=== PATIENT | female | born 1995 | race Caucasian/White ===

== ENCOUNTER 2016-12-28 16:46 | Observation (INO) | payer MEDICAID, OTHER ==
[2016-12-28] VITALS (9 sets, daily range): BP systolic 94; BP diastolic 55; PULSE 88; RESP 16–18; TEMP 97.9
[~2016-12-28 16:46] MED LIST: BACT800T5 PO; CLIN1CAP5 PO; HYDR-3533 PO; LIDO5GEL EX
[2016-12-28 18:05] LABS: AUTOMATED NEUTROPHIL # 7.6 TH/MM3 (1.8-7.7); BASOPHIL % 0.3 % (0.0-2.0); EOSINOPHIL # 0.1 TH/MM3 (0-0.4); EOSINOPHIL % 1.4 % (0.0-4.0); HEMATOCRIT 32.8 % (35.0-46.0); HEMO FLAGS DIFF FINAL; LYMPH % 16.9 % (9.0-44.0); LYMPHOCYTE # 1.7 TH/MM3 (1.0-4.8); MEAN CELL VOLUME 85.8 FL (80.0-100.0); MEAN CORPUSCULAR HEMOGLOBIN 29.3 PG (27.0-34.0); MEAN CORPUSCULAR HGB CONC 34.1 % (32.0-36.0); MONO % 7.3 % (0.0-8.0); NEUT % 74.1 % (16.0-70.0); PLATELET COUNT 304 TH/MM3 (150-450); RED BLOOD COUNT 3.82 MIL/MM3 (4.00-5.30); RED CELL DISTRIBUTION WIDTH 16.6 % (11.6-17.2); WHITE BLOOD COUNT 10.3 TH/MM3 (4.0-11.0)
[2016-12-28 18:22] LABS: BACTERIA, URINE MOD /hpf; BLOOD, URINE NEG (NEG); COMMENT (UR) CULTURE INDICATED; CULTURE IF INDICATED CULTURE INDICATED; GLUCOSE,URINE NEG (NEG); HYALINE CAST, URINE 1 /lpf (RARE); KETONE, URINE NEG (NEG); MUCUS URINE FEW /lpf (OCC); NITRITE,URINE NEG (NEG); SQUAMOUS EPITHELIAL CELL URINE 3 /hpf (0-5); URINE COLOR YELLOW (YELLW/STRAW)
[2016-12-28 18:24] LABS: AMPHETAMINE, URINE NEG (NEG); BARBITURATES, URINE NEG (NEG); COCAINE, URINE NEG (NEG)
[2016-12-28 18:31] LABS: ALT (GPT) 14 U/L (10-53); ANION GAP 10 MEQ/L (5-15); AST (GOT) 8 U/L (15-37); BICARBONATE 22.2 MEQ/L (21.0-32.0); BLOOD UREA NITROGEN 8 MG/DL (7-18); CHLORIDE 110 MEQ/L (98-107); GLOMERULAR FILTRATION RATE 177 ML/MIN (>89); POTASSIUM 3.6 MEQ/L (3.5-5.1); SODIUM (NA) 142 MEQ/L (136-145)
[2016-12-28 18:33] LABS: ALKALINE PHOSPHATASE 70 U/L (45-117); TOTAL BILIRUBIN ADULT 0.2 MG/DL (0.2-1.0)
[2016-12-28] MEDS: REMOVE OLD PATCH T-DERMAL SCH (18:45)
[2016-12-28] MEDS ORDERED: ONDANSETRON ODT 4 MG TAB PO PRN (18:45)
[2016-12-28] MEDS ORDERED: ONDANSETRON HCL 4 MG/2 ML VIAL IV PUSH PRN (18:45)
[2016-12-28] MEDS ORDERED: BUPRENORPHINE HCL 8 MG SUBLINGUAL TAB SL PRN (18:45)
--- NOTE | 2016-12-28 20:05 | HHI.HP ---
HPI Chief Complaint cramping abdominal pain Date Seen: Dec 28, 2016 Travel History International Travel<30 Days: No Contact w/Intl Traveler<30Days: No Known Affected Area: No History of Present Illness HPI This is a 21y/o at ~20w of gestation, with no care who presented to her first visit with JANE and was told to come to the [facility] for evaluation. Pt reported h/o IV drug abuse with multiple abscesses, no treatment. She used heroin up until May after which she started using subxone which she ran out of on Monday and then began using Xanax about 1.5 bars /day, both of which she obtains "from a friend." H/o suboxone use in her previous pregnancies. After her last she stopped using suboxone but then after hemarrhoid surgery she relapsed and started heroin again. Her partner does no use drugs, smoke or even drink alcohol. Pt really wants help to quit using. complicated by: 1. young multip, no care 2. poor social situation 3. drug abuse since about age 11, was in rehab from age [age]y for about 1 year 4. h/o PP hemorrhage 5. ? heart murmur on exam today 6. h/o MRSA, cultures obtained today Para: 4 : 6 Miscarriage: 1 History Past Medical History Medical History: Denies Significant Hx Obstetric History Obstetric History 07/27/08 38w [id number] Male, "Cedrik" no drug abuse 05/06/13 38w [id number] Female "Taleah" alcohol abuse 1st trimester, "pain pills," suboxone 07/15/14 39w Induction 8lbs Male "TJ" "Kidney problems" shoulder dystocia, "pain pills" heroin, suboxone 11/04/15 39w [id number] Male "Tory" shoulder dystocia "Estephanie" ecstasy, suboxone, stopped suboxone post delivery Past Surgical History Narrative Surgical hemorrhoid surgery 11/2015 Social History Alcohol Use: No Tobacco Use: Yes (2pp/d) Substance Abuse: Yes (multi drug abuse) Allergies-Medications (Allergen,Severity, Reaction): Coded Allergies: Penicillin (Verified Allergy, Unknown, 05/31/16) *MDRO Multi-Drug Resistant Organism (Verified Adverse Reaction, Unknown, 06/06/16) MRSA (abdomen-05/31/16) Home Meds Active Scripts Clindamycin 150 Mg Cap2 Tab PO Q6H 10 Days Ref 0 Prov:Alessandra Marie DO 05/31/16 Sulfamethoxazole-Trimethoprim (Bactrim DS)800-160 Mg Tab1 Tab PO BID #20 TAB Ref 0 Prov:Alessandra Marie DO 05/31/16 Hydrocodone/Acetaminophen 5 mg/325 mg (Lortab 5 mg/325 mg)1 Tab1 Tab PO Q6H PRN (PAIN) #20 TAB Prov:Karmen Wilson MD 12/11/15 Lidocaine (Anorectal) (Topicaine 5)5 % Gel5 % EX BID 5 Days Prov:Karmen Wilson MD 12/11/15 Review of Systems Except as stated in HPI: all other systems reviewed are Neg Physical Exam Vital Signs Date Time Temp Pulse Resp B/P Pulse Ox O2 Delivery O2 Flow Rate FiO2 12/28/16 19:43 97.9 12/28/16 19:42 88 94/55 12/28/16 19:41 18 12/28/16 19:15 17 12/28/16 17:30 16 Narrative GENERAL: Well-nourished, well-developed patient. SKIN: Warm and dry, multiple scabs all over arms/legs, 2 areas of resolved abscesses HEAD: Normocephalic and atraumatic. EYES: No scleral icterus. No injection or drainage. ENT: No nasal drainage noted. Mucous membranes pink. Airway patent. NECK: Supple, trachea midline. No JVD. CARDIOVASCULAR: Regular rate and rhythm without murmurs, gallops, or rubs. RESPIRATORY: Breath sounds equal bilaterally. No accessory muscle use. BREASTS: Bilateral exam showed no masses , no retractions, no nipple discharge. ABDOMEN/GI: Abdomen soft, non-tender, bowel sounds present, no rebound, no guarding Gravid to 20 weeks size GENITOURINARY: External Genitalia: intact and normal in appearance VE: closed/thick/posterior Uterine Contractions: None FHT's: + EXTREMITIES: No cyanosis or edema. BACK: Nontender without obvious deformity. No CVA tenderness. NEUROLOGICAL: Awake and alert. Motor and sensory grossly within normal limits. Five out of 5 muscle strength in all muscle groups. Normal speech. Data Data Vital Signs Reviewed: Yes Orders Vital Signs (Adult) .ON ADMISSION (12/28/16 17:20) ^ Labor Status (12/28/16 17:20) ^ Hydration (12/28/16 17:20) Ob/Psych Drug Screen, Urine (12/28/16 17:20) Rubella Immune Status (12/28/16 17:20) Hepatitis Profile (12/28/16 17:20) Rapid Plasma Regin (Rpr) W Ttr (12/28/16 17:20) Type And Screen (12/28/16 17:20) Complete Blood Count With Diff (12/28/16 17:20) Special Serology (12/28/16 17:20) Comprehensive Metabolic Panel (12/28/16 17:20) Gc And Chlamydia Pcr (12/28/16 17:20) Urinalysis - C+S If Indicated (12/28/16 17:20) Ob (2e) Additional Admit Info (12/28/16 18:13) Urine Culture (12/28/16 17:45) Equip, Isolation Cart (12/28/16 18:28) Ur Bath Salts (12/28/16 17:45) Ur Heroin (12/28/16 17:45) Ur K2 Spice (12/28/16 17:45) Ur Ecstasy (12/28/16 17:45) Phencyclidine Urine (Pcp) (12/28/16 17:45) Buprenorphine (Buprenorphine) (12/28/16 18:45) Blood Culture (12/28/16 18:32) Case Management Consult (12/28/16 ) Ondansetron Odt (Zofran Odt) (12/28/16 18:45) Ondansetron Inj (Zofran Inj) (12/28/16 18:45) Clonidine (Catapres) (12/28/16 18:45) Hydroxyzine Pamoate (Vistaril) (12/28/16 18:45) Lorazepam (Ativan) (12/28/16 18:45) Consult Infectious Disease (12/28/16 ) Consult Obstetrics (12/28/16 ) Nicotine 21 Mg Patch.24 Hr (Habitrol 21 (12/28/16 18:45) Remove Old Patch (12/28/16 18:45) Nasal Mrsa/Sa Pcr (12/28/16 18:32) Us Ob Pelvis >14 Wks Fetus (12/28/16 ) (Hub Use Only)Inp Phy Cons/Ref (12/28/16 ) (Hub Use Only)Inp Phy Cons/Ref (12/28/16 ) Labs Laboratory Tests Test 12/28/16 17:45 White Blood Count 10.3 Red Blood Count 3.82 Hemoglobin 11.2 Hematocrit 32.8 Mean Corpuscular Volume 85.8 Mean Corpuscular Hemoglobin 29.3 Mean Corpuscular Hemoglobin 34.1 Concent Red Cell Distribution Width 16.6 Platelet Count 304 Mean Platelet Volume 8.1 Neutrophils (%) (Auto) 74.1 Lymphocytes (%) (Auto) 16.9 Monocytes (%) (Auto) 7.3 Eosinophils (%) (Auto) 1.4 Basophils (%) (Auto) 0.3 Neutrophils # (Auto) 7.6 Lymphocytes # (Auto) 1.7 Monocytes # (Auto) 0.8 Eosinophils # (Auto) 0.1 Basophils # (Auto) 0.0 CBC Comment DIFF FINAL Differential Comment Urine Color YELLOW Urine Turbidity HAZY Urine pH 6.0 Urine Specific [place] 1.017 Urine Protein TRACE Urine Glucose (UA) NEG Urine Ketones NEG Urine Occult Blood NEG Urine Nitrite NEG Urine Bilirubin NEG Urine Urobilinogen 2.0 Urine Leukocyte Esterase SMALL Urine RBC 1 Urine WBC 4 Urine Squamous Epithelial 3 Cells Urine Bacteria MOD Urine Hyaline Casts 1 Urine Mucus FEW Microscopic Urinalysis Comment CULTURE INDICATED Sodium Level 142 Potassium Level 3.6 Chloride Level 110 Carbon Dioxide Level 22.2 Anion Gap 10 Blood Urea Nitrogen 8 Creatinine 0.44 Estimat Glomerular Filtration 177 Rate Random Glucose 88 Calcium Level 8.2 Total Bilirubin 0.2 Aspartate Amino Transf 8 (AST/SGOT) Alanine Aminotransferase 14 (ALT/SGPT) Alkaline Phosphatase 70 Total Protein 6.7 Albumin 2.7 Urine Opiates Screen NEG Urine Barbiturates Screen NEG Urine Amphetamines Screen NEG Urine Benzodiazepines Screen POS Urine Cocaine Screen NEG Urine Cannabinoids Screen NEG Blood Type A NEGATIVE Antibody Screen NEGATIVE Date/Time Procedure Status Source Growth 12/28/16 19:22 Aerobic Blood Culture Received Blood Peripheral Pending 12/28/16 19:22 Anaerobic Blood Culture Received Blood Peripheral Pending 12/28/16 17:45 Urine Culture Received Urine Clean Catch Pending Assessment/Plan Problem List: (1) Drug abuse during (2) Tobacco abuse (3) H/O methicillin resistant Staphylococcus aureus infection (4) No care in current in second trimester Assessment and Plan 21y/o at ~20w with muti-drug abuse, ?septicemia, ?heart murmur. -+FH -afebrile but cultures pending -tobacco abuse: for 21mg nicotine patch -drug abuse, likely will go into withdrawal while admitted: Subutex, Ativan, Vistaril, Clonidine -no care, for all labs and ultrasound tomorrow -pt considering adopting this child out -d/w Dr. Velazquez who recommended Subutex, will f/u with her outpatient Lala West MD Dec 28, 2016 20:05
[2016-12-28 20:13] LABS: CHLAMYDIA PCR NOT DETECTED (NOT DETECT); NEISSERIA PCR NOT DETECTED (NOT DETECT)
[2016-12-28 21:52] LABS: RUBELLA IGG ANTIBODY 52.7 IU/mL (10.0-500.0); RUBELLA STATUS IMMUNE (IMMUNE)
[2016-12-28] MEDS: NICOTINE 21 MG/24 HR PATCH T-DERMAL SCH (23:00)
[2016-12-29] VITALS (17 sets, daily range): BP systolic 93–117; BP diastolic 51–58; PULSE 74–90; RESP 18; TEMP 97.5–97.8
[2016-12-29] MEDS ORDERED: SODIUM CHLORIDE 0.9% FLUSH 10 ML FLUSH IV FLUSH PRN (08:15)
[2016-12-29] MEDS: SODIUM CHLORIDE 0.9% FLUSH 10 ML FLUSH IV FLUSH SCH ×2 (09:00→20:12)
[2016-12-29] MEDS: NICOTINE 21 MG/24 HR PATCH T-DERMAL SCH (09:00)
[2016-12-29] MEDS: REMOVE OLD PATCH T-DERMAL SCH (09:00)
--- NOTE | 2016-12-29 09:47 | PD.OB.ANTE ---
Subjective Diagnosis: (1) Drug abuse during (2) Tobacco abuse (3) H/O methicillin resistant Staphylococcus aureus infection (4) No care in current in second trimester Interval History No acute issues overnight. Patient took one dose of Vistaril overnight but did not take any Subutex or Ativan. She is feeling more anxious today. She is no longer having pelvic cramping. She notes chest pain that she has had for the past 3 days that she attributes to anxiety. She denies any shortness of breath, pleurodynia, nausea, vomiting, headache, or fever. She does endorse chills. No vaginal bleeding or discharge. Antepartum ROS: Reports: movement normal, Denies: New complaints, Loss of fluid, Vaginal bleeding, Contractions ( Juliane Jones MD R2) Objective Vital Signs Vital Signs Date Time Temp Pulse Resp B/P Pulse Ox O2 Delivery O2 Flow Rate FiO2 12/29/16 07:17 97.7 12/29/16 07:17 75 18 93/55 12/29/16 06:06 18 12/29/16 05:12 18 12/29/16 04:30 18 12/29/16 03:30 18 12/29/16 02:30 18 12/29/16 01:30 18 12/29/16 00:30 18 12/28/16 23:00 18 12/28/16 22:00 18 12/28/16 21:00 18 12/28/16 20:15 18 12/28/16 19:43 97.9 12/28/16 19:42 88 94/55 12/28/16 19:41 18 12/28/16 19:15 17 12/28/16 17:30 16 Lab & Micro Results Test 12/28/16 17:45 White Blood Count 10.3 TH/MM3 Red Blood Count 3.82 MIL/MM3 Hemoglobin 11.2 GM/DL Hematocrit 32.8 % Mean Corpuscular Volume 85.8 FL Mean Corpuscular Hemoglobin 29.3 PG Mean Corpuscular Hemoglobin 34.1 % Concent Red Cell Distribution Width 16.6 % Platelet Count 304 TH/MM3 Mean Platelet Volume 8.1 FL Neutrophils (%) (Auto) 74.1 % Lymphocytes (%) (Auto) 16.9 % Monocytes (%) (Auto) 7.3 % Eosinophils (%) (Auto) 1.4 % Basophils (%) (Auto) 0.3 % Neutrophils # (Auto) 7.6 TH/MM3 Lymphocytes # (Auto) 1.7 TH/MM3 Monocytes # (Auto) 0.8 TH/MM3 Eosinophils # (Auto) 0.1 TH/MM3 Basophils # (Auto) 0.0 TH/MM3 CBC Comment DIFF FINAL Differential Comment Urine Color YELLOW Urine Turbidity HAZY Urine pH 6.0 Urine Specific [place] 1.017 Urine Protein TRACE mg/dL Urine Glucose (UA) NEG mg/dL Urine Ketones NEG mg/dL Urine Occult Blood NEG Urine Nitrite NEG Urine Bilirubin NEG Urine Urobilinogen 2.0 MG/DL Urine Leukocyte Esterase SMALL Urine RBC 1 /hpf Urine WBC 4 /hpf Urine Squamous Epithelial 3 /hpf Cells Urine Bacteria MOD /hpf Urine Hyaline Casts 1 /lpf Urine Mucus FEW /lpf Microscopic Urinalysis Comment CULTURE INDICATED Sodium Level 142 MEQ/L Potassium Level 3.6 MEQ/L Chloride Level 110 MEQ/L Carbon Dioxide Level 22.2 MEQ/L Anion Gap 10 MEQ/L Blood Urea Nitrogen 8 MG/DL Creatinine 0.44 MG/DL Estimat Glomerular Filtration 177 ML/MIN Rate Random Glucose 88 MG/DL Calcium Level 8.2 MG/DL Total Bilirubin 0.2 MG/DL Aspartate Amino Transf 8 U/L (AST/SGOT) Alanine Aminotransferase 14 U/L (ALT/SGPT) Alkaline Phosphatase 70 U/L Total Protein 6.7 GM/DL Albumin 2.7 GM/DL Urine Opiates Screen NEG Urine Barbiturates Screen NEG Urine Amphetamines Screen NEG Urine Benzodiazepines Screen POS Urine Cocaine Screen NEG Urine Cannabinoids Screen NEG Chlamydia trachomatis DNA NOT DETECTED (PCR) Neisseria gonorrhoeae DNA NOT DETECTED (PCR) Rubella Immunity Screen IMMUNE Rubella Antibody, Quantitative 52.7 IU/mL Blood Type A NEGATIVE Antibody Screen NEGATIVE Date/Time Procedure Status Source Growth 12/28/16 19:22 Aerobic Blood Culture Received Blood Peripheral Pending 12/28/16 19:22 Anaerobic Blood Culture Received Blood Peripheral Pending 12/28/16 17:45 Urine Culture Received Urine Clean Catch Pending Physical Exam GENERAL: Well-nourished, well-developed female. Pallor. CARDIOVASCULAR: Regular rate and rhythm with 1/6 KONG, no gallops or rubs. RESPIRATORY: Breath sounds equal bilaterally. No accessory muscle use. ABDOMEN/GI: Abdomen soft, non-tender. Fundus: 20 GENITOURINARY: External Genitalia: intact and normal in appearance Cervix: posterior Dilatation: 0 Effacement: 0 Station: -3 Membranes: intact Uterine Contractions: none FHT's: 140 EXTREMITIES: No cyanosis or edema, non-tender, without signs of DVT. (Juliane Jones MD R2) Assessment and Plan Problem List: (1) Drug abuse during Status: Acute (2) Tobacco abuse Status: Acute (3) H/O methicillin resistant Staphylococcus aureus infection Status: Acute (4) No care in current in second trimester Status: Acute Assessment and Plan 21y/o at 21-3/7 weeks gestation by 2nd trimester US with muti-drug abuse, ?septicemia, ?heart murmur. -+FHT, reassuring. -Tobacco abuse: 21mg nicotine patch -Drug abuse, likely will go into withdrawal while admitted: Subutex, Ativan, Vistaril, Clonidine. -Dr. Velazquez consulted for assistance with Subutex, will f/u with her outpatient -No care- labs drawn and pending, obstetric US performed and pending -Afebrile, possible murmur, BCx x 2 pending. Infectious Disease, Dr. Domínguez, consulted. Recommended Echo and BCx which are pending. -Pt considering adopting this child out- Case management and Dr. Velazquez assisting with social aspects of care. dw Dr. West, Dr. Velazquez, Dr. Domínguez, and Dr. Garima Woodall R1 (Juliane Jones MD R2) Attestation Agree with above. Pending: ID consult, echo, blood/urine cultures (Lala West MD) Juliane Jones MD R2 Dec 29, 2016 09:47 Lala West MD Dec 29, 2016 09:52
--- NOTE | 2016-12-29 09:58 | PD.CONS ---
HPI Chief Complaint cramping and aggitation secondary to withdrawal at 21 weeks no care Date Seen: Dec 28, 2016 Travel History International Travel<30 Days: No Contact w/Intl Traveler<30Days: No Known Affected Area: No History of Present Illness HPI 21 yo wf at 21 weeks by sonogram presented with pain and cramping and no prior care. She has been in the [facility] several years-- originally from [place] She notes some movement. No leaking, bleeding. No fever, chills. Has been on an off opioids and other substances since 12 yoa. Most recently streat suboxone and "bars" 2 mg xanan--typically 1 to 1 and half daily. Unaware if hep c positive, HIV positive or if any bacterial infections. Has had spontaneous boils pop up on skin. She has reasonable dentition. She tallks very quietly and describes living with same boy since 12 yoa, who does not use himself but keeps her pipeline going. He is very dominating and controlling. Her mom in [place] has the oldest child but the mom and grandma are in active addiction. Para: 4 History Past Medical History Narrative Medical diagnosed with MRSA in past is depressed and has PTSD from childhood trauma Medical History: Denies Significant Hx (hasa been ) Past Surgical History Surgical History: No Previous Surgery Family History Family History: generational addiction and little support Social History Alcohol Use: No Tobacco Use: Yes Substance Abuse: Yes (smokes two packs daily) Allergies-Medications (Allergen,Severity, Reaction): Coded Allergies: Penicillin (Verified Allergy, Unknown, 05/31/16) *MDRO Multi-Drug Resistant Organism (Verified Adverse Reaction, Unknown, 06/06/16) MRSA (abdomen-05/31/16) Home Meds Active Scripts Clindamycin 150 Mg Cap2 Tab PO Q6H 10 Days Ref 0 Prov:Alessandra Marie DO 05/31/16 Sulfamethoxazole-Trimethoprim (Bactrim DS)800-160 Mg Tab1 Tab PO BID #20 TAB Ref 0 Prov:Alessandra Marie DO 05/31/16 Hydrocodone/Acetaminophen 5 mg/325 mg (Lortab 5 mg/325 mg)1 Tab1 Tab PO Q6H PRN (PAIN) #20 TAB Prov:Karmen Wilson MD 12/11/15 Lidocaine (Anorectal) (Topicaine 5)5 % Gel5 % EX BID 5 Days Prov:Karmen Wilson MD 12/11/15 Review of Systems HENT: Headaches Cardiovascular: Tachycardia Gastrointestinal: Nausea, Abdominal Pain, Loss of Appetite Skin: Rash, Lesions Neurologic: Weakness Psychiatric: Anxiety, Depression, Mood Disorder, Substance Abuse Physical Exam Vital Signs Date Time Temp Pulse Resp B/P Pulse Ox O2 Delivery O2 Flow Rate FiO2 12/29/16 07:17 97.7 12/29/16 07:17 75 18 93/55 12/29/16 06:06 18 12/29/16 05:12 18 12/29/16 04:30 18 12/29/16 03:30 18 12/29/16 02:30 18 12/29/16 01:30 18 12/29/16 00:30 18 12/28/16 23:00 18 12/28/16 22:00 18 12/28/16 21:00 18 12/28/16 20:15 18 12/28/16 19:43 97.9 12/28/16 19:42 88 94/55 12/28/16 19:41 18 12/28/16 19:15 17 12/28/16 17:30 16 Narrative GENERAL:thin pale and ill appearing SKIN: Warm and dry. Many healing lesions and thrombosed tracks HEAD: Normocephalic and atraumatic. EYES: No scleral icterus. No injection or drainage. ENT: No nasal drainage noted. Mucous membranes pink. Airway patent. NECK: Supple, trachea midline. No JVD. CARDIOVASCULAR: Regular rate and rhythm without murmurs, gallops, or rubs. RESPIRATORY: Breath sounds equal bilaterally. No accessory muscle use. BREASTS: Bilateral exam showed no masses , no retractions, no nipple discharge. ABDOMEN/GI: Abdomen soft, non-tender, bowel sounds present, no rebound, no guarding fundus at umbilicus FHTs present cervix closed EXTREMITIES: No cyanosis or edema. BACK: Nontender without obvious deformity. No CVA tenderness. NEUROLOGICAL: Awake and alert. Motor and sensory grossly within normal limits. Five out of 5 muscle strength in all muscle groups. Normal speech. Data Data Orders Vital Signs (Adult) .ON ADMISSION (12/28/16 17:20) ^ Labor Status (12/28/16 17:20) ^ Hydration (12/28/16 17:20) Ob/Psych Drug Screen, Urine (12/28/16 17:20) Rubella Immune Status (12/28/16 17:20) Hepatitis Profile (12/28/16 17:20) Rapid Plasma Regin (Rpr) W Ttr (12/28/16 17:20) Type And Screen (12/28/16 17:20) Complete Blood Count With Diff (12/28/16 17:20) Special Serology (12/28/16 17:20) Comprehensive Metabolic Panel (12/28/16 17:20) Gc And Chlamydia Pcr (12/28/16 17:20) Urinalysis - C+S If Indicated (12/28/16 17:20) Ob (2e) Additional Admit Info (12/28/16 18:13) Urine Culture (12/28/16 17:45) Equip, Isolation Cart (12/28/16 18:28) Ur Bath Salts (12/28/16 17:45) Ur Heroin (12/28/16 17:45) Ur K2 Spice (12/28/16 17:45) Ur Ecstasy (12/28/16 17:45) Phencyclidine Urine (Pcp) (12/28/16 17:45) Buprenorphine (Buprenorphine) (12/28/16 18:45) Blood Culture (12/28/16 18:32) Case Management Consult (12/28/16 ) Ondansetron Odt (Zofran Odt) (12/28/16 18:45) Ondansetron Inj (Zofran Inj) (12/28/16 18:45) Clonidine (Catapres) (12/28/16 18:45) Hydroxyzine Pamoate (Vistaril) (12/28/16 18:45) Lorazepam (Ativan) (12/28/16 18:45) Consult Infectious Disease (12/28/16 ) Consult Obstetrics (12/28/16 ) Nicotine 21 Mg Patch.24 Hr (Habitrol 21 (12/28/16 18:45) Remove Old Patch (12/28/16 18:45) Nasal Mrsa/Sa Pcr (12/28/16 18:32) (Hub Use Only)Inp Phy Cons/Ref (12/28/16 ) (Hub Use Only)Inp Phy Cons/Ref (12/28/16 ) Echo 2d Comp With Doppler (12/29/16 ) Place In Observation (12/29/16 ) Code Status (12/29/16 08:14) Vital Signs (Adult) ALEXX.Q4H (12/29/16 08:14) Diet Regular Basic (12/29/16 Breakfast) Sodium Chloride 0.9% Flush (Ns Flush) (12/29/16 08:15) Sodium Chloride 0.9% Flush (Ns Flush) (12/29/16 09:00) Activity Oob Ad Archana (12/29/16 08:14) Us Ob Complete/Level Ii (12/28/16 ) Labs Laboratory Tests Test 12/28/16 17:45 White Blood Count 10.3 Red Blood Count 3.82 Hemoglobin 11.2 Hematocrit 32.8 Mean Corpuscular Volume 85.8 Mean Corpuscular Hemoglobin 29.3 Mean Corpuscular Hemoglobin 34.1 Concent Red Cell Distribution Width 16.6 Platelet Count 304 Mean Platelet Volume 8.1 Neutrophils (%) (Auto) 74.1 Lymphocytes (%) (Auto) 16.9 Monocytes (%) (Auto) 7.3 Eosinophils (%) (Auto) 1.4 Basophils (%) (Auto) 0.3 Neutrophils # (Auto) 7.6 Lymphocytes # (Auto) 1.7 Monocytes # (Auto) 0.8 Eosinophils # (Auto) 0.1 Basophils # (Auto) 0.0 CBC Comment DIFF FINAL Differential Comment Urine Color YELLOW Urine Turbidity HAZY Urine pH 6.0 Urine Specific [place] 1.017 Urine Protein TRACE Urine Glucose (UA) NEG Urine Ketones NEG Urine Occult Blood NEG Urine Nitrite NEG Urine Bilirubin NEG Urine Urobilinogen 2.0 Urine Leukocyte Esterase SMALL Urine RBC 1 Urine WBC 4 Urine Squamous Epithelial 3 Cells Urine Bacteria MOD Urine Hyaline Casts 1 Urine Mucus FEW Microscopic Urinalysis Comment CULTURE INDICATED Sodium Level 142 Potassium Level 3.6 Chloride Level 110 Carbon Dioxide Level 22.2 Anion Gap 10 Blood Urea Nitrogen 8 Creatinine 0.44 Estimat Glomerular Filtration 177 Rate Random Glucose 88 Calcium Level 8.2 Total Bilirubin 0.2 Aspartate Amino Transf 8 (AST/SGOT) Alanine Aminotransferase 14 (ALT/SGPT) Alkaline Phosphatase 70 Total Protein 6.7 Albumin 2.7 Urine Opiates Screen NEG Urine Barbiturates Screen NEG Urine Amphetamines Screen NEG Urine Benzodiazepines Screen POS Urine Cocaine Screen NEG Urine Cannabinoids Screen NEG Chlamydia trachomatis DNA NOT DETECTED (PCR) Neisseria gonorrhoeae DNA NOT DETECTED (PCR) Rubella Immunity Screen IMMUNE Rubella Antibody, Quantitative 52.7 Blood Type A NEGATIVE Antibody Screen NEGATIVE Date/Time Procedure Status Source Growth 12/28/16 19:22 Aerobic Blood Culture Received Blood Peripheral Pending 12/28/16 19:22 Anaerobic Blood Culture Received Blood Peripheral Pending 12/28/16 17:45 Urine Culture Received Urine Clean Catch Pending MDM Medical Record Reviewed: Yes Interpretation(s) 21 week IUP rule out infection--including bacterial endocarditis substance use disorder--place on legal subutex and short term ativan consider mood stabilizer depression [facility] Margarita Velazquez MD Dec 29, 2016 09:58
[2016-12-29 10:22] LABS: RAPID PLASMA REAGIN SCREEN NON-REACTIVE (NON-REACTVE)
[2016-12-29] MEDS: LORazepam 1 MG TAB PO PRN ×3 (10:55→23:16)
[2016-12-29] MEDS ORDERED: HYDROCORTISONE SOD SUCCINATE 100 MG VIAL IM ONE (11:30)
--- NOTE | 2016-12-29 12:40 | ECHRPT ---
Indication: Acute and subacute infective endocarditis CONCLUSIONS Normal left ventricular size and wall thickness. The left ventricular systolic function is normal wi th an estimated ejection fraction in the range of 50-55%. Left ventricular diastolic function parameters a re normal. No definite regional wall motion abnormalities are present. Structurally normal tricuspid valve. There is trace tricuspid valve regurgitation. BP: 93 / 55 HR: 75 Rhythm: Sinus MEASUREMENTS (Male / Female) Normal Values Technical Quality:Fair 2D ECHO LV Diastolic Diameter PLAX 4.0 cm 4.2 - 5.9 / 3.9 - 5.3 cm LV Systolic Diameter PLAX 3.0 cm IVS Diastolic Thickness 0.8 cm 0.6 - 1.0 / 0.6 - 0.9 cm LVPW Diastolic Thickness 0.8 cm 0.6 - 1.0 / 0.6 - 0.9 cm LV Relative Wall Thickness 0.4 RV Internal Dim ED PLAX 2.5 cm LVOT Diameter 1.8 cm M-MODE Aortic Root Diameter MM 2.9 cm LA Systolic Diameter MM 2.6 cm LA Ao Ratio MM 0.9 AV Cusp Separation MM 2.2 cm DOPPLER AV Peak Velocity 103.0 cm/s AV Peak Gradient 4.2 mmHg LVOT Peak Velocity 95.3 cm/s LVOT Peak Gradient 3.6 mmHg AV Area Cont Eq pk 2.4 cm Mitral E Point Velocity 102.0 cm/s Mitral A Point Velocity 29.6 cm/s Mitral E to A Ratio 3.4 LV E' Lateral Velocity 10.8 cm/s Mitral E to LV E' Lateral Ratio 9.4 LV E' Septal Velocity 11.1 cm/s Mitral E to LV E' Septal Ratio 9.2 TR Peak Velocity 214.0 cm/s TR Peak Gradient 18.3 mmHg PV Peak Velocity 96.4 cm/s PV Peak Gradient 3.7 mmHg FINDINGS LEFT VENTRICLE Normal left ventricular size and wall thickness. The left ventricular systolic function is normal wi th an estimated ejection fraction in the range of 50-55%. Left ventricular diastolic function parameters a re normal. No definite regional wall motion abnormalities are present. TRICUSPID VALVE Structurally normal tricuspid valve. There is trace tricuspid valve regurgitation. The estimated pulmonary arterial pressure is 28 mmHg. Tray Fermin MD (Electronically Signed) Final Date:29 December 2016 12:39
--- NOTE | 2016-12-29 13:36 | MB ---
cc: DELMY CORBIN MD DATE OF CONSULTATION 12/29/[address] Jones REASON FOR CONSULTATION This is a 21-year-old female at 20 weeks gestation with a 10 year history IVDU. Multiple abscesses. Possible heart murmur. Consult for IV antibiotics. HISTORY OF PRESENT ILLNESS This is a 21-year-old white female who presented to the hospital with abdominal pain of a cramping nature. The patient is approximately 20 weeks gestation. She has a history of IV drug use in the past. She tells me that she has not used any IV drugs since May of last year. She has been using prescription medications, but not in IV form. The patient has multiple skin lesions on the legs and also on her hands. She was felt to have a heart murmur as well. She has no fever and white blood cell count is normal. The patient had a history of MRSA infection of the lower abdomen skin lesion in May of 2016. This was cultured and it came back with MRSA. She was given a prescription for medications, but did not take the medication. This lesion resolve spontaneously. She also at the time had a lesion on the left lateral knee which became more enlarged and formed what sounds like an abscess and then it drained and she states that she was having bleeding coming from that lesion and she was seen at an outlying hospital for it. She cannot give me to much details on the treatment given, but it spontaneously closed up and she has a scar in that location. She states that the area over the scar is sometimes tender. The patient has multiple petechial lesions on the anterior legs mostly and also at the feet on the dorsum. There are a few on the thighs. She has multiple on her hands and she has some located at the neck particularly at the posterior aspect and also along the chin. The patient states that she gets anxious and scratches. She states that when she gets high sometimes she can control scratching the areas. She states that they started as a tiny pin-sized raising area on the skin and then she would take her fingernails and try to pop them and they would become somewhat enlarged and then form the excoriation and becomes dry. She states that these do not itch. She states that the only time she gets itching is when the skin of her legs or her arms gets very dry. She tells me that she has a history of psoriasis and was diagnosed with that in childhood. She reports that she had some pain in he right knee and on her hands which comes and goes and was told it was related to psoriasis. She has used topical psoriasis treatments in the past but none lately. The patient states that she has not been taking care of herself lately. She states that sometimes she feels feverish, but when she takes her temperature it is normal. The last time she felt that way was two days ago. She denies night sweats and she has no nausea, vomiting, headache or pain in the joints. PAST MEDICAL HISTORY 1. MRSA skin infection at the abdomen. 2. PTSD from childhood trauma. 3. Substance abuse 4. History of IV drug use. Denies IV drug use after May 2016. 5. Psoriasis ALLERGIES PENICILLIN CAUSES A RASH AND CLOSING UP OF HER THROAT. MEDICATIONS 1. Nicotine patch 2. Ativan p.r.n. 3. Vistaril p.r.n. 4. Catapres p.r.n. 5. Zofran p.r.n. 6. Buprenorphine as needed SOCIAL HISTORY The patient has three chills, ages 1, 1 and 1. No alcohol use. She smokes two pack of cigarettes a day. She is positive for substance abuse. FAMILY HISTORY Noncontributory REVIEW OF SYSTEMS The review of systems is significant for abdomen pain and skin rash and also depressed mood. PHYSICAL EXAMINATION This is a frail petite female who is awake and alert. She is in no acute distress. VITAL SIGNS: Include temperature of 97.8, BP 105/58, respirations 18, heart rate 90. HEENT: Head is atraumatic. Extraocular grossly intact, pupils reactive to light. No icterus. Oropharynx no visible lesions. NECK: Supple without adenopathy. LUNGS: Clear breath sounds. HEART: Regular rate and rhythm. No audible murmurs or rubs or gallops. ABDOMEN: obese, soft, no tenderness appreciated. Positive bowel sounds. RECTAL: Not performed. EXTREMITIES: Multiple varying sized lesions of the skin of a petechial nature which is scattered mostly at the anterior tibia, but also involves the calves and also involving the feet. These are approximately 1 mm to 3 mm in size. The larger lesions have some erythema, but there is no pustule visible. The patient also has multiple similar lesions at the hands and also at the chin and a few on the posterior neck. No visible ones at the back and a few located at the abdomen. No drainage or ulceration visible. The left lateral knee has a dry excoriated scarred lesion. No diffuse rash. NEUROLOGIC: Nonfocal. PSYCH: The patient has a depressed mood, but is calm. LABORATORY DATA WBC 10.3, platelets 304, 74% neutrophils, 16% lymphocytes, 7% monocytes, creatinine 0.44, BUN 8. Sodium 142, AST 8, ALT 14. IMPRESSION The patient with multiple skin lesions which appears to be secondary to trauma from self-induced scratching of the skin by the patient. None of these have the appearance of abscess. The patient is without fever or white blood cell count elevation and she denies IV drug use recently with the last reported use in May of 2016. She has no visible stigmata of embolic lesions suggestive of endocarditis. On exam, I am unable to detect a murmur. . RECOMMENDATIONS 1. Monitor blood cultures until final 2. Follow the 2-D echocardiogram 3. Serial exams to follow for development of a murmur which also likely could be related to state. 4. No antibiotic treatment at this time. The patient developed dry skin and may benefit from emollient or some sort of cream to keep the skin moist. Thank you for this consultation. The patient's progress will be followed if necessary. Please call me if the blood cultures come back positive. Delmy Corbin MD FD/SYDNEY /12:45 PM /1:20 PM MELA
[2016-12-29] MEDS: BUPRENORPHINE HCL 8 MG SUBLINGUAL TAB SL SCH ×2 (15:01→20:46)
[2016-12-29] MEDS: fluvoxaMINE MALEATE 50 MG TAB PO SCH (15:01)
[2016-12-29] MEDS: cloNIDine HCL 0.1 MG TAB PO PRN ×2 (17:33→23:16)
[2016-12-29] MEDS ORDERED: ZOLPIDEM TARTRATE 10 MG TAB PO PRN (21:00)
[2016-12-30] VITALS (9 sets, daily range): BP systolic 91–119; BP diastolic 49–64; PULSE 60–90; RESP 18–20; TEMP 97.5–97.8; O2SAT 92–100
[2016-12-30 05:30] LABS: BACTERIA, URINE MANY /hpf; BLOOD, URINE NEG (NEG); COMMENT (UR) CULTURE INDICATED; CULTURE IF INDICATED CULTURE INDICATED; GLUCOSE,URINE NEG (NEG); HYALINE CAST, URINE 2 /lpf (RARE); KETONE, URINE NEG (NEG); MUCUS URINE MANY /lpf (OCC); NITRITE,URINE NEG (NEG); SQUAMOUS EPITHELIAL CELL URINE 8 /hpf (0-5); URINE COLOR YELLOW (YELLW/STRAW)
[2016-12-30 05:33] LABS: AMPHETAMINE, URINE NEG (NEG); BARBITURATES, URINE NEG (NEG); COCAINE, URINE NEG (NEG)
[2016-12-30] MEDS: fluvoxaMINE MALEATE 50 MG TAB PO SCH (08:37)
[2016-12-30] MEDS: BUPRENORPHINE HCL 8 MG SUBLINGUAL TAB SL SCH (08:38)
[2016-12-30] MEDS: NICOTINE 21 MG/24 HR PATCH T-DERMAL SCH (08:41)
--- NOTE | 2016-12-30 08:46 | PD.PN.STU ---
Subjective Remarks Heaevn was extremely tearful and frustrated after an interaction with the nurse last night in which she noticed that she was excessively tired and unable to hold her head up after her boyfriend came to visit at 3am. She is adamant that she did not take anything other than what has been prescribed and that she still wishes to continue the care plan that has been shared with her. Otherwise she has felt not cravings and has felt like her anxiety has become more manageable with the medications yesterday. Objective Vitals Vital Signs Date Time Temp Pulse Resp B/P Pulse Ox O2 Delivery O2 Flow Rate FiO2 12/30/16 07:45 97.8 20 12/30/16 07:40 90 92 12/30/16 07:30 67 100 12/30/16 05:45 71 100 12/30/16 05:38 81 98 12/30/16 05:04 97.5 12/30/16 05:04 60 18 91/51 12/29/16 22:22 97.8 12/29/16 22:21 76 18 93/57 12/29/16 19:54 78 101/58 12/29/16 19:54 97.5 18 12/29/16 17:37 18 12/29/16 17:32 74 117/57 12/29/16 14:31 80 12/29/16 14:30 97.8 80 18 12/29/16 14:30 95/51 12/29/16 14:28 97.8 12/29/16 10:39 90 18 105/58 12/29/16 10:39 97.8 Result Diagram: 12/28/16 [id number] Objective Remarks psych: mood is blunted, tearful. ABD: FHT 150s A/P Assessment and Plan 1. opioid use disorder: restart dosing regiment that began yesterday; get in touch with [facility] to get pier support representatives to visit room 2. anxiety: she is extremely uneasy about returning home and "finding her new norm;"counselled patient extensively on being introspective of her experience and giving time for medications to be figured out and we will reasses on appointment monday. IUP 28/10 EGA: [facility]. discharge planning - reassess at noon and prepare discharge orders at that time Juany Johnston M3 Dec 30, 2016 08:46
[2016-12-30] MEDS: SODIUM CHLORIDE 0.9% FLUSH 10 ML FLUSH IV FLUSH SCH (09:00)
[2016-12-30] MEDS: LORazepam 1 MG TAB PO PRN (12:06)
[2016-12-30] MEDS: cloNIDine HCL 0.1 MG TAB PO PRN ×2 (12:06→16:46)
--- NOTE | 2016-12-30 13:51 | PD.CONS ---
HPI Travel History International Travel<30 Days: No Contact w/Intl Traveler<30Days: No Known Affected Area: No History of Present Illness HPI 21 yo P4 at 21 weeks here to rule out infection. No evidence of sepsis or ENRICO. Has severe OCD and depression and being addressed. Will begin low dose subutex and follow up with me in office. Will need 12 step, peer support and counseling and will obtain through [employer] [facility]. She can be discharged today and see me on Monday. Allergies-Medications (Allergen,Severity, Reaction): Coded Allergies: Penicillin (Verified Allergy, Unknown, 05/31/16) *MDRO Multi-Drug Resistant Organism (Verified Adverse Reaction, Unknown, 06/06/16) MRSA (abdomen-05/31/16) Home Meds Active Scripts Clindamycin 150 Mg Cap2 Tab PO Q6H 10 Days Ref 0 Prov:Alessandra Marie DO 05/31/16 Sulfamethoxazole-Trimethoprim (Bactrim DS)800-160 Mg Tab1 Tab PO BID #20 TAB Ref 0 Prov:Alessandra Marie DO 05/31/16 Hydrocodone/Acetaminophen 5 mg/325 mg (Lortab 5 mg/325 mg)1 Tab1 Tab PO Q6H PRN (PAIN) #20 TAB Prov:Karmen Wilson MD 12/11/15 Lidocaine (Anorectal) (Topicaine 5)5 % Gel5 % EX BID 5 Days Prov:Karmen Wilson MD 12/11/15 Physical Exam Vital Signs Date Time Temp Pulse Resp B/P Pulse Ox O2 Delivery O2 Flow Rate FiO2 12/30/16 12:00 20 12/30/16 12:00 85 111/64 12/30/16 08:46 76 119/49 12/30/16 07:45 97.8 20 12/30/16 07:40 90 92 12/30/16 07:30 67 100 12/30/16 05:45 71 100 12/30/16 05:38 81 98 12/30/16 05:04 97.5 12/30/16 05:04 60 18 91/51 12/29/16 22:22 97.8 12/29/16 22:21 76 18 93/57 12/29/16 19:54 78 101/58 12/29/16 19:54 97.5 18 12/29/16 17:37 18 12/29/16 17:32 74 117/57 12/29/16 14:31 80 12/29/16 14:30 97.8 80 18 12/29/16 14:30 95/51 12/29/16 14:28 97.8 Narrative GENERAL: Well-nourished, well-developed patient. SKIN: Warm and dry. HEAD: Normocephalic and atraumatic. EYES: No scleral icterus. No injection or drainage. ENT: No nasal drainage noted. Mucous membranes pink. Airway patent. NECK: Supple, trachea midline. No JVD. CARDIOVASCULAR: Regular rate and rhythm without murmurs, gallops, or rubs. RESPIRATORY: Breath sounds equal bilaterally. No accessory muscle use. BREASTS: Bilateral exam showed no masses , no retractions, no nipple discharge. ABDOMEN/GI: Abdomen soft, non-tender, bowel sounds present, no rebound, no guarding Gravid to [-] weeks size Fundal Height: [-] GENITOURINARY: External Genitalia: intact and normal in appearance BUS glands: [-] Cervix: [-] Dilatation: [-] Effacement: [-] Station: [-] Presentation: [-] Membranes: [intact or ruptured] Uterine Contractions: [-] FHT's: Category: [-] Baseline: [-] Reactive: [-] Variability: [-] Decels: [-] EXTREMITIES: No cyanosis or edema. BACK: Nontender without obvious deformity. No CVA tenderness. NEUROLOGICAL: Awake and alert. Motor and sensory grossly within normal limits. Five out of 5 muscle strength in all muscle groups. Normal speech. Data Data Orders Zolpidem (Ambien) (12/29/16 21:00) Equip, K-Thermia Use Of (12/29/16 21:20) Pad, K-Thermia, Large 15x22 Ea (12/29/16 21:20) ^ Other Nursing Orders (12/29/16 21:21) Ob/Psych Drug Screen, Urine (12/30/16 05:12) Urinalysis - C+S If Indicated (12/30/16 05:17) Physician Name Changes (12/30/16 ) Urine Culture (12/30/16 05:13) Ur Bath Salts (12/30/16 05:13) Ur Heroin (12/30/16 05:13) Ur K2 Spice (12/30/16 05:13) Ur Ecstasy (12/30/16 05:13) Phencyclidine Urine (Pcp) (12/30/16 05:13) Labs Laboratory Tests Test 12/30/16 05:13 Urine Color YELLOW Urine Turbidity HAZY Urine pH 6.0 Urine Specific Darby 1.031 Urine Protein 30 Urine Glucose (UA) NEG Urine Ketones NEG Urine Occult Blood NEG Urine Nitrite NEG Urine Bilirubin NEG Urine Urobilinogen 2.0 Urine Leukocyte Esterase TRACE Urine RBC 4 Urine WBC 6 Urine Squamous Epithelial 8 Cells Urine Bacteria MANY Urine Hyaline Casts 2 Urine Mucus MANY Microscopic Urinalysis Comment CULTURE INDICATED Urine Opiates Screen NEG Urine Barbiturates Screen NEG Urine Amphetamines Screen NEG Urine Benzodiazepines Screen POS Urine Cocaine Screen NEG Urine Cannabinoids Screen NEG Date/Time Procedure Status Source Growth 12/30/16 05:13 Urine Culture Received Urine Clean Catch Pending 12/28/16 19:22 Aerobic Blood Culture - Preliminary Resulted Blood Peripheral NO GROWTH IN 2 DAYS 12/28/16 19:22 Anaerobic Blood Culture - Preliminary Resulted Blood Peripheral NO GROWTH IN 2 DAYS 12/28/16 17:45 Urine Culture - Preliminary Resulted Urine Clean Catch Gram Positive Cocci Margarita Velazquez MD Dec 30, 2016 13:51
[2016-12-30] MEDS ORDERED: FLUV50TA PO (13:54)
[2016-12-30] MEDS ORDERED: BUPR8SUB SL (13:54)
[2016-12-30] MEDS ORDERED: VENL1CAP38 PO (13:55)
[2016-12-30] MEDS ORDERED: QUET1TAB7 PO (13:56)
--- NOTE | 2016-12-30 13:56 | HHI.DCPOC ---
Discharge Care Plan Report Symptoms to Your Doctor -Temperature above 100.5 degrees -Redness, of incision or excessive or foul smelling drainage -Unusual pain or calf pain -Increased vaginal bleeding -Painful or difficulty urinating -Feelings of extreme sadness or anxiety after 2 weeks Goals to Promote Your Health * To prevent worsening of your condition and complications * To maintain your health at the optimal level Directions to Meet Your Goals Take your medications as prescribed Follow your dietary instruction Follow activity as directed Ensure plenty of rest for recovery Drink fluids for hydration Keep your appointments as scheduled Take your immunizations and boosters as scheduled If your symptoms worsen call your PCP, if no PCP go to Urgent Care Center or Emergency Room Smoking is Dangerous to Your Health. Avoid second hand smoke Call the 24-hour crisis hotline for domestic abuse at Margarita Velazquez MD Dec 30, 2016 13:56
[2016-12-30] MEDS ORDERED: PILL SPLITTER OTHER PRN (14:45)
[2016-12-30] MEDS ORDERED: BUPRENORPHINE HCL 8 MG SUBLINGUAL TAB SL ONE (14:45)
[2016-12-30] MEDS ORDERED: VENLAFAXINE HCL XR 37.5 MG CAP PO SCH (15:00)
[2016-12-30] MEDS ORDERED: QUEtiapine FUMARATE 25 MG TAB PO SCH (21:00)
[2017-01-02 08:53] LABS: BATH SALTS (MDPV) UR NEG (NEG); ECSTASY (MDMA) UR NEG (NEG); GABAPENTIN UR NEG (NEG); HEROIN (6-ACETYLMORPHINE) UR NEG (NEG); HYDROMORPHONE U NEG (NEG); K2 SPICE UR NEG (NEG); OBMETHADONE UR NEG (NEG); OXYCODONE (PERCODAN) NEG (NEG); PHENCYCLIDINE URINE NEG (NEG)
[2017-01-04 08:57] LABS: PHENCYCLIDINE URINE NEG (NEG)
[2017-01-04 08:58] LABS: HEROIN (6-ACETYLMORPHINE) UR NEG (NEG); OBMETHADONE UR NEG (NEG)
[2017-01-04 08:59] LABS: BATH SALTS (MDPV) UR NEG (NEG); ECSTASY (MDMA) UR NEG (NEG); GABAPENTIN UR NEG (NEG); HYDROMORPHONE U NEG (NEG); K2 SPICE UR NEG (NEG); OXYCODONE (PERCODAN) NEG (NEG)
== END 2016-12-30 18:30 | disposition home or self-care (01) ==
LOC: HOBED 16:46 → H2EA 18:14 → INTOOBSV 18:14
PROVIDERS: ADMIT Obstetrics & Gynecology; ATTEND Obstetrics & Gynecology
DX: O09.32 Supervision of pregnancy with insufficient antenatal care, second trimester (principal); O99.322 Drug use complicating pregnancy, second trimester; Z3A.21 21 weeks gestation of pregnancy; F17.210 Nicotine dependence, cigarettes, uncomplicated; Z86.14 Personal history of Methicillin resistant Staphylococcus aureus infection; F42.9 Obsessive-compulsive disorder, unspecified; O99.342 Other mental disorders complicating pregnancy, second trimester; R82.99 Other abnormal findings in urine; F11.20 Opioid dependence, uncomplicated; R01.1 Cardiac murmur, unspecified
CPT/HCPCS: 76811; 80053; 80074; 80307; 81001; 85025; 86403; 86592; 86703; 86762; 86850; 86900; 86901; 87040; 87077; 87086; 87186; 87491; 87591; 87641; 93306; 99285; G0378; G0481; J1720

== ENCOUNTER 2017-01-01 18:13 | Emergency (ER) | payer OTHER ==
[~2017-01-01 18:13] MED LIST changes: +BUPR8SUB SL; +FLUV50TA PO; +QUET1TAB7 PO; +VENL1CAP38 PO
[2017-01-01 18:40] VITALS: BP 105/59; PULSE 104; RESP 16; TEMP 98.4; O2SAT 96
[2017-01-01] MEDS ORDERED: LORazepam 1 MG TAB PO ONE (19:15)
--- NOTE | 2017-01-01 19:36 | PD ---
HPI Chief Complaint: Medical Clearance Time Seen by Provider: 18:44 Travel History International Travel<30 days: No Contact w/Intl Traveler<30days: No Traveled to known affect area: No History of Present Illness HPI Said 21-year-old woman who presents to the emergency department complaining of leg pain and feeling anxious. She is a history of IV drug use. She was just admitted to L&D for concern for infection and withdrawal symptoms. She was given prescriptions for Subutex and was supposed to follow-up with Dr. Velazquez tomorrow. States she was also given prescription for Ativan. She states she has not gotten the prescriptions filled and doesn't feel well. She also swelling in her legs. She felt like her left leg was more swollen today. She is tearful and anxious. She is 6 para 4, 0, 1, 4. She denies any change in vaginal discharge. No vaginal bleeding. No other complaints. History Past Medical History Narrative Medical IV drug use Multiparous : 6 Para: 4 Past Surgical History Surgical History: No Previous Surgery Social History Alcohol Use: No Tobacco Use: Yes Allergies-Medications (Allergen,Severity, Reaction): Coded Allergies: Penicillin (Verified Allergy, Unknown, 05/31/16) *MDRO Multi-Drug Resistant Organism (Verified Adverse Reaction, Unknown, 06/06/16) MRSA (abdomen-05/31/16) Reported Meds & Prescriptions Reported Meds & Active Scripts Active Quetiapine (Quetiapine Fumarate) 25 Mg Tab 25 Mg PO HS Effexor XR 24 HR (Venlafaxine HCl) 37.5 Mg Cap 37.5 Mg PO DAILY Fluvoxamine (Fluvoxamine Maleate) 50 Mg Tab 50 Mg PO DAILY Buprenorphine (Buprenorphine HCl) 8 Mg Subl 8 Mg SL BID Review of Systems Except as stated in HPI: all other systems reviewed are Neg Physical Exam Narrative GENERAL: 20 year-old woman, tearful and anxious. SKIN: Focused skin assessment warm/dry. Multiple areas of track lucero and areas of skin picking. HEAD: Atraumatic. Normocephalic. CARDIOVASCULAR: Regular rate and rhythm. No murmur appreciated. RESPIRATORY: No accessory muscle use. Clear to auscultation. Breath sounds equal bilaterally. GASTROINTESTINAL: Abdomen soft and gravid. No tenderness. MUSCULOSKELETAL: No obvious deformities. Some trace swelling in the left ankle. No calf swelling or edema. She has one small spot on the left foot laterally that she says is more tender. No evidence of infection. No ecchymosis or bruising. NEUROLOGICAL: Awake and alert. No obvious cranial nerve deficits. Motor grossly within normal limits. Normal speech. PSYCHIATRIC: Tearful and anxious. Data Data Last Documented VS Vital Signs Date Time Temp Pulse Resp B/P Pulse Ox O2 Delivery O2 Flow Rate FiO2 01/01/17 18:40 98.4 104 16 105/59 96 Orders Ed Poc Ultrasound (01/01/17 ) Lorazepam (Ativan) (01/01/17 19:15) Us Leg Venous Doppler (01/01/17 ) [facility] Medical Decision Making Medical Screen Exam Complete: Yes Emergency Medical Condition: Yes Interpretation(s) Left lower Elsa ultrasound: Negative for DVT. Some inguinal adenopathy. Differential Diagnosis DVT, swelling, skin picking, withdrawal symptoms, anxiety, other Narrative Course Medical decision-making 20 year-old woman, multiple medical problems most related to anxiety and IVDU. She is here complaining of leg swelling left leg pain. She also has not filled her medications are being discharged couple days ago. She has appointment with her LAUNCHMAN tomorrow. We'll check an ultrasound the left leg. We'll give her a dose of Ativan here. Recommend outpatient follow-up. Diagnosis Primary Impression: Leg swelling in Additional Instructions: Follow-up with Dr. Velazquez tomorrow as planned. Return to the emergency department for any new or worsening symptoms. Disposition: 01 DISCHARGE HOME Condition: Stable Enoc Dorsey MD Jan 01, 2017 19:36
--- NOTE | 2017-01-01 20:29 | RADRPT ---
EXAM DATE/TIME: 01/01/2017 19:49 [facility] COMPARISON: No previous studies available for comparison. INDICATIONS : Left leg pain. MEDICAL HISTORY : Methicillin-resistant staph aureus. Left leg pain and swelling. SURGICAL HISTORY : ENCOUNTER: Initial ACUITY: 1 day PAIN SCORE: 8/10 LOCATION: Left leg. TECHNIQUE: Venous ultrasound of the leg was performed from the inguinal ligament to the proximal calf. Real-rafi e, color Doppler and spectral tracing, compression and augmentation techniques were used. FINDINGS: There is normal compressibility of the deep venous system from the inguinal region to the proximal ca lf. No echogenic clot is seen in the lumen of the common femoral, femoral, popliteal, and posterior tibial veins. There is a normal response of the venous system to proximal and distal augmentation an d respiration. Mildly enlarged left groin lymph nodes with the largest measuring 2.3 x 1.5 x 0.6 cm. CONCLUSION: No evidence of deep venous thrombosis within the left lower extremity. Mildly enlarge d left inguinal lymph nodes which are nonspecific. Tin Kimball MD on January 01, 2017 at 20:26 Board Certified Radiologist. This report was verified electronically.
== END 2017-01-01 22:32 | disposition home or self-care (01) ==
LOC: NEPD 18:13
DX: O12.00 Gestational edema, unspecified trimester (principal); M79.605 Pain in left leg; Z3A.00 Weeks of gestation of pregnancy not specified
CPT/HCPCS: 93971; 99284

== ENCOUNTER 2017-01-03 00:27 | Emergency (ER) | payer OTHER ==
[~2017-01-03 00:27] MED LIST changes: -BACT800T5 PO; -CLIN1CAP5 PO; -HYDR-3533 PO; -LIDO5GEL EX
[2017-01-03 00:28] VITALS: BP 109/60; PULSE 108; RESP 16; TEMP 98.6; O2SAT 96
== END 2017-01-03 02:54 | disposition left against medical advice (07) ==
LOC: NEPC 00:27
DX: M79.605 Pain in left leg (principal)
CPT/HCPCS: 99281

== ENCOUNTER 2017-01-03 16:24 | Inpatient (IN) | payer OTHER ==
[~2017-01-03] VITALS: Ht 154.9 cm; Wt 61.0 kg
[2017-01-03] MEDS ORDERED: ALUMINUM/MAGNESIUM/SIMETH 30 ML CUP PO PRN (18:00)
[2017-01-03] MEDS ORDERED: SODIUM CHLORIDE 0.9% FLUSH 10 ML FLUSH IV FLUSH PRN (18:00)
[2017-01-03] MEDS ORDERED: cefTRIAXone INJ 1,000 MG in SODIUM CHLORIDE 0.9% INJ 100 ML IV SCH (18:00)
--- NOTE | 2017-01-03 18:16 | HHI.HP ---
HPI Chief Complaint 22 week IUP with increasingly severe edema, fatigue and NV opioid use disorder no care Date Seen: Jan 03, 2017 Time Seen: 18:01 Travel History International Travel<30 Days: No Contact w/Intl Traveler<30Days: No Known Affected Area: No History of Present Illness HPI 21 yo wf at 22 weeks first seen last week at request of laborists. Had presented with no care, malaise, fatigue (profound) flat affect and depression. Has been using opioids off street including heroin IV and smoking 2 PPD. Lives with boyfriend's family and sleeps on the floor. Profoundly depressed and apathetic almost catatonic. Since that initial evaluation she has developed marked edema, impetigo both extremeties from obsessive picking and can not walk even short distances. She is vomiting. She cannot eat. She denies leaking, bleeding,. Has FM. Para: 4 : 6 Allergies-Medications (Allergen,Severity, Reaction): Coded Allergies: Penicillin (Verified Allergy, Unknown, 01/03/17) *MDRO Multi-Drug Resistant Organism (Verified Adverse Reaction, Unknown, ) MRSA (abdomen-05/31/16) Home Meds Active Scripts Quetiapine 25 Mg Tab25 Mg PO HS #6 TAB Prov:Margarita Velazquez MD 12/30/16 Venlafaxine ER 24 HR (Effexor XR 24 HR)37.5 Mg Cap37.5 Mg PO DAILY #7 CAP Prov:Margarita Velazquez MD 12/30/16 Fluvoxamine 50 Mg Tab50 Mg PO DAILY #7 TAB Prov:Margarita Velazquez MD 12/30/16 Buprenorphine 8 Mg Subl8 Mg SL BID #6 TAB Prov:Margarita Velazquez MD 12/30/16 Discontinued Scripts Clindamycin 150 Mg Cap2 Tab PO Q6H 10 Days Ref 0 Prov:Alessandra Marie DO 05/31/16 Sulfamethoxazole-Trimethoprim (Bactrim DS)800-160 Mg Tab1 Tab PO BID #20 TAB Ref 0 Prov:Alessandra Marie DO 05/31/16 Hydrocodone/Acetaminophen 5 mg/325 mg (Lortab 5 mg/325 mg)1 Tab1 Tab PO Q6H PRN (PAIN) #20 TAB Prov:Karmen Wilson MD 12/11/15 Lidocaine (Anorectal) (Topicaine 5)5 % Gel5 % EX BID 5 Days Prov:Karmen Wilson MD 12/11/15 Review of Systems General / Constitutional: Weight Loss HENT: Headaches, Lightheadedness Cardiovascular: Palpitations, Edema Gastrointestinal: Nausea, Vomiting, Abdominal Pain, Loss of Appetite Musculoskeletal: Weakness, Edema Skin: Rash Neurologic: Weakness Psychiatric: Anxiety, Depression, Substance Abuse Physical Exam Narrative GENERAL: Extremely pale, frail appearing girl with flat affect and slow response to questions. Having nausea and vomiting. SKIN: Warm and dry. HEAD: Normocephalic and atraumatic. EYES: No scleral icterus. No injection or drainage. ENT: No nasal drainage noted. Mucous membranes pink. Airway patent. NECK: Supple, trachea midline. No JVD. CARDIOVASCULAR: Regular rate and rhythm without murmurs, gallops, or rubs. RESPIRATORY: Breath sounds equal bilaterally. No accessory muscle use.significant rales and wheezes BREASTS: Bilateral exam showed no masses , no retractions, no nipple discharge. ABDOMEN/GI: Abdomen soft, non-tender, bowel sounds present, no rebound, no guarding fundus at U] cervix closed in office EXTREMITIES: many small infected ulcers and increasing edema with hard area left foot outside. The edema has increased since yesterday (27 cm yesterday on left and now 33 cm) BACK: Nontender without obvious deformity. No CVA tenderness. NEUROLOGICAL: Awake and alert. Motor and sensory grossly within normal limits. Five out of 5 muscle strength in all muscle groups. Normal speech. Data Data Orders Diet Regular Basic (01/03/17 Dinner) Admit To Inpatient (01/03/17 ) Vital Signs (Adult) [id number] AWAKE (01/03/17 17:53) Heart ALEXX.QSHIFT (01/03/17 17:53) Activity Oob Ad Archana (01/03/17 17:53) Complete Blood Count With Diff (01/03/17 17:53) Total Protein 24hr Urine (01/03/17 17:53) Uric Acid (01/03/17 17:53) Urinalysis - C+S If Indicated (01/03/17 17:53) Lactated Ringer's 1000 Ml Inj (Lr 1000 M (01/03/17 17:53) Wylyxaut-Lzz-Kyvds-Iron Prenat (Stuartna (01/04/17 09:00) Al-Mag Hy-Si 40-40-4 Mg/Ml Liq (Mag-Al P (01/03/17 18:00) Sodium Chloride 0.9% Flush (Ns Flush) (01/03/17 21:00) Sodium Chloride 0.9% Flush (Ns Flush) (01/03/17 18:00) Ob/Psych Drug Screen, Urine (01/03/17 17:53) Ferrous Sulfate (Ferrous Sulfate) (01/03/17 21:00) Ceftriaxone Inj (Rocephin Inj) (01/03/17 18:00) Inpatient Certification (01/03/17 ) Specimen To Be Collected PRN (01/03/17 17:53) Comprehensive Metabolic Panel (01/03/17 17:53) Thyroid Stimulating Hormone (01/03/17 17:53) Hemoglobin (Hgb) A1c (01/03/17 17:53) Westergren Sedimentation Rate (01/03/17 17:53) Us Leg Venous Doppler Bilat (01/03/17 ) Buprenorphine (Buprenorphine) (01/03/17 21:00) Assessment/Plan Problem List: (1) Tobacco abuse (2) No care in current in second trimester (3) Drug abuse during (4) Leg swelling in Assessment and Plan appears anemic and very weak was unable to greens picker medications yesterday needs work up for metabolic, endocrine and or infectious disorder buprenorphine for opioid maintenance psych eval--extreme anxiety depending on labs and response to hydration and antibiotics will consult cardiology, nephrology and infectious disease. hold seroquel HS and luvox and effexor. case management Margarita Velazquez MD Jan 03, 2017 18:16
[2017-01-03] MEDS: LACTATED RINGER'S 1000 ML INJ 1,000 ML IV SCH (18:27)
[2017-01-03 18:46] LABS: AUTOMATED NEUTROPHIL # 8.2 TH/MM3 (1.8-7.7); BASOPHIL % 0.4 % (0.0-2.0); EOSINOPHIL # 0.3 TH/MM3 (0-0.4); EOSINOPHIL % 2.5 % (0.0-4.0); HEMATOCRIT 28.9 % (35.0-46.0); HEMO FLAGS DIFF FINAL; LYMPH % 18.1 % (9.0-44.0); LYMPHOCYTE # 2.1 TH/MM3 (1.0-4.8); MEAN CORPUSCULAR HEMOGLOBIN 29.7 PG (27.0-34.0); MEAN CORPUSCULAR HGB CONC 34.1 % (32.0-36.0); MONO % 8.9 % (0.0-8.0); NEUT % 70.1 % (16.0-70.0); PLATELET COUNT 293 TH/MM3 (150-450); RED BLOOD COUNT 3.32 MIL/MM3 (4.00-5.30); RED CELL DISTRIBUTION WIDTH 16.1 % (11.6-17.2); WHITE BLOOD COUNT 11.7 TH/MM3 (4.0-11.0)
[2017-01-03 19:19] LABS: ANION GAP 7 MEQ/L (5-15); AST (GOT) 18 U/L (15-37); BICARBONATE 24.6 MEQ/L (21.0-32.0); BLOOD UREA NITROGEN 11 MG/DL (7-18); CHLORIDE 109 MEQ/L (98-107); GLOMERULAR FILTRATION RATE 157 ML/MIN (>89); POTASSIUM 3.6 MEQ/L (3.5-5.1); SODIUM (NA) 141 MEQ/L (136-145); URIC ACID 4.3 MG/DL (2.6-6.0)
[2017-01-03 19:20] LABS: ALT (GPT) 23 U/L (10-53)
[2017-01-03 19:23] LABS: WESTERGREN SEDIMENTATION RATE 36 mm/hr (0-20)
[2017-01-03 19:29] LABS: ALKALINE PHOSPHATASE 117 U/L (45-117); TOTAL BILIRUBIN ADULT 0.3 MG/DL (0.2-1.0)
[2017-01-03 19:41] VITALS: BP 87/42; PULSE 86; TEMP 98.3
--- NOTE | 2017-01-03 19:47 | RADRPT ---
EXAM DATE/TIME: 01/03/2017 18:54 [facility] COMPARISON: No previous studies available for comparison. INDICATIONS : Cough. MEDICAL HISTORY : None. SURGICAL HISTORY : None. ENCOUNTER: Initial ACUITY: 1 day PAIN SCORE: 0/10 LOCATION: Bilateral chest FINDINGS: There do appear to be nodular densities seen at the lower chest bilaterally consistent with nipple shadows. In addition there appears to be some increased density seen medial to the left nipple shadow. The right lung appears clear. The costophrenic angles appear clear. No effusion is seen. The heart and mediastinal structures are normal in size. CONCLUSION: 1. Increased density at the left base. Some mild atelectasis or consolidation needs to be considered. 2. Densities projecting over the chest bilaterally consistent with nipple shadows. Sherwin Schmidt MD on January 03, 2017 at 19:26 Board Certified Radiologist. This report was verified electronically.
[2017-01-03 20:52] LABS: BACTERIA, URINE MANY /hpf; BLOOD, URINE NEG (NEG); COMMENT (UR) CULTURE INDICATED; CULTURE IF INDICATED CULTURE INDICATED; GLUCOSE,URINE NEG (NEG); KETONE, URINE 10 mg/dL (NEG); MUCUS URINE MOD /lpf (OCC); NITRITE,URINE NEG (NEG); PH, URINE 5.5 (5.0-8.5); SQUAMOUS EPITHELIAL CELL URINE 4 /hpf (0-5)
[2017-01-03 20:54] LABS: AMPHETAMINE, URINE NEG (NEG); BARBITURATES, URINE NEG (NEG); COCAINE, URINE NEG (NEG); URINE COLOR ORANGE (YELLW/STRAW)
[2017-01-03] MEDS: SODIUM CHLORIDE 0.9% FLUSH 10 ML FLUSH IV FLUSH SCH (21:00)
[2017-01-03 21:10] VITALS: O2SAT 100
--- NOTE | 2017-01-03 21:21 | RADRPT ---
EXAM DATE/TIME: 01/03/2017 20:09 [facility] COMPARISON: No previous studies available for comparison. INDICATIONS : Bilateral leg swelling. MEDICAL HISTORY : Methicillin-resistant Staphylococcus aureus. Currently 22 weeks . . Depression. Substance u se. SURGICAL HISTORY : None. ENCOUNTER: Subsequent ACUITY: 3 days PAIN SCORE: 2/10 LOCATION: Bilateral legs. TECHNIQUE: Venous ultrasound of the left and right leg was performed from the inguinal ligament to the proximal calf. Real-time, color Doppler and spectral tracing, compression and augmentation techniques were us ed. FINDINGS: RIGHT LEG: There is normal compressibility of the deep venous system from the inguinal region to the proximal ca lf. No echogenic clot is seen in the lumen of the common femoral, femoral, popliteal, and posterior tibial veins. There is a normal response of the venous system to proximal and distal augmentation an d respiration. LEFT LEG: There is normal compressibility of the deep venous system from the inguinal region to the proximal ca lf. No echogenic clot is seen in the lumen of the common femoral, femoral, popliteal, and posterior tibial veins. There is a normal response of the venous system to proximal and distal augmentation an d respiration. There is a 2.8 x 1.1 x 0.6 cm superficial lymph node seen in the left inguinal region. CONCLUSION: No DVT. Sherwin Schmidt MD on January 03, 2017 at 21:04 Board Certified Radiologist. This report was verified electronically.
[2017-01-03] MEDS: BUPRENORPHINE HCL 8 MG SUBLINGUAL TAB SL SCH (21:22)
[2017-01-03] MEDS: FERROUS SULFATE 325 MG (65 MG ELEMENTAL IRON) TAB PO SCH (21:22)
[2017-01-03 23:10] LABS: MRSA PCR POSITIVE (NEGATIVE); STAPH AUREUS PCR POSITIVE (NEGATIVE)
[2017-01-03 23:43] VITALS: BP 72/54; PULSE 73
[2017-01-03 23:44] VITALS: BP 87/48; PULSE 62; TEMP 97.8; O2SAT 100
[2017-01-04] VITALS (15 sets, daily range): BP systolic 87–108; BP diastolic 44–62; PULSE 46–133; RESP 16–20; TEMP 97.8–98.3; O2SAT 97–98
[2017-01-04] MEDS: LACTATED RINGER'S 1000 ML INJ 1,000 ML IV SCH ×3 (00:25→21:46)
--- NOTE | 2017-01-04 08:42 | PD.CONS ---
HPI Service [facility] Hospitalists Consult Requested By Dr. Velazquez Reason for Consult "Need advice on metabolic, endocrine, or infectious process complicating " Primary Care Physician Lolis Lovell MD Diagnoses: (1) Drug abuse during (2) No care in current in second trimester (3) Leg swelling in (4) Tobacco abuse (5) Anemia (6) Leukocytosis (7) UTI (urinary tract infection) (8) Anxiety and depression (9) Skin lesions History of Present Illness The patient is a 21-year-old at 22 weeks and 2 days gestation seen in labor and delivery. The patient was examined in the presence of the nurse. Hospitalist consultation was requested for evaluation of possible metabolic, endocrine, or infectious disorder, getting . The patient initially was sent to the hospital for worsening lower extremity edema. She states that her swelling has improved over the last 24 hours. She is still having pain in her feet, worse with ambulation. Denies dyspnea. Does have nonproductive cough. She reports chronic intermittent chest pain, which she attributes to "pleurisy" diagnosed at age 14. She states that the pain has never resolved. She states that the pain is worse if she does not smoke her cigarettes. She denies nausea or vomiting. Review of Systems Constitutional: DENIES: Fever, Chills, Night Sweats Eyes: DENIES: Blurred vision, Vision loss Ears, nose, mouth, throat: DENIES: Hearing loss Respiratory: DENIES: Cough, Wheezing, Sputum production, Shortness of breath Cardiovascular: COMPLAINS OF: Chest pain (*in history of present illness), DENIES: Palpitations, Dyspnea on Exertion, Lower Extremity Edema Gastrointestinal: DENIES: Abdominal pain, Constipation, Diarrhea, Nausea, Vomiting Genitourinary: DENIES: Urinary frequency, Urinary incontinence, Urgency, Hematuria, Dysuria, Nocturia Musculoskeletal: DENIES: Joint pain, Muscle aches Integumentary: COMPLAINS OF: Rash, DENIES: Pruritus Hematologic/lymphatic: DENIES: Bruising Neurologic: DENIES: Headache Past Family Social History Allergies: Coded Allergies: Penicillin (Verified Allergy, Unknown, 01/03/17) *MDRO Multi-Drug Resistant Organism (Verified Adverse Reaction, Unknown, MRSA, 01/04/17) MRSA (abdomen-05/31/16) MRSA PCR (nares) positive - 01/03/17 Past Medical History "Pleurisy" Polysubstance abuse Past Surgical History Thrombosed hemorrhoid Reported Medications The patient has recently been prescribed medications for anxiety/depression, but has not filled the prescriptions. She takes Suboxone when she can get it, although it appears that this is not prescribed either. Family History Stroke Lung cancer COPD Uncle had pancreatic cancer Social History Smokes 2 packs of cigarettes per day. Reports history of IV drug abuse, but states that she last used in May of last year. She does continue to use oral Xanax and Suboxone. Denies alcohol use. Physical Exam Vital Signs Vital Signs Date Time Temp Pulse Resp B/P Pulse Ox O2 Delivery O2 Flow Rate FiO2 01/04/17 08:25 98.2 50 01/04/17 08:25 46 92/44 01/04/17 08:24 16 01/04/17 08:24 52 92/49 01/04/17 00:27 62 87/45 01/03/17 23:44 97.8 100 01/03/17 23:44 62 87/48 01/03/17 23:43 73 72/54 01/03/17 21:10 100 01/03/17 19:41 98.3 01/03/17 19:41 86 87/42 Physical Exam The patient was seen and examined in the presence of the nurse. GENERAL: Thin, pale female in no acute distress. HEENT: Normocephalic, atraumatic. Pupils equal, round and reactive. Extraocular movements intact. No scleral icterus. No injection or drainage. Oropharynx is clear. Mucous membranes are moist. CARDIOVASCULAR: Regular rate and rhythm without murmurs, gallops, or rubs. RESPIRATORY: Clear to auscultation. No wheezes, rales, or rhonchi. Breathing is non-labored. GASTROINTESTINAL: Abdomen gravid. EXTREMITIES: 1+ bilateral lower extremity edema. No calf tenderness. PSYCH: Alert and oriented x 3. SKIN: Multiple skin lesions on her extremities with mild surrounding erythema. No apparent fluctuance or active drainage of any of these lesions. Laboratory Laboratory Tests Test 01/03/17 01/03/17 01/03/17 18:05 18:30 19:50 White Blood Count 11.7 Red Blood Count 3.32 Hemoglobin 9.9 Hematocrit 28.9 Mean Corpuscular Volume 87.0 Mean Corpuscular Hemoglobin 29.7 Mean Corpuscular Hemoglobin 34.1 Concent Red Cell Distribution Width 16.1 Platelet Count 293 Mean Platelet Volume 8.1 Neutrophils (%) (Auto) 70.1 Lymphocytes (%) (Auto) 18.1 Monocytes (%) (Auto) 8.9 Eosinophils (%) (Auto) 2.5 Basophils (%) (Auto) 0.4 Neutrophils # (Auto) 8.2 Lymphocytes # (Auto) 2.1 Monocytes # (Auto) 1.0 Eosinophils # (Auto) 0.3 Basophils # (Auto) 0.0 CBC Comment DIFF FINAL Differential Comment Erythrocyte Sedimentation Rate 36 Sodium Level 141 Potassium Level 3.6 Chloride Level 109 Carbon Dioxide Level 24.6 Anion Gap 7 Blood Urea Nitrogen 11 Creatinine 0.49 Estimat Glomerular Filtration 157 Rate Random Glucose 69 Uric Acid 4.3 Calcium Level 8.1 Total Bilirubin 0.3 Aspartate Amino Transf 18 (AST/SGOT) Alanine Aminotransferase 23 (ALT/SGPT) Alkaline Phosphatase 117 Total Protein 6.5 Albumin 2.6 Thyroid Stimulating Hormone 0.956 3rd Gen Urine Color ORANGE Urine Turbidity HAZY Urine pH 5.5 Urine Specific [place] 1.039 Urine Protein 30 Urine Glucose (UA) NEG Urine Ketones 10 Urine Occult Blood NEG Urine Nitrite NEG Urine Bilirubin NEG Urine Urobilinogen 4.0 Urine Leukocyte Esterase SMALL Urine RBC 2 Urine WBC 3 Urine Squamous Epithelial 4 Cells Urine Bacteria MANY Urine Mucus MOD Microscopic Urinalysis Comment CULTURE INDICATED Urine Opiates Screen NEG Urine Barbiturates Screen NEG Urine Amphetamines Screen NEG Urine Benzodiazepines Screen NEG Urine Cocaine Screen NEG Urine Cannabinoids Screen NEG Nasal Screen MRSA (PCR) POSITIVE Staphylococcus aureus POSITIVE (PCR)(LAB) Date/Time Procedure Status Source Growth 01/03/17 18:30 Urine Culture Received Urine Clean Catch Pending Result Diagram: 01/03/17 1805 01/03/17 1805 Imaging Last Impressions Lower Extremity Ultrasound 01/03/17 0000 Signed Impressions: Service Date/Time: Tuesday, January 03, 2017 20:09 - CONCLUSION: No DVT. Sherwin Schmidt MD Chest X-Ray 01/03/17 0000 Signed Impressions: Service Date/Time: Tuesday, January 03, 2017 18:54 - CONCLUSION: 1. Increased density at the left base. Some mild atelectasis or consolidation needs to be considered. 2. Densities projecting over the chest bilaterally consistent with nipple shadows. Sherwin Schmidt MD Assessment and Plan Assessment and Plan 1. at 22 weeks, 2 days gestation: Management per obstetrics. 2. UTI: Continue Rocephin. Urine culture is pending. 3. Multiple skin lesions: Likely MRSA. Her MRSA screen is positive. Consult infectious disease for antibiotic recommendations. 4. Anxiety/depression: Patient is not currently on any prescribed medications, although she takes Xanax occasionally. Consult psychiatry. 5. Polysubstance abuse: Patient has been taking Suboxone when she can get it. This has been continued by the primary service. She apparently does not see a physician regularly and does not have this prescribed for her. She states that she has taken it during past pregnancies as well, and takes opiate pain medications when she is not able to get the Suboxone. She states that her last IV drug abuse was in May 2016. She has been counseled. 6. Tobacco abuse: The patient was counseled to quit smoking. Nicotine patch. 7. Hypotension: Patient's blood pressures are slightly lower than her baseline. Continue IV fluids, antibiotics. Omkar Isaac MD Jan 04, 2017 08:42
--- NOTE | 2017-01-04 08:58 | PD.OB.ANTE ---
Subjective Diagnosis: (1) Tobacco abuse (2) No care in current in second trimester (3) Drug abuse during (4) Leg swelling in Interval History This heather Collado is very SOB, bradycardic in the 40's-50's and hypotensive. She is also still oliguric although has been voiding better since her IV hydration. Her edema in her legs is diminished somewhat The lesions are unchanged. She is lethargic and obtunded. Her pulse ox is good. Her lungs have rales left > right I have placed a call to Dr. Courtney and asked that she be transferred to MICU for closer observation and investigation to determine if infectious, metabolic or endocrinopathy causing this change. Her only medication that may be sedating has been her subutex. All others that we were considering on outpatient have been held. To MICU now, Objective Vital Signs Vital Signs Date Time Temp Pulse Resp B/P Pulse Ox O2 Delivery O2 Flow Rate FiO2 01/04/17 08:41 57 87/44 01/04/17 08:40 133 01/04/17 08:25 98.2 50 01/04/17 08:25 46 92/44 01/04/17 08:24 16 01/04/17 08:24 52 92/49 01/04/17 00:27 62 87/45 01/03/17 23:44 97.8 100 01/03/17 23:44 62 87/48 01/03/17 23:43 73 72/54 01/03/17 21:10 100 01/03/17 19:41 98.3 01/03/17 19:41 86 87/42 Lab & Micro Results Test 01/03/17 01/03/17 01/03/17 18:05 18:30 19:50 White Blood Count 11.7 TH/MM3 Red Blood Count 3.32 MIL/MM3 Hemoglobin 9.9 GM/DL Hematocrit 28.9 % Mean Corpuscular Volume 87.0 FL Mean Corpuscular Hemoglobin 29.7 PG Mean Corpuscular Hemoglobin 34.1 % Concent Red Cell Distribution Width 16.1 % Platelet Count 293 TH/MM3 Mean Platelet Volume 8.1 FL Neutrophils (%) (Auto) 70.1 % Lymphocytes (%) (Auto) 18.1 % Monocytes (%) (Auto) 8.9 % Eosinophils (%) (Auto) 2.5 % Basophils (%) (Auto) 0.4 % Neutrophils # (Auto) 8.2 TH/MM3 Lymphocytes # (Auto) 2.1 TH/MM3 Monocytes # (Auto) 1.0 TH/MM3 Eosinophils # (Auto) 0.3 TH/MM3 Basophils # (Auto) 0.0 TH/MM3 CBC Comment DIFF FINAL Differential Comment Erythrocyte Sedimentation Rate 36 mm/hr Sodium Level 141 MEQ/L Potassium Level 3.6 MEQ/L Chloride Level 109 MEQ/L Carbon Dioxide Level 24.6 MEQ/L Anion Gap 7 MEQ/L Blood Urea Nitrogen 11 MG/DL Creatinine 0.49 MG/DL Estimat Glomerular Filtration 157 ML/MIN Rate Random Glucose 69 MG/DL Uric Acid 4.3 MG/DL Calcium Level 8.1 MG/DL Total Bilirubin 0.3 MG/DL Aspartate Amino Transf 18 U/L (AST/SGOT) Alanine Aminotransferase 23 U/L (ALT/SGPT) Alkaline Phosphatase 117 U/L Total Protein 6.5 GM/DL Albumin 2.6 GM/DL Thyroid Stimulating Hormone 0.956 uIU/ML 3rd Gen Urine Color ORANGE Urine Turbidity HAZY Urine pH 5.5 Urine Specific [place] 1.039 Urine Protein 30 mg/dL Urine Glucose (UA) NEG mg/dL Urine Ketones 10 mg/dL Urine Occult Blood NEG Urine Nitrite NEG Urine Bilirubin NEG Urine Urobilinogen 4.0 MG/DL Urine Leukocyte Esterase SMALL Urine RBC 2 /hpf Urine WBC 3 /hpf Urine Squamous Epithelial 4 /hpf Cells Urine Bacteria MANY /hpf Urine Mucus MOD /lpf Microscopic Urinalysis Comment CULTURE INDICATED Urine Opiates Screen NEG Urine Barbiturates Screen NEG Urine Amphetamines Screen NEG Urine Benzodiazepines Screen NEG Urine Cocaine Screen NEG Urine Cannabinoids Screen NEG Nasal Screen MRSA (PCR) POSITIVE Staphylococcus aureus POSITIVE (PCR)(LAB) Date/Time Procedure Status Source Growth 01/03/17 18:30 Urine Culture Received Urine Clean Catch Pending Physical Exam GENERAL: Well-nourished, well-developed patient. CARDIOVASCULAR: Regular rate and rhythm without murmurs, gallops, or rubs. RESPIRATORY: Breath sounds equal bilaterally. No accessory muscle use. ABDOMEN/GI: Abdomen soft, non-tender. Fundus: [-] GENITOURINARY: External Genitalia: intact and normal in appearance Cervix: [-] Dilatation: [-] Effacement: [-] Station: [-] Presentation: [-] Membranes: [-] Uterine Contractions: [-] FHT's: Category: [-] Baseline: [-] Reactive: [-] Variability: [-] Decels: [-] EXTREMITIES: No cyanosis or edema, non-tender, without signs of DVT. 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 hold seroquel HS and luvox and effexor. case management Margarita Velazquez MD Jan 04, 2017 08:57
[2017-01-04] MEDS: SODIUM CHLORIDE 0.9% FLUSH 10 ML FLUSH IV FLUSH SCH ×2 (09:00→20:04)
[2017-01-04] MEDS: BUPRENORPHINE HCL 8 MG SUBLINGUAL TAB SL SCH ×2 (09:00→20:04)
[2017-01-04] MEDS: NICOTINE 21 MG/24 HR PATCH T-DERMAL SCH (09:09)
[2017-01-04 09:31] LABS: BLOOD GAS BASE EXCESS -3.2 mmol/L (-2-2); BLOOD GAS CARBOXYHEMOGLOBIN 2.9 % (0-4); BLOOD GAS HCO3 21 mmol/L (22-26); BLOOD GAS METHEMOGLOBIN 1.2 % (0-2); BLOOD GAS O2 HGB SATURATION 92 % (90-100); BLOOD GAS OXYGEN CONTENT 12.5 Vol % (12.0-20.0); BLOOD GAS PCO2 34 mmHg (38-42); BLOOD GAS PO2 79 mmHg (61-120); BLOOD GAS TOTAL HGB 9.6 G/DL (12.0-16.0); CRITICAL VALUE NO; FIO2 21 %; OXYGEN DEVICE ROOM AIR; TEMP CORR TO 98.6
[2017-01-04 09:32] LABS: DRAW SITE RT RADIAL; NUMBER OF ARTERIAL PUNCTURES 1; STAT YES; ULNAR PULSE PRESENT
--- NOTE | 2017-01-04 10:16 | PD.CONS ---
[facility] Service Critical Care Medicine Consult Requested By Dr. Vallejo Reason for Consult Hypotension Probable sepsis Primary Care Physician Lolis Lovell MD History of Present Illness The patient is a 21-year-old who is 22 weeks , history of IVDU, last IV use in May 2016, who was admitted to the hospital for worsening lower extremity edema, probable cellulitis. Today patient was found to be less responsive than usual, hypotensive and systolic blood pressure in 80s, and pale- appearing. Patient was moved to the ICU and critical care medicine was consulted for evaluation of probable sepsis and hypotension. She complaints of nonproductive cough, also intermittent pleuritic chest pain. Patient stated that she has history of pleurisy. I evaluated the patient in the ICU. She remains hypotensive and I have ordered 2 L crystalloid boluses. Chest x-ray showed possible nodular density bilateral bases. I did a bedside ultrasound with was limited, but I did not see any vegetation on mitral or aortic valves. I will get a formal echo for full evaluation. A CT chest have been ordered to evaluate for the chest infiltrates. Currently receiving Rocephin, I will foreign exchange services manager to cefepime 2 g IV every 8 hours Review of Systems ROS Limitations: Other (as per HPI) Past Family Social History Allergies: Coded Allergies: Penicillin (Verified Allergy, Unknown, 01/03/17) *MDRO Multi-Drug Resistant Organism (Verified Adverse Reaction, Unknown, MRSA, 01/04/17) MRSA (abdomen-05/31/16) MRSA PCR (nares) positive - 01/03/17 Past Medical History Pleurisy Polysubstance abuse Past Surgical History History of surgery for thrombosed hemorrhoid Reported Medications Patient takes Suboxone and Xanax when she can get it, it is unclear to me whether it is prescribed Scripts not filled: Quetiapine 25 Mg Tab25 Mg PO HS Venlafaxine ER 24 HR 37.5 Mg PO DAILY Fluvoxamine 50 Mg Tab50 Mg PO DAILY7 Buprenorphine 8 Mg Subl8 Mg SL BID Active Ordered Medications Reviewed Family History Stroke Lung cancer COPD Pancreatic cancer in uncle Social History Smokes 2 packs of cigarettes per day. Reports history of IV drug abuse, last use May of last year. Uses Xanax and Suboxone when she can get hold of it, unclear whether prescribed on not Physical Exam Vital Signs Vital Signs Date Time Temp Pulse Resp B/P Pulse Ox O2 Delivery O2 Flow Rate FiO2 6/28/17 08:55 64 01/04/17 08:50 58 01/04/17 08:45 53 01/04/17 08:41 57 87/44 01/04/17 08:40 133 01/04/17 08:25 98.2 50 01/04/17 08:25 46 92/44 01/04/17 08:24 16 01/04/17 08:24 52 92/49 01/04/17 00:27 62 87/45 01/03/17 23:44 97.8 100 01/03/17 23:44 62 87/48 01/03/17 23:43 73 72/54 01/03/17 21:10 100 01/03/17 19:41 98.3 01/03/17 19:41 86 87/42 Physical Exam GENERAL: Patient appears pale ill somnolent but wakes up easily SKIN: Warm and dry. HEAD: Normocephalic and atraumatic. EYES: No scleral icterus. No injection or drainage. ENT: No nasal drainage noted. Airway patent. NECK: Supple, trachea midline. No JVD. CARDIOVASCULAR: Regular rate and rhythm without murmurs, gallops, or rubs. tenderness to palpation R lower sternal border. RESPIRATORY: Breath sounds equal bilaterally. Bilateral bases have crackles and mild expiratory wheezing ABDOMEN/GI: Abdomen soft, non-tender, bowel sounds present, 22 weeks . Mild RUQ tenderness EXTREMITIES: Multiple skin lesions on bilateral lower extremities from skin picking outpatient BACK: Nontender without obvious deformity. No CVA tenderness. NEUROLOGICAL: Awake and alert. Motor and sensory grossly within normal limits. Five out of 5 muscle strength in all muscle groups. Normal speech. Laboratory Laboratory Tests Test 01/03/17 01/03/17 01/03/17 01/04/17 18:05 18:30 19:50 09:13 White Blood Count 11.7 Red Blood Count 3.32 Hemoglobin 9.9 Hematocrit 28.9 Mean Corpuscular Volume 87.0 Mean Corpuscular Hemoglobin 29.7 Mean Corpuscular Hemoglobin 34.1 Concent Red Cell Distribution Width 16.1 Platelet Count 293 Mean Platelet Volume 8.1 Neutrophils (%) (Auto) 70.1 Lymphocytes (%) (Auto) 18.1 Monocytes (%) (Auto) 8.9 Eosinophils (%) (Auto) 2.5 Basophils (%) (Auto) 0.4 Neutrophils # (Auto) 8.2 Lymphocytes # (Auto) 2.1 Monocytes # (Auto) 1.0 Eosinophils # (Auto) 0.3 Basophils # (Auto) 0.0 CBC Comment DIFF FINAL Differential Comment Erythrocyte Sedimentation Rate 36 Sodium Level 141 Potassium Level 3.6 Chloride Level 109 Carbon Dioxide Level 24.6 Anion Gap 7 Blood Urea Nitrogen 11 Creatinine 0.49 Estimat Glomerular Filtration 157 Rate Random Glucose 69 Uric Acid 4.3 Calcium Level 8.1 Total Bilirubin 0.3 Aspartate Amino Transf 18 (AST/SGOT) Alanine Aminotransferase 23 (ALT/SGPT) Alkaline Phosphatase 117 Total Protein 6.5 Albumin 2.6 Thyroid Stimulating Hormone 0.956 3rd Gen Urine Color ORANGE Urine Turbidity HAZY Urine pH 5.5 Urine Specific [place] 1.039 Urine Protein 30 Urine Glucose (UA) NEG Urine Ketones 10 Urine Occult Blood NEG Urine Nitrite NEG Urine Bilirubin NEG Urine Urobilinogen 4.0 Urine Leukocyte Esterase SMALL Urine RBC 2 Urine WBC 3 Urine Squamous Epithelial 4 Cells Urine Bacteria MANY Urine Mucus MOD Microscopic Urinalysis Comment CULTURE INDICATED Urine Opiates Screen NEG Urine Barbiturates Screen NEG Urine Amphetamines Screen NEG Urine Benzodiazepines Screen NEG Urine Cocaine Screen NEG Urine Cannabinoids Screen NEG Nasal Screen MRSA (PCR) POSITIVE Staphylococcus aureus POSITIVE (PCR)(LAB) Blood Gas Puncture Site RT RADIAL Blood Gas Patient Temperature 98.6 Blood Gas HCO3 21 Blood Gas Base Excess -3.2 Blood Gas Oxygen Saturation 92 Arterial Blood pH 7.40 Arterial Blood Partial 34 Pressure CO2 Arterial Blood Partial 79 Pressure O2 Arterial Blood Oxygen Content 12.5 Arterial Blood 2.9 Carboxyhemoglobin Arterial Blood Methemoglobin 1.2 Blood Gas Hemoglobin 9.6 Oxygen Delivery Device ROOM AIR Blood Gas Inspired Oxygen 21 Date/Time Procedure Status Source Growth 01/03/17 18:30 Urine Culture Received Urine Clean Catch Pending Result Diagram: 01/03/17 1805 01/03/17 180 Imaging CXR- Bibasilar infiltrates Septic Shock Reassessment Heart: Regular rate and rhythm Lungs: Course, Crackles ( ) Peripheral Pulses: Weak Right Radial Weak Left Radial Assessment and Plan Assessment and Plan ASSESSMENT Hypotension Probable sepsis Possible bilateral chest infiltrates 22 weeks History of IVDU PLAN: NEURO: History of IVDU - Minimize sedation. Continue bupropion per Dr. Velazquez, has history of opiate addiction RESP: Bilateral atelectasis Rule out septic emboli - Nasal cannula oxygen - DuoNeb breathing treatments if needed - IS while awake - CT chest to evaluate for septic emboli CV: Hypotension - Received 1 L Ringer lactate bolus, given additional 1 L normal saline bolus - LR maintenance fluid at 100 ML per hour - Check lactic acid, 2-D echo to evaluate valves GI: - Heart healthy diet, Zantac if needed for GI prophylaxis : - Monitor renal function closely. Monitor strict intake output ID: Probable sepsis Rule out infective endocarditis - Send blood urine and sputum culture, check 2-D echo - DC Rocephin start cefepime 2 g IV every 8 hours - ID consulted by Primary HEME: - Monitor CBC, CMP, coags ENDO: - Replace electrolytes per protocol PROPH: - Bilateral lower extremity SCDs. Lovenox for DVT Prohylaxis if patient cannot be mobilized adequately LINES: - Utilize peripheral IVs, central line if needed CC time 35 min Code Status Full Discussed Condition With Dr. Velazquez and Karon Dong MD Jan 04, 2017 10:16
--- NOTE | 2017-01-04 12:15 | RADRPT ---
EXAM DATE/TIME: 01/04/2017 11:07 [facility] COMPARISON: No previous studies available for comparison. INDICATIONS : Evaluate for septic emboli. Infiltrate. Chest pain. RADIATION DOSE: 3.31 CTDIvol (mGy) MEDICAL HISTORY : 22 weeks , consents signed SURGICAL HISTORY : None. ENCOUNTER: Initial ACUITY: 1 day PAIN SCALE: 4/10 LOCATION: Bilateral chest TECHNIQUE: Volumetric scanning of the chest was performed. Using automated exposure control and adjustment of t he mA and/or kV according to patient size, radiation dose was kept as low as reasonably achievable to obtain optimal diagnostic quality images. DICOM format image data is available electronically for r eview and comparison. Caution: Report not yet finalized and possibly incomplete! [facility] COMPARISON: CHEST PA & LAT, January 03, 2017, 18:54. INDICATIONS : Evaluate for septic emboli. Infiltrate. Chest pain. RADIATION DOSE: 3.31 CTDIvol (mGy) MEDICAL HISTORY : 22 weeks , consents signed SURGICAL HISTORY : None. ENCOUNTER: Initial ACUITY: 1 day PAIN SCALE: 4/10 LOCATION: Bilateral chest TECHNIQUE: Volumetric scanning of the chest was performed. Using automated exposure control and adjustment of the mA and/or kV according to patient size, radiation dose was kept as low as reasonab ly achievable to obtain optimal diagnostic quality images. DICOM format image data is available elec tronically for review and comparison. FINDINGS: LUNGS: Patchy groundglass opacities predominantly in the left posterior lower lobe with slightly more nodular focal consolidation at the extreme left lung base measuring approximately 1.4 x 0.9 x 1. 3 cm. There are additional subtle peripheral subpleural groundglass opacities primarily in the upper lobes anteriorly Linear parenchymal opacities at the right lung base likely reflect atelectasis. PLEURAE: There is no pleural thickening or pleural effusion. MEDIASTINUM: The heart and great vessels demonstrate no acute abnormality. There is no gross med iastinal adenopathy. AXILLAE: Scar multiple bilateral axillae nodes which are subcentimeter in short axis diameter and therefore do not meet size criteria. MUSCULOSKELETAL: Within normal limits for patient age. MISCELLANEOUS: The visualized upper abdominal organs demonstrate no acute abnormality. CONCLUSION: 1. Patchy ground glass opacities predominantly in the left lower lobe with a single focal region of c onsolidation at the extreme left lung base consistent with developing pneumonia in the appropriate cl inical setting. 2. More subtle peripheral subpleural groundglass opacities primarily in the anterior upper lobes yumi aterally. This is very nonspecific and likely reflect regions of volume loss or subtle alveolar edema . Developing sites of infection cannot be excluded although felt to be unlikely. 3. Probable mild right lung base atelectasis. 4. Otherwise, no definitive findings for septic emboli. Troy Lance MD on January 04, 2017 at 12:09 Board Certified Radiologist. This report was verified electronically.
[2017-01-04 12:25] LABS: AUTOMATED NEUTROPHIL # 5.4 TH/MM3 (1.8-7.7); BASOPHIL % 0.2 % (0.0-2.0); EOSINOPHIL # 0.2 TH/MM3 (0-0.4); EOSINOPHIL % 2.2 % (0.0-4.0); HEMATOCRIT 25.4 % (35.0-46.0); HEMO FLAGS DIFF FINAL; LYMPH % 23.6 % (9.0-44.0); LYMPHOCYTE # 1.9 TH/MM3 (1.0-4.8); MEAN CELL VOLUME 86.2 FL (80.0-100.0); MEAN CORPUSCULAR HEMOGLOBIN 30.1 PG (27.0-34.0); MEAN CORPUSCULAR HGB CONC 34.9 % (32.0-36.0); MONO % 7.6 % (0.0-8.0); NEUT % 66.4 % (16.0-70.0); PLATELET COUNT 252 TH/MM3 (150-450); RED BLOOD COUNT 2.95 MIL/MM3 (4.00-5.30); RED CELL DISTRIBUTION WIDTH 16.2 % (11.6-17.2); WHITE BLOOD COUNT 8.1 TH/MM3 (4.0-11.0)
[2017-01-04 12:53] LABS: BICARBONATE 23.1 MEQ/L (21.0-32.0); POTASSIUM 3.6 MEQ/L (3.5-5.1)
--- NOTE | 2017-01-04 13:00 | PD.CONS ---
Provisional Diagnosis Admission Date Jan 03, 2017 at 16:28 [place] I. Adjustment disorder with anxiety, history of GLEN and depression, heroine use disorder, early full remission, on Suboxone [place] II. Deferred History of Present Illness Service Psychiatry Consult Requested By Primary Care Physician Lolis Lovell MD HPI The patient is a 21-year-old woman, domiciled with her cope, he has 4 kids, she is unemployed, she has psychiatric history of anxiety and depression, no psychiatric admissions, no previous suicidal attempts, she has been and Xanax in the past, street and prescribed, she has history IV heroine use, she is now in full remission, on Suboxone, she is 22 weeks and 2 days gestation who was admitted to the hospital for worsening lower extremity edema, probable cellulitis. Today patient was found to be less responsive than usual, intermittently hypotensive and systolic blood pressure in 80s, and pale- appearing. Patient was moved to the ICU and critical care medicine was consulted for evaluation of probable sepsis and hypotension. She complaints of nonproductive cough, also intermittent pleuritic chest pain. Patient stated that she has history of pleurisy. Patient was consulted to psychiatry for management of anxiety. Patient was seen for psychiatric evaluation in the ICU, patient was calm, cooperative, she says that she has been anxious on and off. Her anxiety mostly related with her current medical situation. She says that as long that she is taking her Suboxone she can manage her anxiety. Patient feels that she is upset of losing the control of herself. "Too many things going on at the same time". But she denies depressive symptoms, she denies anhedonia, she denies hopelessness, she denies suicidal and homicidal ideation, patient is oriented 3, no attention deficit, no fluctuation of consciousness. Review of Systems Constitutional: DENIES: Diaphoretic episodes, Fatigue, Fever, Weight gain, Weight loss, Chills, Dizziness, Change in appetite, Night Sweats Endocrine: DENIES: Abnorml menstrual pattern, Heat/cold intolerance, Polydipsia , Polyuria, Polyphagia Eyes: DENIES: Blurred vision, Diplopia, Eye inflammation, Eye pain, Vision loss , Photosensitivity, Double Vision Ears, nose, mouth, throat: DENIES: Tinnitus, Hearing loss, Vertigo, Nasal discharge, Oral lesions, Throat pain, Hoarseness, Ear Pain, Running Nose, Epistaxis, Sinus Pain, Toothache, Odynophagia Respiratory: DENIES: Apneas, Cough, Snoring, Wheezing, Hemoptysis, Sputum production, Shortness of breath Cardiovascular: DENIES: Chest pain, Palpitations, Syncope, Dyspnea on Exertion , PND, Lower Extremity Edema, Orthopnea, Claudication Gastrointestinal: DENIES: Abdominal pain, Black stools, Bloody stools, Constipation, Diarrhea, Nausea, Vomiting, Difficulty Swallowing, Anorexia Genitourinary: DENIES: Abnormal vaginal bleeding, Dysmenorrhea, Dyspareunia, Sexual dysfunction, Urinary frequency, Urinary incontinence, Urgency, Hematuria , Dysuria, Nocturia, Vaginal discharge Musculoskeletal: DENIES: Joint pain, Muscle aches, Stiffness, Joint Swelling, Back pain, Neck pain Integumentary: DENIES: Abnormal pigmentation, Pruritus, Rash, Nail changes, Breast masses, Breast skin changes, Nipple discharge Hematologic/lymphatic: DENIES: Bruising, Lymphadenopathy Immunologic/allergic: DENIES: Eczema, Urticaria Neurologic: DENIES: Abnormal gait, Headache, Localized weakness, Paresthesias, Seizures, Speech Problems, Tremor, Poor Balance Psychiatric: DENIES: Anxiety, Confusion, Mood changes, Depression, Hallucinations, Agitation, Suicidal Ideation, Homicidal Ideation, Delusions Past Family Social History Coded Allergies: Penicillin (Verified Allergy, Unknown, 01/03/17) *MDRO Multi-Drug Resistant Organism (Verified Adverse Reaction, Unknown, MRSA, 01/04/17) MRSA (abdomen-05/31/16) MRSA PCR (nares) positive - 01/03/17 Active Scripts Quetiapine 25 Mg Tab25 Mg PO HS #6 TAB Prov:Margarita Velazquez MD 12/30/16 Venlafaxine ER 24 HR (Effexor XR 24 HR)37.5 Mg Cap37.5 Mg PO DAILY #7 CAP Prov:Margarita Velazquez MD 12/30/16 Fluvoxamine 50 Mg Tab50 Mg PO DAILY #7 TAB Prov:Margarita Velazquez MD 12/30/16 Buprenorphine 8 Mg Subl8 Mg SL BID #6 TAB Prov:Margarita Velazquez MD 12/30/16 Discontinued Scripts Clindamycin 150 Mg Cap2 Tab PO Q6H 10 Days Ref 0 Prov:Alessandra Marie DO 11/22/16 Sulfamethoxazole-Trimethoprim (Bactrim DS)800-160 Mg Tab1 Tab PO BID #20 TAB Ref 0 Prov:Alessandra Marie DO 05/31/16 Hydrocodone/Acetaminophen 5 mg/325 mg (Lortab 5 mg/325 mg)1 Tab1 Tab PO Q6H PRN (PAIN) #20 TAB Prov:Karmen Wilson MD 12/11/15 Lidocaine (Anorectal) (Topicaine 5)5 % Gel5 % EX BID 5 Days Prov:Karmen Wilson MD 12/11/15 Current Medications Medications (Trade) Dose Ordered Sig/Joaquina Route Start Time Stop Time Status Last Admin (Lr 1000 ml Inj) 1,000 ml @ 100 mls/hr Q10H IV 01/03/17 17:53 01/04/17 00:25 (Stuartnatal Plus 3 ) 1 tab DAILY PO 01/04/17 09:00 (Mag-Al Plus Susp Liq) 30 ml QID PRN PO 01/03/17 18:00 (NS Flush) 2 ml BID IV FLUSH 01/03/17 21:00 (NS Flush) 2 ml UNSCH PRN IV FLUSH 01/03/17 18:00 (Ferrous Sulfate) 325 mg BID PO 01/03/17 21:00 01/03/17 21:22 (Buprenorphine) 4 mg BID SL 01/03/17 21:00 01/03/17 21:22 (Habitrol 21 Mg Patch.24 Hr) 1 patch DAILY T-DERMAL 01/04/17 09:00 01/04/17 09:09 Miscellaneous Information 1 1 DAILY T-DERMAL 01/04/17 09:00 (Maxipime Inj/NS Inj) 100 ml @ 200 mls/hr Q8H IV 01/04/17 11:00 (Atarax) 25 mg Q8H PRN PO 01/04/17 13:00 UNV Family History Patient was raised in the foster care Social History Patient was born and raised in [place], in the foster care system, she lives with her couple in [place], she has 4 kids, she is unemployed, supported by couple, her highest level of education is 11th Patient's Strengths (min. 2) Verbal communication, insight of her drug problem Physical Exam Vital Signs Vital Signs Date Time Temp Pulse Resp B/P Pulse Ox O2 Delivery O2 Flow Rate FiO2 01/04/17 08:55 64 01/04/17 08:41 87/44 01/04/17 08:25 98.2 01/04/17 08:24 16 01/03/17 23:44 100 Lab Results Laboratory Tests Test 01/03/17 01/03/17 01/03/17 01/04/17 18:05 18:30 19:50 09:13 White Blood Count 11.7 Red Blood Count 3.32 Hemoglobin 9.9 Hematocrit 28.9 Mean Corpuscular Volume 87.0 Mean Corpuscular Hemoglobin 29.7 Mean Corpuscular Hemoglobin 34.1 Concent Red Cell Distribution Width 16.1 Platelet Count 293 Mean Platelet Volume 8.1 Neutrophils (%) (Auto) 70.1 Lymphocytes (%) (Auto) 18.1 Monocytes (%) (Auto) 8.9 Eosinophils (%) (Auto) 2.5 Basophils (%) (Auto) 0.4 Neutrophils # (Auto) 8.2 Lymphocytes # (Auto) 2.1 Monocytes # (Auto) 1.0 Eosinophils # (Auto) 0.3 Basophils # (Auto) 0.0 CBC Comment DIFF FINAL Differential Comment Erythrocyte Sedimentation Rate 36 Sodium Level 141 Potassium Level 3.6 Chloride Level 109 Carbon Dioxide Level 24.6 Anion Gap 7 Blood Urea Nitrogen 11 Creatinine 0.49 Estimat Glomerular Filtration 157 Rate Random Glucose 69 Uric Acid 4.3 Calcium Level 8.1 Total Bilirubin 0.3 Aspartate Amino Transf 18 (AST/SGOT) Alanine Aminotransferase 23 (ALT/SGPT) Alkaline Phosphatase 117 Total Protein 6.5 Albumin 2.6 Thyroid Stimulating Hormone 0.956 3rd Gen Urine Color ORANGE Urine Turbidity HAZY Urine pH 5.5 Urine Specific [place] 1.039 Urine Protein 30 Urine Glucose (UA) NEG Urine Ketones 10 Urine Occult Blood NEG Urine Nitrite NEG Urine Bilirubin NEG Urine Urobilinogen 4.0 Urine Leukocyte Esterase SMALL Urine RBC 2 Urine WBC 3 Urine Squamous Epithelial 4 Cells Urine Bacteria MANY Urine Mucus MOD Microscopic Urinalysis Comment CULTURE INDICATED Urine Opiates Screen NEG Urine Barbiturates Screen NEG Urine Amphetamines Screen NEG Urine Benzodiazepines Screen NEG Urine Cocaine Screen NEG Urine Cannabinoids Screen NEG Nasal Screen MRSA (PCR) POSITIVE Staphylococcus aureus POSITIVE (PCR)(LAB) Blood Gas Puncture Site RT RADIAL Blood Gas Patient Temperature 98.6 Blood Gas HCO3 21 Blood Gas Base Excess -3.2 Blood Gas Oxygen Saturation 92 Arterial Blood pH 7.40 Arterial Blood Partial 34 Pressure CO2 Arterial Blood Partial 79 Pressure O2 Arterial Blood Oxygen Content 12.5 Arterial Blood 2.9 Carboxyhemoglobin Arterial Blood Methemoglobin 1.2 Blood Gas Hemoglobin 9.6 Oxygen Delivery Device ROOM AIR Blood Gas Inspired Oxygen 21 Date/Time Procedure Status Source Growth 01/03/17 18:30 Urine Culture Received Urine Clean Catch Pending Result Diagram: 01/03/17 1805 01/03/17 1805 Mental Status Examination Appearance woman, visible , [facility], calm and cooperative Speech: Unremarkable Orientation: x3 Memory: Unremarkable Thought Process: Logical Thought Content: Unremarkable Hallucination Type: None Suicidal Ideation: No Previous Suicide Attempts: No Homicidal Ideation: No Affect: Good Mood: Appropriate Motor Activity: Normal gait Assessment & Plan Problem List: (1) Adjustment disorder with anxiety Assessment & Plan: She reports anxiety mostly related with acute medical condition and the stress of ICU placement. Denies depressive symptoms, denies suicidal and homicidal ideation, denies visual and auditory hallucinations. Agree with continue buprenorphine 4 mg twice a day. Will add hydroxyzine 25 mg every 8 hours when necessary anxiety. Patient might benefit of an SSRI for anxiety. Supportive motivation provided. We'll follow-up ICD Code: F43.22 Assessment & Plan Estimated LOS: Albert Farmer MD Jan 04, 2017 13:00
--- NOTE | 2017-01-04 13:25 | PD.PN.STU ---
Subjective Remarks 21 yo elly at 22 weeks gestation on hospital day 2 after being admitted for bilateral leg non-pitting edema, abdominal pain. Feeling better than yesterday. Slept well last night. Eating, ambulating, voiding. Anxious mood. Swelling has decreased from yesterday. States she has always had low blood pressure. Objective Vitals Vital Signs Date Time Temp Pulse Resp B/P Pulse Ox O2 Delivery O2 Flow Rate FiO2 01/04/17 08:55 64 01/04/17 08:50 58 01/04/17 08:45 53 01/04/17 08:41 57 87/44 01/04/17 08:40 133 01/04/17 08:25 98.2 50 01/04/17 08:25 46 92/44 01/04/17 08:24 16 01/04/17 08:24 52 92/49 01/04/17 00:27 62 87/45 01/03/17 23:44 97.8 100 01/03/17 23:44 62 87/48 01/03/17 23:43 73 72/54 01/03/17 21:10 100 01/03/17 19:41 98.3 01/03/17 19:41 86 87/42 Result Diagram: 01/04/17 1139 01/04/[address] chest 01/04: Developing PNA in left lower lung base. No definitive finding of septic emboli but cannot currently rule out. EKG 01/04: Sinus bradycardia. Extremity US 01/03: Compressibility noted. Essentially low likelihood for DVT in left inguinal vein/proximal calf. Objective Remarks Mood: Calm Affect: Congruent. Cardiovascular: Bradycardia, regular rhythm. No murmurs, rubs, gallops. Skin pale. Pulmonary: Rales present in right middle/lower lobe area and on left lung base. Wheeze appreciated on right anterior auscultation. Extremities: 1+ edema, non-pitting. No cyanosis but appears pale. A/P Assessment and Plan Impression: 21 yo elly at 22 weeks gestation with hx opioid use, HD2 due to bilateral leg swelling and abdominal pain - evaluation for possible septic emboli. Problems: 1. Possible sepsis 2. Possible septic emboli 3. Anemia 4. MRSA (+) 4. Lower extremity edema (nonpitting) 5. Hypotension 6. Hx opioid use (in ) 7. UTI 8. Anxiety 9. Bradycardia Plan: Maintain current regimen. Constant monitoring. Maintain monitoring. Patient would likely decompensate if placed in lower level of care. Medication review. Discharge Planning To be determined by Dr. Velazquez. Tracy Woodall Jan 04, 2017 13:24
[2017-01-04] MEDS: MULTIVIT/MIN/PREN/FOL AC/IRON PRENATAL TAB PO SCH (13:29)
[2017-01-04] MEDS: hydrOXYzine HCL 25 MG TAB PO PRN (13:29)
[2017-01-04] MEDS: CEFEPIME INJ 2,000 MG in SODIUM CHLORIDE 0.9% INJ 100 ML IV SCH ×2 (13:29→19:39)
[2017-01-04] MEDS: FERROUS SULFATE 325 MG (65 MG ELEMENTAL IRON) TAB PO SCH ×2 (13:29→20:04)
[2017-01-04] MEDS ORDERED: BUPRENORPHINE HCL 8 MG SUBLINGUAL TAB SL ONE (16:00)
[2017-01-04] MEDS ORDERED: PILL SPLITTER OTHER PRN (16:15)
[2017-01-04] MEDS ORDERED: SODIUM CHLOR 0.9% 1000 ML INJ 1,000 ML IV ONE (16:15)
[2017-01-04 19:14] LABS: URINE TOTAL PROTEIN TIMED 14.9 MG/DL
[2017-01-04] MEDS: HEPARIN SODIUM - SQ 10,000 UNITS/ML VIAL SQ SCH (20:04)
[2017-01-04] MEDS: DOCUSATE SODIUM 100 MG CAP PO SCH (20:04)
--- NOTE | 2017-01-04 21:01 | ECHRPT ---
Indication: POSS SEPSIS, R/O ENDOCARDITIS CONCLUSIONS Normal left ventricular size. Wall thickness is normal. The left ventricular systolic function is normal with an estimated ejection fraction in the range of 60-65%. Left ventricular diastolic function parameters are normal. No regional wall motion abnormalities are present. No significant valvulopathies No evidence for vegetations. Normal estimated pulmonary pressures. No evidence endocarditis The inferior vena cava is dilated. BP: 87 / 44 HR: 64 Rhythm: Sinus MEASUREMENTS (Male / Female) Normal Values Technical Quality:Fair 2D ECHO LV Diastolic Diameter PLAX 5.1 cm 4.2 - 5.9 / 3.9 - 5.3 cm LV Systolic Diameter PLAX 3.7 cm IVS Diastolic Thickness 0.7 cm 0.6 - 1.0 / 0.6 - 0.9 cm LVPW Diastolic Thickness 0.7 cm 0.6 - 1.0 / 0.6 - 0.9 cm LV Relative Wall Thickness 0.3 LVOT Diameter 2.2 cm Aortic Root Diameter 2.8 cm LA Systolic Diameter LX 2.9 cm 3.0 - 4.0 / 2.7 - 3.8 cm M-MODE AV Cusp Separation MM 1.9 cm DOPPLER AV Peak Velocity 123.0 cm/s AV Peak Gradient 6.1 mmHg AV Mean Gradient 3.0 mmHg AV Velocity Time Integral 25.3 cm LVOT Peak Velocity 93.2 cm/s LVOT Peak Gradient 3.5 mmHg LVOT Velocity Time Integral 17.1 cm LVOT Cardiac Index 2756.4 cm/minm AV Area Cont Eq vti 2.6 cm AV Area Cont Eq pk 2.9 cm Mitral E Point Velocity 85.9 cm/s Mitral A Point Velocity 46.4 cm/s Mitral E to A Ratio 1.9 LV E' Lateral Velocity 15.8 cm/s Mitral E to LV E' Lateral Ratio 5.4 LV E' Septal Velocity 12.4 cm/s Mitral E to LV E' Septal Ratio 6.9 TR Peak Velocity 258.0 cm/s TR Peak Gradient 26.6 mmHg PV Peak Velocity 45.9 cm/s PV Peak Gradient 0.8 mmHg FINDINGS LEFT VENTRICLE Normal left ventricular size. Wall thickness is normal. The left ventricular systolic function is normal with an estimated ejection fraction in the range of 60-65%. Left ventricular diastolic function parameters are normal. No regional wall motion abnormalities are present. RIGHT VENTRICLE Normal right ventricular size and systolic function. LEFT ATRIUM The left atrial size is normal. RIGHT ATRIUM The right atrial size is normal. ATRIAL SEPTUM The interatrial septum not well visualized. AORTA The aortic root and proximal ascending aorta are normal in size on limited imaging. MITRAL VALVE Structurally normal mitral valve. Trace mitral valve regurgitation. No evidence visible for endocarditis. AORTIC VALVE Trileaflet aortic valve. No aortic valve regurgitation. No aortic valve stenosis. No evidence for vegetations. TRICUSPID VALVE Structurally normal tricuspid valve. There is trace tricuspid valve regurgitation. Normal estimated pulmonary pressures. No significant evidence for endocarditis PULMONARY VALVE Mild pulmonary valve regurgitation. No pulmonary valve stenosis. No visible pulmonary vegetations, VESSELS The inferior vena cava is dilated. It measures 28 mms at the widest in the subcostal. It does not co llapse with inhillation. There is a concern of some clotting along the lining of the wall. PERICARDIUM No pericardial effusion. Gaurang Marquez MD (Electronically Signed) Final Date:04 January 2017 21:00
[2017-01-04 21:24] LABS: HEMOGLOBIN A1a 1.2 %; HEMOGLOBIN A1b 0.7 %; HEMOGLOBIN Ao 87.4 %; HEMOGLOBIN F 0.9 %; HEMOGLOBIN LA1C 1.3 %; HEMOGLOBIN P3 3.1 %
--- NOTE | 2017-01-04 22:52 | EKG ---
Date Performed: 01/04/2017 Time Performed: 09:25:38 PTAGE: 21 years EKG: SINUS BRADYCARDIA WITH MARKED SINUS ARRHYTHMIA BORDERLINE ECG NO PREVIOUS TRACING DOCTOR: Britt Alvarez Interpretating Date/Time 01/04/2017 22:51:45
[2017-01-05] VITALS (13 sets, daily range): BP systolic 76–102; BP diastolic 52–61; PULSE 52–77; RESP 16–22; TEMP 97.2–98.8; O2SAT 93–97
[2017-01-05] MEDS: HEPARIN SODIUM - SQ 10,000 UNITS/ML VIAL SQ SCH ×3 (04:50→20:22)
[2017-01-05] MEDS: CEFEPIME INJ 2,000 MG in SODIUM CHLORIDE 0.9% INJ 100 ML IV SCH ×3 (04:51→18:20)
[2017-01-05 05:15] LABS: AUTOMATED NEUTROPHIL # 4.9 TH/MM3 (1.8-7.7); BASOPHIL % 0.3 % (0.0-2.0); EOSINOPHIL # 0.2 TH/MM3 (0-0.4); EOSINOPHIL % 1.9 % (0.0-4.0); HEMATOCRIT 24.2 % (35.0-46.0); HEMO FLAGS DIFF FINAL; LYMPH % 30.4 % (9.0-44.0); LYMPHOCYTE # 2.5 TH/MM3 (1.0-4.8); MEAN CELL VOLUME 87.1 FL (80.0-100.0); MEAN CORPUSCULAR HEMOGLOBIN 29.5 PG (27.0-34.0); MEAN CORPUSCULAR HGB CONC 33.9 % (32.0-36.0); NEUT % 58.4 % (16.0-70.0); PLATELET COUNT 223 TH/MM3 (150-450); RED BLOOD COUNT 2.78 MIL/MM3 (4.00-5.30); RED CELL DISTRIBUTION WIDTH 16.1 % (11.6-17.2); WHITE BLOOD COUNT 8.3 TH/MM3 (4.0-11.0)
[2017-01-05 05:41] LABS: BICARBONATE 23.7 MEQ/L (21.0-32.0); POTASSIUM 3.5 MEQ/L (3.5-5.1)
--- NOTE | 2017-01-05 07:59 | EKG ---
Date Performed: 01/04/2017 Time Performed: 16:51:44 PTAGE: 21 years EKG: Atrial fibrillation with slow ventricular response Inferior T wave changes may be normal fo r age Low QRS voltages in precordial leads Abnormal ECG PREVIOUS TRACING : 01/04/2017 09.25 DOCTOR: Gaurang Marquez Interpretating Date/Time 01/05/2017 07:54:53
--- NOTE | 2017-01-05 08:51 | PD.PN.STU ---
Subjective Remarks Heaven is very somnolent but able to communicate and answer questions quickly. Her swelling appears to be decreased in her left leg, but remains larger than right leg. She states she did sleep through the night but is very tired still. Reports lower abdomen cramping and lower back cramping but does not compare to previous labor pains or contractions she has experienced in her previous pregnancies. She reports movement and denies bleeding, discharge or leakage of any fluids. Objective Vitals Vital Signs Date Time Temp Pulse Resp B/P Pulse Ox O2 Delivery O2 Flow Rate FiO2 01/05/17 06:00 68 01/05/17 04:00 71 01/05/17 04:00 97.6 74 22 96/54 96 01/05/17 02:00 66 01/05/17 00:00 97.2 72 21 100/56 96 01/05/17 00:00 72 01/04/17 22:00 71 01/04/17 20:00 97.8 71 16 100/62 97 01/04/17 20:00 71 01/04/17 18:00 70 01/04/17 16:00 69 01/04/17 16:00 98.3 69 20 98/53 97 01/04/17 14:00 80 01/04/17 12:00 73 01/04/17 12:00 98.3 73 16 108/56 98 01/04/17 10:00 63 01/04/17 08:55 64 01/04/17 08:50 58 01/04/17 08:45 53 01/04/17 08:41 57 87/44 01/04/17 08:40 133 I/O 01/04/17 01/04/17 01/04/17 01/05/17 01/05/17 01/05/17 07:00 15:00 23:00 07:00 15:00 23:00 Intake Total 2535 ml 1080 ml 600 ml Balance 2535 ml 1080 ml 600 ml Intake Oral 122 ml 360 ml 0 ml IV Total 2413 ml 720 ml 600 ml # Voids 4 4 3 # Bowel Movements 0 0 Result Diagram: 01/05/1744601/05/17446 Objective Remarks general: AOx3 very somnolent Cardio: EKG shows sinus rhythm sinus arrhythmia extremities: lower leg edema still prominent, left leg has improved but still extremely tender to palpation and more edematous than right leg A/P Assessment and Plan Impression: 21 yo swf at 22 weeks gestation with hx opioid use, HD3 due to bilateral leg swelling and abdominal pain - evaluation for possible septic emboli. Problems: 1. Possible sepsis 2. Possible septic emboli - u/s of IVC pending 3. Anemia 4. MRSA (+) 4. Lower extremity edema (nonpitting) 5. Hypotension 6. Hx opioid use (in ) 7. UTI 8. Anxiety 9. Bradycardia Plan: ICU would like to release her from 24 hr monitoring to L&D; Juany Johnston M3 Jan 05, 2017 08:51
[2017-01-05] MEDS: REMOVE OLD PATCH T-DERMAL SCH (09:00)
[2017-01-05] MEDS: MULTIVIT/MIN/PREN/FOL AC/IRON PRENATAL TAB PO SCH (09:30)
[2017-01-05] MEDS: DOCUSATE SODIUM 100 MG CAP PO SCH ×2 (09:30→20:21)
[2017-01-05] MEDS: FERROUS SULFATE 325 MG (65 MG ELEMENTAL IRON) TAB PO SCH ×2 (09:30→20:21)
[2017-01-05] MEDS: SODIUM CHLORIDE 0.9% FLUSH 10 ML FLUSH IV FLUSH SCH ×2 (09:30→20:21)
[2017-01-05] MEDS: BUPRENORPHINE HCL 8 MG SUBLINGUAL TAB SL SCH ×2 (09:30→20:22)
[2017-01-05] MEDS: NICOTINE 21 MG/24 HR PATCH T-DERMAL SCH (09:31)
[2017-01-05] MEDS ORDERED: IRON SUCROSE 100 MG/5 ML VIAL IV PUSH ONE (09:45)
--- NOTE | 2017-01-05 10:08 | HHI.CCPN ---
Subjective Remarks/Hospital Course The patient is a 21-year-old who is 22 weeks , history of IVDU, last IV use in May 2016, who was admitted to the hospital for worsening lower extremity edema, probable cellulitis. Today patient was found to be less responsive than usual, hypotensive and systolic blood pressure in 80s, and pale- appearing. Patient was moved to the ICU and critical care medicine was consulted for evaluation of probable sepsis and hypotension. She complaints of nonproductive cough, also intermittent pleuritic chest pain. Patient stated that she has history of pleurisy. I evaluated the patient in the ICU. She remains hypotensive and I have ordered 2 L crystalloid boluses. Chest x-ray showed possible nodular density bilateral bases. I did a bedside ultrasound with was limited, but I did not see any vegetation on mitral or aortic valves. I will get a formal echo for full evaluation. A CT chest have been ordered to evaluate for the chest infiltrates. Currently receiving Rocephin, I will change manager to cefepime 2 g IV every 8 hours SUBJ 01/05: Patient remains asymptomatic except for pleuritic chest pain but HR varies from 48-55 with marked sinus arrhythmia. Her HR expected would be 90-100 at least at this stage of . TSH normal, Echo normal, except dilated IVC Objective Vital Signs Date Time Temp Pulse Resp B/P Pulse Ox O2 Delivery O2 Flow Rate FiO2 01/05/17 06:00 68 01/05/17 04:00 97.6 22 96/54 96 Intake and Output 01/04/17 01/04/17 01/05/17 08:00 16:00 00:00 Intake Total 2535 ml 1080 ml Balance 2535 ml 1080 ml Result Diagram: 01/05/17 0447 01/05/17 0447 Imaging CXR- Bibasilar infiltrates Objective Remarks GENERAL: Patient appears pale ill somnolent, bradycardic, marked sinus arrhythmia SKIN: Warm and dry. HEAD: Normocephalic and atraumatic. EYES: No scleral icterus. No injection or drainage. ENT: No nasal drainage noted. Airway patent. NECK: Supple, trachea midline. No JVD. CARDIOVASCULAR: Marked sinus arrhythmia and related to bradycardia without murmurs, gallops, or rubs. tenderness to palpation R lower sternal border. RESPIRATORY: Breath sounds equal bilaterally. Bilateral bases mild expiratory wheezing ABDOMEN/GI: Abdomen soft, non-tender, bowel sounds present, 22 weeks . Mild RUQ tenderness EXTREMITIES: Multiple skin lesions on bilateral lower extremities from skin picking outpatient BACK: Nontender without obvious deformity. No CVA tenderness. NEUROLOGICAL: Awake and alert. Motor and sensory grossly within normal limits. Five out of 5 muscle strength in all muscle groups. Normal speech. A/P Assessment and Plan ASSESSMENT Hypotension Relative bradycardia with marked sinus arrhythmia R/o sepsis 22 weeks History of IVDU PLAN: NEURO: History of IVDU - Minimize sedation. Bupropion per Dr. Velazquez, has history of opiate addiction RESP: Bilateral atelectasis - Nasal cannula oxygen - DuoNeb breathing treatments if needed - IS while awake - CT chest negative for septic emboli CV: Hypotension-resolved Relative bradycardia with marked sinus arrhythmia - At this stage of patient's average be 90-100, she remains at 48-55 - TSH Normal - Discussed with Dr. Spivey cardiology. Await consult and recommendation - Received 1 L Ringer lactate bolus, given additional 1 L normal saline bolus - LR maintenance fluid at 100 ML per hour - 2-D echo to evaluate valves, except dilated IVC - Liver US to evaluate IVC pending GI: - Heart healthy diet, Zantac if needed for GI prophylaxis - Liver US to evaluate IVC pending : - Monitor renal function closely. Monitor strict intake output ID: Rule out sepsis - F/u blood urine culture - Continue cefepime 2 g IV every 8 hours HEME: - Monitor CBC, CMP, coags - Anemia secondary to ENDO: - Replace electrolytes per protocol PROPH: - Bilateral lower extremity SCDs. Heparin s/q for DVT Prophylaxis LINES: - Utilize peripheral IVs, central line if needed Level 3 D/W Jeannie Spivey and Marcus. Continue ICU care due to significant bradycardia, in this 22 weeks lady Karon Courtney MD Jan 05, 2017 10:08
--- NOTE | 2017-01-05 10:12 | RADRPT ---
EXAM DATE/TIME: 01/05/2017 08:17 [facility] COMPARISON: No previous studies available for comparison. INDICATIONS : Portal vein thrombosis. MEDICAL HISTORY : . UTI. PTSD. Substance use. Psoriasis. MRSA. SURGICAL HISTORY : None. ENCOUNTER: Initial ACUITY: 1 day PAIN SCORE: 7/10 LOCATION: Bilateral upper quadrant MEASUREMENTS: LIVER: 17.2 cm length COMMON DUCT: 5 mm RIGHT KIDNEY: 13.0 x 6.8 x 5.3 cm SPLEEN: 9.7 cm length FINDINGS: LIVER: Normal echotexture without focal lesion or ductal dilatation. Portal vein: The main portal vein is patent with hepatopedal flow. The left and right portal vein and branche s are also patent. There is apparent hepatofugal flow in the right portal vein. There is hepatop edal flow in the left portal vein. Hepatic veins: Main hepatic vein is patent. The right, middle, and left hepatic veins are patent with appropria te hepatofugal flow. Hepatic artery: Main hepatic artery is patent with appropriate waveform. COMMON DUCT: No intraluminal mass or stone visualized. GALLBLADDER: Two large gallstones are noted in the gallbladder which otherwise appears unremarkable by ultras ound. No significant gallbladder wall thickening or pericholecystic fluid or sonographic Doss sign. PANCREAS: The visualized portions are within normal limits. RIGHT KIDNEY: Mild hydronephrosis without evidence for stones or mass. LEFT KIDNEY: Mild hydronephrosis without evidence for stones or mass. SPLEEN: No focal lesion. AORTA: Non aneurysmal. IVC: Within normal limits. CONCLUSION: 1. Patent main portal vein and portal vein branches with appropriate hepatopedal flow in the main and left portal veins. Hepatofugal flow in the right portal vein may be related to abdomen. 2. Patent hepatic artery and hepatic veins with appropriate flow. 3. Cholelithiasis without sonographic evidence for acute cholecystitis. 4. Mild bilateral maternal hydronephrosis. Troy Lance MD on January 05, 2017 at 9:47 Board Certified Radiologist. This report was verified electronically.
[2017-01-05] MEDS: LACTATED RINGER'S 1000 ML INJ 1,000 ML IV SCH (10:50)
--- NOTE | 2017-01-05 11:06 | PD.OB.ANTE ---
Subjective Diagnosis: (1) Tobacco abuse (2) No care in current in second trimester (3) Drug abuse during (4) Leg swelling in Interval History Heaven discussed with Dr. Cervantes and persistent marked bradycardia with occasional arrthymia concerning enough to warrant cardiac consult with Tez Spivey. Will hold in MICU until further evaluation Objective Vital Signs Vital Signs Date Time Temp Pulse Resp B/P Pulse Ox O2 Delivery O2 Flow Rate FiO2 01/05/17 06:00 68 01/05/17 04:00 71 01/05/17 04:00 97.6 74 22 96/54 96 01/05/17 02:00 66 01/05/17 00:00 97.2 72 21 100/56 96 01/05/17 00:00 72 01/04/17 22:00 71 01/04/17 20:00 97.8 71 16 100/62 97 01/04/17 20:00 71 01/04/17 18:00 70 01/04/17 16:00 69 01/04/17 16:00 98.3 69 20 98/53 97 01/04/17 14:00 80 01/04/17 12:00 73 01/04/17 12:00 98.3 73 16 108/56 98 Lab & Micro Results Test 01/04/17 01/04/17 01/04/17 01/05/17 11:39 17:24 18:30 04:47 White Blood Count 8.1 TH/MM3 8.3 TH/MM3 Red Blood Count 2.95 MIL/MM3 2.78 MIL/MM3 Hemoglobin 8.9 GM/DL 8.2 GM/DL Hematocrit 25.4 % 24.2 % Mean Corpuscular Volume 86.2 FL 87.1 FL Mean Corpuscular Hemoglobin 30.1 PG 29.5 PG Mean Corpuscular Hemoglobin 34.9 % 33.9 % Concent Red Cell Distribution Width 16.2 % 16.1 % Platelet Count 252 TH/MM3 223 TH/MM3 Mean Platelet Volume 8.2 FL 8.2 FL Neutrophils (%) (Auto) 66.4 % 58.4 % Lymphocytes (%) (Auto) 23.6 % 30.4 % Monocytes (%) (Auto) 7.6 % 9.0 % Eosinophils (%) (Auto) 2.2 % 1.9 % Basophils (%) (Auto) 0.2 % 0.3 % Neutrophils # (Auto) 5.4 TH/MM3 4.9 TH/MM3 Lymphocytes # (Auto) 1.9 TH/MM3 2.5 TH/MM3 Monocytes # (Auto) 0.6 TH/MM3 0.7 TH/MM3 Eosinophils # (Auto) 0.2 TH/MM3 0.2 TH/MM3 Basophils # (Auto) 0.0 TH/MM3 0.0 TH/MM3 CBC Comment DIFF FINAL DIFF FINAL Differential Comment Sodium Level 143 MEQ/L 144 MEQ/L Potassium Level 3.6 MEQ/L 3.5 MEQ/L Chloride Level 113 MEQ/L 113 MEQ/L Carbon Dioxide Level 23.1 MEQ/L 23.7 MEQ/L Anion Gap 7 MEQ/L 7 MEQ/L Blood Urea Nitrogen 5 MG/DL 5 MG/DL Creatinine 0.32 MG/DL 0.31 MG/DL Estimat Glomerular Filtration 256 ML/MIN 265 ML/MIN Rate Random Glucose 65 MG/DL 78 MG/DL Lactic Acid Level 0.7 mmol/L Calcium Level 7.6 MG/DL 7.5 MG/DL Troponin I LESS THAN 0.02 NG/ML Urine Total Volume 24 Hours 1100 ML Urine Total Protein 24 Hour 164 MG/24HR Date/Time Procedure Status Source Growth 01/04/17 11:47 Aerobic Blood Culture Received Blood Peripheral Pending 01/04/17 11:47 Anaerobic Blood Culture Received Blood Peripheral Pending 01/03/17 18:30 Urine Culture - Preliminary Resulted Urine Clean Catch Group D Enterococcus Physical Exam GENERAL: Well-nourished, well-developed patient. CARDIOVASCULAR: Regular rate and rhythm without murmurs, gallops, or rubs. RESPIRATORY: Breath sounds equal bilaterally. No accessory muscle use. ABDOMEN/GI: Abdomen soft, non-tender. Fundus: [-] GENITOURINARY: External Genitalia: intact and normal in appearance Cervix: [-] Dilatation: [-] Effacement: [-] Station: [-] Presentation: [-] Membranes: [-] Uterine Contractions: [-] FHT's: Category: [-] Baseline: [-] Reactive: [-] Variability: [-] Decels: [-] EXTREMITIES: No cyanosis or edema, non-tender, without signs of DVT. 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 hold seroquel HS and luvox and effexor. case management Margarita Velazquez MD Jan 05, 2017 11:06
[2017-01-05] MEDS: fluvoxaMINE MALEATE 50 MG TAB PO SCH (14:50)
[2017-01-05] MEDS: busPIRone HCL 5 MG TAB PO SCH ×2 (14:50→18:19)
[2017-01-05] MEDS ORDERED: Vancomycin Consult Pharmacy 1 EA OTHER SCH (18:00)
[2017-01-05] MEDS ORDERED: VANCOMYCIN INJ 1,000 MG in SODIUM CHLOR 0.9% 250 ML INJ 250 ML IV ONE (19:00)
--- NOTE | 2017-01-05 23:02 | MB ---
cc: ERIC COTA DO DATE OF CONSULTATION 01/05/17 REASON FOR CONSULTATION Bradycardia and sinus arrhythmia. HISTORY OF PRESENT ILLNESS Heaven Alvarez is a 21-year-old female who is currently 22 weeks , originally admitted to labor and delivery to further be evaluated for lower extremity edema and concern for cellulitis. While there she was noted to have heart rates that seemed to drop into the 50s and 60s with some mild hypotension. She was transferred to the ICU and I was asked to see her for consideration of this bradycardia. Looking back at her time in the ICU heart rates got as low as 48. During these times it appears that she is in sinus bradycardia with sinus arrhythmia. These seem to happen more and the patient was sleeping in general. Most of the time her heart rates have been in the 70s to 80s. She was also noticed the other morning to be a little less responsive than usual and mildly hypotensive with a blood pressure systolically in the 80s and somewhat more pale appearing. Because of this she was moved to the ICU for evaluation for possible sepsis. Since then she has been bolused with IV fluid. In seeing her she currently denies symptoms. PAST MEDICAL HISTORY 1. Pleurisy. 2. Polysubstance abuse. 3. Currently 22 weeks , G6, P4. PAST SURGICAL HISTORY Surgery for thrombosed hemorrhoid. ALLERGIES PENICILLIN. MEDICATIONS 1. Fluvoxamine 50 milligrams daily. 2. Effexor 37.5 milligrams daily. 3. Quetiapine 25 milligrams every night. 4. Buprenorphine 8 milligrams b.i.d. FAMILY HISTORY Denies premature coronary artery disease or sudden cardiac within the family. SOCIAL HISTORY The patient smokes two packs of cigarettes per day. Has history of IV drug abuse with last use being May 2016. Uses Xanax and Suboxone when she can get a hold of it. REVIEW OF SYSTEMS 14-systems were reviewed including osteopathic. Pertinent positives and negatives above otherwise negative. PHYSICAL EXAMINATION VITAL SIGNS: Temperature 98.5, heart rate 62, blood pressure 102/61, respirations 16, pulse ox 97% on room air. GENERAL: In general, the patient appears well, mildly pale, no acute distress, alert, awake and oriented x3. HEENT: Extraocular muscles intact. Mucous membranes moist. NECK: Neck is supple. No JVD at 45 degrees. No carotid bruits heard bilaterally. Carotid upstroke is brisk in nature. HEART: Heart is regular rate and rhythm. Positive first and second heart sounds with no noted murmurs, gallops or rubs. LUNGS: Clear to auscultation bilaterally. No wheezes, rales or rhonchi. ABDOMEN: The abdomen is soft and distended appropriately for 22 weeks , nontender. EXTREMITIES: Show multiple skin lesions from the patient picking at her skin. NEUROLOGICALLY: No focal deficits. SKIN: Warm, dry and intact other than lower extremity lesions. OSTEOPATHIC: Mild lordosis. No kyphoscoliosis or paraspinal tender points. LABORATORY FINDINGS Hemoglobin 8.2, hematocrit 24.2, platelets 223. Potassium 3.5, BUN 5, creatinine 0.31, TSH 0.956. CARDIOLOGY STUDIES Electrocardiogram (January 04, 2017 at 16:51) sinus rhythm with sinus arrhythmia. No acute ST-T wave changes. IMPRESSION 1. 22 weeks . 2. Sinus bradycardia with sinus arrhythmia. 3. Mild hypotension. 4. Tobacco abuse. 5. History of IV drug abuse. Last using May 2016. RECOMMENDATIONS 1. Heaven Alvarez appears to have sinus bradycardia with sinus arrhythmia. I do not see any AV blocks on telemetry. 2. Although physiologically her heart rate should be in the upper areas of normal sinus and then to even sinus tachycardia at this time in her , she may have a naturally low heart rate at baseline when not . When she is up and talking her heart rate does increase into the 70s and 80s. 3. She is on Quetiapine which can cause hypotension specifically orthostatic hypotension. 4. She is also on Buprenorphine which may cause hypotension, orthostatic hypotension and bradycardia. 5. 2D echo has been done showing a normal ejection fraction of 60-65% with no valvulopathies or evidence of vegetations. 6. We will plan on watching her overnight in the ICU and possibly transferring back to labor and delivery tomorrow if stable overnight. 7. Further recommendations will be made based on the hospital course. Thank you for allowing me to see Heaven Alvarez. If there are any questions please do not hesitate to call. Eric Cota DO VGP/EO /10:05 PM /10:36 PM
[2017-01-06] VITALS (16 sets, daily range): BP systolic 90–104; BP diastolic 45–57; PULSE 53–76; RESP 16–27; TEMP 98–98.7; O2SAT 94–97
[2017-01-06] MEDS: LACTATED RINGER'S 1000 ML INJ 1,000 ML IV SCH ×3 (00:03→12:38)
[2017-01-06] MEDS: busPIRone HCL 5 MG TAB PO SCH ×3 (02:22→18:47)
[2017-01-06] MEDS: valACYclovir HCL 500 MG TAB PO SCH ×2 (02:22→12:36)
[2017-01-06] MEDS: CEFEPIME INJ 2,000 MG in SODIUM CHLORIDE 0.9% INJ 100 ML IV SCH ×3 (03:26→19:56)
[2017-01-06] MEDS: VANCOMYCIN INJ 900 MG in SODIUM CHLOR 0.9% 250 ML INJ 250 ML IV SCH ×2 (04:52→12:37)
[2017-01-06] MEDS: HEPARIN SODIUM - SQ 10,000 UNITS/ML VIAL SQ SCH ×3 (07:19→22:38)
[2017-01-06] MEDS: REMOVE OLD PATCH T-DERMAL SCH (09:00)
[2017-01-06] MEDS: NICOTINE 21 MG/24 HR PATCH T-DERMAL SCH (09:50)
[2017-01-06] MEDS: SODIUM CHLORIDE 0.9% FLUSH 10 ML FLUSH IV FLUSH SCH ×2 (09:50→22:19)
[2017-01-06] MEDS: DOCUSATE SODIUM 100 MG CAP PO SCH ×2 (09:51→22:19)
[2017-01-06] MEDS: fluvoxaMINE MALEATE 50 MG TAB PO SCH (09:51)
[2017-01-06] MEDS: MULTIVIT/MIN/PREN/FOL AC/IRON PRENATAL TAB PO SCH (09:51)
[2017-01-06] MEDS: BUPRENORPHINE HCL 8 MG SUBLINGUAL TAB SL SCH ×2 (09:51→22:19)
[2017-01-06] MEDS: FERROUS SULFATE 325 MG (65 MG ELEMENTAL IRON) TAB PO SCH ×2 (09:52→22:19)
--- NOTE | 2017-01-06 12:21 | PD.CARD.PN ---
Subjective Subjective Remarks Mildly lethargic No other complaints Objective Medications Current Medications Medications (Trade) Dose Ordered Sig/Joaquina Route Start Time Stop Time Status Last Admin (Lr 1000 ml Inj) 1,000 ml @ 100 mls/hr Q10H IV 01/03/17 17:53 01/06/17 05:53 (Stuartnatal Plus 3 ) 1 tab DAILY PO 01/04/17 09:00 01/06/17 09:51 (Mag-Al Plus Susp Liq) 30 ml QID PRN PO 01/03/17 18:00 (NS Flush) 2 ml BID IV FLUSH 01/03/17 21:00 01/06/17 09:50 (NS Flush) 2 ml UNSCH PRN IV FLUSH 01/03/17 18:00 (Ferrous Sulfate) 325 mg BID PO 01/03/17 21:00 01/06/17 09:52 (Buprenorphine) 4 mg BID SL 01/03/17 21:00 01/06/17 09:51 (Habitrol 21 Mg Patch.24 Hr) 1 patch DAILY T-DERMAL 01/04/17 09:00 01/06/17 09:50 Miscellaneous Information 1 1 DAILY T-DERMAL 01/04/17 09:00 01/06/17 09:00 (Maxipime Inj/NS Inj) 100 ml @ 200 mls/hr Q8H IV 01/04/17 11:00 01/06/17 09:52 (Atarax) 25 mg Q8H PRN PO 01/04/17 13:00 01/04/17 13:29 (Pill Splitter) 1 ea UNSCH PRN OTHER 01/04/17 16:15 01/06/17 09:50 (Heparin Inj) 5,000 units Q8HR SQ 01/04/17 22:00 01/06/17 07:19 (Colace) 100 mg BID PO 01/04/17 21:00 01/06/17 09:51 (Luvox) 50 mg DAILY PO 01/05/17 09:45 01/06/17 09:51 Buspirone HCl 5 mg 5 mg Q8H PO 01/05/17 10:00 01/06/17 09:51 Pharmacy Profile Note 0 ml @ 0 mls/hr UNSCH OTHER 01/05/17 18:00 (Vancomycin Inj/ NS 250 ml Inj) 259 ml @ 250 mls/hr Q8H IV 01/06/17 04:00 01/06/17 04:52 Miscellaneous Information SPECIFIC LAB TO BE DRAWN:VANCO TROUGH DATE TO BE DRJoseline.. ONCE ONCE .XX 01/06/17 19:45 01/06/17 19:46 (Valtrex) 500 mg Q12H PO 01/06/17 01:00 01/08/17 13:01 01/06/17 02:22 Vital Signs / I&O Vital Signs Date Time Temp Pulse Resp B/P Pulse Ox O2 Delivery O2 Flow Rate FiO2 01/06/17 12:00 56 01/06/17 10:00 53 01/06/17 09:02 96 01/06/17 08:00 60 01/06/17 08:00 98.4 60 16 93/50 94 01/06/17 06:00 65 01/06/17 04:00 63 01/06/17 04:00 98.0 63 18 95/45 94 01/06/17 02:00 72 01/06/17 00:00 73 01/06/17 00:00 98.5 73 27 90/54 97 01/05/17 22:55 93 21 01/05/17 22:00 63 01/05/17 20:00 74 01/05/17 20:00 98.8 74 21 76/56 96 01/05/17 18:00 67 01/05/17 16:00 77 01/05/17 16:00 98.3 77 16 97/55 96 01/05/17 14:00 73 I/O 01/05/17 01/05/17 01/05/17 01/06/17 01/06/17 01/06/17 07:00 15:00 23:00 07:00 15:00 23:00 Intake Total 600 ml 3321 ml 1401 ml 2129 ml Output Total 1650 ml 240 ml 550 ml Balance 600 ml 1671 ml 1161 ml 1579 ml Intake Oral 0 ml 240 ml 700 ml 700 ml IV Total 600 ml 3081 ml 701 ml 1429 ml Output Urine Total 1650 ml 240 ml 550 ml # Voids 3 1 # Bowel Movements 0 1 0 Physical Exam GENERAL: NAD SKIN: Warm and dry. HEAD: Atraumatic. Normocephalic. EYES: Pupils equal and round. No scleral icterus. No injection or drainage. ENT: No nasal bleeding or discharge. Mucous membranes pink and moist. NECK: Trachea midline. No JVD. CARDIOVASCULAR: Regular rate and rhythm. RESPIRATORY: No accessory muscle use. Clear to auscultation. Breath sounds equal bilaterally. GASTROINTESTINAL: Abdomen soft, non-tender, 22 weeks . Hepatic and splenic margins not palpable. MUSCULOSKELETAL: Extremities without clubbing, cyanosis, or edema. No obvious deformities. NEUROLOGICAL: Awake and alert. No obvious cranial nerve deficits. Motor grossly within normal limits. Five out of 5 muscle strength in the arms and legs. Normal speech. PSYCHIATRIC: Appropriate mood and affect; insight and judgment normal. Laboratory Laboratory Tests Test 01/06/17 06:17 Vitamin B12 Level 194 PG/ML Assessment and Plan Problem List: (1) Bradycardia (2) Sinus arrhythmia (3) Adjustment disorder with anxiety (4) Skin lesions (5) Anxiety and depression (6) UTI (urinary tract infection) (7) Tobacco abuse (8) History of drug abuse in remission Assessment and Plan 1) Sinus/Sinus bradycardia/Sinus arrhythmia over night, asymptomatic Possibly secondary to medications, also pt is lethargic which may be a sign of the medications as when she wakes up and talks heart rate increases to 75-80 2) Echo showing no structural disease, no evidence of vegetations 3) No further cardiovascular work up, will see PRN, call with questions Eric Spivey DO Jan 06, 2017 12:21
--- NOTE | 2017-01-06 13:43 | PD.ID.CON ---
History of Present Illness Service ID Consult Requested By Dr Courtney Reason for Consult UTI Primary Care Physician Lolis Lovell MD Diagnoses: History of Present Illness 21 yo 22 weeks presents with bilateral lower extremeties swelling for severql days No care H/o IV drug uise, but claims she quit in May. She admits to take illicit pill. She developed bradycardia yday and now followed by appellate court clerk Normal EF She reports high grade PCN allergy (throat swelling), but was started on cefepime and apparently tolerates it OK She has proteinuria and bacteriuria SHe has no fever and no leukocytosis She is also co swelling of her labia Her HIV , GC, RPR and hepatitis profile were all negative She repeatedly grew enterococcus in urine clx from 12/30 and 12/28. 2 days ago clx was cw contaminants She is started on fcefepime, vancomycin Review of Systems Cardiovascular: COMPLAINS OF: Lower Extremity Edema Except as stated in HPI: all other systems reviewed are Neg Past Family Social History Allergies: Coded Allergies: Penicillin (Verified Allergy, Unknown, 01/03/17) *MDRO Multi-Drug Resistant Organism (Verified Adverse Reaction, Unknown, MRSA, 01/04/17) MRSA (abdomen-05/31/16) MRSA PCR (nares) positive - 01/03/17 Past Medical History "Pleurisy" Polysubstance abuse Past Surgical History Thrombosed hemorrhoid Active Ordered Medications Medications where reviewed in EMR Antibiotics Include: vancomycin cefepime Family History Stroke Lung cancer COPD Uncle had pancreatic cancer Social History Smokes 2 packs of cigarettes per day. Reports history of IV drug abuse, but states that she last used in May of last year. She does continue to use oral Xanax and Suboxone. Denies alcohol use. Physical Exam Vital Signs Vital Signs Date Time Temp Pulse Resp B/P Pulse Ox O2 Delivery O2 Flow Rate FiO2 01/06/17 12:00 56 01/06/17 12:00 98.7 56 17 97/56 95 01/06/17 10:00 53 01/06/17 09:02 96 01/06/17 08:00 60 01/06/17 08:00 98.4 60 16 93/50 94 01/06/17 06:00 65 01/06/17 04:00 63 01/06/17 04:00 98.0 63 18 95/45 94 01/06/17 02:00 72 01/06/17 00:00 73 01/06/17 00:00 98.5 73 27 90/54 97 01/05/17 22:55 93 21 01/05/17 22:00 63 01/05/17 20:00 74 01/05/17 20:00 98.8 74 21 76/56 96 01/05/17 18:00 67 01/05/17 16:00 77 01/05/17 16:00 98.3 77 16 97/55 96 01/05/17 14:00 73 Physical Exam CONSTITUTIONAL/GENERAL: This is a thin and pale patient, in no apparent distress. TUBES/LINES/DRAINS: SKIN: No jaundice, rashes,Multiple scabbed lesions on BLE. No needle lucero Skin temperature appropriate. Not diaphoretic. HEAD: Atraumatic. Normocephalic. EYES: Pupils equal and round and reactive. Extraocular motions intact. No scleral icterus. No injection or drainage. Fundi not examined. ENT: Hearing grossly normal. Nose without bleeding or purulent drainage. Orl mucosae moist without visible erythema, exudates, masses, or lesions. NECK: Trachea midline. Supple, nontender. CARDIOVASCULAR: Regular rate and rhythm without murmurs, gallops, or rubs. No JVD. Peripheral pulses symmetric. RESPIRATORY/CHEST: Symmetric, unlabored respirations. Clear to auscultation. Breath sounds equal bilaterally. No wheezes, rales, or rhonchi. GASTROINTESTINAL: Abdomen gravid benign, non-tender, nondistended. No hepato- splenomegaly, or palpable masses. No guarding. Bowel sounds present. GENITOURINARY: Without palpable bladder distension. Labia major edematous no leiosns no erythema MUSCULOSKELETAL: Extremities without clubbing, cyanosis, 2+ sofft pitting edema. No joint tenderness or effusion noted. No calf tenderness. No mottling or clubbing. LYMPHATICS: No palpable cervical or supraclavicular adenopathy. NEUROLOGICAL: Awake and alert. Motor and sensory grossly within normal limits. Follows commands. Clear speech. Moves all extremities. PSYCHIATRIC: No obvious anxiety/depression. no apparent hallucinations or other psychotic thought process. Flat affect Laboratory Laboratory Tests Test 01/06/17 06:17 Vitamin B12 Level 194 Date/Time Procedure Status Source Growth 01/04/17 11:47 Aerobic Blood Culture - Preliminary Resulted Blood Peripheral NO GROWTH IN 2 DAYS 01/04/17 11:47 Anaerobic Blood Culture - Preliminary Resulted Blood Peripheral NO GROWTH IN 2 DAYS 01/03/17 18:30 Urine Culture - Final Complete Urine Clean Catch Result Diagram: 01/05/17 0447 01/05/17 0447 Imaging Last Impressions Liver Ultrasound 01/05/17 0000 Signed Impressions: Service Date/Time: December 08:17 - CONCLUSION: 1. Patent main portal vein and portal vein branches with appropriate hepatopedal flow in the main and left portal veins. Hepatofugal flow in the right portal vein may be related to abdomen. 2. Patent hepatic artery and hepatic veins with appropriate flow. 3. Cholelithiasis without sonographic evidence for acute cholecystitis. 4. Mild bilateral maternal hydronephrosis. Troy Lance MD Chest CT 01/04/17 0000 Signed Impressions: Service Date/Time: Wednesday, January 04, 2017 11:07 - CONCLUSION: 1. Patchy ground glass opacities predominantly in the left lower lobe with a single focal region of consolidation at the extreme left lung base consistent with developing pneumonia in the appropriate clinical setting. 2. More subtle peripheral subpleural groundglass opacities primarily in the anterior upper lobes bilaterally. This is very nonspecific and likely reflect regions of volume loss or subtle alveolar edema. Developing sites of infection cannot be excluded although felt to be unlikely. 3. Probable mild right lung base atelectasis. 4. Otherwise, no definitive findings for septic emboli. Troy Lance MD Lower Extremity Ultrasound 01/03/17 0000 Signed Impressions: Service Date/Time: Tuesday, January 03, 2017 20:09 - CONCLUSION: No DVT. Sherwin Schmidt MD Chest X-Ray 01/03/17 0000 Signed Impressions: Service Date/Time: Tuesday, January 03, 2017 18:54 - CONCLUSION: 1. Increased density at the left base. Some mild atelectasis or consolidation needs to be considered. 2. Densities projecting over the chest bilaterally consistent with nipple shadows. Sherwin Schmidt MD Assessment and Plan Assessment and Plan , 2 nd trimester Bacteriria, asyptomatic in pt LLL infiltrate ? early PNA Sinus bradycardia Edema of b/l LE with proteinuria HIgh grade PCN allergy - cont curretn abx for now - repeat urine and urine clx Discussed Condition With Ana Harvey MD Jan 06, 2017 13:43
--- NOTE | 2017-01-06 14:43 | HHI.CCPN ---
Subjective Remarks/Hospital Course The patient is a 21-year-old who is 22 weeks , history of IVDU, last IV use in May 2016, who was admitted to the hospital for worsening lower extremity edema, probable cellulitis. Today patient was found to be less responsive than usual, hypotensive and systolic blood pressure in 80s, and pale- appearing. Patient was moved to the ICU and critical care medicine was consulted for evaluation of probable sepsis and hypotension. She complaints of nonproductive cough, also intermittent pleuritic chest pain. Patient stated that she has history of pleurisy. I evaluated the patient in the ICU. She remains hypotensive and I have ordered 2 L crystalloid boluses. Chest x-ray showed possible nodular density bilateral bases. I did a bedside ultrasound with was limited, but I did not see any vegetation on mitral or aortic valves. I will get a formal echo for full evaluation. A CT chest have been ordered to evaluate for the chest infiltrates. Currently receiving Rocephin, I will regional climate change analyst to cefepime 2 g IV every 8 hours 01/05: Patient remains asymptomatic except for pleuritic chest pain but HR varies from 48-55 with marked sinus arrhythmia. Her HR expected would be 90-100 at least at this stage of . TSH normal, Echo normal, except dilated IVC Subjective 01/06: Resting in bed. Episodes of bradycardia while asleep however heart rate 75-81 awake. Asymptomatic. Hemoglobin remained stable around 8. Hemodynamically stable. Objective Vital Signs Date Time Temp Pulse Resp B/P Pulse Ox O2 Delivery O2 Flow Rate FiO2 01/06/17 12:00 56 01/06/17 12:00 98.7 17 97/56 95 01/05/17 22:55 21 Intake and Output 01/05/17 01/05/17 01/06/17 08:00 16:00 00:00 Intake Total 600 ml 3321 ml 1401 ml Output Total 1650 ml 240 ml Balance 600 ml 1671 ml 1161 ml Result Diagram: 01/05/17 0447 01/05/17 0447 Other Results Microbiology Date/Time Procedure Status Source Growth 01/04/17 11:47 Aerobic Blood Culture - Preliminary Resulted Blood Peripheral NO GROWTH IN 2 DAYS 01/04/17 11:47 Anaerobic Blood Culture - Preliminary Resulted Blood Peripheral NO GROWTH IN 2 DAYS 01/03/17 18:30 Urine Culture - Final Complete Urine Clean Catch Imaging Last Impressions Liver Ultrasound 01/05/17 0000 Signed Impressions: Service Date/Time: December 08:17 - CONCLUSION: 1. Patent main portal vein and portal vein branches with appropriate hepatopedal flow in the main and left portal veins. Hepatofugal flow in the right portal vein may be related to abdomen. 2. Patent hepatic artery and hepatic veins with appropriate flow. 3. Cholelithiasis without sonographic evidence for acute cholecystitis. 4. Mild bilateral maternal hydronephrosis. Troy Lance MD Chest CT 01/04/17 0000 Signed Impressions: Service Date/Time: Wednesday, January 04, 2017 11:07 - CONCLUSION: 1. Patchy ground glass opacities predominantly in the left lower lobe with a single focal region of consolidation at the extreme left lung base consistent with developing pneumonia in the appropriate clinical setting. 2. More subtle peripheral subpleural groundglass opacities primarily in the anterior upper lobes bilaterally. This is very nonspecific and likely reflect regions of volume loss or subtle alveolar edema. Developing sites of infection cannot be excluded although felt to be unlikely. 3. Probable mild right lung base atelectasis. 4. Otherwise, no definitive findings for septic emboli. Troy Lance MD Lower Extremity Ultrasound 01/03/17 0000 Signed Impressions: Service Date/Time: Tuesday, January 03, 2017 20:09 - CONCLUSION: No DVT. Sherwin Schmidt MD Chest X-Ray 01/03/17 0000 Signed Impressions: Service Date/Time: Tuesday, January 03, 2017 18:54 - CONCLUSION: 1. Increased density at the left base. Some mild atelectasis or consolidation needs to be considered. 2. Densities projecting over the chest bilaterally consistent with nipple shadows. Sherwin Schmidt MD Objective Remarks GENERAL: 21-year-old female, resting in bed in no acute distress SKIN: Warm and dry. No rash HEAD: Normocephalic and atraumatic. EYES: No scleral icterus. No injection or drainage. ENT: No nasal drainage noted. Airway patent. NECK: Supple, trachea midline. No JVD. CARDIOVASCULAR: Currently with sinus bradycardia. S1, S2. No S4. Noted tenderness to palpation R lower sternal border. RESPIRATORY: Breath sounds equal bilaterally. Few crackles appreciated in the bases bilaterally right greater than left. ABDOMEN/GI: Abdomen soft, non-tender, bowel sounds present, 22 weeks . Mild RUQ tenderness EXTREMITIES: Multiple skin lesions on bilateral lower extremities from skin picking outpatient BACK: Nontender without obvious deformity. No CVA tenderness. NEUROLOGICAL: Awake and alert. Motor and sensory grossly within normal limits. Five out of 5 muscle strength in all muscle groups. Normal speech. A/P Assessment and Plan NEURO/Psych: History of IVDU Anxiety disorder Currently on Buprenorphine 4 mg twice a day for opiate withdrawal. Possibly the source of bradycardia. On Luvox 50 mg by mouth daily for depression On BuSpar 5 mg by mouth every 8 hours for anxiety on Atarax 25 mg every 8 hours when necessary. Evaluated by psychiatry Dr. [employer] Effexor XR 37.5 mg by mouth daily and see Seroquel 25 mg at night. RESP: Bilateral atelectasis - Nasal cannula oxygen to maintain saturations greater than equal to 90% - DuoNeb breathing treatments if needed - IS while awake - CT chest negative for septic emboli. Did reveal atelectasis/groundglass lower lobe/upper lobes bilaterally. CV: Hypotension-resolved Relative bradycardia with marked sinus arrhythmia - At this stage of patient's average be 90-100, she remains at 48-55 - TSH Normal - Dr. Spivey cardiology.. He has signed off and terazosin medication related - Received 1 L Ringer lactate bolus, given additional 1 L normal saline bolus - LR maintenance fluid at 100 ML per hour - 2-D echo revealed EF 60-65%. No regional wall motion abnormality. - Liver US to evaluate IVC pending GI: Cholelithiasis - Heart healthy diet, Zantac if needed for GI prophylaxis - Liver US to evaluate IVC revealed patent portal vein, hepatic artery and hepatic vein. Normal hepatopedal flow. Cholelithiasis. Renal/: - Monitor renal function closely. Monitor strict intake output Noted proteinuria. Nephrology consulted by primary team. ID: Asymptomatic bacteriuria - F/u blood urine culture no growth to date - Continue cefepime 2 g IV every 8 hours and vancomycin - Infectious disease consulted/Dr. Retana following. HEME: Anemia secondary to - Monitor CBC, CMP, coags -Iron sulfate 325 mg by mouth twice a day ENDO: TSH within normal limits - Replace electrolytes per protocol RESIDENTIAL NURSE: 22 weeks Care per AGRICULTURAL ECONOMIST PROPH: - Bilateral lower extremity SCDs. Heparin s/q for DVT Prophylaxis LINES: - Utilize peripheral IVs, central line if needed Level 2 Geo Evans MD Jan 06, 2017 14:43
--- NOTE | 2017-01-06 18:51 | PD.CONS ---
HPI Service Nephrology Consult Requested By Dr. Velazquez Reason for Consult Edema Primary Care Physician Lolis Lovell MD History of Present Illness Patient is a 21-year-old white female with history of 22 weeks, previous history of IVDA stopped using him again in May, she is now coming in with swelling of her legs that she said the left side is more affected than the right but she is having pain in the right ankle and is difficult for her bear weight 24-hour urine test showed 164 milligrams of protein Her cardiac workup has been negative and echocardiogram showed no evidence of vegetation Review of Systems Constitutional: COMPLAINS OF: Fatigue Past Family Social History Allergies: Coded Allergies: Penicillin (Verified Allergy, Unknown, 01/03/17) *MDRO Multi-Drug Resistant Organism (Verified Adverse Reaction, Unknown, MRSA, 01/04/17) MRSA (abdomen-05/31/16) MRSA PCR (nares) positive - 01/03/17 Past Medical History IVDA 1, 1 , four previous children Smokes up to 2 packs per day Depression Anxiety Gallstones Reported Medications Reported Meds & Active Scripts Active Quetiapine (Quetiapine Fumarate) 25 Mg Tab 25 Mg PO HS Effexor XR 24 HR (Venlafaxine HCl) 37.5 Mg Cap 37.5 Mg PO DAILY Fluvoxamine (Fluvoxamine Maleate) 50 Mg Tab 50 Mg PO DAILY Buprenorphine (Buprenorphine HCl) 8 Mg Subl 8 Mg SL BID Active Ordered Medications Current Medications Medications (Trade) Dose Ordered Sig/Joaquina Route Start Time Stop Time Status Last Admin (Lr 1000 ml Inj) 1,000 ml @ 100 mls/hr Q10H IV 01/03/17 17:53 01/06/17 12:38 (Stuartnatal Plus 3 ) 1 tab DAILY PO 01/04/17 09:00 01/06/17 09:51 (Mag-Al Plus Susp Liq) 30 ml QID PRN PO 01/03/17 18:00 (NS Flush) 2 ml BID IV FLUSH 01/03/17 21:00 01/06/17 09:50 (NS Flush) 2 ml UNSCH PRN IV FLUSH 01/03/17 18:00 (Ferrous Sulfate) 325 mg BID PO 01/03/17 21:00 01/06/17 09:52 (Buprenorphine) 4 mg BID SL 01/03/17 21:00 01/06/17 09:51 (Habitrol 21 Mg Patch.24 Hr) 1 patch DAILY T-DERMAL 01/04/17 09:00 01/06/17 09:50 Miscellaneous Information 1 1 DAILY T-DERMAL 01/04/17 09:00 01/06/17 09:00 (Maxipime Inj/NS Inj) 100 ml @ 200 mls/hr Q8H IV 01/04/17 11:00 01/06/17 09:52 (Atarax) 25 mg Q8H PRN PO 01/04/17 13:00 01/04/17 13:29 (Pill Splitter) 1 ea UNSCH PRN OTHER 01/04/17 16:15 01/06/17 09:50 (Heparin Inj) 5,000 units Q8HR SQ 01/04/17 22:00 01/06/17 14:49 (Colace) 100 mg BID PO 01/04/17 21:00 01/06/17 09:51 (Luvox) 50 mg DAILY PO 01/05/17 09:45 01/06/17 09:51 Buspirone HCl 5 mg 5 mg Q8H PO 01/05/17 10:00 01/06/17 09:51 Pharmacy Profile Note 0 ml @ 0 mls/hr UNSCH OTHER 01/05/17 18:00 (Vancomycin Inj/ NS 250 ml Inj) 259 ml @ 250 mls/hr Q8H IV 01/06/17 04:00 01/06/17 12:37 Miscellaneous Information SPECIFIC LAB TO BE DRAWN:VANCO TROUGH DATE TO BE DRJoseline.. ONCE ONCE .XX 01/06/17 19:45 01/06/17 19:46 (Valtrex) 500 mg Q12H PO 01/06/17 01:00 01/08/17 13:01 01/06/17 12:36 Family History Noncontributory Social History Smoke up to 2 pack per day, alcohol use heavily but stopped drinking 3 years ago Use heroine IVDA stop in May of last year Physical Exam Vital Signs Vital Signs Date Time Temp Pulse Resp B/P Pulse Ox O2 Delivery O2 Flow Rate FiO2 01/06/17 18:07 54 01/06/17 18:06 104/54 01/06/17 18:05 98.2 17 01/06/17 16:00 76 01/06/17 16:00 98.5 76 18 100/57 95 01/06/17 14:00 55 01/06/17 12:00 56 01/06/17 12:00 98.7 56 17 97/56 95 01/06/17 10:00 53 01/06/17 09:02 96 01/06/17 08:00 60 01/06/17 08:00 98.4 60 16 93/50 94 01/06/17 06:00 65 01/06/17 04:00 63 01/06/17 04:00 98.0 63 18 95/45 94 01/06/17 02:00 72 01/06/17 00:00 73 01/06/17 00:00 98.5 73 27 90/54 97 01/05/17 22:55 93 21 01/05/17 22:00 63 01/05/17 20:00 74 01/05/17 20:00 98.8 74 21 76/56 96 Physical Exam GENERAL: Well-nourished, well-developed patient. SKIN: Warm and dry. HEAD: Normocephalic. EYES: No scleral icterus. No injection or drainage. NECK: Supple, trachea midline. No JVD or lymphadenopathy. CARDIOVASCULAR: Regular rate and rhythm without murmurs, gallops, or rubs. RESPIRATORY: Breath sounds equal bilaterally. No accessory muscle use. GASTROINTESTINAL: Abdomen soft, non-tender, distended. 22 weeks EXTREMITIES: No cyanosis, 1-2+ edema left greater than right. NEUROLOGICAL: Awake, alert, and oriented x 3. Non-focal. Laboratory Laboratory Tests Test 01/06/17 06:17 Vitamin B12 Level 194 Date/Time Procedure Status Source Growth 01/04/17 11:47 Aerobic Blood Culture - Preliminary Resulted Blood Peripheral NO GROWTH IN 2 DAYS 01/04/17 11:47 Anaerobic Blood Culture - Preliminary Resulted Blood Peripheral NO GROWTH IN 2 DAYS 01/03/17 18:30 Urine Culture - Final Complete Urine Clean Catch Result Diagram: 01/05/17 0447 01/05/17 0447 Imaging Last Impressions Liver Ultrasound 01/05/17 0000 Signed Impressions: Service Date/Time: December 08:17 - CONCLUSION: 1. Patent main portal vein and portal vein branches with appropriate hepatopedal flow in the main and left portal veins. Hepatofugal flow in the right portal vein may be related to abdomen. 2. Patent hepatic artery and hepatic veins with appropriate flow. 3. Cholelithiasis without sonographic evidence for acute cholecystitis. 4. Mild bilateral maternal hydronephrosis. Troy Lance MD Chest CT 01/04/17 0000 Signed Impressions: Service Date/Time: Wednesday, January 04, 2017 11:07 - CONCLUSION: 1. Patchy ground glass opacities predominantly in the left lower lobe with a single focal region of consolidation at the extreme left lung base consistent with developing pneumonia in the appropriate clinical setting. 2. More subtle peripheral subpleural groundglass opacities primarily in the anterior upper lobes bilaterally. This is very nonspecific and likely reflect regions of volume loss or subtle alveolar edema. Developing sites of infection cannot be excluded although felt to be unlikely. 3. Probable mild right lung base atelectasis. 4. Otherwise, no definitive findings for septic emboli. Tory Lance MD Lower Extremity Ultrasound 01/03/17 0000 Signed Impressions: Service Date/Time: Tuesday, January 03, 2017 20:09 - CONCLUSION: No DVT. Sherwin Schmidt MD Chest X-Ray 01/03/17 0000 Signed Impressions: Service Date/Time: Tuesday, January 03, 2017 18:54 - CONCLUSION: 1. Increased density at the left base. Some mild atelectasis or consolidation needs to be considered. 2. Densities projecting over the chest bilaterally consistent with nipple shadows. Sherwin Schmidt MD Assessment and Plan Problem List: (1) Edema Plan: This is more generalized edema likely due to use of drugs in the past possibly sclerose some of the veins, exhibiting now as she is and has extracellular fluid accumulation due to physiological state I do not find any kidney problems Certainly proteinuria up to this extent Within normal finding in the 22 weeks At this point continue to observe her if she needs nephrology help again she can be referred back to us in future. (2) Tobacco abuse Plan: On nicotine patch (3) History of drug abuse in remission Plan: Previous history of Jen Reyes MD Jan 06, 2017 18:51
[2017-01-06] MEDS ORDERED: PHARMACY ORDERED LAB ONE (19:45)
[2017-01-06 20:53] LABS: BACTERIA, URINE RARE /hpf; BLOOD, URINE NEG (NEG); COMMENT (UR) CULT NOT INDICATED; CULTURE IF INDICATED CULT NOT INDICATED; GLUCOSE,URINE NEG (NEG); HYALINE CAST, URINE 1 /lpf (RARE); KETONE, URINE NEG (NEG); MUCUS URINE MOD /lpf (OCC); NITRITE,URINE NEG (NEG); SQUAMOUS EPITHELIAL CELL URINE 8 /hpf (0-5); URINE COLOR YELLOW (YELLW/STRAW)
[2017-01-06] MEDS: VANCOMYCIN 1,000 MG/NS 250 ML IV SCH ×2 (22:19)
[2017-01-06 22:20] LABS: RHEUMATOID FACTOR TRIGGER LESS THAN 10.0 IU/ML (0.0-14.9)
[2017-01-06 22:25] LABS: ALKALINE PHOSPHATASE 104 U/L (45-117); ALT (GPT) 25 U/L (10-53); ANION GAP 8 MEQ/L (5-15); AST (GOT) 16 U/L (15-37); BLOOD UREA NITROGEN 8 MG/DL (7-18); CHLORIDE 110 MEQ/L (98-107); GLOMERULAR FILTRATION RATE 239 ML/MIN (>89); POTASSIUM 3.4 MEQ/L (3.5-5.1); SODIUM (NA) 142 MEQ/L (136-145); TOTAL BILIRUBIN ADULT 0.3 MG/DL (0.2-1.0)
[2017-01-07] VITALS (15 sets, daily range): BP systolic 90–109; BP diastolic 43–53; PULSE 47–66; RESP 16–18; TEMP 96.7–98.3
[2017-01-07] MEDS: valACYclovir HCL 500 MG TAB PO SCH ×2 (00:40→12:11)
[2017-01-07] MEDS: hydrOXYzine HCL 25 MG TAB PO PRN ×3 (00:42→22:05)
[2017-01-07] MEDS: LACTATED RINGER'S 1000 ML INJ 1,000 ML IV SCH ×2 (02:01→11:53)
[2017-01-07] MEDS: busPIRone HCL 5 MG TAB PO SCH ×3 (02:01→18:18)
[2017-01-07] MEDS: CEFEPIME INJ 2,000 MG in SODIUM CHLORIDE 0.9% INJ 100 ML IV SCH (03:11)
[2017-01-07 05:34] LABS: AUTOMATED NEUTROPHIL # 3.7 TH/MM3 (1.8-7.7); BASOPHIL % 0.4 % (0.0-2.0); EOSINOPHIL # 0.2 TH/MM3 (0-0.4); EOSINOPHIL % 2.9 % (0.0-4.0); HEMATOCRIT 22.9 % (35.0-46.0); HEMO FLAGS DIFF FINAL; LYMPH % 34.6 % (9.0-44.0); LYMPHOCYTE # 2.4 TH/MM3 (1.0-4.8); MEAN CELL VOLUME 87.8 FL (80.0-100.0); MEAN CORPUSCULAR HEMOGLOBIN 30.7 PG (27.0-34.0); MEAN CORPUSCULAR HGB CONC 34.9 % (32.0-36.0); MONO % 9.1 % (0.0-8.0); PLATELET COUNT 202 TH/MM3 (150-450); RED BLOOD COUNT 2.61 MIL/MM3 (4.00-5.30); RED CELL DISTRIBUTION WIDTH 15.9 % (11.6-17.2); WHITE BLOOD COUNT 7.1 TH/MM3 (4.0-11.0)
[2017-01-07] MEDS: VANCOMYCIN 1,000 MG/NS 250 ML IV SCH ×2 (05:48)
[2017-01-07] MEDS: HEPARIN SODIUM - SQ 10,000 UNITS/ML VIAL SQ SCH ×3 (05:48→21:54)
[2017-01-07 06:02] LABS: BICARBONATE 22.6 MEQ/L (21.0-32.0); POTASSIUM 3.3 MEQ/L (3.5-5.1)
[2017-01-07 06:19] LABS: CALCIUM-PROTEIN CORRECTED 8.8 MG/DL (8.5-10.1)
[2017-01-07] MEDS ORDERED: POTASSIUM CHLORIDE 25 MEQ EFFERVESCENT TAB PO ONE (08:15)
[2017-01-07] MEDS: SODIUM CHLORIDE 0.9% FLUSH 10 ML FLUSH IV FLUSH SCH ×2 (09:00→21:00)
[2017-01-07] MEDS: REMOVE OLD PATCH T-DERMAL SCH (09:00)
--- NOTE | 2017-01-07 09:11 | PD.OB.ANTE ---
Subjective Diagnosis: (1) Tobacco abuse (2) No care in current in second trimester (3) Drug abuse during (4) Leg swelling in Interval History This is a delayed progress note from January 06. extensive discussion with [facility]. Describes intermittent SOB and above all profound fatigue. She fell asleep during her sonogram. She fell asleep leaning over to oyster picker her phone off the floor. She does not have anymore chest pain. Her anxiety is average. she has no symptoms of withdrawal. She reiterated that her last IV use was prior to but that she had been using lots of pills by mouth and smoking 2 PPD. She acknowledges profound depression with her social situation. AVSS and has never been febrile Her left leg and arm were extremely swollen and painful. Her lesions on her legs were healing as she was not picking. Her weight has increased 10 kg in 24 hours--all on the left side ??? her uterine fundus was small. movement felt. Objective Vital Signs Vital Signs Date Time Temp Pulse Resp B/P Pulse Ox O2 Delivery O2 Flow Rate FiO2 01/07/17 04:59 53 90/46 01/07/17 04:57 96.7 16 01/07/17 00:38 109/50 01/07/17 00:38 97.9 66 16 01/06/17 22:40 16 01/06/17 19:40 61 98/48 01/06/17 19:38 98.5 16 01/06/17 18:07 54 01/06/17 18:06 104/54 01/06/17 18:05 98.2 17 01/06/17 16:00 76 01/06/17 16:00 98.5 76 18 100/57 95 01/06/17 14:00 55 01/06/17 12:00 56 01/06/17 12:00 98.7 56 17 97/56 95 01/06/17 10:00 53 Lab & Micro Results Test 01/06/17 01/06/17 01/06/17 01/07/17 17:00 20:00 21:38 05:18 Urine Color YELLOW Urine Turbidity HAZY Urine pH 6.0 Urine Specific [place] 1.024 Urine Protein TRACE mg/dL Urine Glucose (UA) NEG mg/dL Urine Ketones NEG mg/dL Urine Occult Blood NEG Urine Nitrite NEG Urine Bilirubin NEG Urine Urobilinogen 2.0 MG/DL Urine Leukocyte Esterase NEG Urine WBC 1 /hpf Urine Squamous Epithelial 8 /hpf Cells Urine Bacteria RARE /hpf Urine Hyaline Casts 1 /lpf Urine Mucus MOD /lpf Microscopic Urinalysis Comment CULT NOT INDICATED Vancomycin Level Trough 9.8 MCG/ML Erythrocyte Sedimentation Rate 35 mm/hr Sodium Level 142 MEQ/L 142 MEQ/L Potassium Level 3.4 MEQ/L 3.3 MEQ/L Chloride Level 110 MEQ/L 112 MEQ/L Carbon Dioxide Level 24.0 MEQ/L 22.6 MEQ/L Anion Gap 8 MEQ/L 7 MEQ/L Blood Urea Nitrogen 8 MG/DL 6 MG/DL Creatinine 0.34 MG/DL 0.34 MG/DL Estimat Glomerular Filtration 239 ML/MIN 239 ML/MIN Rate Random Glucose 97 MG/DL 87 MG/DL Calcium Level 7.6 MG/DL 7.4 MG/DL Total Bilirubin 0.3 MG/DL Aspartate Amino Transf 16 U/L (AST/SGOT) Alanine Aminotransferase 25 U/L (ALT/SGPT) Alkaline Phosphatase 104 U/L B-Type Natriuretic Peptide 157 PG/ML Total Protein 5.0 GM/DL 4.7 GM/DL Albumin 1.8 GM/DL Rheumatoid Factor Screen NEGATIVE Rheumatoid Factor Titer IU/ML White Blood Count 7.1 TH/MM3 Red Blood Count 2.61 MIL/MM3 Hemoglobin 8.0 GM/DL Hematocrit 22.9 % Mean Corpuscular Volume 87.8 FL Mean Corpuscular Hemoglobin 30.7 PG Mean Corpuscular Hemoglobin 34.9 % Concent Red Cell Distribution Width 15.9 % Platelet Count 202 TH/MM3 Mean Platelet Volume 8.7 FL Neutrophils (%) (Auto) 53.0 % Lymphocytes (%) (Auto) 34.6 % Monocytes (%) (Auto) 9.1 % Eosinophils (%) (Auto) 2.9 % Basophils (%) (Auto) 0.4 % Neutrophils # (Auto) 3.7 TH/MM3 Lymphocytes # (Auto) 2.4 TH/MM3 Monocytes # (Auto) 0.6 TH/MM3 Eosinophils # (Auto) 0.2 TH/MM3 Basophils # (Auto) 0.0 TH/MM3 CBC Comment DIFF FINAL Differential Comment Protein Corrected Calcium 8.8 MG/DL Random Cortisol 3.9 MCG/DL Date/Time Procedure Status Source Growth 01/04/17 11:47 Aerobic Blood Culture - Preliminary Resulted Blood Peripheral NO GROWTH IN 2 DAYS 01/04/17 11:47 Anaerobic Blood Culture - Preliminary Resulted Blood Peripheral NO GROWTH IN 2 DAYS 01/03/17 18:30 Urine Culture - Final Complete Urine Clean Catch Physical Exam GENERAL: Well-nourished, well-developed patient. CARDIOVASCULAR: Regular rate and rhythm without murmurs, gallops, or rubs. RESPIRATORY: Breath sounds equal bilaterally. No accessory muscle use. ABDOMEN/GI: Abdomen soft, non-tender. Fundus: [-] GENITOURINARY: External Genitalia: intact and normal in appearance Cervix: [-] Dilatation: [-] Effacement: [-] Station: [-] Presentation: [-] Membranes: [-] Uterine Contractions: [-] FHT's: Category: [-] Baseline: [-] Reactive: [-] Variability: [-] Decels: [-] EXTREMITIES: No cyanosis or edema, non-tender, without signs of DVT. Assessment and Plan Problem List: (1) Tobacco abuse Status: Acute (2) No care in current in second trimester Status: Acute (3) Drug abuse during Status: Acute (4) Leg swelling in Status: Acute Assessment and Plan on Monday her status was discussed with providers. It was felt she no longer needed an ICU bed and could return to antepartum. Cardiology, infectious disease had not identified any etiologies for her symptoms. I ordered auto immune labs and a nephrology consult. I discussed her case with the hospitalist Omkar Isaac and with my obstetrical coverage Dr. Monge. As of Monday all remain intrigued and frustrated by her symptoms and lack of unifying diagnosis. (Her serologies were all normal at last hospitalization Margarita Velazquez MD Jan 07, 2017 09:11
[2017-01-07] MEDS: BUPRENORPHINE HCL 8 MG SUBLINGUAL TAB SL SCH ×2 (09:33→20:57)
[2017-01-07] MEDS: DOCUSATE SODIUM 100 MG CAP PO SCH ×2 (09:33→20:57)
[2017-01-07] MEDS: FERROUS SULFATE 325 MG (65 MG ELEMENTAL IRON) TAB PO SCH (09:33)
[2017-01-07] MEDS: MULTIVIT/MIN/PREN/FOL AC/IRON PRENATAL TAB PO SCH (09:33)
[2017-01-07] MEDS: fluvoxaMINE MALEATE 50 MG TAB PO SCH (09:34)
[2017-01-07] MEDS: NICOTINE 21 MG/24 HR PATCH T-DERMAL SCH (09:36)
--- NOTE | 2017-01-07 09:39 | HHI.PR ---
Subjective Remarks f/u for bradycardia seems to be more awake, HR still bordeline bradycardic but denies dizziness or lightheadedness, no chest pain. Objective Vitals Vital Signs Date Time Temp Pulse Resp B/P Pulse Ox O2 Delivery O2 Flow Rate FiO2 01/07/17 09:27 97.7 18 01/07/17 09:25 47 95/49 01/07/17 04:59 53 90/46 01/07/17 04:57 96.7 16 01/07/17 00:38 109/50 01/07/17 00:38 97.9 66 16 01/06/17 22:40 16 01/06/17 19:40 61 98/48 01/06/17 19:38 98.5 16 01/06/17 18:07 54 01/06/17 18:06 104/54 01/06/17 18:05 98.2 17 01/06/17 16:00 76 01/06/17 16:00 98.5 76 18 100/57 95 01/06/17 14:00 55 01/06/17 12:00 56 01/06/17 12:00 98.7 56 17 97/56 95 01/06/17 10:00 53 I/O 01/06/17 01/06/17 01/06/17 01/07/17 01/07/17 01/07/17 07:00 15:00 23:00 07:00 15:00 23:00 Intake Total 2129 ml 1432 ml Output Total 550 ml Balance 1579 ml 1432 ml Intake Oral 700 ml 240 ml IV Total 1429 ml 1192 ml Output Urine Total 550 ml # Voids 2 # Bowel Movements 0 Result Diagram: 01/07/1718 01/07/1718 Objective Remarks GENERAL: 21-year-old female, resting in bed in no acute distress NECK: Supple, trachea midline. No JVD. CARDIOVASCULAR: Currently with borderline. sinus bradycardia. S1, S2. No S4. RESPIRATORY: Breath sounds equal bilaterally. Few crackles appreciated in the bases bilaterally right greater than left. ABDOMEN/GI: Abdomen soft, non-tender, bowel sounds present, 22 weeks . EXTREMITIES: Multiple skin lesions on bilateral lower extremities from skin picking outpatient BACK: Nontender without obvious deformity. No CVA tenderness. NEUROLOGICAL: Awake and alert. Motor and sensory grossly within normal limits. Five out of 5 muscle strength in all muscle groups. Normal speech. A/P Problem List: (1) Drug abuse during ICD Code: O99.320 Status: Acute (2) No care in current in second trimester ICD Code: O09.32 Status: Acute (3) Leg swelling in ICD Code: O12.00 Status: Acute (4) Tobacco abuse ICD Code: Z72.0 Status: Acute (5) Anemia ICD Code: D64.9 Status: Acute (6) Leukocytosis ICD Code: D72.829 Status: Acute (7) UTI (urinary tract infection) ICD Code: N39.0 Status: Acute (8) Anxiety and depression ICD Code: F41.9 Status: Acute (9) Skin lesions ICD Code: L98.9 Status: Acute Assessment and Plan History of IVDU Anxiety disorder -Currently on Buprenorphine On Luvox 50 mg by mouth daily for depression On BuSpar 5 mg by mouth every 8 hours for anxiety on Atarax 25 mg every 8 hours when necessary. Psychiatry following. Seroquel and Effexor on hold. Bilateral atelectasis - Nasal cannula oxygen to maintain saturations greater than equal to 90% - DuoNeb breathing treatments if needed - IS while awake, CT chest negative for septic emboli. Did reveal atelectasis/ groundglass lower lobe/upper lobes bilaterally. Hypotension-resolved Relative bradycardia with marked sinus arrhythmia - At this stage of patient's average be 90-100, she remains at 48-55 - TSH Normal, cardiology following, thought to be secondary to medications. No further workup per cardiology for now. Replace potassium. - 2-D echo revealed EF 60-65%. No regional wall motion abnormality. Cholelithiasis - Heart healthy diet, Zantac if needed for GI prophylaxis - Liver US revealed normal portal vein, hepatic artery and hepatic vein. Normal hepatopedal flow. Cholelithiasis. Lower extremity edema likely secondary to Our extremity edema - Monitor renal function closely. Monitor strict intake output, proteinuria normal limits per nephrology for Asymptomatic bacteriuria - F/u blood urine culture no growth to date, urine culture 100,000 of gram- positive tahira, 25-50,000 enterococcus. - Continue cefepime 2 g IV every 8 hours and vancomycin - Infectious disease consulted/Dr. Retana following. Anemia secondary to - Monitor CBC, CMP, coags -Iron sulfate 325 mg by mouth twice a day 22 weeks -per primary. Hypokalemia-replaced orally PROPH: Bilateral lower extremity SCDs. Heparin s/q for DVT Prophylaxis d/c per primary Roxi Lewis MD Jan 07, 2017 09:39 ENDO: TSH within normal limits - Replace electrolytes per protocol [employer] SALES [employer]ENT: 22 weeks Care per FIN[employer] PROPH: - Bilateral lower extremity SCDs. Heparin s/q for DVT Prophylaxis LINES: - Utilize peripheral IVs, central line if needed Roxi Lewis MD Jan 07, 2017 09:39
[2017-01-07] MEDS ORDERED: ONDANSETRON HCL 4 MG/2 ML VIAL IV PUSH PRN (10:45)
--- NOTE | 2017-01-07 10:53 | PD.OB.ANTE ---
Subjective Diagnosis: (1) Leg swelling in Diagnosis: Principal (2) Drug abuse during Diagnosis: Principal (3) No care in current in second trimester Diagnosis: Principal (4) Tobacco abuse Diagnosis: Secondary Antepartum ROS: Reports: New complaints (c/o nausea/vomiting; still feeling fatigued; states swelling is less; denies chest pain, states she feels some reflux discomfort), movement normal, Denies: Loss of fluid, Vaginal bleeding, Contractions, Other Objective Vital Signs Vital Signs Date Time Temp Pulse Resp B/P Pulse Ox O2 Delivery O2 Flow Rate FiO2 01/07/17 09:27 97.7 18 01/07/17 09:25 47 95/49 01/07/17 04:59 53 90/46 01/07/17 04:57 96.7 16 01/07/17 00:38 109/50 01/07/17 00:38 97.9 66 16 01/06/17 22:40 16 01/06/17 19:40 61 98/48 01/06/17 19:38 98.5 16 01/06/17 18:07 54 01/06/17 18:06 104/54 01/06/17 18:05 98.2 17 01/06/17 16:00 76 01/06/17 16:00 98.5 76 18 100/57 95 01/06/17 14:00 55 01/06/17 12:00 56 01/06/17 12:00 98.7 56 17 97/56 95 Lab & Micro Results Test 01/06/17 01/06/17 01/06/17 01/07/17 17:00 20:00 21:38 05:18 Urine Color YELLOW Urine Turbidity HAZY Urine pH 6.0 Urine Specific [place] 1.024 Urine Protein TRACE mg/dL Urine Glucose (UA) NEG mg/dL Urine Ketones NEG mg/dL Urine Occult Blood NEG Urine Nitrite NEG Urine Bilirubin NEG Urine Urobilinogen 2.0 MG/DL Urine Leukocyte Esterase NEG Urine WBC 1 /hpf Urine Squamous Epithelial 8 /hpf Cells Urine Bacteria RARE /hpf Urine Hyaline Casts 1 /lpf Urine Mucus MOD /lpf Microscopic Urinalysis Comment CULT NOT INDICATED Vancomycin Level Trough 9.8 MCG/ML Erythrocyte Sedimentation Rate 35 mm/hr Sodium Level 142 MEQ/L 142 MEQ/L Potassium Level 3.4 MEQ/L 3.3 MEQ/L Chloride Level 110 MEQ/L 112 MEQ/L Carbon Dioxide Level 24.0 MEQ/L 22.6 MEQ/L Anion Gap 8 MEQ/L 7 MEQ/L Blood Urea Nitrogen 8 MG/DL 6 MG/DL Creatinine 0.34 MG/DL 0.34 MG/DL Estimat Glomerular Filtration 239 ML/MIN 239 ML/MIN Rate Random Glucose 97 MG/DL 87 MG/DL Calcium Level 7.6 MG/DL 7.4 MG/DL Total Bilirubin 0.3 MG/DL Aspartate Amino Transf 16 U/L (AST/SGOT) Alanine Aminotransferase 25 U/L (ALT/SGPT) Alkaline Phosphatase 104 U/L B-Type Natriuretic Peptide 157 PG/ML Total Protein 5.0 GM/DL 4.7 GM/DL Albumin 1.8 GM/DL Rheumatoid Factor Screen NEGATIVE Rheumatoid Factor Titer IU/ML White Blood Count 7.1 TH/MM3 Red Blood Count 2.61 MIL/MM3 Hemoglobin 8.0 GM/DL Hematocrit 22.9 % Mean Corpuscular Volume 87.8 FL Mean Corpuscular Hemoglobin 30.7 PG Mean Corpuscular Hemoglobin 34.9 % Concent Red Cell Distribution Width 15.9 % Platelet Count 202 TH/MM3 Mean Platelet Volume 8.7 FL Neutrophils (%) (Auto) 53.0 % Lymphocytes (%) (Auto) 34.6 % Monocytes (%) (Auto) 9.1 % Eosinophils (%) (Auto) 2.9 % Basophils (%) (Auto) 0.4 % Neutrophils # (Auto) 3.7 TH/MM3 Lymphocytes # (Auto) 2.4 TH/MM3 Monocytes # (Auto) 0.6 TH/MM3 Eosinophils # (Auto) 0.2 TH/MM3 Basophils # (Auto) 0.0 TH/MM3 CBC Comment DIFF FINAL Differential Comment Protein Corrected Calcium 8.8 MG/DL Random Cortisol 3.9 MCG/DL Date/Time Procedure Status Source Growth 01/04/17 11:47 Aerobic Blood Culture - Preliminary Resulted Blood Peripheral NO GROWTH IN 2 DAYS 01/04/17 11:47 Anaerobic Blood Culture - Preliminary Resulted Blood Peripheral NO GROWTH IN 2 DAYS 01/03/17 18:30 Urine Culture - Final Complete Urine Clean Catch Physical Exam GENERAL: Ill appearing pt laying in bed, pale. CARDIOVASCULAR: Mildly bradycardic rate and rhythm without murmurs, gallops, or rubs. RESPIRATORY: Breath sounds equal bilaterally. No accessory muscle use. ABDOMEN/GI: Abdomen soft, non-tender. Fundus: [c/w dates] GENITOURINARY: External Genitalia: FHT's: R NST today EXTREMITIES: No sign of DVT. BL LE +2 edema to ankles b/l and soft along anterior lower leg, improved per Dr. Velazquez compared to yesterday; L hand also decreased swelling; scabs along all extremities c/w pt's history of "picking" Assessment and Plan Problem List: (1) Tobacco abuse Status: Acute (2) No care in current in second trimester Status: Acute (3) Drug abuse during Status: Acute (4) Leg swelling in Status: Acute Assessment and Plan Pt without care, due to history of drug abuse Dr. Velazquez was consulted on admit; pt was in ICU last week due to bradycardia & severe LE edema ; is s/p cardiology, nephrology, [facility] care/consults and other specialties have signed off. Auto-immune labs were ordered, pending; antibiotics Vancomycin & Cefepime were given in ICU, at this time will discontinue as no clear infectious etiology; will see how pt does off abx; difficult case with some improvement today compared to yesterday, will continue to monitor closely not meeting d/c criteria Pau Monge MD Jan 07, 2017 10:53
[2017-01-07] MEDS ORDERED: MAGNESIUM HYDROXIDE SUSP 30 ML CUP PO PRN (11:00)
[2017-01-07] MEDS ORDERED: FAMOTIDINE 20 MG TAB PO ONE (11:30)
[2017-01-07] MEDS: POTASSIUM CHLOR 20 MEQ PREMIX 100 ML IV SCH ×2 (12:11→14:18)
--- NOTE | 2017-01-07 19:29 | HHI.PR ---
Addendum to Inpatient Note Additional Information blood clx remain negative afebrile Pt is with asymptomatic bacteriuria, will giveher Macrobid 100 mg po BID x 7 days Ana Retana MD Jan 07, 2017 19:29
[2017-01-08] VITALS (9 sets, daily range): BP systolic 85–100; BP diastolic 35–46; PULSE 41–56; RESP 16–18; TEMP 97.6–98.2
[2017-01-08] MEDS: busPIRone HCL 5 MG TAB PO SCH ×3 (01:27→17:54)
[2017-01-08] MEDS: valACYclovir HCL 500 MG TAB PO SCH ×2 (01:27→12:26)
[2017-01-08] MEDS ORDERED: PHARMACY ORDERED LAB-VANCO TROUGH ONE (05:45)
[2017-01-08] MEDS: HEPARIN SODIUM - SQ 10,000 UNITS/ML VIAL SQ SCH ×3 (06:00→21:39)
[2017-01-08 07:00] LABS: ANION GAP 4 MEQ/L (5-15); AST (GOT) 23 U/L (15-37); BICARBONATE 27.2 MEQ/L (21.0-32.0); BLOOD UREA NITROGEN 6 MG/DL (7-18); CHLORIDE 110 MEQ/L (98-107); GLOMERULAR FILTRATION RATE 153 ML/MIN (>89); SODIUM (NA) 141 MEQ/L (136-145)
[2017-01-08 07:01] LABS: ALT (GPT) 32 U/L (10-53)
[2017-01-08 07:03] LABS: ALKALINE PHOSPHATASE 105 U/L (45-117); TOTAL BILIRUBIN ADULT 0.2 MG/DL (0.2-1.0)
[2017-01-08] MEDS: REMOVE OLD PATCH T-DERMAL SCH (09:00)
[2017-01-08] MEDS: SODIUM CHLORIDE 0.9% FLUSH 10 ML FLUSH IV FLUSH SCH ×2 (09:00→20:32)
--- NOTE | 2017-01-08 09:12 | HHI.PR ---
Subjective Remarks Follow-up for bradycardia and hypotension Still borderline bradycardic, down hypotensive but no dizziness or lightheadedness, sleepy. No overnight events, denies any chest pain or shortness of breath Objective Vitals Vital Signs Date Time Temp Pulse Resp B/P Pulse Ox O2 Delivery O2 Flow Rate FiO2 01/07/17 22:06 98.3 01/07/17 22:05 57 01/07/17 22:05 98/45 01/07/17 22:05 53 01/07/17 22:00 57 01/07/17 21:55 60 01/07/17 21:05 58 01/07/17 21:00 60 01/07/17 20:55 53 01/07/17 20:55 51 103/53 01/07/17 19:35 98.1 16 01/07/17 19:34 54 95/43 01/07/17 12:46 59 18 95/52 01/07/17 09:27 97.7 18 01/07/17 09:25 47 95/49 Result Diagram: 01/07/17 0518 01/08/17 0600 Objective Remarks GENERAL: 21-year-old female, resting in bed in no acute distress CARDIOVASCULAR: Currently with borderline. sinus bradycardia. S1, S2. No S4. RESPIRATORY: Breath sounds equal bilaterally. Few crackles appreciated in the bases bilaterally right greater than left. ABDOMEN/GI: Abdomen soft, non-tender, bowel sounds present, 22 weeks . EXTREMITIES: Multiple skin lesions on bilateral lower extremities from skin picking outpatient BACK: Nontender without obvious deformity. No CVA tenderness. NEUROLOGICAL: Awake and alert. Motor and sensory grossly within normal limits. Five out of 5 muscle strength in all muscle groups. Normal speech. A/P Problem List: (1) Drug abuse during ICD Code: O99.320 Status: Acute (2) No care in current in second trimester ICD Code: O09.32 Status: Acute (3) Leg swelling in ICD Code: O12.00 Status: Acute (4) Tobacco abuse ICD Code: Z72.0 Status: Acute (5) Anemia ICD Code: D64.9 Status: Acute (6) Leukocytosis ICD Code: D72.829 Status: Acute (7) UTI (urinary tract infection) ICD Code: N39.0 Status: Acute (8) Anxiety and depression ICD Code: F41.9 Status: Acute (9) Skin lesions ICD Code: L98.9 Status: Acute Assessment and Plan History of IVDU Anxiety disorder -Currently on Buprenorphine On Luvox 50 mg by mouth daily for depression On BuSpar 5 mg by mouth every 8 hours for anxiety on Atarax 25 mg every 8 hours when necessary. Psychiatry following. Seroquel and Effexor on hold. Bilateral atelectasis - Nasal cannula oxygen to maintain saturations greater than equal to 90% - DuoNeb breathing treatments if needed - IS while awake, CT chest negative for septic emboli. Did reveal atelectasis/ groundglass lower lobe/upper lobes bilaterally. Hypotension-resolved Relative bradycardia with marked sinus arrhythmia - At this stage of patient's average be 90-100, she remains borderline bradycardic. Likely secondary to be buprenorphine which could cause severe bradycardia and hypotension. Decrease as needed and as tolerated. Cardiology was on board, no further workup per cardiology, replace electrolytes. 2-D echo revealed EF 60-65%. No regional wall motion abnormality. Cholelithiasis - Heart healthy diet, Zantac if needed for GI prophylaxis - Liver US revealed normal portal vein, hepatic artery and hepatic vein. Normal hepatopedal flow. Cholelithiasis. Lower extremity edema likely secondary to Our extremity edema - Monitor renal function closely. Monitor strict intake output, proteinuria normal limits per nephrology for Asymptomatic bacteriuria - F/u blood urine culture no growth to date, urine culture 100,000 of gram- positive tahira, 25-50,000 enterococcus. -Was on cefepime and vancomycin, switched to Macrobid per infectious disease. No urinary symptoms. Finish course. Anemia secondary to - Monitor CBC, CMP, coags -Iron sulfate 325 mg by mouth twice a day 22 weeks -per primary. Hypokalemia-replaced orally PROPH: Bilateral lower extremity SCDs. Heparin s/q for DVT Prophylaxis d/c per primary Discharge Planning Thank you very much for this consult, we will sign off, please call with questions. Roxi Lewis MD Jan 08, 2017 09:12
--- NOTE | 2017-01-08 09:15 | PD.OB.ANTE ---
Subjective Diagnosis: (1) Leg swelling in Diagnosis: Principal (2) Drug abuse during Diagnosis: Principal (3) No care in current in second trimester Diagnosis: Principal (4) Tobacco abuse Diagnosis: Secondary Antepartum ROS: Reports: New complaints (c/o swelling in hips & labia worsening overnight, feeling very weak, fatigued but nausea has resolved), movement normal, Denies: Loss of fluid, Vaginal bleeding, Contractions, Other Objective Vital Signs Vital Signs Date Time Temp Pulse Resp B/P Pulse Ox O2 Delivery O2 Flow Rate FiO2 01/07/17 22:06 98.3 01/07/17 22:05 57 01/07/17 22:05 98/45 01/07/17 22:05 53 01/07/17 22:00 57 01/07/17 21:55 60 01/07/17 21:05 58 01/07/17 21:00 60 01/07/17 20:55 53 01/07/17 20:55 51 103/53 01/07/17 19:35 98.1 16 01/07/17 19:34 54 95/43 01/07/17 12:46 59 18 95/52 01/07/17 09:27 97.7 18 01/07/17 09:25 47 95/49 Lab & Micro Results Test 01/08/17 06:00 Sodium Level 141 MEQ/L Potassium Level 4.0 MEQ/L Chloride Level 110 MEQ/L Carbon Dioxide Level 27.2 MEQ/L Anion Gap 4 MEQ/L Blood Urea Nitrogen 6 MG/DL Creatinine 0.50 MG/DL Estimat Glomerular Filtration 153 ML/MIN Rate Random Glucose 74 MG/DL Calcium Level 7.9 MG/DL Total Bilirubin 0.2 MG/DL Aspartate Amino Transf 23 U/L (AST/SGOT) Alanine Aminotransferase 32 U/L (ALT/SGPT) Alkaline Phosphatase 105 U/L Total Protein 5.1 GM/DL Albumin 1.9 GM/DL Date/Time Procedure Status Source Growth 01/04/17 11:47 Aerobic Blood Culture - Preliminary Resulted Blood Peripheral NO GROWTH IN 3 DAYS 01/04/17 11:47 Anaerobic Blood Culture - Preliminary Resulted Blood Peripheral NO GROWTH IN 3 DAYS 01/03/17 18:30 Urine Culture - Final Complete Urine Clean Catch Physical Exam GENERAL: Weak & tired appearance. Sitting in bed. CARDIOVASCULAR: Mildly bradycardic rate and normal rhythm without murmurs, gallops, or rubs. RESPIRATORY: Breath sounds equal bilaterally. No accessory muscle use. ABDOMEN/GI: Abdomen soft, non-tender. Fundus: [c/w dates] GENITOURINARY: External Genitalia: FHT's: + with vitals EXTREMITIES: same as yesterday, although today mild labial swelling, symmetric, no firm areas Assessment and Plan Problem List: (1) Leg swelling in Status: Acute (2) Drug abuse during Status: Acute (3) No care in current in second trimester Status: Acute (4) Tobacco abuse Status: Acute Assessment and Plan Pt without care, due to history of drug abuse Dr. Velazquez was consulted on admit; pt was in ICU last week due to bradycardia & severe LE edema ; is s/p cardiology, nephrology, [employer] Director care/consults and other specialties have signed off. Auto-immune labs were ordered, pending; antibiotics Vancomycin & Cefepime were given in ICU, discontinued 01/07/17 as no clear infectious etiology; will see how pt does off abx; difficult case with slight improvement yesterday but today new labial swelling; continue to monitor closely order PT consult due to current status for eval & treat & plan for once discharged not meeting d/c criteria Pau Monge MD Jan 08, 2017 09:15
[2017-01-08] MEDS: DOCUSATE SODIUM 100 MG CAP PO SCH ×2 (09:26→20:30)
[2017-01-08] MEDS: BUPRENORPHINE HCL 8 MG SUBLINGUAL TAB SL SCH ×2 (09:26→20:30)
[2017-01-08] MEDS: NICOTINE 21 MG/24 HR PATCH T-DERMAL SCH (09:26)
[2017-01-08] MEDS: fluvoxaMINE MALEATE 50 MG TAB PO SCH (09:26)
[2017-01-08] MEDS: MULTIVIT/MIN/PREN/FOL AC/IRON PRENATAL TAB PO SCH (09:26)
[2017-01-08] MEDS: NITROFURANTOIN MONOHYD MACROCR 100 MG CAP PO SCH ×2 (09:27→17:54)
[2017-01-08] MEDS: FAMOTIDINE 40 MG/5 ML LIQ 50 ML BTL PO SCH ×2 (10:00→20:29)
[2017-01-08] MEDS: hydrOXYzine HCL 25 MG TAB PO PRN ×2 (12:26→20:30)
[2017-01-09] VITALS (79 sets, daily range): BP systolic 87–104; BP diastolic 36–61; PULSE 42–81; RESP 16–18; TEMP 98–98.5
[2017-01-09] MEDS: busPIRone HCL 5 MG TAB PO SCH ×3 (01:54→17:39)
[2017-01-09] MEDS: HEPARIN SODIUM - SQ 10,000 UNITS/ML VIAL SQ SCH ×3 (06:09→21:19)
[2017-01-09] MEDS: DOCUSATE SODIUM 100 MG CAP PO SCH ×2 (08:45→21:18)
[2017-01-09] MEDS: SODIUM CHLORIDE 0.9% FLUSH 10 ML FLUSH IV FLUSH SCH ×2 (08:45→21:18)
[2017-01-09] MEDS: NITROFURANTOIN MONOHYD MACROCR 100 MG CAP PO SCH ×2 (08:45→17:39)
[2017-01-09] MEDS: MULTIVIT/MIN/PREN/FOL AC/IRON PRENATAL TAB PO SCH (08:46)
[2017-01-09] MEDS: BUPRENORPHINE HCL 8 MG SUBLINGUAL TAB SL SCH ×2 (08:46→21:18)
[2017-01-09] MEDS: fluvoxaMINE MALEATE 50 MG TAB PO SCH (08:46)
[2017-01-09] MEDS: REMOVE OLD PATCH T-DERMAL SCH (08:46)
[2017-01-09] MEDS: NICOTINE 21 MG/24 HR PATCH T-DERMAL SCH (08:46)
[2017-01-09] MEDS: FAMOTIDINE 40 MG/5 ML LIQ 50 ML BTL PO SCH ×2 (08:47→21:18)
[2017-01-09 09:06] LABS: BATH SALTS (MDPV) UR NEG (NEG); ECSTASY (MDMA) UR NEG (NEG); GABAPENTIN UR NEG (NEG); HEROIN (6-ACETYLMORPHINE) UR NEG (NEG); HYDROMORPHONE U NEG (NEG); K2 SPICE UR NEG (NEG); OBMETHADONE UR NEG (NEG); OXYCODONE (PERCODAN) NEG (NEG); PHENCYCLIDINE URINE NEG (NEG)
[2017-01-09] MEDS ORDERED: ACETAMINOPHEN 325 MG TAB PO PRN (10:00)
[2017-01-09] MEDS: hydrOXYzine HCL 25 MG TAB PO PRN ×2 (11:19→21:45)
[2017-01-09 11:26] LABS: AUTOMATED NEUTROPHIL # 4.4 TH/MM3 (1.8-7.7); BASOPHIL % 0.4 % (0.0-2.0); EOSINOPHIL # 0.2 TH/MM3 (0-0.4); HEMATOCRIT 25.4 % (35.0-46.0); HEMO FLAGS DIFF FINAL; LYMPH % 28.7 % (9.0-44.0); LYMPHOCYTE # 2.2 TH/MM3 (1.0-4.8); MEAN CELL VOLUME 89.3 FL (80.0-100.0); MEAN CORPUSCULAR HEMOGLOBIN 30.3 PG (27.0-34.0); MEAN CORPUSCULAR HGB CONC 33.9 % (32.0-36.0); MONO % 9.4 % (0.0-8.0); NEUT % 58.5 % (16.0-70.0); PLATELET COUNT 197 TH/MM3 (150-450); RED BLOOD COUNT 2.84 MIL/MM3 (4.00-5.30); RED CELL DISTRIBUTION WIDTH 15.7 % (11.6-17.2); WHITE BLOOD COUNT 7.6 TH/MM3 (4.0-11.0)
--- NOTE | 2017-01-09 12:04 | PD.OB.ANTE ---
Subjective Diagnosis: (1) Leg swelling in Diagnosis: Principal (2) Drug abuse during Diagnosis: Principal (3) No care in current in second trimester Diagnosis: Principal (4) Tobacco abuse Diagnosis: Secondary Interval History Professes extreme anxiety and states she knew when buprenorphine was decrease from 16 to 8. Would like to increase to 16. swelling in calves and feet better significant dependent edema in hips that is uncomfortable pain down right leg cannot move bowels despite stool softeners Hgb was 8 on the first 8.6 today. Objective Vital Signs Vital Signs Date Time Temp Pulse Resp B/P Pulse Ox O2 Delivery O2 Flow Rate FiO2 01/09/17 11:09 98.4 01/09/17 08:44 42 92/47 01/09/17 08:43 98.0 01/09/17 06:12 98.4 44 16 88/43 01/08/17 23:40 18 01/08/17 23:39 98.2 01/08/17 23:39 49 90/46 01/08/17 20:00 97.6 01/08/17 19:49 16 01/08/17 19:48 56 100/46 01/08/17 16:16 45 85/35 01/08/17 12:20 16 01/08/17 12:19 47 90/46 Lab & Micro Results Test 01/09/17 10:59 White Blood Count 7.6 TH/MM3 Red Blood Count 2.84 MIL/MM3 Hemoglobin 8.6 GM/DL Hematocrit 25.4 % Mean Corpuscular Volume 89.3 FL Mean Corpuscular Hemoglobin 30.3 PG Mean Corpuscular Hemoglobin 33.9 % Concent Red Cell Distribution Width 15.7 % Platelet Count 197 TH/MM3 Mean Platelet Volume 9.1 FL Neutrophils (%) (Auto) 58.5 % Lymphocytes (%) (Auto) 28.7 % Monocytes (%) (Auto) 9.4 % Eosinophils (%) (Auto) 3.0 % Basophils (%) (Auto) 0.4 % Neutrophils # (Auto) 4.4 TH/MM3 Lymphocytes # (Auto) 2.2 TH/MM3 Monocytes # (Auto) 0.7 TH/MM3 Eosinophils # (Auto) 0.2 TH/MM3 Basophils # (Auto) 0.0 TH/MM3 CBC Comment DIFF FINAL Differential Comment Physical Exam GENERAL: Well-nourished, well-developed patient. CARDIOVASCULAR: Regular rate and rhythm without murmurs, gallops, or rubs. RESPIRATORY: Breath sounds equal bilaterally. No accessory muscle use. ABDOMEN/GI: Abdomen soft, non-tender. fundus u +3 FHTs normal EXTREMITIES: less swelling in lower extremities edema in hips and buttocks lesions healing Hgb up 0.6 Assessment and Plan Problem List: (1) Leg swelling in Status: Acute (2) Drug abuse during Status: Acute (3) No care in current in second trimester Status: Acute (4) Tobacco abuse Status: Acute Assessment and Plan Pt without care, due to history of drug abuse Dr. Velazquez was consulted on admit; pt was in ICU last week due to bradycardia & severe LE edema ; is s/p cardiology, nephrology, [facility] care/consults and other specialties have signed off. Auto-immune labs were ordered, pending; antibiotics Vancomycin & Cefepime were given in ICU, discontinued 01/07/17 as no clear infectious etiology; will see how pt does off abx; difficult case with slight improvement yesterday but today new labial swelling; continue to monitor closely order PT consult due to current status for eval & treat & plan for once discharged not meeting d/c criteria discussions with patient and peers -- will transfuse 2 units despite increase in hgb--she seems to have remarkable changes in weight/intravascular volume and clinically she is orthostatic and week. needs medication for constipation needs ongoing therapy, 12 step and to know that [facility] medicaid in place so we can get a pre authroization that will cover subutex. Margarita Velazquez MD Jan 09, 2017 12:04
[2017-01-09 12:11] LABS: BICARBONATE 27.2 MEQ/L (21.0-32.0)
[2017-01-09] MEDS ORDERED: diphenhydrAMINE HCL 50 MG CAP PO PRN (12:15)
[2017-01-09] MEDS: FUROSEMIDE 20 MG/2 ML VIAL IV PUSH ONE ×2 (12:15→15:18)
[2017-01-09] MEDS: LACTATED RINGER'S 1000 ML INJ 1,000 ML IV SCH (12:15)
[2017-01-09] MEDS ORDERED: SODIUM CHLOR 0.9% 250 ML INJ 250 ML IV ONE (13:00)
[2017-01-09] MEDS: POLYETHYLENE GLYCOL 17 GM PKG PO SCH (21:41)
[2017-01-10] VITALS (9 sets, daily range): BP systolic 93–105; BP diastolic 44–64; PULSE 42–55; RESP 16–18; TEMP 97.8–98.2
[2017-01-10] MEDS: LACTATED RINGER'S 1000 ML INJ 1,000 ML IV SCH ×2 (00:10→12:05)
[2017-01-10] MEDS: busPIRone HCL 5 MG TAB PO SCH ×3 (02:48→17:37)
[2017-01-10 05:52] LABS: AUTOMATED NEUTROPHIL # 5.8 TH/MM3 (1.8-7.7); BASOPHIL % 0.3 % (0.0-2.0); EOSINOPHIL # 0.3 TH/MM3 (0-0.4); EOSINOPHIL % 2.8 % (0.0-4.0); HEMATOCRIT 31.3 % (35.0-46.0); HEMO FLAGS DIFF FINAL; LYMPH % 30.6 % (9.0-44.0); LYMPHOCYTE # 3.1 TH/MM3 (1.0-4.8); MEAN CELL VOLUME 87.5 FL (80.0-100.0); MEAN CORPUSCULAR HEMOGLOBIN 29.6 PG (27.0-34.0); MEAN CORPUSCULAR HGB CONC 33.9 % (32.0-36.0); MONO % 7.8 % (0.0-8.0); NEUT % 58.5 % (16.0-70.0); PLATELET COUNT 195 TH/MM3 (150-450); RED BLOOD COUNT 3.58 MIL/MM3 (4.00-5.30); RED CELL DISTRIBUTION WIDTH 18.4 % (11.6-17.2)
[2017-01-10] MEDS: HEPARIN SODIUM - SQ 10,000 UNITS/ML VIAL SQ SCH ×3 (06:07→21:32)
[2017-01-10] MEDS: SODIUM CHLORIDE 0.9% FLUSH 10 ML FLUSH IV FLUSH SCH ×2 (09:00→21:30)
[2017-01-10] MEDS: REMOVE OLD PATCH T-DERMAL SCH (09:00)
[2017-01-10] MEDS: NITROFURANTOIN MONOHYD MACROCR 100 MG CAP PO SCH ×2 (09:51→17:37)
[2017-01-10] MEDS: NICOTINE 21 MG/24 HR PATCH T-DERMAL SCH (09:51)
[2017-01-10] MEDS: DOCUSATE SODIUM 100 MG CAP PO SCH ×2 (09:51→21:30)
[2017-01-10] MEDS: MULTIVIT/MIN/PREN/FOL AC/IRON PRENATAL TAB PO SCH (09:51)
[2017-01-10] MEDS: FAMOTIDINE 40 MG/5 ML LIQ 50 ML BTL PO SCH ×2 (09:51→21:31)
[2017-01-10] MEDS: fluvoxaMINE MALEATE 50 MG TAB PO SCH (09:51)
[2017-01-10] MEDS: POLYETHYLENE GLYCOL 17 GM PKG PO SCH ×2 (09:52→21:30)
[2017-01-10] MEDS: BUPRENORPHINE HCL 8 MG SUBLINGUAL TAB SL SCH ×2 (11:06→21:31)
--- NOTE | 2017-01-10 13:22 | PD.OB.ANTE ---
Subjective Diagnosis: (1) Leg swelling in Diagnosis: Principal (2) Drug abuse during Diagnosis: Principal (3) No care in current in second trimester Diagnosis: Principal (4) Tobacco abuse Diagnosis: Secondary Interval History Doing better this am. The vulvar swelling is better and the leg swelling is also better. No BM in many days and is now on miralax. No significant pain but some pelvic pressure. Tolerating diet well. Objective Vital Signs Vital Signs Date Time Temp Pulse Resp B/P Pulse Ox O2 Delivery O2 Flow Rate FiO2 01/10/17 08:24 42 98/49 01/10/17 08:22 97.8 18 01/10/17 02:51 44 93/44 01/09/17 23:04 49 104/56 01/09/17 23:04 98.2 18 01/09/17 20:20 51 01/09/17 20:15 54 01/09/17 20:10 63 01/09/17 20:05 52 01/09/17 20:00 51 100/49 01/09/17 20:00 53 01/09/17 19:55 53 01/09/17 19:50 59 01/09/17 19:45 60 01/09/17 19:40 81 01/09/17 19:35 51 01/09/17 19:30 50 01/09/17 19:25 49 01/09/17 19:20 49 01/09/17 19:15 48 01/09/17 19:10 48 01/09/17 19:05 47 01/09/17 19:00 48 93/61 01/09/17 19:00 51 01/09/17 18:00 48 97/55 01/09/17 18:00 48 01/09/17 17:37 18 01/09/17 17:37 98.4 01/09/17 17:35 48 01/09/17 17:30 48 01/09/17 17:25 51 01/09/17 17:20 47 01/09/17 17:15 48 01/09/17 17:10 48 01/09/17 17:05 47 01/09/17 17:00 47 01/09/17 17:00 48 97/54 01/09/17 16:10 50 01/09/17 16:05 49 01/09/17 16:00 48 01/09/17 16:00 49 94/54 01/09/17 15:55 50 01/09/17 15:50 50 01/09/17 15:45 49 01/09/17 15:40 52 01/09/17 15:35 51 01/09/17 15:33 51 92/39 01/09/17 15:30 50 01/09/17 15:28 98.5 18 01/09/17 15:25 53 01/09/17 15:21 49 89/39 01/09/17 15:20 51 01/09/17 15:18 51 87/43 01/09/17 15:16 50 90/38 01/09/17 15:15 54 01/09/17 15:10 51 01/09/17 15:05 52 01/09/17 15:00 53 01/09/17 15:00 51 94/36 01/09/17 14:55 53 01/09/17 14:50 53 01/09/17 14:45 52 01/09/17 14:40 52 01/09/17 14:35 52 01/09/17 14:30 51 01/09/17 14:25 52 01/09/17 14:20 53 01/09/17 14:15 52 01/09/17 14:15 51 91/46 01/09/17 14:10 51 01/09/17 14:05 52 01/09/17 14:00 50 93/43 01/09/17 14:00 52 01/09/17 13:55 62 01/09/17 13:50 60 01/09/17 13:45 51 01/09/17 13:45 53 92/44 01/09/17 13:40 58 01/09/17 13:35 54 01/09/17 13:30 54 89/49 01/09/17 13:30 52 01/09/17 13:25 51 01/09/17 13:15 50 93/46 Lab & Micro Results Test 01/10/17 05:09 White Blood Count 10.0 TH/MM3 Red Blood Count 3.58 MIL/MM3 Hemoglobin 10.6 GM/DL Hematocrit 31.3 % Mean Corpuscular Volume 87.5 FL Mean Corpuscular Hemoglobin 29.6 PG Mean Corpuscular Hemoglobin 33.9 % Concent Red Cell Distribution Width 18.4 % Platelet Count 195 TH/MM3 Mean Platelet Volume 9.3 FL Neutrophils (%) (Auto) 58.5 % Lymphocytes (%) (Auto) 30.6 % Monocytes (%) (Auto) 7.8 % Eosinophils (%) (Auto) 2.8 % Basophils (%) (Auto) 0.3 % Neutrophils # (Auto) 5.8 TH/MM3 Lymphocytes # (Auto) 3.1 TH/MM3 Monocytes # (Auto) 0.8 TH/MM3 Eosinophils # (Auto) 0.3 TH/MM3 Basophils # (Auto) 0.0 TH/MM3 CBC Comment DIFF FINAL Differential Comment Physical Exam GENERAL: Well-nourished, well-developed patient. CARDIOVASCULAR: Regular rate and rhythm without murmurs, gallops, or rubs. RESPIRATORY: Breath sounds equal bilaterally. No accessory muscle use. ABDOMEN/GI: Abdomen soft, non-tender. Fundus: non tender and soft Vulva is +1 swollen and looks better today EXTREMITIES: No cyanosis non-tender, without signs of DVT. +2 LE swelling with pitting edema...much improved Assessment and Plan Problem List: (1) Leg swelling in Status: Acute (2) Drug abuse during Status: Acute (3) No care in current in second trimester Status: Acute (4) Tobacco abuse Status: Acute Assessment and Plan IUP at 22 weeks Lower extremity swelling and vulvar swelling.. This is improving since the blood yesterday. I reviewed the imaging studies with radiologist yesterday and there is no problem with return blood flow. Her oncotic pressure was improved with the blood and I was thinking about giving her some albumin to increase the oncotic pressure but she is improving nicely now. Bradycardia and low blood pressure.. This is stable not meeting d/c criteria needs ongoing therapy, 12 step and to know that [facility] medicaid in place so we can get a pre authroization that will cover subutex. Robbie Zuniga MD Jan 10, 2017 13:22
[2017-01-10] MEDS: hydrOXYzine HCL 25 MG TAB PO PRN ×2 (14:50→21:48)
[2017-01-11] VITALS (9 sets, daily range): BP systolic 90–102; BP diastolic 49–54; PULSE 47–54; RESP 18; TEMP 97.9–98.7
[2017-01-11] MEDS: LACTATED RINGER'S 1000 ML INJ 1,000 ML IV SCH
[2017-01-11] MEDS: busPIRone HCL 5 MG TAB PO SCH ×3 (02:10→17:42)
[2017-01-11] MEDS: HEPARIN SODIUM - SQ 10,000 UNITS/ML VIAL SQ SCH ×3 (06:35→22:40)
--- NOTE | 2017-01-11 08:34 | PD.OB.ANTE ---
Subjective Diagnosis: (1) Leg swelling in Diagnosis: Principal (2) Drug abuse during Diagnosis: Principal (3) No care in current in second trimester Diagnosis: Principal (4) Tobacco abuse Diagnosis: Secondary Interval History Hospital day 9 more energy post transfusion x 2 still pale still anxious despite increase in subutex has been on effexor in past good movement. No leaking, bleeding still having problems with constripation Objective Vital Signs Vital Signs Date Time Temp Pulse Resp B/P Pulse Ox O2 Delivery O2 Flow Rate FiO2 01/11/17 07:33 47 96/50 01/11/17 02:13 47 01/11/17 02:13 95/54 01/11/17 02:12 18 01/11/17 02:12 98.7 01/10/17 19:47 98.2 01/10/17 19:46 55 105/53 01/10/17 19:45 18 01/10/17 16:26 53 16 105/49 01/10/17 13:15 16 01/10/17 13:14 52 104/64 Physical Exam GENERAL: Well-nourished, well-developed patient. CARDIOVASCULAR: Regular rate and rhythm without murmurs, gallops, or rubs. RESPIRATORY: Breath sounds equal bilaterally. No accessory muscle use. ABDOMEN/GI: Abdomen soft, non-tender. Fundus: 23 GENITOURINARY: External Genitalia: intact and normal in appearance intermittent monitoring reassuring EXTREMITIES: No cyanosis , non-tender, without signs of DVT. variable and profound edema Assessment and Plan Problem List: (1) Leg swelling in Status: Acute (2) Drug abuse during Status: Acute (3) No care in current in second trimester Status: Acute (4) Tobacco abuse Status: Acute Assessment and Plan IUP at 22 weeks Lower extremity swelling and vulvar swelling.. This is improving since the blood yesterday. I reviewed the imaging studies with radiologist yesterday and there is no problem with return blood flow. Her oncotic pressure was improved with the blood and I was thinking about giving her some albumin to increase the oncotic pressure but she is improving nicely now. Bradycardia and low blood pressure.. This is stable not meeting d/c criteria needs ongoing therapy, 12 step and to know that [facility] medicaid in place so we can get a pre authroization that will cover subutex. As above per Dr. Zuniga need case managment to confirm [facility] medicaid and that prior authorization for subutex being addressed goal is to discharge to her grandma later this week when she gets here from [place] and gets an efficiancy appartment trial of zoloft increase ambulation. Margarita Velazquez MD Jan 11, 2017 08:34
[2017-01-11] MEDS: FAMOTIDINE 40 MG/5 ML LIQ 50 ML BTL PO SCH ×2 (09:00→21:05)
[2017-01-11] MEDS: POLYETHYLENE GLYCOL 17 GM PKG PO SCH ×2 (09:00→21:04)
[2017-01-11] MEDS: REMOVE OLD PATCH T-DERMAL SCH (09:00)
[2017-01-11] MEDS: BUPRENORPHINE HCL 8 MG SUBLINGUAL TAB SL SCH ×2 (09:05→21:05)
[2017-01-11] MEDS: NITROFURANTOIN MONOHYD MACROCR 100 MG CAP PO SCH ×2 (09:05→17:42)
[2017-01-11] MEDS: NICOTINE 21 MG/24 HR PATCH T-DERMAL SCH (09:05)
[2017-01-11] MEDS: MULTIVIT/MIN/PREN/FOL AC/IRON PRENATAL TAB PO SCH (09:05)
[2017-01-11] MEDS: DOCUSATE SODIUM 100 MG CAP PO SCH ×2 (09:05→21:04)
[2017-01-11] MEDS: fluvoxaMINE MALEATE 50 MG TAB PO SCH (09:05)
[2017-01-11] MEDS: SERTRALINE HCL 50 MG TAB PO SCH (11:09)
[2017-01-11] MEDS: SODIUM CHLORIDE 0.9% FLUSH 10 ML FLUSH IV FLUSH SCH ×2 (13:50→21:00)
[2017-01-11 13:52] LABS: BETA2 GLYCOPROTEIN I AB IGA LESS THAN 9.0 SAU (< OR = 20)
[2017-01-11] MEDS: hydrOXYzine HCL 25 MG TAB PO PRN ×2 (13:59→21:05)
[2017-01-12] MEDS: busPIRone HCL 5 MG TAB PO SCH ×2 (02:14→09:23)
[2017-01-12 02:17] VITALS: BP 101/58; PULSE 47; RESP 18; TEMP 97.2
[2017-01-12] MEDS: HEPARIN SODIUM - SQ 10,000 UNITS/ML VIAL SQ SCH (07:15)
[2017-01-12 07:56] VITALS: BP 88/44; PULSE 51; RESP 20
[2017-01-12] MEDS: LACTATED RINGER'S 1000 ML INJ 1,000 ML IV SCH (09:00)
[2017-01-12] MEDS: SODIUM CHLORIDE 0.9% FLUSH 10 ML FLUSH IV FLUSH SCH (09:00)
[2017-01-12] MEDS: POLYETHYLENE GLYCOL 17 GM PKG PO SCH (09:00)
[2017-01-12] MEDS: REMOVE OLD PATCH T-DERMAL SCH (09:00)
[2017-01-12] MEDS: NICOTINE 21 MG/24 HR PATCH T-DERMAL SCH (09:22)
[2017-01-12] MEDS: DOCUSATE SODIUM 100 MG CAP PO SCH (09:23)
[2017-01-12] MEDS: BUPRENORPHINE HCL 8 MG SUBLINGUAL TAB SL SCH (09:23)
[2017-01-12] MEDS: fluvoxaMINE MALEATE 50 MG TAB PO SCH (09:23)
[2017-01-12] MEDS: NITROFURANTOIN MONOHYD MACROCR 100 MG CAP PO SCH (09:23)
[2017-01-12] MEDS: MULTIVIT/MIN/PREN/FOL AC/IRON PRENATAL TAB PO SCH (09:23)
[2017-01-12] MEDS: FAMOTIDINE 40 MG/5 ML LIQ 50 ML BTL PO SCH (09:23)
[2017-01-12] MEDS: SERTRALINE HCL 50 MG TAB PO SCH (09:31)
--- NOTE | 2017-01-12 09:41 | PD.OB.ANTE ---
Subjective Diagnosis: (1) Leg swelling in Diagnosis: Principal (2) Drug abuse during Diagnosis: Principal (3) No care in current in second trimester Diagnosis: Principal (4) Tobacco abuse Diagnosis: Secondary Interval History 21 yo swf at 23 3/7 weeks with multiple medical and social concerns: 1) history of opioid addiction with last IVDA reported as May but was using pills (oxy, D's) ongoing until transitioned to subutex by me 2 weeks ago. Doing well on subutex 16 mg daily but needs funding source to pay. 2) episodes of ongoing profound bradycardia and hypotension that still occur-- completely worked up by cardiology with no etiology identified and they have signed off. Bacterial endocarditis also ruled out. Clinically she feels these symptoms have improved. 3) severe anemia addressed with venifer and 2 units prbcs 4) severe anxiety disorder and depression with episodes of picking at skin and creating ulcers Hx MRSA now on zoloft and luvox Seen by psychiatry also Currently skin healing and improved for most part--except for episode yesterday 5) profound episodic swelling and changes in intravascular volume--nephrology work up negative. 6) unplanned --desires to place for adoption. LISETH agrees but his family fighting this 7) unacceptable living conditions--one bedroom house with LISETH, four kids and her boyfriend's toxic parents--she sleeps on the floor. 8) changing from medicaid [facility] to [facility] but will not occur until February. Prior authorization for her subutex being put through [facility] for now--Has neg UDS here and is seen regularly case workers from [facility] for counseling and 12 step. 9) hopes for an efficiency apartment to be paid for by her family in [place] and ability to leave the other environment--desires discharge now. Objective Vital Signs Vital Signs Date Time Temp Pulse Resp B/P Pulse Ox O2 Delivery O2 Flow Rate FiO2 01/12/17 07:56 51 20 88/44 01/12/17 02:17 97.2 47 18 101/58 01/11/17 21:00 18 01/11/17 20:09 53 98/54 01/11/17 17:45 53 102/49 01/11/17 17:44 97.9 18 01/11/17 13:54 54 90/50 01/11/17 13:53 18 Physical Exam GENERAL: Well-nourished, well-developed patient. Less pale Some facial scabs from picking CARDIOVASCULAR: Regular rate and rhythm with 2/6 KONG gallops, or rubs. RESPIRATORY: Breath sounds equal bilaterally. No accessory muscle use. ABDOMEN/GI: Abdomen soft, non-tender. Fundus: 23 GENITOURINARY: External Genitalia: intact and normal in appearance labial swelling less prominent No Uterine Contractions movement FHT's: per shift reassuring EXTREMITIES: No cyanosis non-tender, without signs of DVT.left leg has edema worse than right but overall improved and non pitting. Excoriations healing Assessment and Plan Problem List: (1) Leg swelling in Status: Acute (2) Drug abuse during Status: Acute (3) No care in current in second trimester Status: Acute (4) Tobacco abuse Status: Acute Assessment and Plan IUP at 23 weeks Addressing anxiety and OCD and depression with luvox and zoloft low dose stable on subutex with no cravings. Need funding source cardiac symptomology clinically improved--etiology unclear swelling clinically improved receive 2 units and venifer--less anemic RH- will need [facility] family working on better living conditions. Can discharge today with scripts but unclear if will be covered by medicaid or if will need LSF/Healthy start to cover through january. RTO with me in one week or Margarita Cochran MD Jan 12, 2017 09:41
[2017-01-12] MEDS ORDERED: HYDR-3133 PO (09:48)
[2017-01-12] MEDS ORDERED: BUPR8SUB SL (09:48)
[2017-01-12] MEDS ORDERED: ZOLO50TA PO (09:48)
[2017-01-12] MEDS ORDERED: FLUV50TA PO (09:48)
[2017-01-12] MEDS ORDERED: NICO21DI25 T-DERMAL (09:48)
--- NOTE | 2017-01-12 09:48 | HHI.DCPOC ---
Discharge Care Plan Report Symptoms to Your Doctor -Temperature above 100.5 degrees -Redness, of incision or excessive or foul smelling drainage -Unusual pain or calf pain -Increased vaginal bleeding -Painful or difficulty urinating -Feelings of extreme sadness or anxiety after 2 weeks Goals to Promote Your Health * To prevent worsening of your condition and complications * To maintain your health at the optimal level Directions to Meet Your Goals Take your medications as prescribed Follow your dietary instruction Follow activity as directed Ensure plenty of rest for recovery Drink fluids for hydration Keep your appointments as scheduled Take your immunizations and boosters as scheduled If your symptoms worsen call your PCP, if no PCP go to Urgent Care Center or Emergency Room Smoking is Dangerous to Your Health. Avoid second hand smoke Call the 24-hour crisis hotline for domestic abuse at Margarita Velazquez MD Jan 12, 2017 09:48
[2017-01-12 12:16] LABS: AUTOMATED NEUTROPHIL # 5.6 TH/MM3 (1.8-7.7); BASOPHIL % 0.4 % (0.0-2.0); EOSINOPHIL # 0.3 TH/MM3 (0-0.4); EOSINOPHIL % 3.2 % (0.0-4.0); HEMATOCRIT 33.9 % (35.0-46.0); HEMO FLAGS DIFF FINAL; LYMPH % 26.7 % (9.0-44.0); LYMPHOCYTE # 2.4 TH/MM3 (1.0-4.8); MEAN CELL VOLUME 87.9 FL (80.0-100.0); MEAN CORPUSCULAR HEMOGLOBIN 29.4 PG (27.0-34.0); MEAN CORPUSCULAR HGB CONC 33.5 % (32.0-36.0); MONO % 8.3 % (0.0-8.0); NEUT % 61.4 % (16.0-70.0); PLATELET COUNT 250 TH/MM3 (150-450); RED BLOOD COUNT 3.86 MIL/MM3 (4.00-5.30); RED CELL DISTRIBUTION WIDTH 18.6 % (11.6-17.2)
[2017-01-12 12:27] LABS: INDIRECT BILIRUBIN 0.2 MG/DL (0.0-0.8); TOTAL BILIRUBIN ADULT 0.3 MG/DL (0.2-1.0)
[2017-01-12 13:05] LABS: WESTERGREN SEDIMENTATION RATE 17 mm/hr (0-20)
[2017-01-13 03:52] LABS: PHOS SERINE AB IGA LESS THAN 20 U/mL (()); PHOS SERINE AB IGG LESS THAN 10 U/mL (()); PHOS SERINE AB IGM LESS THAN 25 U/mL (())
== END 2017-01-12 12:43 | disposition home or self-care (01) | DRG 781 ==
LOC: HOBED 16:24 → H2EB 16:28 → H2EA 16:34 → HIMN 01-04 09:17 → H2EA 01-06 17:44
PROVIDERS: ADMIT Obstetrics & Gynecology; ATTEND Obstetrics & Gynecology
PROC: 30233N1 Transfusion of Nonautologous Red Blood Cells into Peripheral Vein, Percutaneous Approach (ICD-10-PCS; principal; 2017-01-09)
DX: O99.332 Smoking (tobacco) complicating pregnancy, second trimester (principal); O99.322 Drug use complicating pregnancy, second trimester; I95.9 Hypotension, unspecified; R00.1 Bradycardia, unspecified; J98.11 Atelectasis; F17.210 Nicotine dependence, cigarettes, uncomplicated; Z3A.22 22 weeks gestation of pregnancy; O09.32 Supervision of pregnancy with insufficient antenatal care, second trimester; L01.00 Impetigo, unspecified; F42.4 Excoriation (skin-picking) disorder; O99.012 Anemia complicating pregnancy, second trimester; M79.89 Other specified soft tissue disorders; O99.342 Other mental disorders complicating pregnancy, second trimester; F32.9 Major depressive disorder, single episode, unspecified; F43.22 Adjustment disorder with anxiety; O23.42 Unspecified infection of urinary tract in pregnancy, second trimester; Z88.0 Allergy status to penicillin; F42.9 Obsessive-compulsive disorder, unspecified; F19.10 Other psychoactive substance abuse, uncomplicated; O26.612 Liver and biliary tract disorders in pregnancy, second trimester; K80.20 Calculus of gallbladder without cholecystitis without obstruction; O99.282 Endocrine, nutritional and metabolic diseases complicating pregnancy, second trimester; E87.6 Hypokalemia; O99.712 Diseases of the skin and subcutaneous tissue complicating pregnancy, second trimester; K59.00 Constipation, unspecified; R82.71 Bacteriuria
CPT/HCPCS: 36430; 36600; 71020; 71250; 80048; 80053; 80076; 80202; 80307; 81001; 82533; 82607; 82805; 83010; 83036; 83605; 83880; 84155; 84157; 84443; 84484; 84550; 85025; 85652; 86038; 86146; 86147; 86148; 86430; 86850; 86900; 86901; 86920; 87040; 87077; 87086; 87186; 87640; 87641; 93005; 93306; 93970; 93971; 93975; 94150; 99284; G0481; J0692; J0696; J1644; J1756; J1940; J2405; J3370; J3480; J7030; J7050; J7120; P9016

== ENCOUNTER 2017-03-13 18:46 | Emergency (ER) | payer MEDICAID, OTHER ==
[~2017-03-13 18:46] MED LIST changes: +HYDR-3133 PO; +NICO21DI25 T-DERMAL; -VENL1CAP38 PO; +ZOLO50TA PO
--- NOTE | 2017-03-13 20:06 | PD ---
HPI Chief Complaint Not feeling well, cramps, overall discomfort possible drug withdrawal Date Seen: Mar 13, 2017 Time Seen: 19:45 Travel History International Travel<30 Days: No Contact w/Intl Traveler<30Days: No Known Affected Area: No History of Present Illness HPI Patient is 21-year-old white female A1 32 weeks to use seen Dr. Velazquez of with her drug withdrawal program, she's been seen here on OB ED multiple times for leg abscesses of the skin of possible septicemia /cellulitis. Patient presents complaining today just complaining of mild abdominal cramps of overall not feeling well and discomfort. She feels she may be withdrawing from drugs. heart rate tracing is reactive and no contractions Weeks Gestation: 32 Para: 4 : 6 History Past Medical History Narrative Medical Positive history of MRSA skin lesions with multiple areas of cellulitis at times on her legs and arms Depression / anxiety Obstetric History Obstetric History 4 vaginal deliveries 1 AB Social History Alcohol Use: Yes Tobacco Use: Yes Substance Abuse: Yes Allergies-Medications (Allergen,Severity, Reaction): Coded Allergies: penicillin G (Unverified Allergy, Unknown, 02/21/17) *MDRO Multi-Drug Resistant Organism (Verified Adverse Reaction, Unknown, MRSA, 01/04/17) MRSA (abdomen-05/31/16) MRSA PCR (nares) positive - 01/03/17 Home Meds Active Scripts Sertraline (Zoloft) 50 Mg Tab, 50 MG PO DAILY for anxiety and depression, #31 TAB Prov:Margarita Velazquez MD 01/12/17 Nicotine (Eq Nicotine) 21 Mg/24 Hr Dis, 1 PATCH T-DERMAL DAILY for nicotine disorder, #14 PATCH Prov:Margarita Velazquez MD 01/12/17 Hydroxyzine HCl (Hydroxyzine HCl) 25 Mg Tab, 25 MG PO Q8H Y for anxiety, #120 TAB Prov:Margarita Velazquez MD 01/12/17 Fluvoxamine (Fluvoxamine) 50 Mg Tab, 50 MG PO DAILY for obsessive picking, #30 TAB Prov:Margarita Velazquez MD 01/12/17 Buprenorphine (Buprenorphine) 8 Mg Subl, 8 MG SL BID for opioid use disorder, # 28 TAB Prov:Margarita Velazquez MD 01/12/17 Quetiapine (Quetiapine) 25 Mg Tab, 25 MG PO HS for insomnia, #6 TAB Prov:Margarita Velazquez MD 12/30/16 Fluvoxamine (Fluvoxamine) 50 Mg Tab, 50 MG PO DAILY for Anxiety, #7 TAB Prov:Margarita Velazquez MD 12/30/16 Buprenorphine (Buprenorphine) 8 Mg Subl, 8 MG SL BID for opioid use disorder, # 6 TAB Prov:Margarita Velazquez MD 12/30/16 Review of Systems General / Constitutional: No: Fever, Weight Gain, Chills, Other Eyes: No: Diploplia, Blurred Vision, Visual changes, Pain, Photophobia HENT: No: Headaches, Vertigo, Lightheadedness Cardiovascular: No: Irregular Rhythm, Chest Pain or Discomfort, Palpitations, Tachycardia, Syncope, Varicosities, Edema, Cyanosis Respiratory: No: Cough, Short of Breath, Other Gastrointestinal: No: Nausea, Vomiting, Diarrhea Genitourinary: No: Decreased Urinary Output, Oliguria Musculoskeletal: Weakness, Cramping, No: Limited ROM, Edema, Pain Skin: Rash, No Itching, No Dryness, No Lumps, No Change in Pigmentation, No Change in Nails, No Alopecia, Lesions Neurologic: Weakness, No: Dizziness, Syncope, Focal Abnormalities, Coordination Problem, Headache, Slurred Speech, Seizures Psychiatric: Anxiety, Depression, No: Suicidal Ideations, Homicidal Ideation Endocrine: No: Heat Intolerance, Cold Intolerance, Polydipsia, Polyuria, Other Physical Exam Narrative GENERAL: Well-nourished, thin, pale patient. SKIN: Warm and dry. Patient skin was covered in small lesions that are basically unchanged to the last 2-3 much she's been up here over and over with this HEAD: Normocephalic and atraumatic. EYES: No scleral icterus. No injection or drainage. ENT: No nasal drainage noted. Mucous membranes pink. Airway patent. NECK: Supple, trachea midline. No JVD. CARDIOVASCULAR: Regular rate and rhythm without murmurs, gallops, or rubs. RESPIRATORY: Breath sounds equal bilaterally. No accessory muscle use. BREASTS: Bilateral exam showed no masses , no retractions, no nipple discharge. ABDOMEN/GI: Abdomen soft, non-tender, bowel sounds present, no rebound, no guarding Gravid to [-32] weeks size Fundal Height: [32-] GENITOURINARY: External Genitalia: intact and normal in appearance BUS glands: [-] Cervix: [-Posterior] Dilatation: [-Closed] Effacement: [-] Thick Station: [-3] Membranes: [intact Uterine Contractions: [none-] FHT's: Category: [-1] Baseline: [-133] Reactive: [yes-] Variability: [mod-] Decels: [-none] EXTREMITIES: No cyanosis or edema. Once again multiple small lesions on the extremities BACK: Nontender without obvious deformity. No CVA tenderness. NEUROLOGICAL: Awake and alert. Motor and sensory grossly within normal limits. Five out of 5 muscle strength in all muscle groups. Normal speech. MDM Interpretation(s) Patient is 21-year-old white female 32 weeks who presents with mild abdominal cramps history of drug use and feels she may be tried withdrawal. I Dr. Velazquez's seen the patient multiple times that she's been in the hospital multiple times and is treating her with a Subutex. Dr. Velazquez was consult [facility] and the patient does not really want to be admitted and so she is going to be discharged harshad Velazquez first thing in the morning Plan Plan to discharge home [facility] bedrest. Tylenol as needed increase her fluid intake heating pad or hot bath for symptoms and see Dr. Velazquez the morning Diagnosis Diagnosis: Primary Impression: Drug abuse during Additional Impression: Cramping complicating , antepartum Disposition: 01 DISCHARGE HOME Condition: Stable Patient Instructions: General Instructions, Diet (GEN), Movement (ED), Abdominal Pain in (ED) Departure Forms: Tests/Procedures Jose Ovalles II, MD Mar 13, 2017 20:06
== END 2017-03-13 20:11 | disposition home or self-care (01) ==
LOC: HOBED 18:46
DX: O99.323 Drug use complicating pregnancy, third trimester (principal); F19.10 Other psychoactive substance abuse, uncomplicated; Z3A.32 32 weeks gestation of pregnancy
CPT/HCPCS: 59025

== ENCOUNTER 2017-04-11 22:58 | Emergency (ER) | payer MEDICAID ==
--- NOTE | 2017-04-11 23:33 | PD ---
HPI Chief Complaint Patient came in just to get checked out to make sure things okay, [place] because of the [place] and just returned Date Seen: Apr 11, 2017 Time Seen: 23:30 Travel History International Travel<30 Days: No Contact w/Intl Traveler<30Days: No Known Affected Area: No History of Present Illness HPI Patient is 21-year-old white female [address] Velazquez because she is well known to have a poly-drug abuse history. She is on Subutex now. She denies any pain leakage or bleeding at this time heart rate tracing is reactive and she is not yomi. She denies being in pain of any kind now Weeks Gestation: 36 Para: 4 : 6 Last Menstrual Period: Apr 11, 2017 History Social History Narrative Social History Patient has IV drug abuser and is on Subutex now she's been followed by Dr. Velazquez Alcohol Use: Yes Tobacco Use: Yes Substance Abuse: Yes Allergies-Medications (Allergen,Severity, Reaction): Coded Allergies: penicillin G (Unverified Allergy, Unknown, 02/21/17) *MDRO Multi-Drug Resistant Organism (Verified Adverse Reaction, Unknown, MRSA, 01/04/17) MRSA (abdomen-05/31/16) MRSA PCR (nares) positive - 01/03/17 Home Meds Active Scripts Sertraline (Zoloft) 50 Mg Tab, 50 MG PO DAILY for anxiety and depression, #31 TAB Prov:Margarita Velazquez MD 01/12/17 Nicotine (Eq Nicotine) 21 Mg/24 Hr Dis, 1 PATCH T-DERMAL DAILY for nicotine disorder, #14 PATCH Prov:Margarita Velazquez MD 01/12/17 Hydroxyzine HCl (Hydroxyzine HCl) 25 Mg Tab, 25 MG PO Q8H Y for anxiety, #120 TAB Prov:Margarita Velazquez MD 01/12/17 Fluvoxamine (Fluvoxamine) 50 Mg Tab, 50 MG PO DAILY for obsessive picking, #30 TAB Prov:Margarita Velazquez MD 01/12/17 Buprenorphine (Buprenorphine) 8 Mg Subl, 8 MG SL BID for opioid use disorder, # 28 TAB Prov:Margarita Velazquez MD 01/12/17 Quetiapine (Quetiapine) 25 Mg Tab, 25 MG PO HS for insomnia, #6 TAB Prov:Margarita Velazquez MD 12/30/16 Fluvoxamine (Fluvoxamine) 50 Mg Tab, 50 MG PO DAILY for Anxiety, #7 TAB Prov:Margarita Velazquez MD 12/30/16 Buprenorphine (Buprenorphine) 8 Mg Subl, 8 MG SL BID for opioid use disorder, # 6 TAB Prov:Margarita Velazquez MD 12/30/16 Review of Systems General / Constitutional: No: Fever, Weight Gain, Chills, Other Eyes: No: Diploplia, Blurred Vision, Visual changes, Pain, Photophobia HENT: No: Headaches, Vertigo, Lightheadedness Cardiovascular: No: Irregular Rhythm, Chest Pain or Discomfort, Palpitations, Tachycardia, Syncope, Varicosities, Edema, Cyanosis Respiratory: No: Cough, Short of Breath, Other Gastrointestinal: Nausea, Vomiting, No: Diarrhea Genitourinary: No: Decreased Urinary Output, Oliguria Musculoskeletal: No: Limited ROM, Weakness, Cramping, Edema, Pain Skin: No Rash, No Itching, No Dryness, No Lumps, No Change in Pigmentation, No Change in Nails, No Alopecia, No Lesions Neurologic: No: Weakness, Dizziness, Syncope, Focal Abnormalities, Coordination Problem, Headache, Slurred Speech, Seizures Psychiatric: No: Depression, Suicidal Ideations, Homicidal Ideation Endocrine: No: Heat Intolerance, Cold Intolerance, Polydipsia, Polyuria, Other Physical Exam Narrative GENERAL: Well-nourished, well-developed patient. SKIN: Warm and dry. Extremities covered in small lesions and has been her whole HEAD: Normocephalic and atraumatic. EYES: No scleral icterus. No injection or drainage. ENT: No nasal drainage noted. Mucous membranes pink. Airway patent. NECK: Supple, trachea midline. No JVD. CARDIOVASCULAR: Regular rate and rhythm without murmurs, gallops, or rubs. RESPIRATORY: Breath sounds equal bilaterally. No accessory muscle use. BREASTS: Bilateral exam showed no masses , no retractions, no nipple discharge. ABDOMEN/GI: Abdomen soft, non-tender, bowel sounds present, no rebound, no guarding Gravid to [36-] weeks size Fundal Height: [-36] GENITOURINARY: Membranes: [intact ] Uterine Contractions: [0-] FHT's: Category: [1-] Baseline: [133-] Reactive: [yes-] Variability: [-mod] Decels: [0-] EXTREMITIES: No cyanosis or edema. BACK: Nontender without obvious deformity. No CVA tenderness. NEUROLOGICAL: Awake and alert. Motor and sensory grossly within normal limits. Five out of 5 muscle strength in all muscle groups. Normal speech. Data Data Orders Orders Vital Signs (Adult) .ON ADMISSION (04/11/17:) ^ Labor Status (04/11/17) Urinalysis - C+S If Indicated (04/11/17) Ob/Psych Drug Screen, Urine (04/11/17) Complete Blood Count With Diff (04/11/17:) Comprehensive Metabolic Panel (04/11/17) MDM Interpretation(s) 21-year-old white female G6 before 36 weeks who presents to just see how things are going basically, heart tones are reactive she is yomi every now and then ,cervix is 1 cm 50%, her laboratory is normal except for large amount of urobilinogen in the urine out of her liver functions are within normal limits CBC is normal with no sign of infection electrolytes normal blood sugar 87 ,urine drug screen negative Plan Plan is to discharge the patient to be followed up with Dr. Perez her next scheduled visit to return for any pain bleeding or leakage of fluid. Diagnosis Diagnosis: Primary Impression: Drug abuse during Disposition: DISCHARGE HOME Condition: Stable Jose Ovalles II, MD Apr 11, 2017 23:33
[2017-04-11 23:50] LABS: AUTOMATED NEUTROPHIL # 8.1 TH/MM3 (1.8-7.7); BASOPHIL % 0.3 % (0.0-2.0); EOSINOPHIL # 0.2 TH/MM3 (0-0.4); EOSINOPHIL % 1.4 % (0.0-4.0); HEMATOCRIT 33.2 % (35.0-46.0); LYMPHOCYTE # 3.7 TH/MM3 (1.0-4.8); MEAN CELL VOLUME 87.8 FL (80.0-100.0); MEAN CORPUSCULAR HEMOGLOBIN 31.6 PG (27.0-34.0); MONO % 8.6 % (0.0-8.0); NEUT % 61.7 % (16.0-70.0); PLATELET COUNT 305 TH/MM3 (150-450); RED BLOOD COUNT 3.78 MIL/MM3 (4.00-5.30); RED CELL DISTRIBUTION WIDTH 16.2 % (11.6-17.2); WHITE BLOOD COUNT 13.1 TH/MM3 (4.0-11.0)
[2017-04-11 23:51] LABS: BACTERIA, URINE FEW /hpf; BLOOD, URINE NEG (NEG); COMMENT (UR) CULT NOT INDICATED; CULTURE IF INDICATED CULT NOT INDICATED; GLUCOSE,URINE NEG (NEG); KETONE, URINE NEG (NEG); MUCUS URINE MANY /lpf (OCC); NITRITE,URINE NEG (NEG); PH, URINE 6.5 (5.0-8.5); SQUAMOUS EPITHELIAL CELL URINE 5 /hpf (0-5)
[2017-04-11 23:54] LABS: URINE COLOR ORANGE (YELLW/STRAW)
[2017-04-11 23:59] LABS: ALT (GPT) 12 U/L (10-53); ANION GAP 9 MEQ/L (5-15); AST (GOT) 13 U/L (15-37); BICARBONATE 23.8 MEQ/L (21.0-32.0); BLOOD UREA NITROGEN 5 MG/DL (7-18); CHLORIDE 106 MEQ/L (98-107); GLOMERULAR FILTRATION RATE 131 ML/MIN (>89); POTASSIUM 3.8 MEQ/L (3.5-5.1); SODIUM (NA) 139 MEQ/L (136-145)
[2017-04-12 00:02] LABS: ALKALINE PHOSPHATASE 217 U/L (45-117); TOTAL BILIRUBIN ADULT 0.5 MG/DL (0.2-1.0)
[2017-04-12 00:04] LABS: HEMO FLAGS AUTO DIFF
[2017-04-12 02:35] LABS: PLATELET ESTIMATE SMEAR NORMAL (NORMAL); PLATELET MORPHOLOGY NORMAL (NORMAL); SCAN/DIFF AUTO DIFF CONFIRMED
[2017-04-15 07:30] LABS: PHENCYCLIDINE URINE NEG (NEG)
[2017-04-15 07:33] LABS: ECSTASY (MDMA) UR NEG (NEG); HEROIN (6-ACETYLMORPHINE) UR NEG (NEG); K2 SPICE UR NEG (NEG); OBMETHADONE UR NEG (NEG)
[2017-04-15 07:34] LABS: BATH SALTS (MDPV) UR NEG (NEG); GABAPENTIN UR NEG (NEG); HYDROMORPHONE U NEG (NEG)
== END 2017-04-12 00:24 | disposition home or self-care (01) ==
LOC: HOBED 22:58
DX: O99.323 Drug use complicating pregnancy, third trimester (principal); F19.10 Other psychoactive substance abuse, uncomplicated; Z3A.36 36 weeks gestation of pregnancy; Z79.899 Other long term (current) drug therapy
CPT/HCPCS: 36415; 59025; 80053; 80307; 81001; 85025; 99283; G0481

== ENCOUNTER 2017-04-16 11:09 | Emergency (ER) | payer MEDICAID ==
--- NOTE | 2017-04-16 12:04 | PD ---
HPI Chief Complaint Lower extremity swelling and weeping 39 week Travel History International Travel<30 Days: No Contact w/Intl Traveler<30Days: No Known Affected Area: No History of Present Illness HPI Pt is a 21 yo at 39 weeks . Pt reports lower extremity bilateral swelling of several weeks. She also reports some exudate from small erosions . Pt states she has 'liver and renal issues' resulting from past heroin IV abuse. She denies calf pain. Her EDC is 04-23-2017.She receives care with Dr Velazquez. Per patient, she is planning primary c section this time, o/a previous shoulder dystocia x 2. Weeks Gestation: 39 Para: 4 : 6 Miscarriage: 1 History Past Medical History Narrative Medical Psoriasis, PTSD, h/o Substance Abuse, h/o MRSA, h/o Cholelithiasis Obstetric History Obstetric History 4 prior term vaginal deliveries. patient reports shoulder dystocia with last 2 deliveries. Past Surgical History Surgical History: No Previous Surgery Social History Alcohol Use: No Tobacco Use: Yes (2-3 cigarettes/ day also uses Nicotine transdermal patch.) Substance Abuse: Yes (admits to IV heroin use, but denies use during . ) Allergies-Medications (Allergen,Severity, Reaction): Coded Allergies: penicillin G (Unverified Allergy, Unknown, 02/21/17) *MDRO Multi-Drug Resistant Organism (Verified Adverse Reaction, Unknown, MRSA, 01/04/17) MRSA (abdomen-05/31/16) MRSA PCR (nares) positive - 01/03/17 Home Meds Active Scripts Sertraline (Zoloft) 50 Mg Tab, 50 MG PO DAILY for anxiety and depression, #31 TAB Prov:Margarita Velazquez MD 01/12/17 Nicotine (Eq Nicotine) 21 Mg/24 Hr Dis, 1 PATCH T-DERMAL DAILY for nicotine disorder, #14 PATCH Prov:Margarita Velazquez MD 01/12/17 Hydroxyzine HCl (Hydroxyzine HCl) 25 Mg Tab, 25 MG PO Q8H Y for anxiety, #120 TAB Prov:Margarita Velazquez MD 01/12/17 Fluvoxamine (Fluvoxamine) 50 Mg Tab, 50 MG PO DAILY for obsessive picking, #30 TAB Prov:Margarita Velazquez MD 01/12/17 Buprenorphine (Buprenorphine) 8 Mg Subl, 8 MG SL BID for opioid use disorder, # 28 TAB Prov:Margarita Velazquez MD 01/12/17 Quetiapine (Quetiapine) 25 Mg Tab, 25 MG PO HS for insomnia, #6 TAB Prov:Margarita Velazquez MD 12/30/16 Fluvoxamine (Fluvoxamine) 50 Mg Tab, 50 MG PO DAILY for Anxiety, #7 TAB Prov:Margarita Velazquez MD 12/30/16 Buprenorphine (Buprenorphine) 8 Mg Subl, 8 MG SL BID for opioid use disorder, # 6 TAB Prov:Margarita Velazquez MD 12/30/16 Review of Systems Except as stated in HPI: all other systems reviewed are Neg Physical Exam Narrative GENERAL: Well-nourished, well-developed patient. SKIN: Warm and dry. HEAD: Normocephalic and atraumatic. EYES: No scleral icterus. No injection or drainage. ENT: No nasal drainage noted. Mucous membranes pink. Airway patent. NECK: Supple, trachea midline. No JVD. CARDIOVASCULAR: Regular rate and rhythm without murmurs, gallops, or rubs. RESPIRATORY: Breath sounds equal bilaterally. No accessory muscle use. BREASTS: Bilateral exam showed no masses , no retractions, no nipple discharge. ABDOMEN/GI: Abdomen soft, non-tender, bowel sounds present, no rebound, no guarding Gravid to [39] weeks size Fundal Height: [38] GENITOURINARY: External Genitalia: intact and normal in appearance Cervix: [-] Dilatation: [-] Effacement: [-] Station: [-] Presentation: [-] Membranes: [intact or ruptured] Uterine Contractions: [-] FHT's: Category: [-] Baseline: [-] Reactive: [-] Variability: [-] Decels: [-] EXTREMITIES: No cyanosis or edema. Bilateral lower extremity nonpitting edema up to mid-calves. superficial weeping erosions. Dustin's negative. BACK: Nontender without obvious deformity. No CVA tenderness. NEUROLOGICAL: Awake and alert. Motor and sensory grossly within normal limits. Five out of 5 muscle strength in all muscle groups. Normal speech. Data Data Orders Orders Vital Signs (Adult) .ON ADMISSION (04/16/17 11:47) ^ Labor Status (04/16/17 11:47) Urinalysis - C+S If Indicated (04/16/17 11:47) Diet Liquid (04/16/17 Lunch) MDM Medical Record Reviewed: Yes Plan 28 yo at 39 weeks with increased lower extremity edema. H/o past IV Heroin use UA wnl, trace protein We plan discharge. Pt has appointment 04-18-[address] Robbins. plans to schedule primary c Section o/a history of previous shoulder dystocia. Nasal swab sent for MRSA. Diagnosis Diagnosis: Primary Impression: 39 weeks gestation of Additional Impressions: Drug abuse during Edema Skin lesions Disposition: 01 DISCHARGE HOME Franicsco Antoine MD Apr 16, 2017 12:04
[2017-04-16 12:31] LABS: BACTERIA, URINE FEW /hpf; BLOOD, URINE NEG (NEG); COMMENT (UR) CULT NOT INDICATED; CULTURE IF INDICATED CULT NOT INDICATED; GLUCOSE,URINE NEG (NEG); KETONE, URINE NEG (NEG); MUCUS URINE FEW /lpf (OCC); NITRITE,URINE NEG (NEG); PH, URINE 6.5 (5.0-8.5); SQUAMOUS EPITHELIAL CELL URINE 11 /hpf (0-5); URINE COLOR YELLOW (YELLW/STRAW)
== END 2017-04-16 17:19 | disposition home or self-care (01) ==
LOC: HOBED 11:09
DX: O26.893 Other specified pregnancy related conditions, third trimester (principal); F19.10 Other psychoactive substance abuse, uncomplicated; R60.9 Edema, unspecified; L98.8 Other specified disorders of the skin and subcutaneous tissue; Z3A.39 39 weeks gestation of pregnancy; Z72.0 Tobacco use
CPT/HCPCS: 59025; 81001; 87641

== ENCOUNTER 2017-04-20 07:23 | Inpatient (IN) | payer MEDICAID ==
[~2017-04-20] VITALS: Ht 154.9 cm; Wt 57.0 kg
[2017-04-20] VITALS (80 sets, daily range): BP systolic 84–107; BP diastolic 44–80; PULSE 51–113; RESP 18; TEMP 97.7–98.1
[~2017-04-20 07:23] MED LIST changes: +ePHEDrine/NS 25 MG/5 ML SYR IV PUSH PRN
[2017-04-20 09:05] LABS: AUTOMATED NEUTROPHIL # 8.5 TH/MM3 (1.8-7.7); BASOPHIL # 0.1 TH/MM3 (0-0.2); BASOPHIL % 0.5 % (0.0-2.0); EOSINOPHIL # 0.3 TH/MM3 (0-0.4); HEMATOCRIT 33.2 % (35.0-46.0); HEMO FLAGS DIFF FINAL; LYMPH % 23.6 % (9.0-44.0); LYMPHOCYTE # 3.1 TH/MM3 (1.0-4.8); MEAN CELL VOLUME 88.6 FL (80.0-100.0); MEAN CORPUSCULAR HEMOGLOBIN 31.1 PG (27.0-34.0); MEAN CORPUSCULAR HGB CONC 35.1 % (32.0-36.0); MONO % 8.2 % (0.0-8.0); NEUT % 65.7 % (16.0-70.0); PLATELET COUNT 298 TH/MM3 (150-450); RED BLOOD COUNT 3.75 MIL/MM3 (4.00-5.30); RED CELL DISTRIBUTION WIDTH 16.2 % (11.6-17.2)
[2017-04-20 09:19] LABS: BACTERIA, URINE RARE /hpf; BLOOD, URINE NEG (NEG); COMMENT (UR) CULT NOT INDICATED; CULTURE IF INDICATED CULT NOT INDICATED; GLUCOSE,URINE NEG (NEG); KETONE, URINE NEG (NEG); MUCUS URINE FEW /lpf (OCC); NITRITE,URINE NEG (NEG); SQUAMOUS EPITHELIAL CELL URINE 8 /hpf (0-5); TRANSITIONAL EPI CELLS, URINE 1 /hpf; URINE COLOR DARK-YELLOW (YELLW/STRAW)
--- NOTE | 2017-04-20 09:29 | MH ---
cc: RAND LARSEN DATE OF ADMISSION 04/20/2017 Date of procedure will be April 19. SCHEDULED PROCEDURE Primary low transverse segment section and tubal ligation. INDICATION History of prior shoulder dystocia times two. HISTORY OF THE PRESENT ILLNESS The patient is a very complicated 21-year-old white female 6, para 4-0-1-4 with unclear LMP, she thinks August 01, 2016 and EDC May 08, 2017, currently at 37-2/7 weeks estimated gestational age. She has had a very complicated spending much time in the medical ICU at our hospital for cardiovascular instability and ruling out of bacterial endocarditis and sepsis. She has a substance use disorder and is on buprenorphine 8 mg t.i.d., Zoloft 100 mg q.a.m. BuSpar 10 mg t.i.d. for her anxiety disorder. She also smokes cigarettes. She has had severe lower extremity lymphedema throughout the that gets better and worse depending on hydration I think and level of picking. She has a very severe picking disorder and scratches lesions on her lower extremities. In addition to the conditions described in the first attempt at dictation she also has a history of HSV and did not obtain Valtrex during this time frame. She is severely anemic with a hemoglobin of 7. She has spent much of the last month and a half in [place] but returned to this area telling me that she was using street Subutex during that time period and was getting variable amounts. She is lethargic, depressed and I do not know exactly what her plans are for this child. She has considered adoption but has not discussed this recently. She understands that we want her to have this baby sooner than later because of all of the above issues and the fact that on biophysical profile the placenta is grade 3, the fluid level is less than 5 and her substance use disorder is not under good control. Like I said her care started at about 22 weeks and she tried her best to be compliant multiple biophysical profiles recently. She has signed consents for her tubal ligation. PHYSICAL EXAMINATION GENERAL: On physical exam she is an ill-appearing, pale, white female who does not make good eye contact, has almost a slowing of motor function when she walks and she shuffles. LUNGS: Her lungs are currently clear to auscultation. CARDIOVASCULAR: Heart rate at this time is not tachycardiac, has been extremely tachycardiac in the past. She has no murmur, heave or thrills. BREASTS: The breasts are without dominant mass. ABDOMEN: Fundus is about 37 weeks consistent with dates. PELVIC: Cervix is 2 cm, 80% and posterior. Estimated weight of this baby is about 7 pounds. She has had two babies over 8 pounds and both had very severe shoulder dystocia which is why she brought up when she conceived again that she wanted to have this baby by section. IMPRESSION Early term intrauterine with substance use disorder, history of shoulder dystocia x2, severe lower extremity lymphedema and edema, tobacco use disorder, anxiety and depression, late care, HSV 2, and a history that Suggests possible DVT but she has never really been on anticoagulation so I do not think that is really true. PLAN The plan is to proceed with a primary low transverse segment section and tubal ligation and then continue her on her Subutex afterwards. The risks, benefits, expectations including early than 39 week delivery have been discussed in detail. She has signed consents and has agreed to proceed. MD TAMMY Wiley/KK /4:41 PM /9:26 AM
--- NOTE | 2017-04-20 13:07 | PD.LABORPN ---
Subjective Subjective Heaven drank kiran ganesh and was postponed several hours she re considered her decision and requested induction over primary section for hx of shoulder dystocia x 2 reviewed in great detail together Objective Vital Signs Vital Signs Date Time Temp Pulse Resp B/P (MAP) Pulse Ox O2 Delivery O2 Flow Rate FiO2 04/20/17 11:37 71 98/54 (69) 04/20/17 11:36 18 Objective arom celar 3/80/soft/posterior and deviated to left strip reactive did have one decel earlier multiple lesions on arms and legs moderate edema Weeks Gestation: 37 Gest Age Assessed Date: Apr 20, 2017 Gest Age Assessed Time: 13:05 Pt started active labor?: Yes Active labor start date: Apr 20, 2017 Active labor start time: 09:00 Medical induction of labor?: No Artificial rupture of membrane: Yes Artificial ROM date: Apr 20, 2017 Artifical ROM time: 13:00 Margarita Velazquez MD Apr 20, 2017 13:06
[2017-04-20] MEDS ORDERED: OXYTOCIN 30 UNITS 500ML PREMIX IV ONE (16:00)
[2017-04-20] MEDS ORDERED: LACTATED RINGER'S 1000 ML BOLUS IV PRN (16:00)
[2017-04-20] MEDS ORDERED: LIDOCAINE HCL 1% 50 ML VIAL INFIL PRN (16:00)
[2017-04-20] MEDS ORDERED: NS 1000 ML IV PRN (16:00)
[2017-04-20] MEDS ORDERED: NS 500 ML BOLUS IV PRN (16:00)
[2017-04-20] MEDS ORDERED: LIDOCAINE HCL 1% 50 ML VIAL I-DERMAL PRN (16:00)
[2017-04-20] MEDS ORDERED: CITRIC ACID-SODIUM CITRATE LIQ 30 ML UDC PO SCH (16:00)
[2017-04-20] MEDS ORDERED: MINERAL OIL 10 ML VIAL TOPICAL PRN (16:00)
[2017-04-20] MEDS: LACTATED RINGER'S 1000 ML IV SCH ×3 (16:19→19:46)
[2017-04-20] MEDS ORDERED: OXYTOCIN 30 UNITS-500ML PREMIX 500 ML IV SCH (17:15)
[2017-04-20] MEDS ORDERED: OXYTOCIN 30 UNITS/NS 500ML PREMIX IV SCH (17:30)
[2017-04-20] MEDS ORDERED: fentaNYL 2MCG-BUPIV 0.125% INJ 100 ML ONE ×2 (17:37→23:56)
[2017-04-20] MEDS ORDERED: ePHEDrine/NS 25 MG/5 ML SYR ONE (17:46)
--- NOTE | 2017-04-20 17:57 | PD.LABORPN ---
Subjective Subjective appears painful and in stress Objective Vital Signs Vital Signs Date Time Temp Pulse Resp B/P (MAP) Pulse Ox O2 Delivery O2 Flow Rate FiO2 04/20/17 16:18 58 88/52 (64) 04/20/17 16:17 97.7 18 04/20/17 16:15 57 04/20/17 16:10 74 04/20/17 16:05 61 04/20/17 16:00 67 04/20/17 15:55 74 04/20/17 15:50 54 04/20/17 15:45 60 04/20/17 15:40 58 04/20/17 15:35 57 04/20/17 15:30 75 04/20/17 15:25 66 04/20/17 15:20 78 04/20/17 15:15 59 04/20/17 15:10 70 04/20/17 15:05 68 04/20/17 14:52 18 04/20/17 14:52 61 98/61 (73) 04/20/17 13:45 97.8 04/20/17 13:42 63 92/63 (73) 04/20/17 13:41 18 04/20/17 11:37 71 98/54 (69) 04/20/17 11:36 18 Objective 3-4/80/-1 deviated to left well applied EFW 7 pounds pelvis is proven but has had two dystocia episodes - will watch carefully. Weeks Gestation: 37 Gest Age Assessed Date: Apr 20, 2017 Gest Age Assessed Time: 13:05 Pt started active labor?: Yes Active labor start date: Apr 20, 2017 Active labor start time: 0900 Medical induction of labor?: No Artificial rupture of membrane: Yes Artificial ROM date: Apr 20, 2017 Artifical ROM time: 1300 Assessment/Plan Assessment and Plan begin on pitocin get epidural anticipate Margarita Levy MD Apr 20, 2017 17:57
[2017-04-20] MEDS ORDERED: NO SYSTEM NARCOTICS PRN (18:00)
[2017-04-20] MEDS ORDERED: DO NOT ADMINISTER ANTICOAGULANTS PRN (18:00)
[2017-04-20] MEDS ORDERED: fentaNYL 2MCG-BUPIV 0.125% 100 ML EPIDURAL SCH (18:00)
[2017-04-21] VITALS (24 sets, daily range): BP systolic 89–128; BP diastolic 53–98; PULSE 42–80; RESP 15–18; TEMP 97.6–98.5
--- NOTE | 2017-04-21 01:02 | PD.OB.DELI ---
Weeks gestation: 37 Gest age assessed date: Apr 20, 2017 Gest age assessed time: 13:05 Pt started active labor?: Yes Active labor start date: Apr 20, 2017 Active labor start time: 0900 Medical induction of labor?: No Artificial rupture of membrane: Yes Artificial ROM date: Apr 20, 2017 Artifical ROM time: 1300 Anesthesia: Epidural Episiotomy: None Vaginal Delivery: Normal Presentation: Occiput anterior Nuchal Cord: None Delayed cord clamping (45 sec): Yes : Male Delivery date: Apr 21, 2017 Delivery time: 01:01 One Minute : 8 Five Minute : 9 Weight: 8 Placenta: Spontaneous delivery Laceration: No lacerations Margarita Velazquez MD Apr 21, 2017 01:02
[2017-04-21] MEDS ORDERED: WITCH HAZEL 50%/GLYCERIN 12.5% 40 PAD JAR TOPICAL PRN (01:15)
[2017-04-21] MEDS ORDERED: SODIUM CHLORIDE 0.9% FLUSH 10 ML FLUSH IV FLUSH PRN (01:15)
[2017-04-21] MEDS ORDERED: BENZOCAINE 20% TOPICAL SPRAY 60 ML CAN TOPICAL PRN (01:15)
[2017-04-21] MEDS ORDERED: ZOLPIDEM TARTRATE 5 MG TAB PO PRN (01:15)
[2017-04-21] MEDS ORDERED: ONDANSETRON ODT 4 MG TAB PO PRN (01:15)
[2017-04-21] MEDS ORDERED: OXYTOCIN 30 UNITS-500ML PREMIX 500 ML IV SCH (01:15)
[2017-04-21] MEDS ORDERED: ALUMINUM/MAGNESIUM/SIMETH 30 ML CUP PO PRN (01:15)
[2017-04-21] MEDS ORDERED: DOCUSATE SODIUM 50 MG/SENNA 8.6 MG TAB PO PRN (01:15)
[2017-04-21] MEDS: IBUPROFEN 600 MG TAB PO PRN ×3 (01:30→16:04)
[2017-04-21] MEDS ORDERED: MISOPROSTOL 200 MCG TAB RECTAL PRN (04:45)
[2017-04-21] MEDS: busPIRone HCL 10 MG TAB PO SCH ×3 (06:37→22:38)
--- NOTE | 2017-04-21 08:47 | HHI.OB ---
Subjective Post Day: 0 Remarks Shaking uncontrollably not making good eye contact denies additional drug use in house has decided to keep child states subutex adequate for prevention of withdrawal Objective Vitals/I&O Vital Signs Date Time Temp Pulse Resp B/P (MAP) Pulse Ox O2 Delivery O2 Flow Rate FiO2 04/21/17 05:30 42 16 115/68 (84) 04/21/17 04:15 98.1 50 90/56 (67) 04/21/17 04:15 16 04/21/17 03:30 102/53 (69) 04/21/17 03:30 98.2 71 15 04/21/17 02:45 62 109/67 (81) 04/21/17 02:30 67 106/66 (79) 04/21/17 02:15 68 109/64 (79) 04/21/17 02:01 74 116/89 (98) 04/21/17 01:45 69 128/98 (108) 04/21/17 01:30 98.0 04/21/17 01:30 68 124/83 (97) 04/21/17 01:16 15 04/21/17 01:15 77 113/69 (84) 04/21/17 01:05 16 04/21/17 01:00 80 18 116/74 (88) 04/21/17 00:51 97.9 04/21/17 00:45 74 109/76 (87) 04/21/17 00:30 61 107/55 (72) 04/21/17 00:15 73 04/21/17 00:01 70 04/20/17 23:45 65 100/63 (75) 04/20/17 23:30 51 106/62 (77) 04/20/17 23:15 72 107/68 (81) 04/20/17 23:15 98.1 04/20/17 23:00 61 91/51 (64) 04/20/17 22:30 65 103/58 (73) 04/20/17 22:15 113 93/61 (72) 04/20/17 22:01 64 98/55 (69) 04/20/17 21:45 80 103/80 (88) 04/20/17 21:35 56 04/20/17 21:30 66 96/55 (69) 04/20/17 21:30 66 04/20/17 21:18 18 04/20/17 21:15 56 89/55 (66) 04/20/17 21:15 62 04/20/17 21:10 59 04/20/17 21:05 18 04/20/17 21:05 63 04/20/17 21:00 67 04/20/17 21:00 58 90/44 (59) 04/20/17 20:55 62 04/20/17 20:50 67 04/20/17 20:45 71 98/52 (67) 04/20/17 20:45 79 04/20/17 20:45 18 04/20/17 20:40 69 04/20/17 20:35 52 04/20/17 20:30 60 04/20/17 20:30 61 95/51 (66) 04/20/17 20:20 18 04/20/17 20:15 70 04/20/17 20:15 62 96/50 (65) 04/20/17 20:10 63 04/20/17 20:05 61 04/20/17 20:00 69 04/20/17 20:00 62 97/53 (68) 04/20/17 19:46 68 18 100/53 (69) 04/20/17 19:45 63 04/20/17 19:44 67 96/56 (69) 04/20/17 19:40 59 04/20/17 19:39 62 103/58 (73) 04/20/17 19:38 18 04/20/17 19:35 65 04/20/17 19:30 72 92/51 (65) 04/20/17 19:30 97.9 04/20/17 19:30 18 04/20/17 19:30 68 04/20/17 19:25 76 04/20/17 19:20 58 04/20/17 19:15 66 97/61 (73) 04/20/17 19:15 75 04/20/17 19:00 66 04/20/17 19:00 93/52 (66) 04/20/17 18:55 60 04/20/17 18:53 68 94/53 (67) 04/20/17 18:50 66 04/20/17 18:45 18 10/12/17 18:45 79 91/59 (70) 04/20/17 18:45 73 04/20/17 18:40 74 04/20/17 18:35 55 102/55 (71) 04/20/17 18:30 84/49 (61) 04/20/17 18:30 68 04/20/17 18:25 67 04/20/17 18:25 66 93/57 (69) 04/20/17 18:20 69 100/57 (71) 04/20/17 18:15 71 105/57 (73) 04/20/17 18:10 79 92/74 (80) 04/20/17 18:05 63 98/60 (73) 04/20/17 18:04 61 96/52 (67) 04/20/17 18:00 64 105/62 (76) 04/20/17 17:55 74 102/62 (75) 04/20/17 17:50 63 04/20/17 17:45 57 04/20/17 17:41 64 88/44 (59) 04/20/17 17:40 18 04/20/17 17:40 69 04/20/17 16:18 58 88/52 (64) 04/20/17 16:17 97.7 18 04/20/17 16:15 57 04/20/17 16:10 74 04/20/17 16:05 61 04/20/17 16:00 67 04/20/17 15:55 74 04/20/17 15:50 54 04/20/17 15:45 60 04/20/17 15:40 58 04/20/17 15:35 57 04/20/17 15:30 75 04/20/17 15:25 66 04/20/17 15:20 78 04/20/17 15:15 59 04/20/17 15:10 70 04/20/17 15:05 68 04/20/17 14:52 18 04/20/17 14:52 61 98/61 (73) 04/20/17 13:45 97.8 04/20/17 13:42 63 92/63 (73) 04/20/17 13:41 18 04/20/17 11:37 71 98/54 (69) 04/20/17 11:36 18 Objective Remarks GENERAL: Well-nourished, well-developed patient. CARDIOVASCULAR: Regular rate and rhythm without murmurs, gallops, or rubs. RESPIRATORY: Breath sounds equal bilaterally. No accessory muscle use. ABDOMEN/GI: Abdomen soft, non-tender. Fundus: Firm, non-tender at umbilicus. GENITOURINARY: Light to moderate bleeding. EXTREMITIES: No cyanosis or edema, non-tender, without signs of DVT. lesions healing and none weeping Edema minimal Medications and IVs Current Medications Medications (Trade) Dose Ordered Sig/Joaquina Route Start Time Stop Time Status Last Admin (Flu (Quadrivalent) Vaccine Inj) 0.5 ml ONCE ONCE IM 04/21/17 10:00 04/21/17 10:01 Lactated Ringer's 1,000 ml @ 125 mls/hr Q8H IV 04/20/17 16:00 04/20/17 19:46 Lactated Ringer's 1,000 ml @ 3,000 mls/hr BOLUS PRN IV 04/20/17 16:00 Sodium Chloride 500 ml @ 1,000 mls/hr BOLUS PRN IV 04/20/17 16:00 Sodium Chloride 1,000 ml @ 100 mls/hr Q10H PRN IV 04/20/17 16:00 (Bicitra Liq) 30 ml PRODUCTION ANALYST PO 04/20/17 16:00 04/23/17 15:59 (fentaNYL INJ) 50 mcg Q1H PRN IV PUSH 04/20/17 16:00 (fentaNYL INJ) 100 mcg Q1H PRN IV PUSH 04/20/17 16:00 (Muri-Lube Oil) 10 ml UNSCH PRN TOPICAL 04/20/17 16:00 Oxytocin 500 ml @ 0 mls/hr TITRATE IV 04/20/17 17:15 04/20/17 18:23 Oxytocin 500 ml @ 0 mls/hr TITRATE IV 04/20/17 17:30 Miscellaneous Information No systemic narcotics to be given except... UNSCH PRN .XX 04/20/17 18:00 04/21/17 17:59 Miscellaneous Information DO NOT ADMINISTER ANY ANTICOAGUL... UNSCH PRN .XX 04/20/17 18:00 04/21/17 17:59 Fentanyl/ Bupivacaine HCl 100 ml @ 0 mls/hr TITRATE EPIDURAL 04/20/17 18:00 04/21/17 00:14 (NS Flush) 2 ml BID IV FLUSH 04/21/17 09:00 (NS Flush) 2 ml UNSCH PRN IV FLUSH 04/21/17 01:15 (Tylenol) 650 mg Q4H PRN PO 04/21/17 01:15 (Motrin) 600 mg Q6H PRN PO 04/21/17 01:15 04/21/17 01:30 (Americaine 20% Top Spr) 1 spray Q4H PRN TOPICAL 04/21/17 01:15 (Tucks Pads) 1 applic QID PRN TOPICAL 04/21/17 01:15 (Nicolasa-Colace) 2 tab Q12H PRN PO 04/21/17 01:15 (Ambien) 5 mg HS PRN PO 04/21/17 01:15 (M-M-R Ii Inj) 0.5 ml ONCE ONCE SQ 04/21/17 16:00 04/21/17 16:01 (Boostrix Inj) 0.5 ml ONCE ONCE IM 04/21/17 16:00 04/21/17 16:01 (Mag-Al Plus Susp Liq) 15 ml Q8H PRN PO 04/21/17 01:15 (Zofran Odt) 4 mg Q6H PRN PO 04/21/17 01:15 (Buprenorphine) 8 mg BID SL 04/21/17 09:00 (Buspar) 10 mg Q8HR PO 04/21/17 06:00 04/21/17 06:37 (Cytotec) 600 mcg UNSCH X1 PRN RECTAL 04/21/17 04:45 04/21/17 22:00 Assessment/Plan Assessment and Plan maintain meds needs healthy start and DCF to evaluate home tomorrow Margarita Velazquez MD Apr 21, 2017 08:47
[2017-04-21] MEDS ORDERED: SERT-129 PO (08:51)
[2017-04-21] MEDS ORDERED: BUPR8SUB SL (08:51)
--- NOTE | 2017-04-21 08:51 | HHI.DCPOC ---
Discharge Care Plan Report Symptoms to Your Doctor -Temperature above 100.5 degrees -Redness, of incision or excessive or foul smelling drainage -Unusual pain or calf pain -Increased vaginal bleeding -Painful or difficulty urinating -Feelings of extreme sadness or anxiety after 2 weeks Goals to Promote Your Health * To prevent worsening of your condition and complications * To maintain your health at the optimal level Directions to Meet Your Goals Take your medications as prescribed Follow your dietary instruction Follow activity as directed Ensure plenty of rest for recovery Drink fluids for hydration Keep your appointments as scheduled Take your immunizations and boosters as scheduled If your symptoms worsen call your PCP, if no PCP go to Urgent Care Center or Emergency Room Smoking is Dangerous to Your Health. Avoid second hand smoke Call the 24-hour crisis hotline for domestic abuse at Margarita Velazquez MD Apr 21, 2017 08:51
[2017-04-21] MEDS ORDERED: SODIUM CHLORIDE 0.9% FLUSH 10 ML FLUSH IV FLUSH SCH (09:00)
[2017-04-21] MEDS: BUPRENORPHINE HCL 8 MG SUBLINGUAL TAB SL SCH ×2 (09:32→21:00)
[2017-04-21] MEDS ORDERED: INFLUENZA VIRUS VACCINE (QUADRIVALENT) 0.5 ML SYR IM ONE (10:00)
[2017-04-21] MEDS: METHYLERGONOVINE MALEATE 0.2 MG TAB PO SCH ×3 (10:40→22:38)
[2017-04-21 12:47] LABS: AUTOMATED NEUTROPHIL # 13.1 TH/MM3 (1.8-7.7); BASOPHIL # 0.1 TH/MM3 (0-0.2); BASOPHIL % 0.4 % (0.0-2.0); EOSINOPHIL # 0.2 TH/MM3 (0-0.4); EOSINOPHIL % 0.9 % (0.0-4.0); HEMO FLAGS DIFF FINAL; LYMPH % 13.2 % (9.0-44.0); LYMPHOCYTE # 2.2 TH/MM3 (1.0-4.8); MEAN CORPUSCULAR HEMOGLOBIN 31.1 PG (27.0-34.0); MEAN CORPUSCULAR HGB CONC 34.9 % (32.0-36.0); MONO % 7.4 % (0.0-8.0); NEUT % 78.1 % (16.0-70.0); PLATELET COUNT 233 TH/MM3 (150-450); RED BLOOD COUNT 2.92 MIL/MM3 (4.00-5.30); RED CELL DISTRIBUTION WIDTH 15.7 % (11.6-17.2); WHITE BLOOD COUNT 16.8 TH/MM3 (4.0-11.0)
[2017-04-21] MEDS ORDERED: MEASLES, MUMPS, RUBELLA VACCINE 0.5 ML VIAL SQ ONE (16:00)
[2017-04-21] MEDS ORDERED: DIPHTH/TETANUS/ACEL PERTUSSIS (BOOSTER) 0.5 ML VIAL/PFS IM ONE (16:00)
[2017-04-22 01:00] VITALS: BP 102/64; PULSE 74; RESP 18; TEMP 98.2
[2017-04-22] MEDS: METHYLERGONOVINE MALEATE 0.2 MG TAB PO SCH (06:27)
[2017-04-22] MEDS: busPIRone HCL 10 MG TAB PO SCH ×2 (06:27→14:30)
[2017-04-22] MEDS: IBUPROFEN 600 MG TAB PO PRN ×2 (08:16→14:30)
[2017-04-22] MEDS: ACETAMINOPHEN 325 MG TAB PO PRN ×2 (08:17→14:31)
[2017-04-22] MEDS: BUPRENORPHINE HCL 8 MG SUBLINGUAL TAB SL SCH (09:16)
--- NOTE | 2017-04-22 14:28 | HHI.OB ---
Subjective Post Day: 2 Remarks Doing well Pain is well controlled Bleeding is normal Baby is doing well needs to stay for a couple of days Objective Vitals/I&O Vital Signs Date Time Temp Pulse Resp B/P (MAP) Pulse Ox O2 Delivery O2 Flow Rate FiO2 04/22/17 01:00 98.2 74 18 102/64 (77) 04/21/17 19:50 97.6 65 18 89/59 (69) 04/21/17 16:10 67 16 91/58 (69) 04/21/17 16:10 98.5 Intake & Output 04/22/17 04/22/17 07:00 19:00 Intake Total 0 ml Balance 0 ml Intake Blood Product IV Normal Saline Flush 0 ml Objective Remarks GENERAL: Well-nourished, well-developed patient. CARDIOVASCULAR: Regular rate and rhythm without murmurs, gallops, or rubs. RESPIRATORY: Breath sounds equal bilaterally. No accessory muscle use. ABDOMEN/GI: Abdomen soft, non-tender. Fundus: Firm, non-tender at umbilicus. GENITOURINARY: Light to moderate bleeding. EXTREMITIES: No cyanosis or edema, non-tender, without signs of DVT. lesions healing and none weeping Edema minimal Medications and IVs Current Medications Medications (Trade) Dose Ordered Sig/Joaquina Route Start Time Stop Time Status Last Admin Lactated Ringer's 1,000 ml @ 125 mls/hr Q8H IV 04/20/17 16:00 04/20/17 19:46 Lactated Ringer's 1,000 ml @ 3,000 mls/hr BOLUS PRN IV 04/20/17 16:00 Sodium Chloride 500 ml @ 1,000 mls/hr BOLUS PRN IV 04/20/17 16:00 Sodium Chloride 1,000 ml @ 100 mls/hr Q10H PRN IV 04/20/17 16:00 (Bicitra Liq) 30 ml TESTING AND REGULATING TECHNICIAN PO 04/20/17 16:00 04/23/17 15:59 (fentaNYL INJ) 50 mcg Q1H PRN IV PUSH 04/20/17 16:00 (fentaNYL INJ) 100 mcg Q1H PRN IV PUSH 04/20/17 16:00 (Muri-Lube Oil) 10 ml UNSCH PRN TOPICAL 04/20/17 16:00 Oxytocin 500 ml @ 0 mls/hr TITRATE IV 04/20/17 17:15 04/20/17 18:23 Oxytocin 500 ml @ 0 mls/hr TITRATE IV 04/20/17 17:30 Fentanyl/ Bupivacaine HCl 100 ml @ 0 mls/hr TITRATE EPIDURAL 04/20/17 18:00 04/21/17 00:14 (NS Flush) 2 ml BID IV FLUSH 04/21/17 09:00 (NS Flush) 2 ml UNSCH PRN IV FLUSH 04/21/17 01:15 (Tylenol) 650 mg Q4H PRN PO 04/21/17 01:15 04/22/17 08:17 (Motrin) 600 mg Q6H PRN PO 04/21/17 01:15 04/22/17 08:16 (Americaine 20% Top Spr) 1 spray Q4H PRN TOPICAL 04/21/17 01:15 04/21/17 17:00 (Tucks Pads) 1 applic QID PRN TOPICAL 04/21/17 01:15 04/21/17 17:00 (Nicolasa-Colace) 2 tab Q12H PRN PO 04/21/17 01:15 04/21/17 21:00 (Ambien) 5 mg HS PRN PO 04/21/17 01:15 (Mag-Al Plus Susp Liq) 15 ml Q8H PRN PO 04/21/17 01:15 (Zofran Odt) 4 mg Q6H PRN PO 04/21/17 01:15 (Buprenorphine) 8 mg BID SL 04/21/17 09:00 04/22/17 09:16 (Buspar) 10 mg Q8HR PO 04/21/17 06:00 04/22/17 06:27 Assessment/Plan Assessment and Plan PPD #2 Doing well, Ready to go home Has subutex to go home with. Long discussion regarding smoking and discussed Robbie Nevarez MD Apr 22, 2017 14:28
[2017-04-24 09:14] LABS: BATH SALTS (MDPV) UR NEG (NEG); ECSTASY (MDMA) UR NEG (NEG); GABAPENTIN UR NEG (NEG); HEROIN (6-ACETYLMORPHINE) UR NEG (NEG); HYDROMORPHONE U NEG (NEG); K2 SPICE UR NEG (NEG); OBMETHADONE UR NEG (NEG); PHENCYCLIDINE URINE NEG (NEG)
== END 2017-04-22 15:30 | disposition home or self-care (01) | DRG 774 ==
LOC: H2EB 07:23 → EDSTATUS 09:30 → H2EB 13:51 → H1EA 04-21 03:02
PROVIDERS: ADMIT Obstetrics & Gynecology; ATTEND Obstetrics & Gynecology
PROC: 10907ZC Drainage of Amniotic Fluid, Therapeutic from Products of Conception, Via Natural or Artificial Opening (ICD-10-PCS; 2017-04-20)
PROC: 00HU33Z Insertion of Infusion Device into Spinal Canal, Percutaneous Approach (ICD-10-PCS; 2017-04-20)
PROC: 3E0R3BZ Introduction of Anesthetic Agent into Spinal Canal, Percutaneous Approach (ICD-10-PCS; 2017-04-20)
PROC: 10E0XZZ Delivery of Products of Conception, External Approach (ICD-10-PCS; principal; 2017-04-21)
DX: O99.02 Anemia complicating childbirth (principal); O98.32 Other infections with a predominantly sexual mode of transmission complicating childbirth; O99.344 Other mental disorders complicating childbirth; A60.00 Herpesviral infection of urogenital system, unspecified; D64.9 Anemia, unspecified; F41.9 Anxiety disorder, unspecified; F17.210 Nicotine dependence, cigarettes, uncomplicated; O99.334 Smoking (tobacco) complicating childbirth; Z79.899 Other long term (current) drug therapy; F19.980 Other psychoactive substance use, unspecified with psychoactive substance-induced anxiety disorder; Z3A.37 37 weeks gestation of pregnancy; Z37.0 Single live birth
CPT/HCPCS: 59025; 80307; 81001; 82728; 85025; 85461; 86850; 86900; 86901; 87081; 87150; 87641; 90384; 90715; G0481; J2590; J2790; J7120

== ENCOUNTER 2018-04-02 14:33 | Observation (INO) ==
[2018-04-02] MEDS ORDERED: Sodium Chlor 0.9% Inj 250 ML IV.SIG SCH (15:00)
[2018-04-02 15:08] LABS: Baso % (Auto) 0.3 % (0.0-2.0); Eos # (Auto) 0.1 th/mm3 (0.0-0.4); Eos % (Auto) 0.9 % (0.0-4.0); Hemoglobin 9.3 gm/dL (11.6-15.3); Lymph # (Auto) 2.2 th/mm3 (1.0-4.8); Lymph % (Auto) 14.4 % (9.0-44.0); Mean Corpuscular HGB Conc 34.6 % (32.0-36.0); Mean Corpuscular Hemoglobin 30.6 pg (27.0-34.0); Mean Corpuscular Volume 88.6 fL (80.0-100.0); Mean Platelet Volume 8.1 fL (7.0-11.0); Mono % (Auto) 6.5 % (0.0-8.0); Neut # (Auto) 11.7 th/mm3 (1.8-7.7); Neut % (Auto) 77.9 % (16.0-70.0); Platelet Count 305 th/mm3 (150-450); Red Blood Count 3.05 mil/mm3 (4.00-5.30); Red Cell Distribution Width 15.2 % (11.6-17.2)
[2018-04-02 15:24] LABS: Activated Partial Thrombo Time 22.3 sec (24.3-30.1); INR 1.3 Ratio; Prothrombin Time 12.8 sec (9.8-11.6)
--- NOTE | 2018-04-02 15:33 | XR ---
EXAM DATE: 04/02/2018 3:30 PM EDT AGE/SEX: 89 years / Female INDICATIONS: Foreign body. Evaluate for IUD placement. CLINICAL DATA: This is the patient's initial encounter. Patient reports that signs and symptoms have been present for 1 day and indicates a pain score of Nonresponsive. MEDICAL/SURGICAL HISTORY: Non-responsive. Non-responsive. COMPARISON: No prior exams available for comparison. FINDINGS: There is an IUD which projects over the right sacrum. There is air and stool seen throughout the col on with multiple loops of marginally distended air-filled small bowel in the midabdomen. No gross estella e air or pneumatosis. No abnormal calcifications. Osseous structures are intact. CONCLUSION: 1. IUD projects over the right sacrum region. 2. Partially distended air-filled loops of small bowel in the midabdomen which may reflect mild adyn amic ileus. Electronically signed by: Troy Lance MD 04/02/2018 3:32 PM EDT
--- NOTE | 2018-04-02 15:35 | ED ---
HPI General Chief complaint: Vaginal Bleeding Stated complaint: Medical Time Seen by Provider: 04/02/18 14:39 Source: patient, EMS and RN notes reviewed Mode of arrival: EMS Limitations: other (hypotension) History of Present Illness HPI Narrative: 24 y/o female presents with with hypotension and vaginal bleeding after having a D&C in the office for heavy bleeding over the past 2 weeks. She was sent here emergently for further care. Patient is very difficult to get history from initially likely from a combination of factors but does note having 5 children at home and being about 3 or [address] Alcala's office today. The ambulance team states she had about a liter of blood loss on scene. Related Data Home Medications Medication Instructions Recorded Confirmed clonazepam [Klonopin] 1 mg PO BID 04/02/18 04/02/18 sertraline [Zoloft] 50 mg PO DAILY 04/02/18 04/02/18 sertraline [Zoloft] 100 mg PO DAILY 04/02/18 04/02/18 Allergies Allergy/AdvReac Type Severity Reaction Status Date / Time No Allergy Information Allergy Verified 04/02/18 15:59 Available Review of Systems ROS: all other systems reviewed are negative [facility] Medical History Medical History Depression (Acute) Surgical History Surgical History Status post dilation and curettage (Acute) Social History Social History Substance History: No History of Abuse Smoking Status: Light tobacco smoker Tobacco Type: Cigarettes How Often Do You Have a Drink Containing Alcohol: Never Recent Out of Country Travel within the Last 8 Weeks: No Immunization History Tetanus Immunization: Unsure Hx Influenza Vaccine This Season: Yes Exam Narrative Exam Narrative: GENERAL: 24 y/o female who appears pale SKIN: Focused skin assessment warm/dry. HEAD: Atraumatic. Normocephalic. EYES: Pupils equal and round. No scleral icterus. No injection or drainage. ENT: No nasal bleeding or discharge. Mucous membranes pink and moist. NECK: Trachea midline. CARDIOVASCULAR: Regular rate and rhythm. RESPIRATORY: No accessory muscle use. Clear to auscultation. Breath sounds equal bilaterally. GASTROINTESTINAL: Abdomen soft, non-tender, nondistended. MUSCULOSKELETAL: No obvious deformities. No clubbing. No cyanosis. No edema. Course Reevaluation(s) Reevaluation #1: Patient's blood pressure has improved. Hemoglobin is stable. Will observe overnight Consultations Consultation #1: dr dawson agrees to admit Initial Documented Vital Signs Temperature 91.8 F L 04/02/18 14:51 Pulse Rate 53 L 04/02/18 14:51 Respiratory Rate 15 04/02/18 14:51 Blood Pressure 105/61 04/02/18 14:51 Last Documented Vital Signs Temperature 98.7 F 04/02/18 15:52 Pulse Rate 52 L 04/02/18 15:52 Respiratory Rate 12 04/02/18 15:52 Blood Pressure 96/53 L 04/02/18 15:52 Pulse Oximetry 100 04/02/18 15:52 Medical Decision Making MDM Narrative Medical decision making narrative: Patient arrives status post report of heavy blood loss with hypotension. Will give 1 unit of the emergency release blood and discuss with her surgeon and closely monitor Medical Screen Exam Complete: Yes Emergency Medical Condition: Yes Differential Diagnosis Differential Diagnosis: aneima, shock, renal failure Lab Data Lab results reviewed: Yes I reviewed the patient's lab results. Result diagrams: 04/02/18 14:35 04/02/18 14:35 Lab Results 04/02/18 04/02/18 04/02/18 Range/Units 14:35 14:35 14:35 WBC 15.0 H (4.0-11.0) th/mm3 RBC 3.05 L (4.00-5.30) mil/mm3 Hgb 9.3 L (11.6-15.3) gm/dL Hct 27.0 L (35.0-46.0) % MCV 88.6 (80.0-100.0) fL MCH 30.6 (27.0-34.0) pg MCHC 34.6 (32.0-36.0) % RDW 15.2 (11.6-17.2) % Plt Count 305 (150-450) th/mm3 MPV 8.1 (7.0-11.0) fL Neut % (Auto) 77.9 H (16.0-70.0) % Lymph % (Auto) 14.4 (9.0-44.0) % [place] % (Auto) 6.5 (0.0-8.0) % Eos % (Auto) 0.9 (0.0-4.0) % Baso % (Auto) 0.3 (0.0-2.0) % Neut # (Auto) 11.7 H (1.8-7.7) th/mm3 Lymph # (Auto) 2.2 (1.0-4.8) th/mm3 [place] # (Auto) 1.0 H (0.0-0.9) th/mm3 Eos # (Auto) 0.1 (0.0-0.4) th/mm3 Baso # (Auto) 0.0 (0.0-0.2) th/mm3 WBC Differential . Differential Comment Auto diff final PT 12.8 H (9.8-11.6) sec INR 1.3 Ratio APTT 22.3 L (24.3-30.1) sec Sodium (136-145) meq/L Potassium (3.5-5.1) meq/L Chloride (98-107) meq/L Carbon Dioxide (21.0-32.0) meq/L Anion Gap (5-15) meq/L BUN (7-18) mg/dL Creatinine (0.50-1.00) mg/dL Estimated GFR (>89) mL/min Random Glucose (74-106) mg/dL Calcium (8.5-10.1) mg/dL Prot Corrected Calcium (8.5-10.1) mg/dL Magnesium (1.5-2.5) mg/dL Total Protein (6.4-8.2) g/dL MTS Gel Crossmatch See Detail 04/02/18 Range/Units 14:35 WBC (4.0-11.0) th/mm3 RBC (4.00-5.30) mil/mm3 Hgb (11.6-15.3) gm/dL Hct (35.0-46.0) % MCV (80.0-100.0) fL MCH (27.0-34.0) pg MCHC (32.0-36.0) % RDW (11.6-17.2) % Plt Count (150-450) th/mm3 MPV (7.0-11.0) fL Neut % (Auto) (16.0-70.0) % Lymph % (Auto) (9.0-44.0) % [place] % (Auto) (0.0-8.0) % Eos % (Auto) (0.0-4.0) % Baso % (Auto) (0.0-2.0) % Neut # (Auto) (1.8-7.7) th/mm3 Lymph # (Auto) (1.0-4.8) th/mm3 [place] # (Auto) (0.0-0.9) th/mm3 Eos # (Auto) (0.0-0.4) th/mm3 Baso # (Auto) (0.0-0.2) th/mm3 WBC Differential Differential Comment PT (9.8-11.6) sec INR Ratio APTT (24.3-30.1) sec Sodium 146 H (136-145) meq/L Potassium 3.5 (3.5-5.1) meq/L Chloride 112 H (98-107) meq/L Carbon Dioxide 25.7 (21.0-32.0) meq/L Anion Gap 8 (5-15) meq/L BUN 7 (7-18) mg/dL Creatinine 0.53 (0.50-1.00) mg/dL Estimated GFR Greater than 89 (>89) mL/min Random Glucose 87 (74-106) mg/dL Calcium 6.9 L* (8.5-10.1) mg/dL Prot Corrected Calcium 8.0 L (8.5-10.1) mg/dL Magnesium 1.9 (1.5-2.5) mg/dL Total Protein 5.0 L (6.4-8.2) g/dL MTS Gel Crossmatch Imaging Data Radiologist's impression: Abdomen X-Ray 04/02/18 15:05 CONCLUSION: 1. IUD projects over the right sacrum region. 2. Partially distended air-filled loops of small bowel in the midabdomen which may reflect mild adynamic ileus. Discharge Plan Discharge Disposition Patient Disposition: 30 Still Patient Discharge Details Diagnosis: Vaginal bleeding, Anemia Physicians Team ED Provider: Edna Gonzalez Rxs /Orders / Referrals /Forms Prescriptions: No Action sertraline [Zoloft] 100 mg Tablet 100 mg PO DAILY RF: 0 clonazepam [Klonopin] 1 mg Tablet 1 mg PO BID RF: 0 sertraline [Zoloft] 50 mg Tablet 50 mg PO DAILY RF: 0 Discharge Interventions Interventions: Vital Signs Last Done: 04/02/18 15:52 Status ED Status: Admitted Observation Patient
[2018-04-02 15:41] LABS: Anion Gap 8 meq/L (5-15); Blood Urea Nitrogen 7 mg/dL (7-18); Calcium 6.9 mg/dL (8.5-10.1); Carbon Dioxide 25.7 meq/L (21.0-32.0); Chloride 112 meq/L (98-107); Glomerular Filtration Rate Greater Than 89 mL/min (>89); Glucose,Random 87 mg/dL (74-106); Magnesium 1.9 mg/dL (1.5-2.5); Potassium 3.5 meq/L (3.5-5.1); Sodium 146 meq/L (136-145)
[2018-04-02] MEDS ORDERED: clonazePAM 1 MG Tablet PO ONE (19:15)
[2018-04-02] MEDS: Dextrose 5%/Lactated Ringer's 1,000 ML IV.SIG SCH (20:09)
[2018-04-02] MEDS ORDERED: clonazePAM 0.5 MG Tablet PO PRN (20:13)
--- NOTE | 2018-04-02 21:33 | P.HPOB ---
History of Present Illness Narrative: DEON is a 22 yo swf well known to me for issues of polysubstance use during and severe depression with anxiety component approaching agoraphobia. She became my patient midway through her last which was complicated by her depression, substance use disorder, profound lower extremity edema, instability of her circulation with hypotension of unclear etiology. She was on subutex, clonazepam, zoloft and remains so at this time. She had an IUD placed in the spring and the string was visible when last checked in the office. However, she recently presented to the [place] ED with bleeding and had a positive test with a missed . She missed her next appointment with me and then came in today bleeding profusely. She was hypotensive, tachycardic, pale and diaphorectic. She stated she had been bleeding almost two weeks. She was taken quickly to the procedure room and 911 was called. Her BP was initially 150/80 due to pain. She was bleeding profusely and a speculum was placed and the os open with significant POCs seen. A ring forceps and a large currette were quickly used to remove the POCs and the bleeding ceased. She remained diaphoretic and faint. [facility] arrived and she was taken to the ED for stabilization and possible transfusion. The IUD was not identified at the time of the evaluation. Once in the ED she was given 2 units based on clinical presentation. Initialy Hgb was 9 but anticipated to be much lower. The bleeding did not resume. Abdominal film showed a malpositioned IUD that may or may not be in the uterine cavity. She is currently resting quietly in H pod A repeat H & H is ordered. Ancef given and her suboxone ordered. She is A & O x3 Her color is better. BP 70s/40s (her usual baseline) and pulse in 60s. Perineum shows minimal bleeding. Imp: Spontaneous completed with currettage in the office. Malpositioned IUD. Substance use disorder. Depression with anxiety Plan: Antibiotics Sonogram monday to confirm complete evacuation of POCs and location of IUD Continue subuxone, zoloft and klonopin as needed. If IUD is in the abdomen she agrees to Lscope and concurrent BTL. PMFSH - History History Provided By: Patient - Medical History Medical History: Medical History (Last Updated 04/02/18 @ 21:19 by Margarita Velazquez MD) Mood disorder (Acute) History of recent stressful life event (Acute) Anxiety (Acute) Anxiety Depression Mood disorder - Surgical History Surgical History: Surgical History (Last Updated 04/02/18 @ 15:33 by Hannah Nguyen RN) Status post dilation and curettage - Tobacco History Second Hand Smoke Exposure: Yes Smoking Status: Current every day smoker Tobacco Type: Cigarettes - Alcohol History How Often Do You Have a Drink Containing Alcohol: Never - Substance Use History Substance History: Unable to Obtain - Travel History Recent Travel in the [facility] Within the Last 8 Weeks: No Recent Travel Out of the Country Within the Last 8 Weeks: No - Immunization History Tetanus Immunization: Unsure Hx Influenza Vaccine This Season: Yes Medications and Allergies Active Medications: Active Medications Clonazepam (Klonopin) 0.5 mg PO Q12H PRN PRN Reason: ANXIETY Sodium Chloride (Ns Inj) 250 mls @ 15 mls/hr IV.SIG ONCE JACQUELINE Stop: 04/03/18 07:39 Last Admin: 04/02/18 15:58 Dose: 15 mls/hr Dextrose/Lactated Ringer's (D5w/Lr Inj) 1,000 mls @ 125 mls/hr IV.SIG .Q8H JACQUELINE Last Admin: 04/02/18 20:09 Dose: 125 mls/hr Sodium Chloride (Ns Flush) 2 ml IV.FLUSH UNSCH PRN PRN Reason: FLUSH AFTER USING IV ACCESS Last Admin: 04/02/18 20:33 Dose: 2 ml Allergies Allergy/AdvReac Type Severity Reaction Status Date / Time No Allergy Information Allergy Verified 04/02/18 15:59 Available Home Medications Medication Instructions Recorded Confirmed Type clonazepam [Klonopin] 1 mg PO BID 04/02/18 04/02/18 History sertraline [Zoloft] 50 mg PO DAILY 04/02/18 04/02/18 History sertraline [Zoloft] 100 mg PO DAILY 04/02/18 04/02/18 History Physical Exam Vital signs: Temp Pulse Resp BP Pulse Ox 98.3 F 48 L 17 89/48 L 97 04/02/18 20:00 04/02/18 20:00 04/02/18 20:00 04/02/18 20:00 04/02/18 20:00 Results - Labs CBC & Chem 7: 04/02/18 14:35 04/02/18 14:35 Labs: Short CBC 04/02/18 Range/Units 14:35 WBC 15.0 H (4.0-11.0) th/mm3 Hgb 9.3 L (11.6-15.3) gm/dL Hct 27.0 L (35.0-46.0) % Plt Count 305 (150-450) th/mm3 BMP 04/02/18 14:35 Sodium 146 H Potassium 3.5 Chloride 112 H Carbon Dioxide 25.7 BUN 7 Creatinine 0.53 Calcium 6.9 L* - Imaging Impressions Abdomen X-Ray 04/02/18 15:05 CONCLUSION: 1. IUD projects over the right sacrum region. 2. Partially distended air-filled loops of small bowel in the midabdomen which may reflect mild adynamic ileus. Quality Measure Queries - VTE Deep Vein Thrombosis/Pulmonary Embolism Present on Admission: No
[2018-04-02 21:44] LABS: Baso % (Auto) 0.3 % (0.0-2.0); Eos # (Auto) 0.1 th/mm3 (0.0-0.4); Eos % (Auto) 0.7 % (0.0-4.0); Hematocrit 30.2 % (35.0-46.0); Hemoglobin 10.9 gm/dL (11.6-15.3); Lymph # (Auto) 3.9 th/mm3 (1.0-4.8); Lymph % (Auto) 22.9 % (9.0-44.0); Mean Corpuscular Hemoglobin 31.3 pg (27.0-34.0); Mean Corpuscular Volume 86.8 fL (80.0-100.0); Mean Platelet Volume 7.9 fL (7.0-11.0); Mono # (Auto) 0.8 th/mm3 (0.0-0.9); Mono % (Auto) 4.6 % (0.0-8.0); Neut # (Auto) 12.1 th/mm3 (1.8-7.7); Neut % (Auto) 71.5 % (16.0-70.0); Platelet Count 288 th/mm3 (150-450); Red Blood Count 3.48 mil/mm3 (4.00-5.30); Red Cell Distribution Width 14.8 % (11.6-17.2); White Blood Count 16.9 th/mm3 (4.0-11.0)
[2018-04-02 22:34] LABS: Platelet Estimate Normal (Normal); Platelet Morphology Normal (Normal); RBC Morphology Normal (Normal)
[2018-04-03] MEDS: Dextrose 5%/Lactated Ringer's 1,000 ML IV.SIG SCH ×3 (05:07→22:07)
--- NOTE | 2018-04-03 08:14 | P.PNOB ---
Progress Note: A/P (1) Mechanical complication of IUD Status: Acute Code(s): T83.39XA - Other mechanical complication of intrauterine contraceptive device, initial encounter Current Visit: Yes (2) Depression with anxiety Status: Acute Code(s): F41.8 - Other specified anxiety disorders Current Visit: Yes - Plan ultrasound today psych consult for medications anticipate scheduling Hscope and Lscope to remove IUD - Time Spent With Patient Total time spent is greater than 50% in coordination of care (as documented) at patient's floor/unit and/or counseling patient: less than 15 minutes Subjective Interval history: Heaven had a quiet night with no pain or bleeding. She remains extremely lethargic and passive, which is her baseline. She agrees to speak with psychiatry while awaiting ultrasound location of her IUD seen on the xray. She understands she needs a procedure to remove the IUD and would like a BTL at the same time. She has signed a consent for tubal in the past and we will place on her chart. She states her Medicaid is active. Physical Exam Vital signs: Temp Pulse Resp BP Pulse Ox 98.2 F 45 L 16 115/58 L 96 04/03/18 04:00 04/03/18 04:00 04/03/18 04:00 04/03/18 04:00 04/03/18 04:00 - Constitutional no acute distress - Routine Respiratory Exam Present: CTA bilaterally - Routine Cardiovascular Exam Present: RRR - Routine Abdominal Exam Present: soft, normoactive bowel sounds - Routine Exam External: Present: normal urethra appearance Perineal: Present: Intact Comments: no further bleeding after office procedure Results - Labs CBC & Chem 7: 04/02/18 21:36 04/02/18 14:35 Labs: Laboratory Results - last 24 hr 04/02/18 04/02/18 04/02/18 14:35 14:35 14:35 WBC 15.0 H RBC 3.05 L Hgb 9.3 L Hct 27.0 L MCV 88.6 MCH 30.6 MCHC 34.6 RDW 15.2 Plt Count 305 MPV 8.1 Prelim Diff (Auto) Neut % (Auto) 77.9 H Lymph % (Auto) 14.4 [place] % (Auto) 6.5 Eos % (Auto) 0.9 Baso % (Auto) 0.3 Neut # (Auto) 11.7 H Lymph # (Auto) 2.2 [place] # (Auto) 1.0 H Eos # (Auto) 0.1 Baso # (Auto) 0.0 WBC Differential . Diff Scan Differential Comment Auto diff final Platelet Estimate Platelet Morphology RBC Morphology PT 12.8 H INR 1.3 APTT 22.3 L Sodium Potassium Chloride Carbon Dioxide Anion Gap BUN Creatinine Estimated GFR Random Glucose Calcium Prot Corrected Calcium Magnesium Total Protein Blood Type Antibody Screen Antibody Identification Antigen Identification MTS Gel Crossmatch See Detail 04/02/18 04/02/18 04/02/18 14:35 14:40 20:18 WBC RBC Hgb Hct MCV MCH MCHC RDW Plt Count MPV Prelim Diff (Auto) Neut % (Auto) Lymph % (Auto) [place] % (Auto) Eos % (Auto) Baso % (Auto) Neut # (Auto) Lymph # (Auto) [place] # (Auto) Eos # (Auto) Baso # (Auto) WBC Differential Diff Scan Differential Comment Platelet Estimate Platelet Morphology RBC Morphology PT INR APTT Sodium 146 H Potassium 3.5 Chloride 112 H Carbon Dioxide 25.7 Anion Gap 8 BUN 7 Creatinine 0.53 Estimated GFR Greater than 89 Random Glucose 87 Calcium 6.9 L* Prot Corrected Calcium 8.0 L Magnesium 1.9 Total Protein 5.0 L Blood Type A Negative Antibody Screen Positive H Antibody Identification Passive Anti-D due to Rhogam Antigen Identification Leb Antigen - POSITIVE MTS Gel Crossmatch See Detail 04/02/18 21:36 WBC 16.9 H RBC 3.48 L Hgb 10.9 L Hct 30.2 L MCV 86.8 MCH 31.3 MCHC 36.0 RDW 14.8 Plt Count 288 MPV 7.9 Prelim Diff (Auto) Slide review pending Neut % (Auto) 71.5 H Lymph % (Auto) 22.9 [place] % (Auto) 4.6 Eos % (Auto) 0.7 Baso % (Auto) 0.3 Neut # (Auto) 12.1 H Lymph # (Auto) 3.9 [place] # (Auto) 0.8 Eos # (Auto) 0.1 Baso # (Auto) 0.0 WBC Differential . Diff Scan Auto diff confirmed Differential Comment . Platelet Estimate Normal Platelet Morphology Normal RBC Morphology Normal PT INR APTT Sodium Potassium Chloride Carbon Dioxide Anion Gap BUN Creatinine Estimated GFR Random Glucose Calcium Prot Corrected Calcium Magnesium Total Protein Blood Type Antibody Screen Antibody Identification Antigen Identification MTS Gel Crossmatch - Imaging Impressions Abdomen X-Ray 04/02/18 15:05 CONCLUSION: 1. IUD projects over the right sacrum region. 2. Partially distended air-filled loops of small bowel in the midabdomen which may reflect mild adynamic ileus.
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
[2018-04-03] MEDS: Sertraline 100 MG Tablet PO SCH (16:13)
[2018-04-03] MEDS: clonazePAM 1 MG Tablet PO SCH ×2 (16:13→21:07)
--- NOTE | 2018-04-03 18:24 | US ---
EXAM DATE: 04/03/2018 5:09 PM EDT AGE/SEX: 22 years / Female INDICATIONS: Bleeding and IUD placement. CLINICAL DATA: This is the patient's initial encounter. Patient reports that signs and symptoms have been present for 2 weeks and indicates a pain score of 0/10. MEDICAL/SURGICAL HISTORY: . Anxiety. Depression. . Dilation and curettage. COMPARISON: C, ABDOMEN 1V KUB, 04/02/2018. . MEASUREMENTS: Uterus:__11.3 x 5.2 x 6.0 cm Endometrial Stripe:__>20 mm Right Ovary:__ 4.1 x 1.7 x 2.2 cm Left Ovary:__ 2.9 x 2.1 x 3.0 cm FINDINGS: Uterus: The myometrium has homogeneous echotexture without mass. Endometrial Stripe: The endometrial stripe is thickened, measuring up to 2.7 cm in thickness. There is mild heterogeneous echotexture, predominantly hyperechogenic. No linear or shadowing area within t he endometrium to confirm an IUD. Right Ovary: Ovary contains no mass or significant cystic lesion. Follicles are present. Left Ovary: Ovary contains no mass or significant cystic lesion. Follicles are present. Fluid: No free fluid. Other: None. CONCLUSION: 1. Presence of IUD in the endometrial cavity cannot be confirmed by ultrasound. 2. Thickened endometrial measuring 2.6 cm. Electronically signed by: Bryce Moreno MD 04/03/2018 6:23 PM EDT
--- NOTE | 2018-04-03 20:34 | P.PNOB ---
Progress Note: A/P (1) Mechanical complication of IUD Status: Acute Code(s): T83.39XA - Other mechanical complication of intrauterine contraceptive device, initial encounter Current Visit: Yes (2) Depression with anxiety Status: Acute Code(s): F41.8 - Other specified anxiety disorders Current Visit: Yes - Time Spent With Patient Total time spent is greater than 50% in coordination of care (as documented) at patient's floor/unit and/or counseling patient: less than 15 minutes Subjective Interval history: Heaven had a quiet night with no pain or bleeding. She remains extremely lethargic and passive, which is her baseline. She agrees to speak with psychiatry while awaiting ultrasound location of her IUD seen on the xray. She understands she needs a procedure to remove the IUD and would like a BTL at the same time. She has signed a consent for tubal in the past and we will place on her chart. She states her Medicaid is active. Physical Exam Vital signs: Temp Pulse Resp BP Pulse Ox 98.0 F 53 L 16 130/72 97 04/03/18 20:00 04/03/18 20:00 04/03/18 20:00 04/03/18 20:00 04/03/18 20:00 Results - Labs CBC & Chem 7: 04/02/18 21:36 04/02/18 14:35 Labs: Laboratory Results - last 24 hr 04/02/18 04/02/18 04/02/18 14:35 14:40 20:18 WBC RBC Hgb Hct MCV MCH MCHC RDW Plt Count MPV Prelim Diff (Auto) Neut % (Auto) Lymph % (Auto) [place] % (Auto) Eos % (Auto) Baso % (Auto) Neut # (Auto) Lymph # (Auto) [place] # (Auto) Eos # (Auto) Baso # (Auto) WBC Differential Diff Scan Differential Comment Platelet Estimate Platelet Morphology RBC Morphology Antibody Identification Passive Anti-D due to Rhogam MTS Gel Crossmatch See Detail See Detail 04/02/18 21:36 WBC 16.9 H RBC 3.48 L Hgb 10.9 L Hct 30.2 L MCV 86.8 MCH 31.3 MCHC 36.0 RDW 14.8 Plt Count 288 MPV 7.9 Prelim Diff (Auto) Slide review pending Neut % (Auto) 71.5 H Lymph % (Auto) 22.9 [place] % (Auto) 4.6 Eos % (Auto) 0.7 Baso % (Auto) 0.3 Neut # (Auto) 12.1 H Lymph # (Auto) 3.9 [place] # (Auto) 0.8 Eos # (Auto) 0.1 Baso # (Auto) 0.0 WBC Differential . Diff Scan Auto diff confirmed Differential Comment . Platelet Estimate Normal Platelet Morphology Normal RBC Morphology Normal Antibody Identification MTS Gel Crossmatch - Imaging Impressions Pelvis Ultrasound 04/03/18 17:09 CONCLUSION: 1. Presence of IUD in the endometrial cavity cannot be confirmed by ultrasound. 2. Thickened endometrial measuring 2.6 cm.
--- NOTE | 2018-04-03 20:41 | P.PNOB ---
Progress Note: A/P (1) Mechanical complication of IUD Status: Acute Code(s): T83.39XA - Other mechanical complication of intrauterine contraceptive device, initial encounter Current Visit: Yes (2) Depression with anxiety Status: Acute Code(s): F41.8 - Other specified anxiety disorders Current Visit: Yes - Plan ultrasound today psych consult for medications anticipate scheduling Hscope and Lscope to remove IUD 04/03/18 18:00 reviewed findings and implications in detail. Heaven would like concurrent tubal ligation. We have reviewed risks benefits and alternatives to tubal and the ease of performance with needed laparoscopic IUD retrieval. Has signed consents. scheduled for 7 am in the morning. - Time Spent With Patient Total time spent is greater than 50% in coordination of care (as documented) at patient's floor/unit and/or counseling patient: 25 - 35 minutes Subjective Interval history: Heaven saw Dr. Altamirano and will maintain current meds. Having light bleeding. No pain. Physical Exam Vital signs: Temp Pulse Resp BP Pulse Ox 98.0 F 53 L 16 130/72 97 04/03/18 20:00 04/03/18 20:00 04/03/18 20:00 04/03/18 20:00 04/03/18 20:00 - Constitutional no acute distress - Routine Exam Patient deferred: external exam External: Present: normal urethra appearance Perineal: Present: Intact Results - Labs CBC & Chem 7: 04/02/18 21:36 04/02/18 14:35 Labs: Laboratory Results - last 24 hr 04/02/18 04/02/18 04/02/18 14:35 14:40 20:18 WBC RBC Hgb Hct MCV MCH MCHC RDW Plt Count MPV Prelim Diff (Auto) Neut % (Auto) Lymph % (Auto) [place] % (Auto) Eos % (Auto) Baso % (Auto) Neut # (Auto) Lymph # (Auto) [place] # (Auto) Eos # (Auto) Baso # (Auto) WBC Differential Diff Scan Differential Comment Platelet Estimate Platelet Morphology RBC Morphology Antibody Identification Passive Anti-D due to Rhogam MTS Gel Crossmatch See Detail See Detail 04/02/18 21:36 WBC 16.9 H RBC 3.48 L Hgb 10.9 L Hct 30.2 L MCV 86.8 MCH 31.3 MCHC 36.0 RDW 14.8 Plt Count 288 MPV 7.9 Prelim Diff (Auto) Slide review pending Neut % (Auto) 71.5 H Lymph % (Auto) 22.9 [place] % (Auto) 4.6 Eos % (Auto) 0.7 Baso % (Auto) 0.3 Neut # (Auto) 12.1 H Lymph # (Auto) 3.9 [place] # (Auto) 0.8 Eos # (Auto) 0.1 Baso # (Auto) 0.0 WBC Differential . Diff Scan Auto diff confirmed Differential Comment . Platelet Estimate Normal Platelet Morphology Normal RBC Morphology Normal Antibody Identification MTS Gel Crossmatch - Imaging Impressions Pelvis Ultrasound 04/03/18 17:09 CONCLUSION: 1. Presence of IUD in the endometrial cavity cannot be confirmed by ultrasound. 2. Thickened endometrial measuring 2.6 cm. this, in combination with abdominal film showing IUD in right sacrum indicates IUD has perforated uterus and must be removed laparoscopically
[2018-04-04] MEDS: Dextrose 5%/Lactated Ringer's 1,000 ML IV.SIG SCH ×3 (05:51→20:34)
[2018-04-04] MEDS ORDERED: Bupivacaine/Epinephrine Inj 0.25% 50 ML Vial ONE (06:39)
[2018-04-04] MEDS ORDERED: Methylergonovine Inj 0.2 MG/ML Ampul ONE (07:29)
[2018-04-04 07:43] LABS: Baso # (Auto) 0.1 th/mm3 (0.0-0.2); Baso % (Auto) 0.9 % (0.0-2.0); Eos # (Auto) 0.4 th/mm3 (0.0-0.4); Eos % (Auto) 3.8 % (0.0-4.0); Hematocrit 33.6 % (35.0-46.0); Hemoglobin 11.6 gm/dL (11.6-15.3); Lymph # (Auto) 4.2 th/mm3 (1.0-4.8); Lymph % (Auto) 40.1 % (9.0-44.0); Mean Corpuscular HGB Conc 34.6 % (32.0-36.0); Mean Corpuscular Hemoglobin 31.5 pg (27.0-34.0); Mean Corpuscular Volume 91.1 fL (80.0-100.0); Mean Platelet Volume 8.4 fL (7.0-11.0); Mono # (Auto) 0.7 th/mm3 (0.0-0.9); Mono % (Auto) 7.2 % (0.0-8.0); Platelet Count 245 th/mm3 (150-450); Red Blood Count 3.69 mil/mm3 (4.00-5.30); White Blood Count 10.4 th/mm3 (4.0-11.0)
[2018-04-04 08:12] LABS: Alanine Aminotransferase 13 U/L (10-53); Albumin 2.3 g/dL (3.4-5.0); Alkaline Phosphatase 63 U/L (45-117); Anion Gap 8 meq/L (5-15); Aspartate Aminotransferase 9 U/L (15-37); Blood Urea Nitrogen 8 mg/dL (7-18); Calcium 7.4 mg/dL (8.5-10.1); Carbon Dioxide 28.3 meq/L (21.0-32.0); Chloride 109 meq/L (98-107); Ferritin 51 ng/mL (8-252); Glomerular Filtration Rate Greater Than 89 mL/min (>89); Glucose,Random 77 mg/dL (74-106); Potassium 3.8 meq/L (3.5-5.1); Sodium 145 meq/L (136-145); Total Protein 5.3 g/dL (6.4-8.2)
[2018-04-04 08:26] LABS: Activated Partial Thrombo Time 23.3 sec (24.3-30.1); INR 1.1 Ratio; Prothrombin Time 11.5 sec (9.8-11.6)
[2018-04-04] MEDS ORDERED: Sugammadex Inj 200 MG/2 ML Vial IV.PUSH ONE (09:06)
[2018-04-04] MEDS ORDERED: Zolpidem Tartrate 5 MG Tablet PO PRN (09:10)
--- NOTE | 2018-04-04 09:22 | P.PCNOB ---
Pre-Op/Post-Op Diagnoses Operation Date: 04/04/18 07:00 <No data on this case meets the specified criteria> Pre op: IUD outside the uterus recent miscarraige with hemorrhage desired tubal ligation substance use disorder Post op: IUD embedded in serosa/mucosa of rectum and removed bilateral fimbriectomy D & C appendectomy lysis of adhesions sigmoidoscopy (appendectomy, sigmoidoscopy and excision of IUD from rectal mucosa by Uriel as intraop consult) Procedure: Procedures Operation Date: 04/04/18 07:00 Actual Procedures Side Surgeon p Laparoscopic Fimbriectomy, removal of IUD, Margarita Velazquez MD s Laparoscopic, Appendectomy, rigid sigmoidoscopy Jamie Loaiza MD Cook Relief: Sona Balbuena Estimated blood loss (mL): 50 Anesthesia type: General (IUD imbedded in rectum but not lumen and excised by Dr. Trevino) Specimen: other (emdometrial/placental curettings bilateral tubes appendix) Disposition: floor Narrative: dictated
[2018-04-04] MEDS ORDERED: *morphine SULFATE 4 MG/ML PERIprocedure ONLY ONE ×3 (09:32→11:20)
[2018-04-04] MEDS ORDERED: *Meperidine Inj 25 MG/ML Vial PERIprocedural Use ONLY ONE (09:33)
[2018-04-04] MEDS ORDERED: fentaNYL Citrate Inj 100 MCG/2 ML Ampul ONE (09:34)
[2018-04-04] MEDS: Sertraline 100 MG Tablet PO SCH (10:30)
[2018-04-04] MEDS: clonazePAM 1 MG Tablet PO SCH ×2 (10:30→20:29)
--- NOTE | 2018-04-04 17:30 | P.PNOB ---
Assessment and Plan (1) Mechanical complication of IUD Status: Acute Assessment and plan: leave drain until next week (2) Depression with anxiety Status: Acute Assessment and plan: continue meds - Postoperative Procedures Operation Date: 04/04/18 07:00 Actual Procedures Side Surgeon p Laparoscopic Fimbriectomy, removal of IUD, Margarita Velazquez MD s Laparoscopic, Appendectomy, rigid sigmoidoscopy Jamie Loaiza MD Postoperative day: 0 Postoperative status: doing well - Time Spent With Patient Total time spent is greater than 50% in coordination of care (as documented) at patient's floor/unit and/or counseling patient: less than 15 minutes Subjective Interval history: Hospital day 3/ Post Op day 0 S- No pain, remains passive and quiet asked about procedure and what happened O- AVSS very pale lungs clear abdomen very soft but appears distended. Incisions are clean and dry Scant drainage into MERCED NABS perineum shows scant discharge and blood A- s/p Lscope bilateral salpingectomy and appendectomy Removal of paragard IUD that was imbedded in the mucosa of the rectum without perforating into the lumen P- continue ancef for total of three doses leave drain in until sees Dr. Trevino in one week advance diet and activity as tolerated Physical Exam Vital signs: Temp Pulse Resp BP Pulse Ox 98.6 F 49 L 17 98/53 L 98 04/04/18 16:00 04/04/18 16:00 04/04/18 16:00 04/04/18 16:00 04/04/18 16:00 - Urinary Catheter Management Indwelling Urethral Catheter Cath placed during this visit: yes, but has since been removed by the nurse Urethral indwelling: Yes Insertion date: 04/04/18 Insertion time: : Removal date: 04/04/18 Results - Labs CBC & Chem 7: 04/04/18 07:14 04/04/18 07:14 Labs: Laboratory Results - last 24 hr 04/02/18 04/02/18 04/04/18 14:35 20:18 07:14 WBC 10.4 RBC 3.69 L Hgb 11.6 Hct 33.6 L MCV 91.1 D MCH 31.5 MCHC 34.6 RDW 15.0 Plt Count 245 MPV 8.4 Neut % (Auto) 48.0 Lymph % (Auto) 40.1 [place] % (Auto) 7.2 Eos % (Auto) 3.8 Baso % (Auto) 0.9 Neut # (Auto) 5.0 Lymph # (Auto) 4.2 [place] # (Auto) 0.7 Eos # (Auto) 0.4 Baso # (Auto) 0.1 WBC Differential . Differential Comment Auto diff final PT INR APTT Fibrinogen Sodium Potassium Chloride Carbon Dioxide Anion Gap BUN Creatinine Estimated GFR Random Glucose Calcium Prot Corrected Calcium Ferritin Total Bilirubin AST ALT Alkaline Phosphatase Total Protein Albumin Rout Panel Path Interp MTS Gel Crossmatch See Detail 04/04/18 04/04/18 04/04/18 07:14 07:40 07:40 WBC RBC Hgb Hct MCV MCH MCHC RDW Plt Count MPV Neut % (Auto) Lymph % (Auto) [place] % (Auto) Eos % (Auto) Baso % (Auto) Neut # (Auto) Lymph # (Auto) [place] # (Auto) Eos # (Auto) Baso # (Auto) WBC Differential Differential Comment PT 11.5 INR 1.1 APTT 23.3 L Fibrinogen 211 L Sodium 145 Potassium 3.8 Chloride 109 H Carbon Dioxide 28.3 Anion Gap 8 BUN 8 Creatinine 0.46 L Estimated GFR Greater than 89 Random Glucose 77 Calcium 7.4 L* Prot Corrected Calcium 8.4 L Ferritin 51 Total Bilirubin 0.2 AST 9 L ALT 13 Alkaline Phosphatase 63 Total Protein 5.3 L Albumin 2.3 L Rout Panel Path Interp MTS Gel Crossmatch - Imaging Impressions Pelvis Ultrasound 04/03/18 17:09 CONCLUSION: 1. Presence of IUD in the endometrial cavity cannot be confirmed by ultrasound. 2. Thickened endometrial measuring 2.6 cm.
[2018-04-04] MEDS: clonazePAM 0.5 MG Tablet PO SCH (20:29)
--- NOTE | 2018-04-04 21:08 | MP ---
cc: Margarita Velazquez MD,Jamie Harmon MD DATE OF OPERATION: 04/04/2018 PREOPERATIVE DIAGNOSIS: Recent miscarriage, IUD currently in the right lower pelvis having perforated the uterus, desired sterility with a tubal ligation. POSTOPERATIVE DIAGNOSIS: ParaGard IUD embedded in the serosa and muscular layer of the lower sigmoid/rectum dissected out and removed. Pelvic adhesions. PROCEDURE PERFORMED: Laparoscopic bilateral salpingectomy, D and C, laparoscopic appendectomy by Dr. Loaiza, removal of embedded IUD by Dr. Loaiza, sigmoidoscopy by Dr. Loaiza. ANESTHESIA: General endotracheal. SURGEONS: MD Jamie Herrmann MD FINDINGS: Examination under anesthesia revealed a subinvoluted uterus with moderate bleeding. A minimal amount of tissue was obtained on D and C. Upon entering the peritoneal cavity, the uterus was unremarkable. The left tube and ovary were normal. The right tube had mild hydrosalpinx and the ParaGard IUD string was seen entering into the serosa of the sigmoid near the rectum and the end of the ParaGard was seen visible in a tubo-ovarian complex of adhesions on the right. The fimbria of both tubes were removed and then the IUD, its position and impact on the bowel and appendix were evaluated with Dr. Loaiza , who removed the appendix and after removal of the IUD, confirmed with the lumen of the sigmoid was intact, requiring no further treatment. ESTIMATED BLOOD LOSS: About 50 mL. SPONGE, INSTRUMENT, AND NEEDLE COUNTS: Correct. DISPOSITION: The patient did well and left the operating room with the drain in place. PROCEDURE: The patient was identified as Heaven Alvarez. The necessity for the procedure had been reviewed with her, along the risks, benefits, expectations, and with her desire to have a definitive tubal ligation and removal of the tubes at this time. She was taken to the operating room. She was administered a gram of Ancef. She was placed under general endotracheal anesthesia and prepped and draped in the usual sterile fashion in the dorsal lithotomy position. A timeout was performed with all in attendance. Rose catheter was placed. The cervix was evaluated. Examination under anesthesia performed. The cervix was grasped with tenaculum and the uterus was gently curetted with a banjo curette with minimal tissue obtained. Attention was then directed to the abdomen. Infiltration of the umbilicus was performed with Marcaine with epinephrine and the 5 mm trocar and sleeve were placed into the peritoneal cavity and a pneumoperitoneum was created. A lower quadrant, left lower quadrant 5 mm incision was made, carried to the inferior epigastric branches. The trocar and sleeve were placed. Systematic evaluation of the abdominal and pelvic contents were performed with the findings as noted above. The uterus was elevated and the IUD was identified, embedded in the serosa of the rectum, making it unclear if this perforated into the lumen. The right mild hydrosalpinx was noted and the bowel, the appendix and the ovary were matted together. Careful dissection revealed the distal end of the IUD present at this point. It was unclear if there was a [id number] injury to the sigmoid. Dr. Loaiza was called and asked to come in as an intraoperative consult. While waiting for Dr. Loaiza, the left tube was dissected away with the Harmonic scalpel, freed up entirely and taken out through the left lower quadrant incision. The majority of the right tube was treated the same way, although the fimbriated portion was left in the complex for Dr. Loaiza to evaluate. The appendix was dissected away from this mass, leaving only a minimal amount still stuck to the IUD. Dr. Loaiza arrived and further evaluation was performed. The appendix was dissected away from the complex. The IUD was skeletonized away from the tubo-ovarian complex and then pulled out of the pelvis at that point, pulling the strings through the area in the sigmoid. It was then removed through the right lower quadrant. Careful evaluation of the sigmoid by Dr. Loaiza could not confirm perforation of the lumen. The sigmoidoscopy was performed and air was pushed into the sigmoid while the abdomen was filled with saline. No bubbles were noted and it was determined that there was no perforation into the lumen. A drain was placed by Dr. Loaiza and then the pneumoperitoneum was released and the incisions were closed. Sponge, instrument, and needle counts correct. She tolerated the procedure well and went to the recovery room in stable condition, MD TAMMY Wiley/shailesh , 07:55 PM , 08:07 PM
[2018-04-05] MEDS: Ibuprofen 600 MG Tablet PO PRN ×3 (03:30→22:05)
[2018-04-05] MEDS: Dextrose 5%/Lactated Ringer's 1,000 ML IV.SIG SCH ×3 (05:00→21:54)
[2018-04-05 07:04] LABS: Baso % (Auto) 0.1 % (0.0-2.0); Eos % (Auto) 0.2 % (0.0-4.0); Hematocrit 32.4 % (35.0-46.0); Hemoglobin 11.1 gm/dL (11.6-15.3); Lymph # (Auto) 2.3 th/mm3 (1.0-4.8); Mean Corpuscular HGB Conc 34.4 % (32.0-36.0); Mean Corpuscular Volume 90.3 fL (80.0-100.0); Mean Platelet Volume 8.7 fL (7.0-11.0); Mono % (Auto) 7.3 % (0.0-8.0); Neut % (Auto) 75.4 % (16.0-70.0); Platelet Count 252 th/mm3 (150-450); Red Blood Count 3.59 mil/mm3 (4.00-5.30); Red Cell Distribution Width 14.9 % (11.6-17.2); White Blood Count 13.3 th/mm3 (4.0-11.0)
[2018-04-05 07:31] LABS: Anion Gap 6 meq/L (5-15); Blood Urea Nitrogen 7 mg/dL (7-18); Carbon Dioxide 30.4 meq/L (21.0-32.0); Chloride 107 meq/L (98-107); Glomerular Filtration Rate Greater Than 89 mL/min (>89); Glucose,Random 101 mg/dL (74-106); Potassium 4.3 meq/L (3.5-5.1); Sodium 143 meq/L (136-145)
[2018-04-05] MEDS ORDERED: [UNRECOGNIZED DRUG - OTHER] SL SCH (09:00)
[2018-04-05] MEDS: Sertraline 100 MG Tablet PO SCH (09:33)
[2018-04-05] MEDS: clonazePAM 0.5 MG Tablet PO SCH ×2 (09:34→21:52)
--- NOTE | 2018-04-05 10:12 | P.PNOB ---
Assessment and Plan (1) Mechanical complication of IUD Status: Acute (2) Depression with anxiety Status: Acute - Postoperative Procedures Operation Date: 04/04/18 06:56 Actual Procedures Side Surgeon p Laparoscopic Fimbriectomy, removal of IUD, Not Applicable Margarita Velazquez MD s Laparoscopic, Appendectomy, rigid sigmoidoscopy Not Applicable Jamie Loaiza MD Postoperative day: 1 Postoperative status: post-op ileus Postoperative plan: see orders - Time Spent With Patient Total time spent is greater than 50% in coordination of care (as documented) at patient's floor/unit and/or counseling patient: less than 15 minutes Subjective Interval history: Hospital day 4/ Post Op day 1 Ancef Day 2 (stopping today) remains lethargic but responsive to conversation. complaining she has not received any suboxone today notes she is distended and painful minimal bleeding ambulating with encouragement only Subjective: pain not well controlled (needs her suboxone!!) Physical Exam Vital signs: Temp Pulse Resp BP Pulse Ox 98.2 F 50 L 16 107/59 L 95 04/05/18 04:00 04/05/18 04:00 04/05/18 04:00 04/05/18 04:00 04/05/18 04:00 - Constitutional mild distress, thin, chronically ill appearing, cooperative, somnolent - Routine Abdominal Exam Present: soft, tenderness, distended Comments: incisions clean and dry - Urinary Catheter Management Indwelling Urethral Catheter Cath placed during this visit: yes, but has since been removed by the nurse Urethral indwelling: Yes Insertion date: 04/04/18 Insertion time: : Removal date: 04/04/18 Removal time: 18:00 Results - Labs CBC & Chem 7: 04/05/18 05:39 04/05/18 05:39 Labs: Laboratory Results - last 24 hr 04/02/18 04/02/18 04/05/18 14:35 20:18 05:39 WBC 13.3 H RBC 3.59 L Hgb 11.1 L Hct 32.4 L MCV 90.3 MCH 31.0 MCHC 34.4 RDW 14.9 Plt Count 252 MPV 8.7 Neut % (Auto) 75.4 H Lymph % (Auto) 17.0 [place] % (Auto) 7.3 Eos % (Auto) 0.2 Baso % (Auto) 0.1 Neut # (Auto) 10.0 H Lymph # (Auto) 2.3 [place] # (Auto) 1.0 H Eos # (Auto) 0.0 Baso # (Auto) 0.0 WBC Differential . Differential Comment Auto diff final Sodium Potassium Chloride Carbon Dioxide Anion Gap BUN Creatinine Estimated GFR Random Glucose Calcium Rout Panel Path Interp MTS Gel Crossmatch See Detail 04/05/18 05:39 WBC RBC Hgb Hct MCV MCH MCHC RDW Plt Count MPV Neut % (Auto) Lymph % (Auto) [place] % (Auto) Eos % (Auto) Baso % (Auto) Neut # (Auto) Lymph # (Auto) [place] # (Auto) Eos # (Auto) Baso # (Auto) WBC Differential Differential Comment Sodium 143 Potassium 4.3 Chloride 107 Carbon Dioxide 30.4 Anion Gap 6 BUN 7 Creatinine 0.60 Estimated GFR Greater than 89 Random Glucose 101 Calcium 8.0 L Rout Panel Path Interp MTS Gel Crossmatch
[2018-04-05] MEDS: Sertraline 50 MG Tablet PO SCH (12:18)
[2018-04-05] MEDS: clonazePAM 1 MG Tablet PO SCH (12:18)
--- NOTE | 2018-04-05 18:02 | P.PNOB ---
Assessment and Plan (1) Mechanical complication of IUD Status: Acute (2) Depression with anxiety Status: Acute - Postoperative Procedures Operation Date: 04/04/18 06:56 Actual Procedures Side Surgeon p Laparoscopic Fimbriectomy, removal of IUD, Not Applicable Margarita Velazquez MD s Laparoscopic, Appendectomy, rigid sigmoidoscopy Not Applicable Jamie Loaiza MD Postoperative plan: routine post-op care, see orders - Time Spent With Patient Total time spent is greater than 50% in coordination of care (as documented) at patient's floor/unit and/or counseling patient: less than 15 minutes Subjective Interval history: Hospital day 4/ Post Op day 1 6:00 pm eating and ambulating. no fever states pain 7/10 in LLQ Subjective: patient is tolerating oral intake Physical Exam Vital signs: Temp Pulse Resp BP Pulse Ox 97.6 F 48 L 17 105/58 L 96 04/05/18 16:00 04/05/18 16:00 04/05/18 16:00 04/05/18 16:00 04/05/18 16:00 - Constitutional mild distress, thin, chronically ill appearing - Routine Abdominal Exam Present: normoactive bowel sounds, tenderness Comments: pain at incision site on left not deep in pelvis drain has ~20 cc incisions all clean and dry - Urinary Catheter Management Indwelling Urethral Catheter Cath placed during this visit: yes, but has since been removed by the nurse Urethral indwelling: Yes Insertion date: 04/04/18 Insertion time: 07:26 Removal date: 04/04/18 Removal time: 18:00 Results - Labs CBC & Chem 7: 04/05/18 05:39 04/05/18 05:39 Labs: Laboratory Results - last 24 hr 04/02/18 04/05/18 04/05/18 14:35 05:39 05:39 WBC 13.3 H RBC 3.59 L Hgb 11.1 L Hct 32.4 L MCV 90.3 MCH 31.0 MCHC 34.4 RDW 14.9 Plt Count 252 MPV 8.7 Neut % (Auto) 75.4 H Lymph % (Auto) 17.0 [place] % (Auto) 7.3 Eos % (Auto) 0.2 Baso % (Auto) 0.1 Neut # (Auto) 10.0 H Lymph # (Auto) 2.3 [place] # (Auto) 1.0 H Eos # (Auto) 0.0 Baso # (Auto) 0.0 WBC Differential . Differential Comment Auto diff final Sodium 143 Potassium 4.3 Chloride 107 Carbon Dioxide 30.4 Anion Gap 6 BUN 7 Creatinine 0.60 Estimated GFR Greater than 89 Random Glucose 101 Calcium 8.0 L MTS Gel Crossmatch See Detail
--- NOTE | 2018-04-05 18:46 | XR ---
EXAM DATE: 04/05/2018 12:00 AM EDT AGE/SEX: 22 years / Female INDICATIONS: Abdominal pain.Post removal of embedded IUD in mucosa of sigmoid. Evaluate for ileus. CLINICAL DATA: This is the patient's subsequent encounter. Patient reports that signs and symptoms h ave been present for 3 days and indicates a pain score of 10/10. MEDICAL/SURGICAL HISTORY: None. . Dilation and curettage. Removal of IUD. COMPARISON: [facility], ABDOMEN 1V KUB, 04/02/2018. . FINDINGS: Tubing or wire projects over the pelvis. Interval removal of IUD. Abdominal bowel gas pattern demonst rates a solitary loop of bowel in the midabdomen measuring up to 7.3 cm and a second loop just inferi or measuring 3.7 cm. Cannot differentiate between colon and small bowel; the 2 loops could possibly r epresent one loop of colon and multiple small bowel. Mild amount of stool in the right and left colon . The visualized lower lungs are clear. CONCLUSION: Interval surgery to the abdomen. Removal of IUD. There are 2 loops of bowel in the mid abdomen measur ing 7.3 cm and 3.7 cm which do not have sufficient characteristics to differentiate between colon and small bowel. This could represent ileus or an early bowel obstruction. Recommend serial films. Electronically signed by: Bryce Moreno MD 04/05/2018 6:45 PM EDT
[2018-04-05] MEDS: Bisacodyl 10 MG Supp RECTAL SCH (21:52)
[2018-04-06 03:36] LABS: Baso % (Auto) 0.4 % (0.0-2.0); Eos # (Auto) 0.2 th/mm3 (0.0-0.4); Hematocrit 32.2 % (35.0-46.0); Hemoglobin 10.8 gm/dL (11.6-15.3); Lymph # (Auto) 4.2 th/mm3 (1.0-4.8); Mean Corpuscular HGB Conc 33.6 % (32.0-36.0); Mean Corpuscular Volume 92.1 fL (80.0-100.0); Mean Platelet Volume 9.2 fL (7.0-11.0); Mono # (Auto) 0.7 th/mm3 (0.0-0.9); Mono % (Auto) 6.9 % (0.0-8.0); Neut # (Auto) 5.6 th/mm3 (1.8-7.7); Neut % (Auto) 51.7 % (16.0-70.0); Platelet Count 240 th/mm3 (150-450); Red Blood Count 3.49 mil/mm3 (4.00-5.30); Red Cell Distribution Width 15.1 % (11.6-17.2); White Blood Count 10.8 th/mm3 (4.0-11.0)
[2018-04-06] MEDS: Dextrose 5%/Lactated Ringer's 1,000 ML IV.SIG SCH ×2 (04:00→12:31)
--- NOTE | 2018-04-06 08:43 | P.PNOB ---
Assessment and Plan (1) Mechanical complication of IUD Status: Acute (2) Depression with anxiety Status: Acute - Postoperative Procedures Operation Date: 04/04/18 06:56 Actual Procedures Side Surgeon p Laparoscopic Fimbriectomy, removal of IUD, Not Applicable Margarita Velazquez MD s Laparoscopic, Appendectomy, rigid sigmoidoscopy Not Applicable Jamie Loaiza MD Postoperative plan: discharge (resolving ileus with no signs of bowel compromise from IUD WBC normal and no drifting of HGB instructed carefully about seeing Dr. Trevino and me next week. Given one week script (written ) for 21 suboxone) - Time Spent With Patient Total time spent is greater than 50% in coordination of care (as documented) at patient's floor/unit and/or counseling patient: less than 15 minutes Subjective Interval history: Hospital day 5 Post Op day 2 8:30 eating and ambulating. states pain at LLQ site still significant moving bowels and passing gas likes binder complaining of chronic fainting and syncope since 12 yo (full work uplast year revealed no etiology) suggested we need to reduce opioid and benzo but not really the issue Subjective: patient reports feeling better, patient desires discharge, patient is tolerating oral intake Physical Exam Vital signs: Temp Pulse Resp BP Pulse Ox 97.7 F 44 L 17 110/58 L 97 04/06/18 08:00 04/06/18 08:00 04/06/18 08:00 04/06/18 08:00 04/06/18 08:00 - Constitutional thin, chronically ill appearing - Routine Abdominal Exam Present: soft, normoactive bowel sounds, tenderness Comments: less distended drain site fine drain completely full and emptied (appears to not have been emptied since surgery) nurse brought into room - Urinary Catheter Management Indwelling Urethral Catheter Cath placed during this visit: yes, but has since been removed by the nurse Urethral indwelling: Yes Insertion date: 04/04/18 Insertion time: : Removal date: 04/04/18 Removal time: 18:00 Results - Labs CBC & Chem 7: 04/06/18 02:52 04/05/18 05:39 Labs: Laboratory Results - last 24 hr 04/06/18 02:52 WBC 10.8 RBC 3.49 L Hgb 10.8 L Hct 32.2 L MCV 92.1 MCH 31.0 MCHC 33.6 RDW 15.1 Plt Count 240 MPV 9.2 Neut % (Auto) 51.7 Lymph % (Auto) 39.0 [place] % (Auto) 6.9 Eos % (Auto) 2.0 Baso % (Auto) 0.4 Neut # (Auto) 5.6 Lymph # (Auto) 4.2 [place] # (Auto) 0.7 Eos # (Auto) 0.2 Baso # (Auto) 0.0 WBC Differential . Differential Comment Auto diff final - Imaging Impressions Abdomen X-Ray 04/05/18 00:00 CONCLUSION: Interval surgery to the abdomen. Removal of IUD. There are 2 loops of bowel in the mid abdomen measuring 7.3 cm and 3.7 cm which do not have sufficient characteristics to differentiate between colon and small bowel. This could represent ileus or an early bowel obstruction. Recommend serial films.
[2018-04-06] MEDS: clonazePAM 0.5 MG Tablet PO SCH (09:33)
[2018-04-06] MEDS: Ibuprofen 600 MG Tablet PO PRN ×2 (09:34→16:02)
[2018-04-06] MEDS: Sertraline 100 MG Tablet PO SCH (09:34)
[2018-04-06] MEDS: Bisacodyl 10 MG Supp RECTAL SCH (09:35)
[2018-04-06] MEDS: Sertraline 50 MG Tablet PO SCH (09:36)
--- NOTE | 2018-04-06 10:35 | XR ---
EXAM DATE: 04/06/2018 12:00 AM EDT AGE/SEX: 22 years / Female INDICATIONS: Resolving ileus post abdominal surgery to remove embedded IUD 3 days ago. CLINICAL DATA: This is the patient's initial encounter. Patient reports that signs and symptoms have been present for 3 days and indicates a pain score of 8/10. MEDICAL/SURGICAL HISTORY: None. . D & C. Abdominal surgery to remove IUD. [place] [facility] [place] [facility] [place]. . FINDINGS: Single upright view of the abdomen demonstrates air within bowel in a nonobstructive pattern. No free intraperitoneal air or significant air-fluid level is appreciated. Air-fluid level is present in the stomach which is a normal finding. There is a prominent amount of stool throughout the colon. No abn ormal small bowel dilatation is appreciated. Some type of line or drain overlies the pelvis. No organ omegaly or abnormal mass effect is appreciated. Lung bases are clear. Bones demonstrate no acute find ing. CONCLUSION: No acute abdominal abnormality is identified. Electronically signed by: Sherwin Oneal MD 04/06/2018 10:34 AM EDT
[2018-04-06 13:01] VITALS: TEMP 98
[2018-04-06 16:23] VITALS: BP 125/56; PULSE 48; RESP 18; O2SAT 96
[2018-04-06] MEDS ORDERED: Sertraline 50 MG Tablet PO SCH (21:00)
--- NOTE | 2018-04-23 14:53 | MD ---
cc: Margarita Velazquez MD DATE OF DISCHARGE: 04/06/2018 REASON FOR ADMISSION: Severe vaginal hemorrhage post miscarriage. HISTORY OF PRESENT ILLNESS/HOSPITAL COURSE: Heaven is a 22-year-old single white female; 7, 5-0-1-5 who found out on 03/22/2018 that she was despite the placement of a ParaGard IUD in the previous May. She had continued to see me as a patient on a monthly basis for maintenance therapy for opioid addiction and for profound situational and depression. Throughout that time period she continued to have severe stress and social stressors that impacted her ability to care for herself and her children. At one point, she was kicked out of her home and sleeping in a tent behind [employer] and on several occasions she did have slip ups with her medication and the use of IV drugs and alcohol. This summer she was starting to do a little bit better and was still coming in once a month for Subutex and her mental health medications for severe anxiety, panic disorder, and depression. She had stopped checking for her string which she stated was mobile for the first 6 months and then when she started to have some heavy bleeding she was taken to the emergency room by the father of her children and had a positive test and was found to have a nonviable first trimester embryo. She was told to followup in my office and schedule a D and C, but unfortunately her depression, substance use and lack of transportation delayed this and when she did come in on 04/02/2018 she was bleeding very heavily and had unstable vitals. She was brought back to a procedure room where an emergency D and C was performed as 911 was called. Initially her blood pressure was very high due to pain and then it quickly went down to the 90s/40s with a pulse in the 100s-110s and she was taken by [facility] to the emergency room. There, she was evaluated by the emergency room physician. She was given 2 units of packed red cells. She was very lethargic, obtunded almost; responding to stimuli with one syllable sentences. Drug screen did show that I believe was either methamphetamine or cocaine; but she states she was on some marijuana that a friend had brought her to smoke. After the transfusion she was clinically stable, but chest x-ray showed an infiltrate in the lung and flat plate showed that the IUD was not in the uterus, but in the right lower pelvis. She was evaluated to make sure she was stable for laparoscopy over the next 24 hours and we discussed the options of tubal ligation or salpingectomy versus Nexplanon and other methodologies to prevent her from conceiving again. She adamantly did not want another child and wanted to have a salpingectomy done at the time of the IUD retrieval. So on hospital day #2, which was 04/03/2018, she underwent careful counseling, evaluation. Her vital signs were stable. Her lungs appeared to be clearing clinically. Her heart rate and rhythm were regular. Her abdomen was benign and she was having no more bleeding from the womb; and the D and C in the office appeared to have been complete and she did not need additional curettage. So Monday morning she underwent laparoscopy and at that time the IUD was found to be embedded in the rectum. Both tubes were removed and the appendix was removed by Dr. Davenport; and the IUD was extracted from the muscular layer of the rectum. Intraoperative sigmoidoscopy revealed that the lumen was intact and so no additional treatment was needed at that point. Her postoperative recovery was uneventful from the surgical standpoint. Postop she went to the [facility] and was watched carefully. Over next and Monday she showed no signs of infection, no signs of further blood loss, but had complaints of significant abdominal pain and depression. She was seen by psychiatry and her medications were reviewed and reinstated. Her Subutex was reinstated and on Monday when it appeared she was stable for discharge, she went home with the instructions to followup in 1 week. DISCHARGE DIAGNOSES: At discharge, her diagnosis was intrauterine device perforation and severe depression, multiple polysubstance abuse. CONDITION ON DISCHARGE: At discharge, her current condition was fair. FOLLOWUP: She was told to followup in 1 week. MD TAMMY Wiley/norma , 01:21 PM , 01:37 PM
== END 2018-04-06 19:56 | disposition home or self-care (01) ==
LOC: NEDA 14:33 → NEPE 14:33 → EDBD 16:03 → MERGE 16:03 → NEDA 17:30 → NEPHCDU 17:57 → H1EA 04-04 07:53 → N07 04-04 11:55
PROVIDERS: ADMIT Obstetrics & Gynecology; ATTEND Obstetrics & Gynecology
PROC: LAPAPPY (ICD-10-PCS; 2018-04-04 06:56)
PROC: LAPSALP (ICD-10-PCS; 2018-04-04 06:56)

== ENCOUNTER 2018-04-11 12:07 | Inpatient (IN) ==
[2018-04-11] MEDS ORDERED: Acetaminophen 325 MG Tablet PO ONE (12:35)
[2018-04-11] MEDS: Sod Chloride 0.9% Inj 1,000 ML IV.SIG SCH ×3 (13:11→15:36)
[2018-04-11 13:19] LABS: Baso % (Auto) 0.3 % (0.0-2.0); Eos # (Auto) 0.4 th/mm3 (0.0-0.4); Eos % (Auto) 2.4 % (0.0-4.0); Hematocrit 38.8 % (35.0-46.0); Hemoglobin 13.2 gm/dL (11.6-15.3); Lymph # (Auto) 2.1 th/mm3 (1.0-4.8); Lymph % (Auto) 12.9 % (9.0-44.0); Mean Corpuscular HGB Conc 34.2 % (32.0-36.0); Mean Corpuscular Hemoglobin 30.8 pg (27.0-34.0); Mean Corpuscular Volume 90.1 fL (80.0-100.0); Mean Platelet Volume 7.4 fL (7.0-11.0); Mono # (Auto) 1.2 th/mm3 (0.0-0.9); Mono % (Auto) 7.9 % (0.0-8.0); Neut # (Auto) 12.1 th/mm3 (1.8-7.7); Neut % (Auto) 76.5 % (16.0-70.0); Platelet Count 390 th/mm3 (150-450); Red Cell Distribution Width 14.7 % (11.6-17.2); White Blood Count 15.9 th/mm3 (4.0-11.0)
[2018-04-11] MEDS ORDERED: Buprenorphine/Naloxone 8/2 MG Sublingual Tablet SL STA (13:34)
[2018-04-11 13:38] LABS: Alanine Aminotransferase 45 U/L (10-53); Albumin 2.9 g/dL (3.4-5.0); Anion Gap 12 meq/L (5-15); Aspartate Aminotransferase 27 U/L (15-37); Blood Urea Nitrogen 12 mg/dL (7-18); Calcium 8.2 mg/dL (8.5-10.1); Carbon Dioxide 25.3 meq/L (21.0-32.0); Chloride 104 meq/L (98-107); Glomerular Filtration Rate Greater Than 89 mL/min (>89); Glucose,Random 89 mg/dL (74-106); Potassium 4.1 meq/L (3.5-5.1); Sodium 141 meq/L (136-145)
[2018-04-11 13:41] LABS: Alkaline Phosphatase 130 U/L (45-117); Total Protein 7.1 g/dL (6.4-8.2)
--- NOTE | 2018-04-11 13:42 | ED ---
HPI General Chief Complaint: Abdominal Pain Stated Complaint: ABD Pain/Lethargy Time Seen by Provider: 04/11/18 12:24 Source: patient Mode of arrival: ambulatory Limitations: no limitations History of Present Illness HPI narrative: 22-year-old female arrives to the ER with a complaint of abdominal pain as well as generalized fatigue and weakness. She reports urinary incontinence and after she was seen here about 3 days ago she went home and sat down in an easy chair and has not moved since. She reports urinating on the easy chair and not getting up. The patient underwent hysterectomy with removal of a intrauterine device which migrated through the uterus into the serosa of the rectum. This was done about 10 days ago. She was seen here afterwards and workup including urine comprehensive panel CBC and CT scan were reassuring. The patient today describes increasing abdominal pelvic discomfort with an abnormal discharge from the MERCED drain site on the right lower abdomen. Patient denies fever. She states she has not taken Subutex for 4 days. MD complaint: Reports abdominal pain Onset (ago): day(s) Pain Consistency: constant Location: Reports diffuse Severity: moderate Quality: Reports aching and fullness Radiation: Reports none Migration to: Reports no migration Relieving factors: nothing Exacerbating factors: movement Context: Reports recent surgery/procedure and other (hx chronic pain) Related Data Home Medications Medication Instructions Recorded Confirmed clonazepam [Klonopin] 1 mg PO BID 04/02/18 04/11/18 sertraline [Zoloft] 50 mg PO DAILY 04/02/18 04/11/18 sertraline [Zoloft] 100 mg PO DAILY 04/02/18 04/11/18 buprenorphine-naloxone [Suboxone] 2 film BUCCAL DAILY 04/03/18 04/11/18 Previous Rx's Medication Instructions Recorded buprenorphine HCl 8 mg SUBLINGUAL TID tab 04/05/18 clonazepam [Klonopin] 0.5 mg PO Q12HR tab 04/05/18 ibuprofen 600 mg PO Q6H PRN tab 04/05/18 zolpidem 5 mg PO HS PRN tab 04/05/18 Allergies Allergy/AdvReac Type Severity Reaction Status Date / Time Penicillins Allergy Unknown UNKNOWN Verified 04/11/18 15:59 Review of Systems ROS: all other systems reviewed are negative [facility] Medical History Medical History IVDU (intravenous drug user) (Acute) Mood disorder (Acute) History of recent stressful life event (Acute) Mood disorder (Acute) Anxiety (Acute) Depression (Acute) Surgical History Surgical History Status post surgical removal of both fallopian tubes (Acute) S/P appendectomy (Acute) Status post dilation and curettage (Acute) S/P dilatation and curettage (Acute) Social History Social History Substance History: Past History Second Hand Smoke Exposure: Yes Smoking Status: Current every day smoker Tobacco Type: Cigarettes How Often Do You Have a Drink Containing Alcohol: Monthly or less Recent Travel in [facility] within the Last 8 Weeks: No Recent Out of Country Travel within the Last 8 Weeks: No Substance Abuse Detail Heroin: Substance Use Status: Sustained Remission Route Used Substance Abuse: Intravenously Immunization History Tetanus Immunization: <5 Years Hx Influenza Vaccine This Season: Yes Exam Narrative Exam Narrative: GENERAL: 22-year-old female mild to moderate distress secondary to pain in her anxiety SKIN: Focused skin assessment warm/dry. HEAD: Atraumatic. Normocephalic. EYES: Pupils equal and round. No scleral icterus. No injection or drainage. ENT: No nasal bleeding or discharge. Mucous membranes pink and moist. NECK: Trachea midline. No JVD. CARDIOVASCULAR: Tachycardia. Regular rhythm. RESPIRATORY: There is a MERCED drain along the right abdomen. There is clear fluid within the MERCED drain. There is a dressing overlying the site of MERCED drain insertion with serous discharge however no purulent discharge. No erythema about the site of insertion. GASTROINTESTINAL: Abdomen soft, non-tender, nondistended. Hepatic and splenic margins not palpable. MUSCULOSKELETAL: No obvious deformities. No clubbing. No cyanosis. No edema. NEUROLOGICAL: Awake and alert. No obvious cranial nerve deficits. Motor grossly within normal limits. Normal speech. PSYCHIATRIC: Appropriate mood and affect; insight and judgment normal. Course Initial Documented Vital Signs Temperature 99.8 F H 04/11/18 12:12 Pulse Rate 132 H 04/11/18 12:12 Respiratory Rate 18 04/11/18 12:12 Blood Pressure 102/64 04/11/18 12:12 Pulse Oximetry 96 04/11/18 12:12 Last Documented Vital Signs Temperature 99 F 04/11/18 14:30 Pulse Rate 72 04/11/18 18:00 Respiratory Rate 23 04/11/18 18:00 Blood Pressure 103/62 04/11/18 18:00 Pulse Oximetry 99 04/11/18 18:00 Sign Out Sign Out Data: Patient Sign Out occurred on 04/11/18 at 15:33. Patient's care was discussed, and care was transferred from Manav Spivey MD to Juliet Ward MD. Sign Out Comment: The patient is 22 years old and follows closely with Dr. Velazquez. Patient arrives to the ED after not moving from her chair for about 3 days. Patient is essentially catatonic, not eating or drinking or compliant with Subutex. So far the workup is unremarkable aside from a nonspecific leukocytosis at 15.9. MERCED drain was removed. Urinalysis is pending. 2 L IV fluids initiated. The patient should receive Subutex here which will be the first dose in a few days. If the patient improved significantly after the IV fluids and Subutex she can be discharged with a plan to see Dr. Velazquez today. The grandmother is here as well. Please call Dr. Velazquez with an update regarding the patient's status after the resuscitative measures and Subutex. If the patient needs to be admitted here she can be. At this time is considered unlikely there is a complication related to the surgery which was hysterectomy with removal of IUD. Last updated by Manav Spivey MD at 04/11/18 15:10 Post-Handoff Eval: Received care patient in checkout. At time of checkout re-eval was pending. After patient received Subutex and fluid she remained altered but would intermittently answer no to questions. She was then seen by Dr. Velazquez whom stated that she was different than her normal flat affect. She recommended that she have a urine drug screen and a possible CT. CT head was unremarkable. CT abdomen pelvis shows some postsurgical changes but no fluid collection concerning for intra-abdominal abscess. She was then admitted to Dr. Krishna, hospitalist on-call, for further evaluation and management. Medical Decision Making MDM Narrative Medical Screen Exam Complete: Yes Emergency Medical Condition: Yes Lab Data Result diagrams: 04/11/18 12:44 04/11/18 12:44 Lab Results 04/11/18 04/11/18 04/11/18 Range/Units 12:44 12:44 12:49 WBC 15.9 H (4.0-11.0) th/mm3 RBC 4.30 (4.00-5.30) mil/mm3 Hgb 13.2 (11.6-15.3) gm/dL Hct 38.8 (35.0-46.0) % MCV 90.1 (80.0-100.0) fL MCH 30.8 (27.0-34.0) pg MCHC 34.2 (32.0-36.0) % RDW 14.7 (11.6-17.2) % Plt Count 390 D (150-450) th/mm3 MPV 7.4 (7.0-11.0) fL Neut % (Auto) 76.5 H (16.0-70.0) % Lymph % (Auto) 12.9 (9.0-44.0) % Stanley % (Auto) 7.9 (0.0-8.0) % Eos % (Auto) 2.4 (0.0-4.0) % Baso % (Auto) 0.3 (0.0-2.0) % Neut # (Auto) 12.1 H (1.8-7.7) th/mm3 Lymph # (Auto) 2.1 (1.0-4.8) th/mm3 Stanley # (Auto) 1.2 H (0.0-0.9) th/mm3 Eos # (Auto) 0.4 (0.0-0.4) th/mm3 Baso # (Auto) 0.0 (0.0-0.2) th/mm3 WBC Differential . Differential Comment Auto diff final Sodium 141 (136-145) meq/L Potassium 4.1 (3.5-5.1) meq/L Chloride 104 (98-107) meq/L Carbon Dioxide 25.3 (21.0-32.0) meq/L Anion Gap 12 (5-15) meq/L BUN 12 (7-18) mg/dL Creatinine 0.74 (0.50-1.00) mg/dL Estimated GFR Greater than 89 (>89) mL/min POC Glucose (68-110) mg/dl Random Glucose 89 (74-106) mg/dL Lactic Acid (0.4-2.0) mmol/L Calcium 8.2 L (8.5-10.1) mg/dL Total Bilirubin 0.6 (0.2-1.0) mg/dL AST 27 (15-37) U/L ALT 45 (10-53) U/L Alkaline Phosphatase 130 H (45-117) U/L Total Protein 7.1 (6.4-8.2) g/dL Albumin 2.9 L (3.4-5.0) g/dL Lipase 75 (73-393) U/L Urine Color (Yellw/Straw) Urine Clarity (Clear) Urine pH (5.0-8.5) Ur Specific [place] (1.002-1.035) Urine Protein (Neg-Trace) mg/dL Urine Glucose (UA) (Negative) mg/dL Urine Ketones (Negative) mg/dL Urine Occult Blood (Negative) Urine Nitrate (Negative) Urine Bilirubin (Negative) Urine Urobilinogen (Less than 2) mg/dL Ur Leukocyte Esterase (Negative) Urine RBC (0-3) /hpf Urine WBC (0-5) /hpf Ur Squamous Epith Cells (0-5) /hpf Urine Mucus (Occasional) /lpf Micro UA Comment Ur Microscopic Review Urine Culture Comments Urine Opiates Screen (Neg) Ur Barbiturates Screen (Neg) Ur Amphetamines Screen (Neg) U Benzodiazepines Scrn (Neg) Urine Cocaine Screen (Neg) U Cannabinoids Screen (Neg) 04/11/18 04/11/18 04/11/18 Range/Units 12:54 13:06 14:50 WBC (4.0-11.0) th/mm3 RBC (4.00-5.30) mil/mm3 Hgb (11.6-15.3) gm/dL Hct (35.0-46.0) % MCV (80.0-100.0) fL MCH (27.0-34.0) pg MCHC (32.0-36.0) % RDW (11.6-17.2) % Plt Count (150-450) th/mm3 MPV (7.0-11.0) fL Neut % (Auto) (16.0-70.0) % Lymph % (Auto) (9.0-44.0) % Stanley % (Auto) (0.0-8.0) % Eos % (Auto) (0.0-4.0) % Baso % (Auto) (0.0-2.0) % Neut # (Auto) (1.8-7.7) th/mm3 Lymph # (Auto) (1.0-4.8) th/mm3 Stanley # (Auto) (0.0-0.9) th/mm3 Eos # (Auto) (0.0-0.4) th/mm3 Baso # (Auto) (0.0-0.2) th/mm3 WBC Differential Differential Comment Sodium (136-145) meq/L Potassium (3.5-5.1) meq/L Chloride (98-107) meq/L Carbon Dioxide (21.0-32.0) meq/L Anion Gap (5-15) meq/L BUN (7-18) mg/dL Creatinine (0.50-1.00) mg/dL Estimated GFR (>89) mL/min POC Glucose 85 (68-110) mg/dl Random Glucose (74-106) mg/dL Lactic Acid 0.9 (0.4-2.0) mmol/L Calcium (8.5-10.1) mg/dL Total Bilirubin (0.2-1.0) mg/dL AST (15-37) U/L ALT (10-53) U/L Alkaline Phosphatase (45-117) U/L Total Protein (6.4-8.2) g/dL Albumin (3.4-5.0) g/dL Lipase (73-393) U/L Urine Color Zahra (Yellw/Straw) Urine Clarity Hazy H (Clear) Urine pH 5.0 (5.0-8.5) Ur Specific [place] 1.026 (1.002-1.035) Urine Protein Negative (Neg-Trace) mg/dL Urine Glucose (UA) Negative (Negative) mg/dL Urine Ketones Negative (Negative) mg/dL Urine Occult Blood Small H (Negative) Urine Nitrate Negative (Negative) Urine Bilirubin Negative (Negative) Urine Urobilinogen 4 or greater (Less than 2) mg/dL Ur Leukocyte Esterase Negative (Negative) Urine RBC 1 (0-3) /hpf Urine WBC 2 (0-5) /hpf Ur Squamous Epith Cells 1 (0-5) /hpf Urine Mucus Many H (Occasional) /lpf Micro UA Comment Culture not ind Ur Microscopic Review Not Reportable Urine Culture Comments Culture not ind Urine Opiates Screen (Neg) Ur Barbiturates Screen (Neg) Ur Amphetamines Screen (Neg) U Benzodiazepines Scrn (Neg) Urine Cocaine Screen (Neg) U Cannabinoids Screen (Neg) 04/11/18 Range/Units 14:50 WBC (4.0-11.0) th/mm3 RBC (4.00-5.30) mil/mm3 Hgb (11.6-15.3) gm/dL Hct (35.0-46.0) % MCV (80.0-100.0) fL MCH (27.0-34.0) pg MCHC (32.0-36.0) % RDW (11.6-17.2) % Plt Count (150-450) th/mm3 MPV (7.0-11.0) fL Neut % (Auto) (16.0-70.0) % Lymph % (Auto) (9.0-44.0) % Stanley % (Auto) (0.0-8.0) % Eos % (Auto) (0.0-4.0) % Baso % (Auto) (0.0-2.0) % Neut # (Auto) (1.8-7.7) th/mm3 Lymph # (Auto) (1.0-4.8) th/mm3 Stanley # (Auto) (0.0-0.9) th/mm3 Eos # (Auto) (0.0-0.4) th/mm3 Baso # (Auto) (0.0-0.2) th/mm3 WBC Differential Differential Comment Sodium (136-145) meq/L Potassium (3.5-5.1) meq/L Chloride (98-107) meq/L Carbon Dioxide (21.0-32.0) meq/L Anion Gap (5-15) meq/L BUN (7-18) mg/dL Creatinine (0.50-1.00) mg/dL Estimated GFR (>89) mL/min POC Glucose (68-110) mg/dl Random Glucose (74-106) mg/dL Lactic Acid (0.4-2.0) mmol/L Calcium (8.5-10.1) mg/dL Total Bilirubin (0.2-1.0) mg/dL AST (15-37) U/L ALT (10-53) U/L Alkaline Phosphatase (45-117) U/L Total Protein (6.4-8.2) g/dL Albumin (3.4-5.0) g/dL Lipase (73-393) U/L Urine Color (Yellw/Straw) Urine Clarity (Clear) Urine pH (5.0-8.5) Ur Specific [place] (1.002-1.035) Urine Protein (Neg-Trace) mg/dL Urine Glucose (UA) (Negative) mg/dL Urine Ketones (Negative) mg/dL Urine Occult Blood (Negative) Urine Nitrate (Negative) Urine Bilirubin (Negative) Urine Urobilinogen (Less than 2) mg/dL Ur Leukocyte Esterase (Negative) Urine RBC (0-3) /hpf Urine WBC (0-5) /hpf Ur Squamous Epith Cells (0-5) /hpf Urine Mucus (Occasional) /lpf Micro UA Comment Ur Microscopic Review Urine Culture Comments Urine Opiates Screen Neg (Neg) Ur Barbiturates Screen Neg (Neg) Ur Amphetamines Screen Pos H (Neg) U Benzodiazepines Scrn Pos H (Neg) Urine Cocaine Screen Neg (Neg) U Cannabinoids Screen Neg (Neg) Imaging Data Radiologist's impression: Chest X-Ray 04/11/18 12:36 CONCLUSION: Negative for acute disease Abdomen/Pelvis CT 04/11/18 18:08 CONCLUSION: 1. Colonic ileus. Nonobstructive pattern. 2. No abscess or free air within the abdomen or pelvis. A few small bubbles of gas are seen in the abdominal wall of the right lower quadrant and periumbilical region without fluid collection. 3. Focal consolidation with apparent cavitary change of the visualized right lung lower lobe. This is presumably infectious or inflammatory. 4. Questionable gallbladder wall thickening and pericholecystic fluid. No stones or ductal dilatation demonstrated. Head CT 04/11/18 18:08 CONCLUSION: 1. No intracranial abnormality is demonstrated. 2. Paranasal sinusitis as described. Also apparent right mastoiditis. . Discharge Plan Discharge Disposition Patient Disposition: 30 Still Patient Discharge Details Diagnosis: Acute alteration in mental status Physicians Team ED Provider: Juliet Ward Primary Care Provider: UNKNOWN, Rxs /Orders / Referrals /Forms Prescriptions: No Action sertraline [Zoloft] 100 mg Tablet 100 mg PO DAILY RF: 0 clonazepam [Klonopin] 1 mg Tablet 1 mg PO BID RF: 0 sertraline [Zoloft] 50 mg Tablet 50 mg PO DAILY RF: 0 buprenorphine-naloxone [Suboxone] 8-2 mg Film 2 film BUCCAL DAILY RF: 0 clonazepam [Klonopin] 0.5 mg Tablet 0.5 mg PO Q12HR RF: 0 zolpidem 5 mg Tablet 5 mg PO HS PRN (Reason: Insomnia) RF: 0 ibuprofen 600 mg Tablet 600 mg PO Q6H PRN (Reason: CRAMPING And/Or Fever >101 F) RF: 0 buprenorphine HCl 8 mg Tablet, Sublingual 8 mg Sublingual TID RF: 0 Discharge Interventions Interventions: Vital Signs Last Done: 04/11/18 18:00 Status ED Status: With Doctor
--- NOTE | 2018-04-11 13:42 | XR ---
EXAM DATE: 04/11/2018 12:36 PM EDT AGE/SEX: 22 years / Female INDICATIONS: Fever. CLINICAL DATA: This is the patient's sequela encounter. Patient reports that signs and symptoms have been present for 2 days and indicates a pain score of 0/10. MEDICAL/SURGICAL HISTORY: None. None. COMPARISON: No prior exams available for comparison. FINDINGS: A single AP view of the chest demonstrates the lungs to be symmetrically aerated without evidence of mass, infiltrate or effusion. The cardiomediastinal contours are unremarkable. Osseous structures a re intact. CONCLUSION: Negative for acute disease Electronically signed by: Emerson Dias MD 04/11/2018 1:40 PM EDT
[2018-04-11 15:27] LABS: Bilirubin,Urine Negative (Negative); Clarity,Urine Hazy (Clear); Color,Urine Amber (Yellw/Straw); Glucose,Urine (UA) Negative (Negative); Leukocyte Esterase,Urine Negative (Negative); Mucus,Urine Many /lpf (Occasional); Nitrite,Urine Negative (Negative); Specific Gravity,Urine 1.026 (1.002-1.035); Squamous Epithelial Cell,Urine 1 /hpf (0-5); Urobilinogen,Urine 4 or Greater mg/dL (Less than 2)
--- NOTE | 2018-04-11 18:36 | P.CONOB ---
History of Present Illness - Data of Consult Patient: known to practice within the last 3 years Consult date: 04/11/18 Requesting Physician: Dr. Spivey Primary Care Provider: UNKNOWN - Consult Narrative Reason for consult: other (s/p Lscope removal of paragard from rectal serosa/ mucosa and bilateral salpingectomy) Narrative: Heaven Alvarez is a 22 year old female s/p recent spontaneous requiring transfusion. IUD found to have perforated uterus and therefore had subsequent Lscope with dissection of paragard from rectal serosa/ muscular wall (perforation into mucosa and lumen ruled out with sigmoidoscope intraoperatively) and bilateral salpingectomy. Post op course complicated to two visits to ED with complaint of urinary incontinence and abdominal pain. The urinary incontinence is new and apparently profound; it just runs out and she is grossly incontinent. At the first ED visit I thought possibly a hypotonic overdistended bladder from the opioid. First visit she had her baseline affect of lethargy, depression and psychomotor retardation and there was no evidence of bowel compromise or infection. This second ED evaluation reveals a marked change in affect and worsening of her lethargy, depression and psychomotor retardation. She barely opens her eyes, which appear swollen. She answers questions with with words and so softly it is difficult to hear. I asked Dr. Spivey to remove MERCED drain which has been in one week and this was done before I arrived. She arrived by EVAC with her grandmother who flew in emergently from [place]. Her grandmother was concerned, knowing her deplorable social conditions with four of her five children in a small apartment unattended most of the time. In the year I have known her, she leaves only for medical appointments and to get kids to school. She has profound anxiety, panic attacks, what I would describe as agorophobia. She has a history of polysubstance use including IVDA and has been on suboxone 2-3 8 mg sulblingually daily, and klonipin 0.5 mg TID along with zoloft 110 in am and 50 in pm. She was seen by Dr. Altamirano at her last ED visit one week ago, but her status has deteriorated. She apparently has not had her suboxone since monday as she could not pick it up. She was given a dose here today. Her grandmother wants to take Heaven and the four children back to [place]. It does not appear that Heaven is stable to leave at this time. To reiterate, acute complaints our abdominal pain, gross incontinence, dehydration and anorexia. Chronic complaints are substance use disorder, MDD, panic disorder. She has no support at her apartment and it is not clear that the children are safe. Significant other Chris comes and goes. His level of involvement with Heaven or the children is not clear. Attempts to connect Heaven to health social work professor have been largely unsuccessful. Review of Systems Constitutional: Reports anorexia, Reports daytime sleepiness, Reports fatigue, Reports lack of energy, Reports malaise, Reports weakness Cardiovascular: Reports chest pain, Reports shortness of breath, Reports shortness of breath when lying down Respiratory: Reports shortness of breath Gastrointestinal: Reports abdominal pain, Reports bloating Genitourinary: Reports other (See narrative) Neurologic: Reports abnormal movements, Reports behavioral changes, Reports dizziness Psychiatric: Reports anxiety, Reports behavioral changes, Reports depression, Reports hopelessness, Reports panic attacks Allergic/Immunologic: Reports hives, Reports itchy eyes PMFSH - History History Provided By: Patient, Family Member - Medical History Medical History: Medical History (Last Updated 04/11/18 @ 12:57 by Clarice Ferreira) Mood disorder (Acute) History of recent stressful life event (Acute) IVDU (intravenous drug user) Anxiety Depression Mood disorder - Surgical History Surgical History: Surgical History (Last Updated 04/11/18 @ 18:25 by Margarita Velazquez MD) Status post surgical removal of both fallopian tubes (Acute) S/P appendectomy (Acute) Status post dilation and curettage (Acute) S/P dilatation and curettage - Social History I have reviewed the patient's Social History: Yes - Tobacco History Second Hand Smoke Exposure: Yes Tobacco Use In Past 30 Days: Yes Smoking Status: Current every day smoker Tobacco Type: Cigarettes - Alcohol History How Often Do You Have a Drink Containing Alcohol: Monthly or less - Substance Use History Substance History: Past History - Substance Use Type Heroin Status: Sustained Remission Route Used: Intravenously - Travel History Recent Travel in the [place] Within the Last 8 Weeks: No Recent Travel Out of the Country Within the Last 8 Weeks: No - Immunization History Tetanus Immunization: <5 Years Hx Influenza Vaccine This Season: Yes Medications and Allergies Active Medications: Active Medications Sodium Chloride (Ns Inj) 1,000 mls @ 0 mls/hr IV.SIG BOLUS JACQUELINE Stop: 04/13/18 12:46 Last Infusion: 04/11/18 16:36 Dose: Infused Allergies Allergy/AdvReac Type Severity Reaction Status Date / Time Penicillins Allergy Unknown UNKNOWN Verified 04/11/18 15:59 Home Medications Medication Instructions Recorded Confirmed Type clonazepam [Klonopin] 1 mg PO BID 04/02/18 04/11/18 History sertraline [Zoloft] 50 mg PO DAILY 04/02/18 04/11/18 History sertraline [Zoloft] 100 mg PO DAILY 04/02/18 04/11/18 History buprenorphine-naloxone [Suboxone] 2 film BUCCAL DAILY 04/03/18 04/11/18 History Physical Exam Vital signs: Temp Pulse Resp BP Pulse Ox 99 F 70 18 106/56 L 100 04/11/18 14:30 04/11/18 16:00 04/11/18 16:00 04/11/18 16:00 04/11/18 16:00 - Constitutional moderate distress, cachectic, chronically ill appearing, disheveled, somnolent, obtunded - Routine HEENT Exam Head: Present: normocephalic ENT: Present: mucous membranes dry - Routine Respiratory Exam Present: CTA bilaterally - Routine Abdominal Exam Present: soft, tenderness, distended, surgical scars, drain Comments: MERCED removed incisions healing having rythmic spasms of rectus muscles no CVAT no fluid wave no masses - Detailed Neurological Exam: Coma Scale Motor Response: Obey commands - Routine Psychiatric Exam Present: depressed Results - Labs CBC & Chem 7: 04/11/18 12:44 04/11/18 12:44 Labs: Short CBC 04/11/18 Range/Units 12:44 WBC 15.9 H (4.0-11.0) th/mm3 Hgb 13.2 (11.6-15.3) gm/dL Hct 38.8 (35.0-46.0) % Plt Count 390 D (150-450) th/mm3 BMP 04/11/18 12:44 Sodium 141 Potassium 4.1 Chloride 104 Carbon Dioxide 25.3 BUN 12 Creatinine 0.74 Calcium 8.2 L Liver Function 04/11/18 Range/Units 12:44 Total Bilirubin 0.6 (0.2-1.0) mg/dL AST 27 (15-37) U/L ALT 45 (10-53) U/L Alkaline Phosphatase 130 H (45-117) U/L Albumin 2.9 L (3.4-5.0) g/dL Urine 04/11/18 Range/Units 14:50 Urine Color Zahra (Yellw/Straw) Urine Clarity Hazy H (Clear) Urine pH 5.0 (5.0-8.5) Ur Specific [place] 1.026 (1.002-1.035) Urine Protein Negative (Neg-Trace) mg/dL Urine Glucose (UA) Negative (Negative) mg/dL - Imaging Impressions Chest X-Ray 04/11/18 12:36 CONCLUSION: Negative for acute disease Assessment and Plan - Assessment (1) Incontinence in female Code(s): R32 - Unspecified urinary incontinence Status: Acute Plan: check for UTI, hypotonia (2) Abdominal pain Code(s): R10.9 - Unspecified abdominal pain Status: Acute Plan: Repeating CT of abdomen to compare with last week and rule out bowel compromise , ileus or other pathology (3) Depression with anxiety Code(s): F41.8 - Other specified anxiety disorders Status: Acute Plan: have interval re evaluation by psychiatry (4) Acute adjustment disorder Code(s): F43.20 - Adjustment disorder, unspecified Status: Acute (5) Mood disorder Code(s): F39 - Unspecified mood [affective] disorder Status: Acute (6) History of recent stressful life event Code(s): Z86.59 - Personal history of other mental and behavioral disorders Status: Acute - Plan At this time I have no ideas about incontinence, SOB, abdominal symptoms (other than post op changes and incomplete recovery) Needs to be back on suboxone BID and assessed for other meds by psychiatry. Will check in tomorrow with hospitalist on status.
[2018-04-11 18:38] LABS: Amphetamine Screen,Urine Pos (Neg); Barbiturate Screen,Urine Neg (Neg); Cannabinoid Screen,Urine Neg (Neg); Cocaine Screen,Urine Neg (Neg)
[2018-04-11 18:39] LABS: Opiate Screen,Urine Neg (Neg)
--- NOTE | 2018-04-11 18:47 | CT ---
EXAM DATE: 04/11/2018 6:15 PM EDT AGE/SEX: 22 years / Female INDICATIONS: Fever. Altered mental status. CLINICAL DATA: This is the patient's initial encounter. Patient reports that signs and symptoms have been present for 1 day and indicates a pain score of 9/10. MEDICAL/SURGICAL HISTORY: . IVDU. Appendectomy. RADIATION DOSE: 56.35 CTDI (mGy) COMPARISON: No prior exams available for comparison. TECHNIQUE: CT of the head without contrast. Using automated exposure control and adjustment of the mA and/or kV according to patient size, radiation dose was kept as low as reasonably achievable to ob tain optimal diagnostic quality images. DICOM format image data is available electronically for revi ew and comparison. FINDINGS: Cerebrum: The ventricles are normal for age. No evidence of midline shift, mass lesion, hemorrhage or acute infarction. No extraaxial fluid collections are seen. Posterior Fossa: The cerebellum and brainstem are intact. The 4th ventricle is midline. The cerebe llopontine angle is unremarkable. Extracranial: Mucoperiosteal thickening and a mucous retention cyst partly seen of the right maxilla ry air cell. There is mild mucoperiosteal thickening of the bilateral maxillary air cells. There is p artial opacification of the right mastoid air cells. Skull: The calvaria is intact. No evidence of skull fracture. CONCLUSION: 1. No intracranial abnormality is demonstrated. 2. Paranasal sinusitis as described. Also apparent right mastoiditis. . Electronically signed by: Sherwin Taylor MD 04/11/2018 6:46 PM EDT
--- NOTE | 2018-04-11 19:06 | CT ---
EXAM DATE: 04/11/2018 6:15 PM EDT AGE/SEX: 22 years / Female INDICATIONS: Fever. Recent abdominal surgery. CLINICAL DATA: This is the patient's initial encounter. Patient reports that signs and symptoms have been present for 1 week and indicates a pain score of 8/10. MEDICAL/SURGICAL HISTORY: . IVDU. Appendectomy. Fallopian tubes removed. ORAL CONTRAST: No oral contrast ingested. RADIATION DOSE: 8.16 CTDI (mGy) COMPARISON: No prior exams available for comparison. TECHNIQUE: Multiple contiguous axial images were obtained through the abdomen and pelvis following b olus infusion of 95 ml Omnipaque 350 (iohexol) nonionic water-soluble contrast as a single exam dos e. No oral contrast ingested. Using automated exposure control and adjustment of the mA and/or kV ac cording to patient size, radiation dose was kept as low as reasonably achievable to obtain optimal di agnostic quality images. DICOM format image data is available electronically for review and comparis on. FINDINGS: Large air and stool throughout the colon typical of adynamic ileus. Nonobstructive pattern. A few sma ll bubbles of gas are seen in the right lower quadrant abdominal wall, appears to be site of incision were recent laparoscopy port. Similar findings seen focally near the umbilicus. No measurable fluid. No intraperitoneal free air. No intra-abdominal abscess demonstrated. Solid organs are within normal limits. 2.4 cm low-density centrally of the uterus. Questionable wall thickening and small fluid around the gallbladder. There is patchy consolidation of the visualized lung bases. The area on the right is somewhat masslik e and with apparent cavitary change. CONCLUSION: 1. Colonic ileus. Nonobstructive pattern. 2. No abscess or free air within the abdomen or pelvis. A few small bubbles of gas are seen in the a bdominal wall of the right lower quadrant and periumbilical region without fluid collection. 3. Focal consolidation with apparent cavitary change of the visualized right lung lower lobe. This i s presumably infectious or inflammatory. 4. Questionable gallbladder wall thickening and pericholecystic fluid. No stones or ductal dilatatio n demonstrated. Electronically signed by: Sherwin Taylor MD 04/11/2018 7:05 PM EDT
[2018-04-11] MEDS ORDERED: Acetaminophen 325 MG Tablet PO PRN (20:57)
[2018-04-11] MEDS ORDERED: Bisacodyl 10 MG Supp RECTAL PRN (20:57)
--- NOTE | 2018-04-11 21:20 | P.HP ---
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 The patient's grandmother called EMS today after noticing that the patient was unable to get out of bed or walk and urinated on herself. The patient is alert and oriented x4. She complains of incisional pain. Denies fever/chills. States it hurts to move her legs however she is able to do so with significant effort. No chest pain or shortness of breath. No nausea/vomiting/diarrhea. Review of Systems All other systems reviewed negative except as stated in HPI PMFSH - History History Provided By: Patient, Family Member - Medical History Medical History: Medical History (Last Reviewed 04/11/18 @ 21:10 by Alessandra Krishna MD) IVDU (intravenous drug user) (Acute) Mood disorder (Acute) History of recent stressful life event (Acute) Mood disorder (Acute) Anxiety (Acute) Depression - Surgical History Surgical History: Surgical History (Last Reviewed 04/11/18 @ 21:11 by Alessandra Krishna MD) Status post surgical removal of both fallopian tubes (Acute) S/P appendectomy (Acute) Status post dilation and curettage (Acute) S/P dilatation and curettage - Family History Family History: Family History (Last Updated 04/11/18 @ 21:11 by Alessandra Krishna MD) Other Diabetes mellitus - Tobacco History Second Hand Smoke Exposure: Yes Tobacco Use In Past 30 Days: Yes Smoking Status: Current every day smoker Tobacco Type: Cigarettes - Alcohol History How Often Do You Have a Drink Containing Alcohol: Monthly or less - Substance Use History Substance History: Past History - Substance Use Type Heroin Status: Sustained Remission Route Used: Intravenously - Travel History Recent Travel in the [place] Within the Last 8 Weeks: No Recent Travel Out of the Country Within the Last 8 Weeks: No - Immunization History Tetanus Immunization: <5 Years Hx Influenza Vaccine This Season: Yes Medications and Allergies Active Medications: Active Medications Acetaminophen (Tylenol) 650 mg PO Q4H PRN PRN Reason: Temp > 100.4 Bisacodyl (Dulcolax Supp) 10 mg RECTAL DAILY PRN PRN Reason: SEVERE CONSITIPATION Sodium Chloride (Ns Inj) 1,000 mls @ 0 mls/hr IV.SIG BOLUS JACQUELINE Stop: 04/13/18 12:46 Last Infusion: 04/11/18 16:36 Dose: Infused Sodium Chloride (Ns Inj) 1,000 mls @ 100 mls/hr IV.CONT .Q10H JACQUELINE Ondansetron HCl (Zofran Inj) 4 mg IV.PUSH Q6H PRN PRN Reason: NAUSEA OR VOMITING Sennosides (Senokot) 17.2 mg PO Q12H PRN PRN Reason: Moderate Constipation Allergies Allergy/AdvReac Type Severity Reaction Status Date / Time Penicillins Allergy Unknown UNKNOWN Verified 04/11/18 15:59 Home Medications Medication Instructions Recorded Confirmed Type clonazepam [Klonopin] 1 mg PO BID 04/02/18 04/11/18 History sertraline [Zoloft] 50 mg PO DAILY 04/02/18 04/11/18 History sertraline [Zoloft] 100 mg PO DAILY 04/02/18 04/11/18 History buprenorphine-naloxone [Suboxone] 2 film BUCCAL DAILY 04/03/18 04/11/18 History Exam Vital signs: Vital Signs 04/11/18 12:12 04/11/18 12:30 04/11/18 12:36 Temperature 99.8 F H Pulse Rate 132 H 126 H Respiratory Rate 18 18 Blood Pressure 102/64 100/62 Pulse Oximetry 96 99 100 04/11/18 13:00 04/11/18 13:15 04/11/18 14:00 Temperature Pulse Rate 116 H 132 H 74 Respiratory Rate 19 18 23 Blood Pressure 101/65 100/62 104/57 L Pulse Oximetry 98 97 96 04/11/18 14:30 04/11/18 15:00 04/11/18 16:00 Temperature 99 F Pulse Rate 89 68 64 Respiratory Rate 16 17 15 Blood Pressure 97/52 L 105/60 109/70 Pulse Oximetry 98 100 100 04/11/18 17:00 04/11/18 18:00 04/11/18 20:23 Temperature 98.9 F Pulse Rate 64 72 Respiratory Rate 15 23 Blood Pressure 108/60 103/62 Pulse Oximetry 100 99 Intake & Output 04/11/18 04/11/18 04/12/18 06:59 18:59 06:59 Intake Total 3000 / 3000 Balance 3000 / 3000 Weight 47.174 kg Intake: IV 3000 / 3000 NS Inj 1,000 ML @ Wide Open IV. 3000 / 3000 SIG BOLUS JACQUELINE Rx#:[id number] Narrative: Gen.: No acute distress Head: Normocephalic. Atraumatic. EENT: Pupils equal round and reactive to light. Nose without drainage. Airway intact. Throat without injection. Cardiovascular: Regular rate and rhythm. No murmurs, rubs or gallops. Respiratory: Lungs clear to auscultation bilaterally. No wheezes or rhonchi. Abdomen: Soft, nontender, nondistended. No peritoneal signs. Musculoskeletal: No gross deformities. No edema. Skin: No obvious rashes or erythema. Neuro: Difficult to assess strength as patient's participation in the exam is questionable. Alert and oriented x4. Moves all 4 extremities slowly but spontaneously. Results - Labs CBC & Chem 7: 04/11/18 12:44 04/11/18 12:44 Labs: Laboratory Results - last 24 hr 04/11/18 04/11/18 04/11/18 12:44 12:44 12:49 WBC 15.9 H RBC 4.30 Hgb 13.2 Hct 38.8 MCV 90.1 MCH 30.8 MCHC 34.2 RDW 14.7 Plt Count 390 D MPV 7.4 Neut % (Auto) 76.5 H Lymph % (Auto) 12.9 [place] % (Auto) 7.9 Eos % (Auto) 2.4 Baso % (Auto) 0.3 Neut # (Auto) 12.1 H Lymph # (Auto) 2.1 [place] # (Auto) 1.2 H Eos # (Auto) 0.4 Baso # (Auto) 0.0 WBC Differential . Differential Comment Auto diff final Sodium 141 Potassium 4.1 Chloride 104 Carbon Dioxide 25.3 Anion Gap 12 BUN 12 Creatinine 0.74 Estimated GFR Greater than 89 POC Glucose Random Glucose 89 Lactic Acid Calcium 8.2 L Total Bilirubin 0.6 AST 27 ALT 45 Alkaline Phosphatase 130 H Total Protein 7.1 Albumin 2.9 L Lipase 75 Urine Color Urine Clarity Urine pH Ur Specific [place] Urine Protein Urine Glucose (UA) Urine Ketones Urine Occult Blood Urine Nitrate Urine Bilirubin Urine Urobilinogen Ur Leukocyte Esterase Urine RBC Urine WBC Ur Squamous Epith Cells Urine Mucus Micro UA Comment Ur Microscopic Review Urine Culture Comments Urine Opiates Screen Ur Barbiturates Screen Ur Amphetamines Screen U Benzodiazepines Scrn Urine Cocaine Screen U Cannabinoids Screen 04/11/18 04/11/18 04/11/18 12:54 13:06 14:50 WBC RBC Hgb Hct MCV MCH MCHC RDW Plt Count MPV Neut % (Auto) Lymph % (Auto) [place] % (Auto) Eos % (Auto) Baso % (Auto) Neut # (Auto) Lymph # (Auto) [place] # (Auto) Eos # (Auto) Baso # (Auto) WBC Differential Differential Comment Sodium Potassium Chloride Carbon Dioxide Anion Gap BUN Creatinine Estimated GFR POC Glucose 85 Random Glucose Lactic Acid 0.9 Calcium Total Bilirubin AST ALT Alkaline Phosphatase Total Protein Albumin Lipase Urine Color Zahra Urine Clarity Hazy H Urine pH 5.0 Ur Specific [place] 1.026 Urine Protein Negative Urine Glucose (UA) Negative Urine Ketones Negative Urine Occult Blood Small H Urine Nitrate Negative Urine Bilirubin Negative Urine Urobilinogen 4 or greater Ur Leukocyte Esterase Negative Urine RBC 1 Urine WBC 2 Ur Squamous Epith Cells 1 Urine Mucus Many H Micro UA Comment Culture not ind Ur Microscopic Review Not Reportable Urine Culture Comments Culture not ind Urine Opiates Screen Ur Barbiturates Screen Ur Amphetamines Screen U Benzodiazepines Scrn Urine Cocaine Screen U Cannabinoids Screen 04/11/18 14:50 WBC RBC Hgb Hct MCV MCH MCHC RDW Plt Count MPV Neut % (Auto) Lymph % (Auto) [place] % (Auto) Eos % (Auto) Baso % (Auto) Neut # (Auto) Lymph # (Auto) [place] # (Auto) Eos # (Auto) Baso # (Auto) WBC Differential Differential Comment Sodium Potassium Chloride Carbon Dioxide Anion Gap BUN Creatinine Estimated GFR POC Glucose Random Glucose Lactic Acid Calcium Total Bilirubin AST ALT Alkaline Phosphatase Total Protein Albumin Lipase Urine Color Urine Clarity Urine pH Ur Specific [place] Urine Protein Urine Glucose (UA) Urine Ketones Urine Occult Blood Urine Nitrate Urine Bilirubin Urine Urobilinogen Ur Leukocyte Esterase Urine RBC Urine WBC Ur Squamous Epith Cells Urine Mucus Micro UA Comment Ur Microscopic Review Urine Culture Comments Urine Opiates Screen Neg Ur Barbiturates Screen Neg Ur Amphetamines Screen Pos H U Benzodiazepines Scrn Pos H Urine Cocaine Screen Neg U Cannabinoids Screen Neg - Imaging Impressions Chest X-Ray 04/11/18 12:36 CONCLUSION: Negative for acute disease Abdomen/Pelvis CT 04/11/18 18:08 CONCLUSION: 1. Colonic ileus. Nonobstructive pattern. 2. No abscess or free air within the abdomen or pelvis. A few small bubbles of gas are seen in the abdominal wall of the right lower quadrant and periumbilical region without fluid collection. 3. Focal consolidation with apparent cavitary change of the visualized right lung lower lobe. This is presumably infectious or inflammatory. 4. Questionable gallbladder wall thickening and pericholecystic fluid. No stones or ductal dilatation demonstrated. Head CT 04/11/18 18:08 CONCLUSION: 1. No intracranial abnormality is demonstrated. 2. Paranasal sinusitis as described. Also apparent right mastoiditis. . Caprini VTE Risk Assessment Caprini VTE Risk Assessment: No/Low Risk (score <= 1) Caprini Risk Assessment Model: Point Value = 1 Point Value = 2 Point Value = 3 Point Value = 5 Age 41-60 Minor surgery BMI > 25 kg/m2 Swollen legs Varicose veins or History of unexplained or recurrent spontaneous Oral contraceptives or hormone replacement Sepsis (< 1 month) Serious lung disease, including pneumonia (< 1 month) Abnormal pulmonary function Acute myocardial infarction Congestive heart failure (< 1 month) History of inflammatory bowel disease Medical patient at bed rest Age 61-74 Arthroscopic surgery Major open surgery (> 45 min) Laparoscopic surgery (> 45 min) Malignancy Confined to bed (> 72 hours) Immobilizing plaster cast Central venous access Age >= 75 History of VTE Family history of VTE Factor V Leiden Prothrombin [id number] Lupus anticoagulant Anticardiolipin antibodies Elevated serum homocysteine Heparin-induced thrombocytopenia Other congenital or acquired thrombophilia Stroke (< 1 month) Elective arthroplasty Hip, pelvis, or leg fracture Acute spinal cord injury (< 1 month) Prophylaxis Regimen: Total Risk Factor Score Risk Level Prophylaxis Regimen 0-1 Low Early ambulation 2 Moderate Order ONE of the following: *Sequential Compression Device (SCD) *Heparin 5000 units SQ BID 3-4 Higher Order ONE of the following medications: *Heparin 5000 units SQ TID *Enoxaparin/Lovenox 40 mg SQ daily (WT < 150 kg, CrCl > 30 mL/min) *Enoxaparin/Lovenox 30 mg SQ daily (WT < 150 kg, CrCl > 10-29 mL/min) *Enoxaparin/Lovenox 30 mg SQ BID (WT < 150 kg, CrCl > 30 mL/min) AND/OR *Sequential Compression Device (SCD) 5 or more Highest Order ONE of the following medications: *Heparin 5000 units SQ TID (Preferred with Epidurals) *Enoxaparin/Lovenox 40 mg SQ daily (WT < 150 kg, CrCl > 30 mL/min) *Enoxaparin/Lovenox 30 mg SQ daily (WT < 150 kg, CrCl > 10-29 mL/min) *Enoxaparin/Lovenox 30 mg SQ BID (WT < 150 kg, CrCl > 30 mL/min) AND *Sequential Compression Device (SCD) Assessment and Plan - Plan Assessment/plan: 1. Altered mental status/weakness Unclear etiology Suspect secondary to polysubstance abuse and deconditioning status post hospital discharge Head CT negative for acute process Urine drug screen positive for benzos and methamphetamine Cannot exclude infectious etiology. UA negative. Chest x-ray negative. Blood cultures pending. 2. IV drug abuse Patient denies any recent IV drug abuse Urine drug screen as above 3. 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
[2018-04-12] MEDS ORDERED: Ketorolac Inj 30 MG/ML (IVP) Vial IV.PUSH PRN (00:52)
[2018-04-12] MEDS: Sod Chloride 0.9% Inj 1,000 ML IV.CONT SCH ×4 (02:55→18:28)
[2018-04-12 09:02] LABS: Baso % (Auto) 0.3 % (0.0-2.0); Eos # (Auto) 0.3 th/mm3 (0.0-0.4); Eos % (Auto) 3.5 % (0.0-4.0); Hematocrit 34.7 % (35.0-46.0); Hemoglobin 11.7 gm/dL (11.6-15.3); Lymph # (Auto) 2.3 th/mm3 (1.0-4.8); Lymph % (Auto) 23.5 % (9.0-44.0); Mean Corpuscular HGB Conc 33.7 % (32.0-36.0); Mean Corpuscular Hemoglobin 30.8 pg (27.0-34.0); Mean Corpuscular Volume 91.4 fL (80.0-100.0); Mean Platelet Volume 7.4 fL (7.0-11.0); Mono % (Auto) 10.5 % (0.0-8.0); Neut # (Auto) 6.2 th/mm3 (1.8-7.7); Neut % (Auto) 62.2 % (16.0-70.0); Platelet Count 322 th/mm3 (150-450); Red Cell Distribution Width 14.6 % (11.6-17.2)
[2018-04-12 09:33] LABS: Anion Gap 7 meq/L (5-15); Blood Urea Nitrogen 8 mg/dL (7-18); Calcium 7.9 mg/dL (8.5-10.1); Carbon Dioxide 23.6 meq/L (21.0-32.0); Chloride 109 meq/L (98-107); Glomerular Filtration Rate Greater Than 89 mL/min (>89); Glucose,Random 106 mg/dL (74-106); Potassium 3.9 meq/L (3.5-5.1); Sodium 140 meq/L (136-145)
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
[2018-04-12] MEDS: Sertraline 50 MG Tablet PO SCH (13:28)
--- NOTE | 2018-04-12 16:04 | P.PN ---
Subjective Interval history: Follow-up for abdominal pain, urinary incontinence, depression, generalized weakness. Patient is currently resting in bed. She reports feeling better today. Grandmother is at bedside. No fever or chills. She reports abdominal pain especially on the left side. Physical Exam Vital signs: Vital Signs 04/11/18 16:00 04/11/18 17:00 04/11/18 18:00 Temperature Pulse Rate 64 64 72 Respiratory Rate 15 15 23 Blood Pressure 109/70 108/60 103/62 Pulse Oximetry 100 100 99 04/11/18 20:23 04/11/18 21:17 04/11/18 22:15 Temperature 98.9 F 98.5 F Pulse Rate 80 Respiratory Rate 14 15 Blood Pressure 100/54 L Pulse Oximetry 93 L 04/12/18 02:45 04/12/18 04:00 04/12/18 07:58 Temperature 99.5 F 99.2 F 98.9 F Pulse Rate 88 84 75 Respiratory Rate 16 16 18 Blood Pressure 106/57 L 95/49 L 105/53 L Pulse Oximetry 93 L 94 L 95 04/12/18 12:57 Temperature 98.8 F Pulse Rate 69 Respiratory Rate 16 Blood Pressure 107/53 L Pulse Oximetry 94 L Intake & Output 04/11/18 04/12/18 04/12/18 18:59 06:59 18:59 Intake Total 3000 / 3000 1000 / 1000 Balance 3000 / 3000 1000 / 1000 Weight 47.174 kg 46.94 kg Intake: IV 3000 / 3000 1000 / 1000 NS Inj 1,000 ML @ 100 mls/hr IV 1000 / 1000 .CONT .Q10H JACQUELINE Rx#:[id number] NS Inj 1,000 ML @ Wide Open IV. 3000 / 3000 SIG BOLUS JACQUELINE Rx#:[id number] Narrative: GENERAL: Alert, Oriented x 3, NAD. Flat affect. SKIN: Warm and dry. HEAD: Normocephalic. EYES: No scleral icterus. No injection or drainage. NECK: Supple, trachea midline. No JVD or lymphadenopathy. CARDIOVASCULAR: Regular rate and rhythm without murmurs, gallops, or rubs. RESPIRATORY: Breath sounds equal bilaterally. No accessory muscle use. GASTROINTESTINAL: Abdomen soft, left lower quadrant tenderness on palpation, nondistended. MUSCULOSKELETAL: No cyanosis, or edema. BACK: Nontender without obvious deformity. No CVA tenderness. Results - Labs CBC & Chem 7: 04/12/18 08:33 04/12/18 08:33 Laboratory Results - last 24 hr 04/11/18 04/12/18 04/12/18 14:50 04:18 08:33 WBC 10.0 RBC 3.80 L Hgb 11.7 Hct 34.7 L MCV 91.4 MCH 30.8 MCHC 33.7 RDW 14.6 Plt Count 322 MPV 7.4 Neut % (Auto) 62.2 Lymph % (Auto) 23.5 [place] % (Auto) 10.5 H Eos % (Auto) 3.5 Baso % (Auto) 0.3 Neut # (Auto) 6.2 Lymph # (Auto) 2.3 [place] # (Auto) 1.0 H Eos # (Auto) 0.3 Baso # (Auto) 0.0 WBC Differential . Differential Comment Auto diff final Sodium Potassium Chloride Carbon Dioxide Anion Gap BUN Creatinine Estimated GFR POC Glucose 114 H Random Glucose Calcium Urine Opiates Screen Neg Ur Barbiturates Screen Neg Ur Amphetamines Screen Pos H U Benzodiazepines Scrn Pos H Urine Cocaine Screen Neg U Cannabinoids Screen Neg 04/12/18 08:33 WBC RBC Hgb Hct MCV MCH MCHC RDW Plt Count MPV Neut % (Auto) Lymph % (Auto) [place] % (Auto) Eos % (Auto) Baso % (Auto) Neut # (Auto) Lymph # (Auto) [place] # (Auto) Eos # (Auto) Baso # (Auto) WBC Differential Differential Comment Sodium 140 Potassium 3.9 Chloride 109 H Carbon Dioxide 23.6 Anion Gap 7 BUN 8 Creatinine 0.52 Estimated GFR Greater than 89 POC Glucose Random Glucose 106 Calcium 7.9 L Urine Opiates Screen Ur Barbiturates Screen Ur Amphetamines Screen U Benzodiazepines Scrn Urine Cocaine Screen U Cannabinoids Screen Microbiology 04/11/18 12:50 Blood - Peripheral Aerobic Blood Culture - Preliminary No growth in 1 day 04/11/18 12:50 Blood - Peripheral Anaerobic Blood Culture - Preliminary No growth in 1 day 04/11/18 13:05 Blood - Peripheral Aerobic Blood Culture - Preliminary No growth in 1 day 04/11/18 13:05 Blood - Peripheral Anaerobic Blood Culture - Preliminary No growth in 1 day - Imaging Impressions Abdomen/Pelvis CT 04/11/18 18:08 CONCLUSION: 1. Colonic ileus. Nonobstructive pattern. 2. No abscess or free air within the abdomen or pelvis. A few small bubbles of gas are seen in the abdominal wall of the right lower quadrant and periumbilical region without fluid collection. 3. Focal consolidation with apparent cavitary change of the visualized right lung lower lobe. This is presumably infectious or inflammatory. 4. Questionable gallbladder wall thickening and pericholecystic fluid. No stones or ductal dilatation demonstrated. Head CT 04/11/18 18:08 CONCLUSION: 1. No intracranial abnormality is demonstrated. 2. Paranasal sinusitis as described. Also apparent right mastoiditis. . Assessment and Plan - Plan Ms. 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 CT abdomen pelvis showed possible ileus. Urine drug screen was positive for benzos as well as methamphetamine. BOOTH CASHIER service was consulted. Acute encephalopathy Generalized weakness -Patient is improved. She is alert, coherent. -WBC is improved 15.9K --> 10.0. Probable atelectasis - CT abd/pelvis reports focal consolidation with apparent cavitary change in the right lower lung. - No cough, fever. - Will start incentive spirometer. Hx of substance abuse Severe depression -Will start patient on Zoloft 50mg Qday. -Remeron 15mg QHS -Buprenorphine 8mg SL TID -Psychiatry input appreciated. Urinary incontinence - Pinsetter Mechanic Helper following. Pt is s/p bilateral salpingectomy and IUD retrieval Full code. SCDs. Discharge: Anticipate discharge within next 24-48 hours. Patient's grandma wants to take her to [place].
[2018-04-12] MEDS: Metoclopramide 10 MG Tablet PO SCH ×2 (18:31→20:23)
--- NOTE | 2018-04-12 19:50 | P.PNOB ---
Progress Note: A/P (1) Incontinence in female Status: Acute Code(s): R32 - Unspecified urinary incontinence Current Visit : Yes (2) Abdominal pain Status: Acute Code(s): R10.9 - Unspecified abdominal pain Current Visit: Yes (3) Depression with anxiety Status: Acute Code(s): F41.8 - Other specified anxiety disorders Current Visit: No (4) Acute adjustment disorder Status: Acute Code(s): F43.20 - Adjustment disorder, unspecified Current Visit: No (5) Mood disorder Status: Acute Code(s): F39 - Unspecified mood [affective] disorder Current Visit: No (6) History of recent stressful life event Status: Acute Code(s): Z86.59 - Personal history of other mental and behavioral disorders Current Visit: No - Plan no new information leading to diagnosis of leaking and ongoing lethargy. I believe she is profoundly depressed and anhenoic and not capable of taking care of herself or her children. In the absence of other diagnoses, she is for consideration to discharge tomorrow under her grandmother and mother's care. She is eating now and back on her MAT and psych meds. no post op complications of infection. Needs to ambulate and move about. Will discuss discharge in the am. case management - Time Spent With Patient Total time spent is greater than 50% in coordination of care (as documented) at patient's floor/unit and/or counseling patient: 25 - 35 minutes Subjective Interval history: [place] had a quiet night. Seen around 10 am. Sleeping and when awakened did respond but remains apathetic and anhedonic. States abdominal pain much less since drain removed. Reviewed that CXR suggests need for spirometer. Remains without bowel movement since prior to surgery. No longer complaining of pain all over, which was likely due to buprenoprhine withdrawal. 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 No culture was indicated. She is not aware of grandmother's desire to have her return to [place]. Her family in [place] want her and her four children here to go to [place]. They want to have her decision capability to be removed and be able to make decision on her behalf. Physical Exam Vital signs: Temp Pulse Resp BP Pulse Ox 99.2 F 66 16 113/64 94 L 04/12/18 15:52 04/12/18 15:52 04/12/18 15:52 04/12/18 15:52 04/12/18 15:52 - Constitutional no acute distress - Routine Respiratory Exam Present: CTA bilaterally - Routine Abdominal Exam Present: soft, normoactive bowel sounds, tenderness - Detailed Neurological Exam: Coma Scale Eye Opening: To sound Verbal Response: Oriented Motor Response: Obey commands Cristiano Coma Scale Total: 14 Results - Labs CBC & Chem 7: 04/12/18 08:33 04/12/18 08:33 Labs: Laboratory Results - last 24 hr 04/12/18 04/12/18 04/12/18 04:18 08:33 08:33 WBC 10.0 RBC 3.80 L Hgb 11.7 Hct 34.7 L MCV 91.4 MCH 30.8 MCHC 33.7 RDW 14.6 Plt Count 322 MPV 7.4 Neut % (Auto) 62.2 Lymph % (Auto) 23.5 [place] % (Auto) 10.5 H Eos % (Auto) 3.5 Baso % (Auto) 0.3 Neut # (Auto) 6.2 Lymph # (Auto) 2.3 [place] # (Auto) 1.0 H Eos # (Auto) 0.3 Baso # (Auto) 0.0 WBC Differential . Differential Comment Auto diff final Sodium 140 Potassium 3.9 Chloride 109 H Carbon Dioxide 23.6 Anion Gap 7 BUN 8 Creatinine 0.52 Estimated GFR Greater than 89 POC Glucose 114 H Random Glucose 106 Calcium 7.9 L
[2018-04-12] MEDS: Mirtazapine 15 MG Tablet PO SCH (20:23)
[2018-04-13] MEDS: Sod Chloride 0.9% Inj 1,000 ML IV.CONT SCH ×2 (02:24→13:18)
[2018-04-13] MEDS: Metoclopramide 10 MG Tablet PO SCH ×4 (09:25→21:19)
[2018-04-13] MEDS: Sertraline 50 MG Tablet PO SCH (09:25)
--- NOTE | 2018-04-13 10:59 | P.PNIM ---
Subjective Interval history: f/u; encephalopathy in no acute distress. but still somewhat drowsy. no fever but has occasional cough. no abdominal pain. d/w the grandmother at the bedside who says that she looks slightly better today but feels weak. Physical Exam Vital signs: Vital Signs 04/12/18 12:57 04/12/18 15:52 04/12/18 20:00 Temperature 98.8 F 99.2 F 99.1 F Pulse Rate 69 66 64 Respiratory Rate 16 16 17 Blood Pressure 107/53 L 113/64 120/60 Pulse Oximetry 94 L 94 L 93 L 04/13/18 00:00 04/13/18 03:18 04/13/18 08:00 Temperature 98.9 F 98.7 F 98.7 F Pulse Rate 70 61 82 Respiratory Rate 16 17 14 Blood Pressure 98/61 L 92/56 L 108/65 Pulse Oximetry 93 L 93 L 93 L Intake & Output 04/12/18 04/13/18 04/13/18 18:59 06:59 18:59 Intake Total 1000 / 1000 1120 / 1120 Balance 1000 / 1000 1120 / 1120 Weight 46.72 kg Intake: IV 1000 / 1000 1000 / 1000 NS Inj 1,000 ML @ 100 mls/hr IV 1000 / 1000 1000 / 1000 .CONT .Q10H JACQUELINE Rx#:[id number] Oral 120 / 120 Other: # Voids 1 3 - Constitutional no acute distress - Routine Respiratory Exam Present: CTA bilaterally - Routine Cardiovascular Exam Present: RRR - Routine Abdominal Exam Present: soft - Routine Extremities Exam Comments: no pedal edema. - Routine Neurological Exam mildly lethargic but easily arousable. Results - Labs CBC & Chem 7: 04/12/18 08:33 04/12/18 08:33 Laboratory Results - last 24 hr 04/12/18 04/12/18 04/13/18 08:33 20:51 06:19 POC Glucose 98 98 TSH 1.560 Microbiology 04/11/18 12:50 Blood - Peripheral Aerobic Blood Culture - Preliminary No growth in 1 day 04/11/18 12:50 Blood - Peripheral Anaerobic Blood Culture - Preliminary No growth in 1 day 04/11/18 13:05 Blood - Peripheral Aerobic Blood Culture - Preliminary No growth in 1 day 04/11/18 13:05 Blood - Peripheral Anaerobic Blood Culture - Preliminary No growth in 1 day Assessment and Plan - Plan Ms. 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 CT abdomen pelvis showed possible ileus. Urine drug screen was positive for benzos as well as methamphetamine. HIGH SCHOOL SOCIAL STUDIES TUTOR service was consulted. Acute encephalopathy Generalized weakness -Patient is slightly lethargic today but overall seems to be improving. -WBC is improved 15.9K --> 10.0. few-week history of cough; with CT abd/pelvis with focal consolidation with apparent cavitary change in the right lower lung; area on the right is somewhat masslike. - No fever. - will obtain CT of the chest. Hx of substance abuse Severe depression -Will start patient on Zoloft 50mg Qday. -Remeron 15mg QHS -Buprenorphine 8mg SL TID -Psychiatry input appreciated. Urinary incontinence - Prehemmer following. Pt is s/p bilateral salpingectomy and IUD retrieval Full code. SCDs. consult PT. Discharge Planning: possible discharge tomorrow if stable- pending PT evaluation.
--- NOTE | 2018-04-13 11:18 | P.PNOB ---
Progress Note: A/P (1) Incontinence in female Status: Acute Code(s): R32 - Unspecified urinary incontinence Current Visit : Yes (2) Abdominal pain Status: Acute Code(s): R10.9 - Unspecified abdominal pain Current Visit: Yes (3) Depression with anxiety Status: Acute Code(s): F41.8 - Other specified anxiety disorders Current Visit: No (4) Acute adjustment disorder Status: Acute Code(s): F43.20 - Adjustment disorder, unspecified Current Visit: No (5) Mood disorder Status: Acute Code(s): F39 - Unspecified mood [affective] disorder Current Visit: No (6) History of recent stressful life event Status: Acute Code(s): Z86.59 - Personal history of other mental and behavioral disorders Current Visit: No - Time Spent With Patient Total time spent is greater than 50% in coordination of care (as documented) at patient's floor/unit and/or counseling patient: less than 15 minutes Subjective Interval history: Heaven had a quiet night. Seen around 10 am. Sleeping and when awakened did respond but remains apathetic and anhedonic. States abdominal pain much less since drain removed. Reviewed that CXR suggests need for spirometer. Remains without bowel movement since prior to surgery. No longer complaining of pain all over, which was likely due to buprenoprhine withdrawal. 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 No culture was indicated. She is not aware of grandmother's desire to have her return to [place]. Her family in [place] want her and her four children here to go to [place]. They want to have her decision capability to be removed and be able to make decision on her behalf. 04/13/18 11:00 Discussion with Heaven and her grandmother: Chris will "let " Heaven and the baby go to [place]. The grandmother wants to take the oldest girl also; ideally all children. I don't think any type of court order, power of energy attorney or other interventions are likely to occur in a timely fashion and think the parties need to compromise. Heaven told that she will if she stays here: She will continue to be profoundly depressed, agoraphobic and decline nutrionally, emotionally and physically and not be able to take care of the kids. She will use and likely overdose or develop severe infection. The children will languish. She was told to go to [place] when medically cleared. I will write out scripts. No further issues with post op. Does not need contraception. Her incontinence is resolving.She is getting physical therapy. Her lung issue is being followed. Needs care in [place] for mental health and [facility] for opioid addiction. She has a better chance of compliance with this care once there. I will see one more time prior to discharge and if still in area will follow up in office. Physical Exam Vital signs: Temp Pulse Resp BP Pulse Ox 98.7 F 82 14 108/65 93 L 04/13/18 08:00 04/13/18 08:00 04/13/18 08:00 04/13/18 08:00 04/13/18 08:00 Results - Labs CBC & Chem 7: 04/12/18 08:33 04/12/18 08:33 Labs: Laboratory Results - last 24 hr 04/12/18 04/12/18 04/13/18 08:33 20:51 06:19 POC Glucose 98 98 TSH 1.560
--- NOTE | 2018-04-13 21:13 | CT ---
EXAM DATE: 04/13/2018 8:20 PM EDT AGE/SEX: 22 years / Female INDICATIONS: Shortness of breath with cough. CLINICAL DATA: This is the patient's initial encounter. Patient reports that signs and symptoms have been present for 1 day and indicates a pain score of 0/10. MEDICAL/SURGICAL HISTORY: . IV drug user Appendectomy. RADIATION DOSE: 5.25 CTDI (mGy) COMPARISON: No prior exams available for comparison. TECHNIQUE: Multiple contiguous axial images were obtained through the chest without contrast. Image s were obtained in suspended respiration using multiple row detector helical technique. Using automa asha exposure control and adjustment of the mA and/or kV according to patient size, radiation dose was kept as low as reasonably achievable to obtain optimal diagnostic quality images. DICOM format imag e data is available electronically for review and comparison. FINDINGS: A noncontrast study was done; a vague area of masslike fullness involves the left hilum. Similar but milder findings are seen in the right hilum. The left lower lobe bronchus is attenuated. Near complet e collapse seen of the left lower lobe. There is a focal area of dense consolidation of the right low er lobe. No pleural effusions are demonstrated. No pneumothorax. Noncontrast appearance of the heart and mediastinum within normal limits. No acute bony abnormalities are demonstrated. CONCLUSION: 1. Left greater than right hilar masses and/or lymphadenopathy suspected. 2. Associated near-complete collapse of the left lower lobe. Focal dense consolidation of the right lower lobe. Electronically signed by: Sherwin Taylor MD 04/13/2018 9:12 PM EDT
[2018-04-13] MEDS: Mirtazapine 15 MG Tablet PO SCH (21:19)
[2018-04-14] MEDS: Sod Chloride 0.9% Inj 1,000 ML IV.CONT SCH ×3 (00:30→21:02)
[2018-04-14] MEDS: Metoclopramide 10 MG Tablet PO SCH ×4 (09:37→21:01)
[2018-04-14] MEDS: Sertraline 50 MG Tablet PO SCH (09:37)
[2018-04-14] MEDS: Levofloxacin 500 mg Premix Inj 500 MG/100 ML PIGGYBACK IV.SIG SCH (13:49)
--- NOTE | 2018-04-14 14:15 | MB ---
cc: Robbie Stanton MD DATE: 04/14/2018 HISTORY OF PRESENT ILLNESS: Ms. Alvarez is a 22-year-old white female who recently had a D and C for bleeding and was apparently at the time. During that procedure, they also were unable to identify an IUD she had placed and subsequently was found to have perforated her uterus and entered the abdominal cavity. She had that surgically removed. According to her history she also had an appendectomy and bilateral salpingo-oophorectomy. She was back in the emergency room a couple of days after that with urinary incontinence and then subsequently readmitted about a week after that surgery with extreme lethargy, fever and abdominal discomfort and urinary incontinence. During the course of this hospitalization an initial chest x-ray was negative, but an abdominal CT scan revealed what was thought to be a cavitary infiltrate at the right base. Subsequently, a CT of her thorax was performed which revealed a dense left lower lobe infiltrate as well as a prominence in both marcell, possibly adenopathy and a right lower lobe infiltrate, but no significant cavitation. Upon meeting the patient today, her grandmother was with her in the room. They had just come out of the shower and apparently she coughed up a large quantity of purulent sputum, which had no blood, but her grandmother said it was a yellow and green. The patient experienced some relief with that. She has had a cough for several weeks, even prior to the original presentation for the D and C. Afterwards, it got worse, but she was weak, lying in bed. Continued to smoke cigarettes and apparently also smoked marijuana, which she has done with some regularity in the past. She has a prior history of polysubstance abuse and her urinary toxicology screen on presentation revealed amphetamines and benzodiazepines. She has been taking oral benzodiazepines, but denied using amphetamines and said that the marijuana that she was smoking probably was laced with methamphetamine. She denies any recent use of IV drugs, inhaled cocaine. She is also a regular tobacco smoker since the age of 14, roughly a pack per day. She denies any previous specific diagnosis of lung disease including asthma, COPD, or pneumonia. No one in the home has been ill and again these symptoms actually date a few weeks even prior to the presentation for the D and C, but have gotten worse in the last week. ADDITIONAL PAST MEDICAL HISTORY: Depression, anxiety disorder. PAST SURGICAL HISTORY: Only recent other than 7 previous pregnancies. ALLERGIES: PENICILLIN. SOCIAL HISTORY: I refer you to psychiatry notes and the [facility] notes. Apparently social situation is not good. Lives with a boyfriend and several children. Question as to how well they are cared for. Grandmother came down and is with her here in the hospital and apparently the plan when she is well is to take her back to [place] to be closer to family. She has been apparently in some type of drug rehab program for the last year or so. REVIEW OF SYSTEMS: Chest is as noted above. She has had no repeated vomiting. No recent change in bowel habits. No other unusual exposures other than noted above with regard to tobacco and marijuana. PHYSICAL EXAMINATION: GENERAL: Thin, frail-appearing young white female, very comfortable at rest. VITAL SIGNS: Temperature is 99.7, pulse is 76, respirations are nonlabored 18 at rest and on 2 liters of oxygen, her saturations 96%. HEENT: Sclerae: A little pale, but nonicteric. Mucous membranes are moist. No thrush. NECK: No adenopathy in the neck or supraclavicular region. CHEST: Congested, particularly at the bases, improved somewhat with cough. No wheezing. HEART: Regular rhythm. No harsh murmur. ABDOMEN: Soft. No peripheral edema or calf tenderness. No clubbing of the nail beds. CT scans are reviewed. Blood cultures were negative on presentation. White count was 15.9 on admission, down to 10 now. DISCUSSION: Ms. Alvarez presents with what I think is a bilateral lower lobe pneumonia. She has been both a tobacco user and smoking marijuana, possibly laced with other things, which could certainly have contributed to this. Also had a recent procedure with general anesthesia. She could have aspirated during that and then at home for several days after those procedures she was basically in bed. We will try to collect a sputum, but I am going to begin her on Flagyl and Levaquin. SHE IS ALLERGIC TO PENICILLIN and I explained to her that we will monitor this for the next several days to be sure that it is clearing. I will try to avoid further invasive interventions at this point because she has been quite weak and debilitated. Would probably not do as well with another anesthetic, but if the left lower lobe is not clearing, she may need to be bronchoscoped and I explained that to her and her grandmother today. Further diagnostic and/or therapeutic intervention will depend on her response to current therapy and ongoing clinical course. R. Emerson Stanton MD RSW/ct , 01:13 PM , 01:24 PM
--- NOTE | 2018-04-14 15:01 | P.PNIM ---
Subjective Interval history: Patient is having a cough. She smiles occasionally during our conversation. She says that she feels weak. Physical Exam Vital signs: Vital Signs 04/13/18 16:00 04/13/18 20:00 04/14/18 00:00 Temperature 97.7 F 97.9 F 97.9 F Pulse Rate 65 68 60 Respiratory Rate 17 18 18 Blood Pressure 110/56 L 109/59 L 98/52 L Pulse Oximetry 91 L 90 L 92 L 04/14/18 02:38 04/14/18 04:00 04/14/18 04:43 Temperature 99.4 F Pulse Rate 78 81 Respiratory Rate 16 18 Blood Pressure 109/59 L 105/59 L Pulse Oximetry 94 L 94 L 04/14/18 08:00 04/14/18 12:00 Temperature 99.7 F H 99.4 F Pulse Rate 76 89 Respiratory Rate 16 16 Blood Pressure 108/51 L 111/59 L Pulse Oximetry 96 92 L Intake & Output 04/13/18 04/14/18 04/14/18 18:59 06:59 18:59 Intake Total 1060 / 1060 1842 / 1842 398 / 398 Output Total 1800 / 1800 Balance 1060 / 1060 42 / 42 398 / 398 Weight 50.349 kg 50.8 kg Intake: IV 700 / 700 1602 / 1602 398 / 398 NS Inj 1,000 ML @ 100 mls/hr IV 700 / 700 1602 / 1602 398 / 398 .CONT .Q10H [facility] Rx#:[id number] Oral 360 / 360 240 / 240 Output: Urine 1800 / 1800 Other: # Voids 1 Weight On Admission 46.72 kg Narrative: General patient coughing during my examination. Yellowish purulent sputum noted in a cup. HEENT extraocular movements are intact, clear oropharyngeal mucosa, no JVD Cardiovascular S1-S2 audible, tachycardic Respiratory coarseness bilaterally, with decreased breath sounds at the bases bilaterally. Abdomen soft, nontender, nondistended, normal bowel sounds Extremities no edema 2+ distal pulses in bilateral upper and lower extremities Neuro cranial nerves II through XII intact Results - Labs CBC & Chem 7: 04/12/18 08:33 04/12/18 08:33 Laboratory Results - last 24 hr 04/13/18 04/14/18 22:38 02:36 POC Glucose 96 94 Microbiology 04/11/18 12:50 Blood - Peripheral Aerobic Blood Culture - Preliminary No growth in 3 days 04/11/18 12:50 Blood - Peripheral Anaerobic Blood Culture - Preliminary No growth in 3 days 04/11/18 13:05 Blood - Peripheral Aerobic Blood Culture - Preliminary No growth in 3 days 04/11/18 13:05 Blood - Peripheral Anaerobic Blood Culture - Preliminary No growth in 3 days - Imaging Impressions Chest CT 04/13/18 00:00 CONCLUSION: 1. Left greater than right hilar masses and/or lymphadenopathy suspected. 2. Associated near-complete collapse of the left lower lobe. Focal dense consolidation of the right lower lobe. Assessment and Plan - Plan Ms. 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 Patient was also being treated for pneumonia. 1. Sepsis secondary to bilateral pneumonia Initially the patient had an elevated WBC count and was having low-grade fevers. WBC count downtrending. Chest imaging shows left and right hilar masses and/or lymphadenopathy. There is also near complete collapse of the left lower lobe as well as a focal dense consolidation in the right lower lobe. Infectious disease has been consulted. I will also get a pulmonary consult. Blood cultures are negative, sputum culture pending. Continue IV antibiotics. Continue IV fluids. I will follow up with recommendations from ID and pulmonary. 2. Acute encephalopathy Resolved. Likely secondary to sepsis or substance abuse. Patient was counseled on substance abuse. 3. Depression Continue current medications. No suicidal ideation. Patient is ambulatory, no pharmacotherapy for DVT prophylaxis. Full code. SCDs.
[2018-04-14] MEDS: Mirtazapine 15 MG Tablet PO SCH (21:01)
[2018-04-15] MEDS: Sod Chloride 0.9% Inj 1,000 ML IV.CONT SCH ×2 (05:32→17:51)
[2018-04-15] MEDS: Sertraline 50 MG Tablet PO SCH (09:52)
[2018-04-15] MEDS: Metoclopramide 10 MG Tablet PO SCH ×4 (09:52→20:26)
--- NOTE | 2018-04-15 10:22 | P.CONID ---
History of Present Illness Service: ID Consult date: 04/15/18 Requesting Physician: Alex Mendenhall Reason for Consult: Lower lobe pna, cavitary lesion Primary Care Provider: UNKNOWN History of Present Illness: Delayed entry Pt was seen yday in am 22 yo female with h/o IVDU presetns with 6-8 weeks of chronic cough, malaise + fever up to 102.9 + leukocytosis up to 15 K blood clx were negative CT abd/pel showed ? cavitray lesion, but I dw radiologist the study and there was consolidations but no cavitary lesion Review of Systems All other systems reviewed negative except as stated in HPI PMFSH - History History Provided By: Patient - Medical History Medical History: Medical History (Last Reviewed 04/16/18 @ 17:14 by Ana Retana MD) IVDU (intravenous drug user) (Acute) Mood disorder (Acute) History of recent stressful life event (Acute) Mood disorder (Acute) Anxiety (Acute) Depression - Surgical History Surgical History: Surgical History (Last Reviewed 04/16/18 @ 17:14 by Ana Retana MD) Status post surgical removal of both fallopian tubes (Acute) S/P appendectomy (Acute) Status post dilation and curettage (Acute) S/P dilatation and curettage - Family History Family History: Family History (Last Reviewed 04/16/18 @ 17:14 by Ana Retana MD) Other Diabetes mellitus - Social History I have reviewed the patient's Social History: Yes - Tobacco History Second Hand Smoke Exposure: No Tobacco Use In Past 30 Days: Yes Smoking Status: Heavy tobacco smoker Tobacco Type: Cigarettes - Alcohol History How Often Do You Have a Drink Containing Alcohol: Never - Substance Use History Substance History: Past History - Substance Use Type Heroin Status: Sustained Remission Route Used: Intravenously Last Used: 2 years ago. - Travel History Recent Travel in the [place] Within the Last 8 Weeks: No Recent Travel Out of the Country Within the Last 8 Weeks: No - Immunization History Tetanus Immunization: <5 Years Hx Influenza Vaccine This Season: No Medications and Allergies Active Medications: Active Medications Acetaminophen (Tylenol) 650 mg PO Q4H PRN PRN Reason: Temp > 100.4 Last Admin: 04/15/18 00:49 Dose: 650 mg Al Hydroxide/Mg Hydroxide (Milk Of Magnesia Liq) 30 ml PO Q12H PRN PRN Reason: Mild Constipation Albuterol (Duoneb Neb ([facility])) 1 ampul NEB TID NEB [facility] Last Admin: 04/15/18 09:16 Dose: 1 ampul Bisacodyl (Dulcolax Supp) 10 mg RECTAL DAILY PRN PRN Reason: SEVERE CONSITIPATION Buprenorphine HCl (Sublingual) 8 mg SL Q8H [facility] Last Admin: 04/15/18 09:52 Dose: 8 mg Sodium Chloride (Ns Inj) 1,000 mls @ 100 mls/hr IV.CONT .Q10H [facility] Last Admin: 04/15/18 05:32 Dose: 100 mls/hr Levofloxacin/Dextrose (Levaquin 500 Mg Premix Inj) 500 mg in 100 mls @ 100 mls/ hr IV.SIG Q24H [facility] Last Infusion: 04/14/18 14:40 Dose: Infused Metronidazole/Sodium Chloride (Flagyl 500 Mg Inj) 100 mls @ 100 mls/hr IV.SIG Q8H [facility] Last Infusion: 04/15/18 06:35 Dose: Infused Ketorolac Tromethamine (Toradol Inj) 15 mg IV.PUSH Q6H PRN PRN Reason: PAIN 1-10 Stop: 04/17/18 00:51 Lactulose (Lactulose Liq) 30 ml PO DAILY PRN PRN Reason: SEVERE CONSITIPATION Last Admin: 04/15/18 09:52 Dose: 30 ml Metoclopramide HCl (Reglan) 10 mg PO ACHS [facility] Last Admin: 04/15/18 09:52 Dose: 10 mg Mirtazapine (Remeron) 15 mg PO HS [facility] Last Admin: 04/14/18 21:01 Dose: 15 mg Ondansetron HCl (Zofran Inj) 4 mg IV.PUSH Q6H PRN PRN Reason: NAUSEA OR VOMITING Sennosides (Senokot) 17.2 mg PO Q12H PRN PRN Reason: Moderate Constipation Sennosides (Senokot) 17.2 mg PO Q12H PRN PRN Reason: Moderate Constipation Sertraline HCl (Zoloft) 50 mg PO DAILY [facility] Last Admin: 04/15/18 09:52 Dose: 50 mg Allergies Allergy/AdvReac Type Severity Reaction Status Date / Time Penicillins Allergy Unknown UNKNOWN Verified 04/11/18 15:59 Home Medications Medication Instructions Recorded Confirmed Type clonazepam [Klonopin] 1 mg PO BID 04/02/18 04/11/18 History sertraline [Zoloft] 50 mg PO DAILY 04/02/18 04/11/18 History Exam Vital signs: Vital Signs 04/14/18 12:00 04/14/18 16:00 04/14/18 19:06 Temperature 99.4 F 99.3 F Pulse Rate 89 110 H Respiratory Rate 16 18 Blood Pressure 111/59 L 110/58 L Pulse Oximetry 92 L 92 L 97 04/14/18 20:00 04/15/18 00:00 04/15/18 04:00 Temperature 101.0 F H 102.9 F H 99.1 F Pulse Rate 96 H 95 H Respiratory Rate 18 18 Blood Pressure 95/54 L 93/50 L Pulse Oximetry 94 L 92 L 04/15/18 08:00 04/15/18 09:18 Temperature 98.1 F Pulse Rate 57 L 63 Respiratory Rate 16 18 Blood Pressure 91/51 L Pulse Oximetry 98 Intake & Output 04/14/18 04/15/18 04/15/18 18:59 06:59 18:59 Intake Total 598 / 598 2380 / 2380 Balance 598 / 598 2380 / 2380 Weight 51.4 kg Intake: IV 598 / 598 2200 / 2200 NS Inj 1,000 ML @ 100 mls/hr IV 398 / 398 1999 / 1999 .CONT .Q10H [facility] Rx#:[id number] Levaquin 500 mg Premix Inj 500 100 / 100 mg In 100 ml @ 100 mls/hr IV. SIG Q24H [facility] Rx#:[id number] Flagyl 500 MG Inj 100 ML @ 100 100 / 100 200 / 200 mls/hr IV.SIG Q8H [facility]INE Rx#: [id number] Oral 180 / 180 Other: # Voids 3 - Constitutional no acute distress, thin - Routine HEENT Exam Head: Present: normocephalic, atraumatic Eye: Present: EOMI, PERRL ENT: Present: mucous membranes moist, dentition normal - Routine Neck Exam Present: supple, full ROM. Absent: JVD - Routine Respiratory Exam Present: decreased breath sounds (L), rhonchi (L). Absent: accessory muscle use - Routine Cardiovascular Exam Present: RRR, S1, S2. Absent: murmur, gallop, rubs - Routine Abdominal Exam Present: soft, normoactive bowel sounds. Absent: tenderness, distended, organomegaly, mass - Routine Extremities Exam Absent: cyanosis, clubbing, edema - Routine Skin Exam Present: intact, dry, warm - Routine Neurological Exam Present: alert, oriented X3, CN II-XII intact, moving all extremities, vision grossly intact, hearing grossly intact, normal speech - Routine Psychiatric Exam Present: normal affect, normal thought process, cooperative Results - Labs CBC & Chem 7: 04/16/18 05:32 04/16/18 05:32 Labs: Laboratory Results - last 24 hr 04/15/18 00:50 POC Glucose 114 H - Imaging Chest X-Ray 04/11/18 12:36 CONCLUSION: Negative for acute disease Abdomen/Pelvis CT 04/11/18 18:08 CONCLUSION: 1. Colonic ileus. Nonobstructive pattern. 2. No abscess or free air within the abdomen or pelvis. A few small bubbles of gas are seen in the abdominal wall of the right lower quadrant and periumbilical region without fluid collection. 3. Focal consolidation with apparent cavitary change of the visualized right lung lower lobe. This is presumably infectious or inflammatory. 4. Questionable gallbladder wall thickening and pericholecystic fluid. No stones or ductal dilatation demonstrated. Head CT 04/11/18 18:08 CONCLUSION: 1. No intracranial abnormality is demonstrated. 2. Paranasal sinusitis as described. Also apparent right mastoiditis. . Chest CT 04/13/18 00:00 CONCLUSION: 1. Left greater than right hilar masses and/or lymphadenopathy suspected. 2. Associated near-complete collapse of the left lower lobe. Focal dense consolidation of the right lower lobe. Chest X-Ray 04/16/18 00:00 CONCLUSION: Patchy pneumonia left lower lobe. Assessment and Plan - Plan PNA, community acquired No cavitation - dw radiologist Dr Thao PCN allergy- unknown type. Neither pt nor her grandmother recall type of reaction cont LEvaquin f/u sputum and blood clx plan was dw pt and grandmother who was @ b/s @ b/s
[2018-04-15] MEDS: Levofloxacin 500 mg Premix Inj 500 MG/100 ML PIGGYBACK IV.SIG SCH (14:12)
--- NOTE | 2018-04-15 18:56 | P.PNIM ---
Subjective Interval history: Patient says that she feels weak. Complains of a cough that she says is improving. Physical Exam Vital signs: Vital Signs 04/14/18 19:06 04/14/18 20:00 04/15/18 00:00 Temperature 101.0 F H 102.9 F H Pulse Rate 96 H 95 H Respiratory Rate 18 18 Blood Pressure 95/54 L 93/50 L Pulse Oximetry 97 94 L 92 L 04/15/18 04:00 04/15/18 08:00 04/15/18 09:18 Temperature 99.1 F 98.1 F Pulse Rate 57 L 63 Respiratory Rate 16 18 Blood Pressure 91/51 L Pulse Oximetry 98 04/15/18 12:00 04/15/18 12:08 04/15/18 12:09 Temperature 97.4 F L Pulse Rate 81 85 Respiratory Rate 16 16 Blood Pressure 92/53 L Pulse Oximetry 95 96 04/15/18 16:00 Temperature 97.6 F Pulse Rate 85 Respiratory Rate 16 Blood Pressure 92/54 L Pulse Oximetry 88 L Intake & Output 04/14/18 04/15/18 04/15/18 18:59 06:59 18:59 Intake Total 598 / 598 2380 / 2380 2400 / 2400 Balance 598 / 598 2380 / 2380 2400 / 2400 Weight 51.4 kg Intake: IV 598 / 598 2200 / 2200 1200 / 1200 NS Inj 1,000 ML @ 100 mls/hr IV 398 / 398 2000 / 2000 1000 / 1000 .CONT .Q10H [facility] Rx#:[id number] Levaquin 500 mg Premix Inj 500 100 / 100 100 / 100 mg In 100 ml @ 100 mls/hr IV. SIG Q24H [facility] Rx#:[id number] Flagyl 500 MG Inj 100 ML @ 100 100 / 100 200 / 200 100 / 100 mls/hr IV.SIG Q8H [facility] Rx#: [id number] Oral 180 / 180 1200 / 1200 Other: # Voids 3 4 # Bowel Movements 0 Narrative: General patient coughing during my examination. Yellowish purulent sputum noted in a cup. HEENT extraocular movements are intact, clear oropharyngeal mucosa, no JVD Cardiovascular S1-S2 audible, tachycardic Respiratory coarseness bilaterally, with decreased breath sounds at the bases bilaterally. Abdomen soft, nontender, nondistended, normal bowel sounds Extremities no edema 2+ distal pulses in bilateral upper and lower extremities Neuro cranial nerves II through XII intact Results - Labs CBC & Chem 7: 04/12/18 08:33 04/12/18 08:33 Laboratory Results - last 24 hr 04/15/18 00:50 POC Glucose 114 H Microbiology 04/14/18 22:06 Sputum - Oral Tracheal Aspirate Gram Stain - Final 04/14/18 22:06 Sputum - Oral Tracheal Aspirate Sputum Culture - Preliminary Immature growth - reincubate 04/11/18 12:50 Blood - Peripheral Aerobic Blood Culture - Preliminary No growth in 4 days 04/11/18 12:50 Blood - Peripheral Anaerobic Blood Culture - Preliminary No growth in 4 days 04/11/18 13:05 Blood - Peripheral Aerobic Blood Culture - Preliminary No growth in 4 days 04/11/18 13:05 Blood - Peripheral Anaerobic Blood Culture - Preliminary No growth in 4 days Assessment and Plan - Plan Ms. 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 Patient was also being treated for pneumonia. 1. Sepsis secondary to bilateral pneumonia Patient had 2 fevers since yesterday. Sputum culture is pending Initially the patient had an elevated WBC count and was having low-grade fevers. WBC count downtrending. Chest imaging shows left and right hilar masses and/or lymphadenopathy. There is also near complete collapse of the left lower lobe as well as a focal dense consolidation in the right lower lobe. Infectious disease has been consulted. I will also get a pulmonary consult. Blood cultures are negative Continue IV antibiotics. Continue IV fluids. Follow-up with ID and pulmonary. Recommendations are pending. If the patient continues to spike fevers we will broaden antibiotic coverage. The patient may need a bronchoscopy however we will wait for pulmonary recommendations. 2. Acute encephalopathy Resolved. Likely secondary to sepsis or substance abuse. Patient was counseled on substance abuse. 3. Depression Continue current medications. No suicidal ideation. Patient is ambulatory, no pharmacotherapy for DVT prophylaxis. Full code. SCDs.
[2018-04-15] MEDS ORDERED: Vancomycin Consult Pharmacy OTHER PRN (19:23)
[2018-04-15] MEDS ORDERED: Vancomycin Inj 1 GM/200 ML PIGGYBACK IV.SIG SCH (20:00)
[2018-04-15] MEDS: Mirtazapine 15 MG Tablet PO SCH (20:27)
[2018-04-15] MEDS: Vancomycin Inj 750 MG in Sodium Chlor 0.9% Inj 250 ML IV.SIG SCH (20:30)
[2018-04-16] MEDS: Vancomycin Inj 750 MG in Sodium Chlor 0.9% Inj 250 ML IV.SIG SCH ×3 (04:23→20:27)
[2018-04-16] MEDS: Sod Chloride 0.9% Inj 1,000 ML IV.CONT SCH (06:33)
[2018-04-16 07:22] LABS: Baso % (Auto) 0.4 % (0.0-2.0); Eos # (Auto) 0.4 th/mm3 (0.0-0.4); Eos % (Auto) 3.5 % (0.0-4.0); Hematocrit 30.7 % (35.0-46.0); Hemoglobin 10.5 gm/dL (11.6-15.3); Lymph # (Auto) 2.5 th/mm3 (1.0-4.8); Lymph % (Auto) 22.9 % (9.0-44.0); Mean Corpuscular HGB Conc 34.1 % (32.0-36.0); Mean Corpuscular Hemoglobin 30.7 pg (27.0-34.0); Mean Corpuscular Volume 90.1 fL (80.0-100.0); Mean Platelet Volume 7.7 fL (7.0-11.0); Mono # (Auto) 0.9 th/mm3 (0.0-0.9); Mono % (Auto) 8.2 % (0.0-8.0); Platelet Count 314 th/mm3 (150-450); Red Blood Count 3.41 mil/mm3 (4.00-5.30); Red Cell Distribution Width 14.3 % (11.6-17.2); White Blood Count 10.7 th/mm3 (4.0-11.0)
[2018-04-16 07:48] LABS: Anion Gap 8 meq/L (5-15); Blood Urea Nitrogen 8 mg/dL (7-18); Calcium 8.6 mg/dL (8.5-10.1); Chloride 109 meq/L (98-107); Glomerular Filtration Rate Greater Than 89 mL/min (>89); Glucose,Random 83 mg/dL (74-106); Magnesium 1.9 mg/dL (1.5-2.5); Potassium 4.2 meq/L (3.5-5.1); Sodium 143 meq/L (136-145)
--- NOTE | 2018-04-16 08:47 | P.PN ---
Subjective Interval history: This is a pleasant 22 y/o Female with history of Polysubstance abuse, status post IUD retrieval found after perforated the Uterus and found extrauterine had bilateral Salpingectomy 10 days before admission, who came to ER with AMS, increased weakness and Urinary Incontinence Also treated for Pneumonia. 04/16: Seen in her bedroom stable no new issues, no nausea, vomit or diarrhea, discussed with Doctor Lainey ID specialist she will follow her another 24 hours and give recommendations probable discharge in am tomorrow. Physical Exam Vital signs: Vital Signs 04/15/18 09:18 04/15/18 12:00 04/15/18 12:08 Temperature 97.4 F L Pulse Rate 63 81 85 Respiratory Rate 18 16 16 Blood Pressure 92/53 L Pulse Oximetry 95 04/15/18 12:09 04/15/18 16:00 04/15/18 20:00 Temperature 97.6 F 97.7 F Pulse Rate 85 72 Respiratory Rate 16 18 Blood Pressure 92/54 L 105/55 L Pulse Oximetry 96 88 L 95 04/15/18 21:20 04/16/18 00:00 04/16/18 08:08 Temperature 98.1 F Pulse Rate 60 86 48 L Respiratory Rate 16 18 17 Blood Pressure 95/49 L Pulse Oximetry 93 L 95 04/16/18 08:09 Temperature Pulse Rate Respiratory Rate Blood Pressure Pulse Oximetry 92 L Intake & Output 04/15/18 04/16/18 04/16/18 18:59 06:59 18:59 Intake Total 2400 / 2400 1715.0 / 1715.0 Balance 2400 / 2400 1715.0 / 1715.0 Weight 48.24 kg Intake: IV 1200 / 1200 1715.0 / 1715.0 NS Inj 1,000 ML @ 100 mls/hr IV 1000 / 1000 1000 / 1000 .CONT .Q10H [facility] Rx#:[id number] Levaquin 500 mg Premix Inj 500 100 / 100 mg In 100 ml @ 100 mls/hr IV. SIG Q24H [facility] Rx#:[id number] Vancomycin Inj 750 MG In NS Inj 515.0 / 515.0 250 ML @ 250 mls/hr IV.SIG Q8H [facility] Rx#:[id number] Flagyl 500 MG Inj 100 ML @ 100 100 / 100 200 / 200 mls/hr IV.SIG Q8H [facility] Rx#: [id number] Oral 1200 / 1200 Other: # Voids 4 2 Date of Last Bowel Movement 04/15/18 # Bowel Movements 0 # Incontinent Bowel Movements 1 Narrative: GENERAL: This is a well-nourished, well-developed patient, in no apparent distress. CARDIOVASCULAR: Regular rate and rhythm without murmurs, gallops, or rubs. RESPIRATORY: Clear to auscultation. Breath sounds equal bilaterally. No wheezes , rales, or rhonchi. GASTROINTESTINAL: Abdomen soft, non-tender, nondistended. Normal active bowel sounds MUSCULOSKELETAL: Extremities without clubbing, cyanosis, or edema. NEURO: Alert & Oriented x4 to person, place, time, situation. Moves all ext x4 Results - Labs CBC & Chem 7: 04/16/18 05:32 04/16/18 05:32 Laboratory Results - last 24 hr 04/15/18 04/16/18 04/16/18 19:57 05:32 05:32 WBC 10.7 RBC 3.41 L Hgb 10.5 L Hct 30.7 L MCV 90.1 MCH 30.7 MCHC 34.1 RDW 14.3 Plt Count 314 MPV 7.7 Neut % (Auto) 65.0 Lymph % (Auto) 22.9 [place] % (Auto) 8.2 H Eos % (Auto) 3.5 Baso % (Auto) 0.4 Neut # (Auto) 7.0 Lymph # (Auto) 2.5 [place] # (Auto) 0.9 Eos # (Auto) 0.4 Baso # (Auto) 0.0 WBC Differential . Differential Comment Auto diff final Sodium 143 Potassium 4.2 Chloride 109 H Carbon Dioxide 26.0 Anion Gap 8 BUN 8 Creatinine 0.48 L Estimated GFR Greater than 89 Random Glucose 83 Calcium 8.6 Magnesium 1.9 HIV 1&2 Ab/P24 Ag 4thGn Nonreactive Microbiology 04/14/18 22:06 Sputum - Oral Tracheal Aspirate Gram Stain - Final 04/14/18 22:06 Sputum - Oral Tracheal Aspirate Sputum Culture - Preliminary Immature growth - reincubate 04/11/18 12:50 Blood - Peripheral Aerobic Blood Culture - Preliminary No growth in 4 days 04/11/18 12:50 Blood - Peripheral Anaerobic Blood Culture - Preliminary No growth in 4 days 04/11/18 13:05 Blood - Peripheral Aerobic Blood Culture - Preliminary No growth in 4 days 04/11/18 13:05 Blood - Peripheral Anaerobic Blood Culture - Preliminary No growth in 4 days Assessment and Plan - Plan Ms. 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 Patient was also being treated for pneumonia. 1. Sepsis secondary to bilateral pneumonia Patient had 2 fevers since yesterday. Sputum culture is pending Initially the patient had an elevated WBC count and was having low-grade fevers. WBC count downtrending. Chest imaging shows left and right hilar masses and/or lymphadenopathy. There is also near complete collapse of the left lower lobe as well as a focal dense consolidation in the right lower lobe. Infectious disease has been consulted. I will also get a pulmonary consult. Blood cultures are negative Continue IV antibiotics. Continue IV fluids. Follow-up with ID and pulmonary. Recommendations are pending. If the patient continues to spike fevers we will broaden antibiotic coverage. The patient may need a bronchoscopy however we will wait for pulmonary recommendations. 2. Acute encephalopathy Resolved. Likely secondary to sepsis or substance abuse. Patient was counseled on substance abuse. 3. Depression Continue current medications. No suicidal ideation. Patient is ambulatory, no pharmacotherapy for DVT prophylaxis. Full code. SCDs. Code Status: Full code. Discussed Condition With: Patient and her Mother in the room, also nurse Miss Emerson. Discharge Planning: expected by tomorrow.
[2018-04-16] MEDS: Sertraline 50 MG Tablet PO SCH (09:12)
[2018-04-16] MEDS: Metoclopramide 10 MG Tablet PO SCH ×4 (09:12→22:23)
--- NOTE | 2018-04-16 13:38 | XR ---
EXAM DATE: 04/16/2018 12:00 AM EDT AGE/SEX: 22 years / Female INDICATIONS: . Chest pains. CLINICAL DATA: This is the patient's subsequent encounter. Patient reports that signs and symptoms h ave been present for 3 days and indicates a pain score of 4/10. MEDICAL/SURGICAL HISTORY: None. None. COMPARISON: [facility] – [place], CHEST 1V SINGLE AP, 04/11/2018. . FINDINGS: AP and lateral views of the chest demonstrate patchy densities left lower lobe. Right lung clear. Hea rt normal in size. The cardiomediastinal contours are unremarkable. Osseous structures are intact. CONCLUSION: Patchy pneumonia left lower lobe. Electronically signed by: Miguel Alfaro MD 04/16/2018 1:37 PM EDT
[2018-04-16] MEDS: metroNIDAZOLE 500 MG Tablet PO SCH ×2 (17:19→22:23)
[2018-04-16] MEDS: Mirtazapine 15 MG Tablet PO SCH (22:23)
[2018-04-17] MEDS: Sod Chloride 0.9% Inj 1,000 ML IV.CONT SCH ×4 (01:45→21:51)
[2018-04-17] MEDS ORDERED: Pharmacy Ordered Lab Info OTHER ONE (04:45)
[2018-04-17] MEDS: Vancomycin Inj 750 MG in Sodium Chlor 0.9% Inj 250 ML IV.SIG SCH ×2 (05:10→13:41)
[2018-04-17] MEDS: metroNIDAZOLE 500 MG Tablet PO SCH ×2 (05:10→15:35)
--- NOTE | 2018-04-17 08:44 | P.PNOB ---
Progress Note: A/P (1) Incontinence in female Status: Acute Code(s): R32 - Unspecified urinary incontinence Current Visit : Yes (2) Abdominal pain Status: Acute Code(s): R10.9 - Unspecified abdominal pain Current Visit: Yes (3) Depression with anxiety Status: Acute Code(s): F41.8 - Other specified anxiety disorders Current Visit: No (4) Acute adjustment disorder Status: Acute Code(s): F43.20 - Adjustment disorder, unspecified Current Visit: No (5) Mood disorder Status: Acute Code(s): F39 - Unspecified mood [affective] disorder Current Visit: No (6) History of recent stressful life event Status: Acute Code(s): Z86.59 - Personal history of other mental and behavioral disorders Current Visit: No - Time Spent With Patient Total time spent is greater than 50% in coordination of care (as documented) at patient's floor/unit and/or counseling patient: 25 - 35 minutes Subjective Interval history: Please read notes from last week for context. Ii last saw Heaven Monday morning in [facility]. She was still obtunded and complaining of abdominal pain and SOB. CXR suggested consolidation. Incontinence was resolving. No evidence of post complication other than ileus. Drain removed. Profound depression compounded by days unattended in apartment with no food, water until found by grandmother soaked in urine. Brought to ED at that point. Subutex resumed. Psych meds resumed. Since transfer to , pneumonia diagnosed and being treated. Given reglan regularly and in conjunction with SSRI, buprenorphine--she developed torticollus and oculogyric crisis last night. Ordered benadryl and cogentin, after her mother called me on my cell. Heaven convinced reaction was due to rocephin but unlikely. Reglan to be discontinued This am, she is alert, oriented and engaged--greatly improved from pyschomotor retardation of last week. Reviewed needs pneumonia adequately treated. Needs to be on buprenorphine, zoloft and klonipin but avoid other dopaminergic and serotonin affecting meds at this time. Upon discharge I will follow for post op IUD extraction and salpingectomy, along with MAT. Can be reached at [phone]. Will have Juan Luis see her today in hospital. Needs intensive case management to intervene on her behave and behave of four children in the apartment with little oversight or continuity of care. Physical Exam Vital signs: Temp Pulse Resp BP Pulse Ox 98.3 F 67 16 99/49 L 95 04/17/18 08:00 04/17/18 08:00 04/17/18 08:00 04/17/18 08:00 04/17/18 08:00 Results - Labs CBC & Chem 7: 04/16/18 05:32 04/16/18 05:32 Labs: Laboratory Results - last 24 hr 04/17/18 05:00 Vancomycin Trough 12.3 H - Imaging Impressions Chest X-Ray 04/16/18 00:00 CONCLUSION: Patchy pneumonia left lower lobe.
[2018-04-17] MEDS ORDERED: levoFLOXacin 750 MG Tablet PO SCH (09:00)
[2018-04-17] MEDS: Sertraline 50 MG Tablet PO SCH (10:43)
--- NOTE | 2018-04-17 16:34 | P.PN ---
Subjective Interval history: This is a pleasant 22 y/o Female with history of Polysubstance abuse, status post IUD retrieval found after perforated the Uterus and found extrauterine had bilateral Salpingectomy 10 days before admission, who came to ER with AMS, increased weakness and Urinary Incontinence Also treated for Pneumonia. 04/16: Seen in her bedroom stable no new issues, no nausea, vomit or diarrhea, discussed with Doctor Retana ID specialist she will follow her another 24 hours and give recommendations probable discharge in am tomorrow. 04/17: The patient was discussed early in am with Ops Analyst specialist doctor Margarita Velazquez, the patient developed Dystonic symptoms during the night probable related to Reglan was discontinued, she has no complaint on my evaluation and is ready for discharge, discussed with ID specialist doctor Retana asked for discharge now but the on by mouth antibiotics, clindamycin 600 mg by mouth QID for one week, for aspiration coverage Pneumonia and CXR in one week follow up with doctor Emerson Stanton. already doctor Retana discussed with Doctor Velazquez but today won't Be possible due to that she will need a Walker and will not be possible to give it to the patient at this time. Physical Exam Vital signs: Vital Signs 04/16/18 19:53 04/16/18 20:00 04/17/18 00:15 Temperature 98.2 F 98.2 F Pulse Rate 59 L 61 65 Respiratory Rate 22 16 16 Blood Pressure 98/53 L 104/53 L Pulse Oximetry 96 95 04/17/18 08:00 04/17/18 08:36 04/17/18 12:00 Temperature 98.3 F 98.4 F Pulse Rate 67 67 67 Respiratory Rate 16 18 16 Blood Pressure 99/49 L 100/51 L Pulse Oximetry 95 97 96 04/17/18 13:47 Temperature Pulse Rate 69 Respiratory Rate 18 Blood Pressure Pulse Oximetry Intake & Output 04/16/18 04/17/18 04/17/18 18:59 06:59 18:59 Intake Total 770 / 770 1827.5 / 1827.5 Balance 770 / 770 1827.5 / 1827.5 Weight 52 kg Intake: IV 150 / 150 1827.5 / 1827.5 NS Inj 1,000 ML @ 100 mls/hr IV 1000 / 1000 .CONT .Q10H [facility] Rx#:[id number] Levaquin 750 mg Premix Inj 150 150 / 150 ML @ 100 mls/hr IV.SIG Q24H [facility] Rx#:[id number] Vancomycin Inj 750 MG In NS Inj 772.5 / 772.5 250 ML @ 250 mls/hr IV.SIG Q8H [facility] Rx#:[id number] Rocephin Inj 2,000 MG In NS Inj 55 / 55 100 ML @ 200 mls/hr IV.SIG Q24H [facility] Rx#:[id number] Oral 620 / 620 Other: # Voids 2 2 Date of Last Bowel Movement 04/16/18 # Bowel Movements 0 Narrative: GENERAL: This is a well-nourished, well-developed patient, in no apparent distress. CARDIOVASCULAR: Regular rate and rhythm without murmurs, gallops, or rubs. RESPIRATORY: Clear to auscultation. Breath sounds equal bilaterally. No wheezes , rales, or rhonchi. GASTROINTESTINAL: Abdomen soft, non-tender, nondistended. Normal active bowel sounds MUSCULOSKELETAL: Extremities without clubbing, cyanosis, or edema. NEURO: Alert & Oriented x4 to person, place, time, situation. Moves all ext x4 Results - Labs CBC & Chem 7: 04/16/18 05:32 04/16/18 05:32 Laboratory Results - last 24 hr 04/17/18 05:00 Vancomycin Trough 12.3 H Assessment and Plan - Plan Ms. 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 Patient was also being treated for pneumonia. 1. Sepsis secondary to bilateral pneumonia Patient had 2 fevers since yesterday. Sputum culture is pending Initially the patient had an elevated WBC count and was having low-grade fevers. WBC count downtrending. Chest imaging shows left and right hilar masses and/or lymphadenopathy. There is also near complete collapse of the left lower lobe as well as a focal dense consolidation in the right lower lobe. Infectious disease has been consulted. I will also get a pulmonary consult. Blood cultures are negative 04/17: The patient was discussed early in am with Ops Analyst specialist doctor Margarita Velazquez, the patient developed Dystonic symptoms during the night probable related to Reglan was discontinued, she has no complaint on my evaluation and is ready for discharge, discussed with ID specialist doctor Retana asked for discharge now but the on by mouth antibiotics, clindamycin 600 mg by mouth QID for one week, for aspiration coverage Pneumonia and CXR in one week follow up with doctor Emerson Stanton. already doctor Retana discussed with Doctor Velazquez but today won't Be possible due to that she will need a Walker and will not be possible to give it to the patient at this time. 2. Acute encephalopathy Resolved. Likely secondary to sepsis or substance abuse. Patient was counseled on substance abuse. 3. Depression Continue current medications. No suicidal ideation. 4. Dystonic symptoms probable related to Reglan discontinued. Needs rolling walker for discharge in am tomorrow. Patient is ambulatory, no pharmacotherapy for DVT prophylaxis. Full code. SCDs. Code Status: Full code. Discussed Condition With: Patient, his Mother and sister and nurse Miss Emerson. Discharge Planning: discharge Home once lining caser able to give her the Rolling walker.
[2018-04-17 16:36] VITALS: RESP 16
--- NOTE | 2018-04-17 17:21 | P.PNID ---
Subjective Remarks: pt feels much better coug improved Pt grew strep from the sputum cl Antibiotics: flagyl CFTX vancomycin Allergies/Adverse Reactions: Allergies Penicillins Allergy (Unknown, Verified 04/11/18 15:59) UNKNOWN A CHILD. DOES NOT REMEBER WHAT REACTION Objective Vital Signs 04/16/18 19:53 04/16/18 20:00 04/17/18 00:15 Temperature 98.2 F 98.2 F Pulse Rate 59 L 61 65 Respiratory Rate 22 16 16 Blood Pressure 98/53 L 104/53 L Pulse Oximetry 96 95 04/17/18 08:00 04/17/18 08:36 04/17/18 12:00 Temperature 98.3 F 98.4 F Pulse Rate 67 67 67 Respiratory Rate 16 18 16 Blood Pressure 99/49 L 100/51 L Pulse Oximetry 95 97 96 04/17/18 13:47 04/17/18 16:00 Temperature 98.6 F Pulse Rate 69 69 Respiratory Rate 18 16 Blood Pressure 103/56 L Pulse Oximetry 96 Intake & Output 04/16/18 04/17/18 04/17/18 18:59 06:59 18:59 Intake Total 770 / 770 1827.5 / 1827.5 257.5 / 257.5 Balance 770 / 770 1827.5 / 1827.5 257.5 / 257.5 Weight 52 kg Intake: IV 150 / 150 1827.5 / 1827.5 257.5 / 257.5 NS Inj 1,000 ML @ 100 mls/hr IV 1000 / 1000 .CONT .Q10H [facility] Rx#:[id number] Levaquin 750 mg Premix Inj 150 150 / 150 ML @ 100 mls/hr IV.SIG Q24H [facility] Rx#:[id number] Vancomycin Inj 750 MG In NS Inj 772.5 / 772.5 257.5 / 257.5 250 ML @ 250 mls/hr IV.SIG Q8H [facility] Rx#:[id number] Rocephin Inj 2,000 MG In NS Inj 55 / 55 100 ML @ 200 mls/hr IV.SIG Q24H [facility] Rx#:[id number] Oral 620 / 620 Other: # Voids 2 2 Date of Last Bowel Movement 04/16/18 # Bowel Movements 0 04/14/18 22:06 Sputum - Oral Tracheal Aspirate Gram Stain - Final 04/14/18 22:06 Sputum - Oral Tracheal Aspirate Sputum Culture - Final Beta Strep not group A 04/11/18 12:50 Blood - Peripheral Aerobic Blood Culture - Final No growth in 5 days 04/11/18 12:50 Blood - Peripheral Anaerobic Blood Culture - Final No growth in 5 days 04/11/18 13:05 Blood - Peripheral Aerobic Blood Culture - Final No growth in 5 days 04/11/18 13:05 Blood - Peripheral Anaerobic Blood Culture - Final No growth in 5 days Lab - Hematology Results 04/16/18 05:32 WBC 10.7 RBC 3.41 L Hgb 10.5 L Hct 30.7 L MCV 90.1 MCH 30.7 MCHC 34.1 RDW 14.3 Plt Count 314 MPV 7.7 Neut % (Auto) 65.0 Lymph % (Auto) 22.9 [place] % (Auto) 8.2 H Eos % (Auto) 3.5 Baso % (Auto) 0.4 Neut # (Auto) 7.0 Lymph # (Auto) 2.5 [place] # (Auto) 0.9 Eos # (Auto) 0.4 Baso # (Auto) 0.0 WBC Differential . Differential Comment Auto diff final Lab - Chemistry Results 04/16/18 05:32 Sodium 143 Potassium 4.2 Chloride 109 H Carbon Dioxide 26.0 Anion Gap 8 BUN 8 Creatinine 0.48 L Estimated GFR Greater than 89 Random Glucose 83 Calcium 8.6 Magnesium 1.9 Imaging: ITS Impressions Abdomen/Pelvis CT 04/11/18 18:08 CONCLUSION: 1. Colonic ileus. Nonobstructive pattern. 2. No abscess or free air within the abdomen or pelvis. A few small bubbles of gas are seen in the abdominal wall of the right lower quadrant and periumbilical region without fluid collection. 3. Focal consolidation with apparent cavitary change of the visualized right lung lower lobe. This is presumably infectious or inflammatory. 4. Questionable gallbladder wall thickening and pericholecystic fluid. No stones or ductal dilatation demonstrated. Head CT 04/11/18 18:08 CONCLUSION: 1. No intracranial abnormality is demonstrated. 2. Paranasal sinusitis as described. Also apparent right mastoiditis. . Chest CT 04/13/18 00:00 CONCLUSION: 1. Left greater than right hilar masses and/or lymphadenopathy suspected. 2. Associated near-complete collapse of the left lower lobe. Focal dense consolidation of the right lower lobe. Chest X-Ray 04/16/18 00:00 CONCLUSION: Patchy pneumonia left lower lobe. Physical Exam: GENERAL: NAD, thin SKIN: Warm and dry. HEAD: Atraumatic. Normocephalic. EYES: Pupils equal and round. No scleral icterus. No injection or drainage. ENT: No nasal bleeding or discharge. Mucous membranes pink and moist. NECK: Trachea midline. No JVD. CARDIOVASCULAR: Regular rate and rhythm. RESPIRATORY: No accessory muscle use. Clear to auscultation. Breath sounds equal bilaterally. GASTROINTESTINAL: Abdomen soft, non-tender, nondistended. MUSCULOSKELETAL: Extremities without clubbing, cyanosis, or edema. NEUROLOGICAL: Awake and alert. No obvious cranial nerve deficits. Motor grossly within normal limits. Five out of 5 muscle strength in the arms and legs. Normal speech. PSYCHIATRIC: calm, cooperative, pleasant Assessment and Plan - Plan PNA, community acquired No cavitation - dw radiologist Dr Thao PCN allergy- unknown type. Neither pt nor her grandmother recall type of reaction dc IV abx OK to dc home for 1 more week of oral abx (clindamycin 600 PO qid) for aspiration PNA coverage F/u CXR in 1 week F/U with Dr Jona Hartmann
--- NOTE | 2018-04-17 17:55 | MD ---
cc: Robbie Stanton MD DATE OF DISCHARGE: 04/18/2018 Ms. Alvarez is a 22-year-old white female who presented with urinary incontinence, confusion, had a recent D and C, requiring transfusion and also recovery and removal of an IUD that had become displaced. On presentation, although her chest x-ray was negative, she had an abdominal CT scan for her abdominal problems and was noted to have bilateral lower lobe infiltrates. CT scan of the chest was done, which revealed hilar adenopathy with a left lower lobe infiltrate and a patchy right lower lobe infiltrate. The patient has a history of polysubstance abuse and on presentation had benzodiazepines and amphetamines in her urine. She admitted to smoking tobacco and marijuana, said that may have been where the amphetamine came from. In any event, I started her on IV Levaquin and Flagyl for suspected pneumonia, possibly aspiration since she had been lying down and debilitated for at least a week prior to admission and also smoked. From a pulmonary standpoint, she has done very well. A followup chest x-ray yesterday revealed a residual left lower lobe infiltrate, but was certainly no worse. Clinically, she has done much better. She has been afebrile. On room air saturation, consistently in the mid to upper 90s and normal respirations. Chest exam today is clear. Blood cultures were negative. Sputum final report does reveal beta strep not group A. Also, heavy growth of normal tahira. I have reviewed the situation with the patient, her mother and her grandmother, all of whom have been present in the room and I suspect she did in fact have pneumonia and is responding to the current antibiotics. I switched her yesterday to oral Levaquin and Flagyl and I would suggest she continue that for another week. In light of the abnormal adenopathy, in 1 month I have explained to her that I would like to see her back in the office with a followup scan to ensure that this is cleared. If not, further diagnostic intervention may be warranted. Also, if she were to have recurrence of fever, cough and congestion after discharge from the hospital, she should return to the hospital for further evaluation at that time. I also explained to her that smoking tobacco or marijuana, or any other illicit drug would likely cause a relapse and worsening of her problem. She expresses a commitment to not doing this. I will see her back in the office in 1 month. Again, she will return to the emergency room if symptoms recur prior to that. ADDENDUM At the time did not have the comments of Dr. Retana. Yesterday, based on the sputum culture report, she began patient on Rocephin. I will defer antibiotic choice to her for discharge as she may want her on a cephalosporin for this beta strep. R. Emerson Stanton MD RSW/sb/ll , 02:48 PM , 02:57 PM
--- NOTE | 2018-04-17 18:13 | P.DS ---
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 The patient's grandmother called EMS today after noticing that the patient was unable to get out of bed or walk and urinated on herself. The patient is alert and oriented x4. She complains of incisional pain. Denies fever/chills. States it hurts to move her legs however she is able to do so with significant effort. No chest pain or shortness of breath. No nausea/vomiting/diarrhea. DS: Medications - Discharge Medications Prescriptions: buprenorphine-naloxone [Suboxone] 3 film BUCCAL DAILY #90 each MDD 24 clonazepam [Klonopin] 0.5 mg PO Q8HR #90 tab MDD 2 mirtazapine 15 mg PO HS #30 tab sertraline [Zoloft] 100 mg PO DAILY 30 Days #30 mg DS: Summary Hospital Course: This is a pleasant 22 y/o Female with history of Polysubstance abuse, status post IUD retrieval found after perforated the Uterus and found extrauterine had bilateral Salpingectomy 10 days before admission, who came to ER with AMS, increased weakness and Urinary Incontinence Also treated for Pneumonia. 04/16: Seen in her bedroom stable no new issues, no nausea, vomit or diarrhea, discussed with Doctor Retana ID specialist she will follow her another 24 hours and give recommendations probable discharge in am tomorrow. 04/17: The patient was discussed early in am with Manager Strategic Marketing specialist doctor Margarita Velazquez, the patient developed Dystonic symptoms during the night probable related to Reglan was discontinued, she has no complaint on my evaluation and is ready for discharge, discussed with ID specialist doctor Retana asked for discharge now but the on by mouth antibiotics, clindamycin 600 mg by mouth QID for one week, for aspiration coverage Pneumonia and CXR in one week follow up with doctor Emerson Stanton. already doctor Retana discussed with Doctor Velazquez but today won't Be possible due to that she will need a Walker and will not be possible to give it to the patient at this time. Physical Exam Vital signs: Vital Signs 04/16/18 19:53 04/16/18 20:00 04/17/18 00:15 Temperature 98.2 F 98.2 F Pulse Rate 59 L 61 65 Respiratory Rate 22 16 16 Blood Pressure 98/53 L 104/53 L Pulse Oximetry 96 95 04/17/18 08:00 04/17/18 08:36 04/17/18 12:00 Temperature 98.3 F 98.4 F Pulse Rate 67 67 67 Respiratory Rate 16 18 16 Blood Pressure 99/49 L 100/51 L Pulse Oximetry 95 97 96 04/17/18 13:47 Temperature Pulse Rate 69 Respiratory Rate 18 Blood Pressure Pulse Oximetry Intake & Output 04/16/18 04/17/18 04/17/18 18:59 06:59 18:59 Intake Total 770 / 770 1827.5 / 1827.5 Balance 770 / 770 1827.5 / 1827.5 Weight 52 kg Intake: IV 150 / 150 1827.5 / 1827.5 NS Inj 1,000 ML @ 100 mls/hr IV 1000 / 1000 .CONT .Q10H JACQUELINE Rx#:[id number] Levaquin 750 mg Premix Inj 150 150 / 150 ML @ 100 mls/hr IV.SIG Q24H JACQUELINE Rx#:[id number] Vancomycin Inj 750 MG In NS Inj 772.5 / 772.5 250 ML @ 250 mls/hr IV.SIG Q8H JACQUELINE Rx#:[id number] Rocephin Inj 2,000 MG In NS Inj 55 / 55 100 ML @ 200 mls/hr IV.SIG Q24H JACQUELINE Rx#:[id number] Oral 620 / 620 Other: # Voids 2 2 Date of Last Bowel Movement 04/16/18 # Bowel Movements 0 Results - Labs CBC & Chem 7: 04/16/18 05:32 04/16/18 05:32 Laboratory Results - last 24 hr 04/17/18 05:00 Vancomycin Trough 12.3 H Assessment and Plan - Plan Ms. 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 Patient was also being treated for pneumonia. 1. Sepsis secondary to bilateral pneumonia Patient had 2 fevers since yesterday. Sputum culture is pending Initially the patient had an elevated WBC count and was having low-grade fevers. WBC count downtrending. Chest imaging shows left and right hilar masses and/or lymphadenopathy. There is also near complete collapse of the left lower lobe as well as a focal dense consolidation in the right lower lobe. Infectious disease has been consulted. I will also get a pulmonary consult. Blood cultures are negative 04/17: The patient was discussed early in am with Manager Strategic [employer] specialist doctor Margarita Velazquez, the patient developed Dystonic symptoms during the night probable related to Reglan was discontinued, she has no complaint on my evaluation and is ready for discharge, discussed with ID specialist doctor Lainey asked for discharge now but the on by mouth antibiotics, clindamycin 600 mg by mouth QID for one week, for aspiration coverage Pneumonia and CXR in one week follow up with doctor Emerson Stanton. already doctor Retana discussed with Doctor Velazquez but today won't Be possible due to that she will need a Walker and will not be possible to give it to the patient at this time. 2. Acute encephalopathy Resolved. Likely secondary to sepsis or substance abuse. Patient was counseled on substance abuse. 3. Depression Continue current medications. No suicidal ideation. 4. Dystonic symptoms probable related to Reglan discontinued. Needs rolling walker for discharge in am tomorrow. Patient is ambulatory, no pharmacotherapy for DVT prophylaxis. Full code. SCDs. Code Status: Full code. Discussed Condition With: Patient, his Mother and sister and nurse Miss Emerson. Discharge Planning: discharge Home once manager of case able to give her the Rolling walker. - Time Spent with Patient Total time spent providing and/or coordinating discharge services: Greater than 30 minutes - Quality: VTE Deep Vein Thrombosis/Pulmonary Embolism Present on Admission: No Exam Vital signs: Vital Signs 04/16/18 19:53 04/16/18 20:00 04/17/18 00:15 Temperature 98.2 F 98.2 F Pulse Rate 59 L 61 65 Respiratory Rate 22 16 16 Blood Pressure 98/53 L 104/53 L Pulse Oximetry 96 95 04/17/18 08:00 04/17/18 08:36 04/17/18 12:00 Temperature 98.3 F 98.4 F Pulse Rate 67 67 67 Respiratory Rate 16 18 16 Blood Pressure 99/49 L 100/51 L Pulse Oximetry 95 97 96 04/17/18 13:47 04/17/18 16:00 Temperature 98.6 F Pulse Rate 69 69 Respiratory Rate 18 16 Blood Pressure 103/56 L Pulse Oximetry 96 Intake & Output 04/16/18 04/17/18 04/17/18 18:59 06:59 18:59 Intake Total 770 / 770 1827.5 / 1827.5 257.5 / 257.5 Balance 770 / 770 1827.5 / 1827.5 257.5 / 257.5 Weight 52 kg Intake: IV 150 / 150 1827.5 / 1827.5 257.5 / 257.5 NS Inj 1,000 ML @ 100 mls/hr IV 1000 / 1000 .CONT .Q10H JACQUELINE Rx#:[id number] Levaquin 750 mg Premix Inj 150 150 / 150 ML @ 100 mls/hr IV.SIG Q24H JACQUELINE Rx#:[id number] Vancomycin Inj 750 MG In NS Inj 772.5 / 772.5 257.5 / 257.5 250 ML @ 250 mls/hr IV.SIG Q8H JACQUELINE Rx#:[id number] Rocephin Inj 2,000 MG In NS Inj 55 / 55 100 ML @ 200 mls/hr IV.SIG Q24H JACQUELINE Rx#:[id number] Oral 620 / 620 Other: # Voids 2 2 Date of Last Bowel Movement 04/16/18 # Bowel Movements 0 Narrative: GENERAL: This is a well-nourished, well-developed patient, in no apparent distress. CARDIOVASCULAR: Regular rate and rhythm without murmurs, gallops, or rubs. RESPIRATORY: Clear to auscultation. Breath sounds equal bilaterally. No wheezes , rales, or rhonchi. GASTROINTESTINAL: Abdomen soft, non-tender, nondistended. Normal active bowel sounds MUSCULOSKELETAL: Extremities without clubbing, cyanosis, or edema. NEURO: Alert & Oriented x4 to person, place, time, situation. Moves all ext x4 Results Procedures completed during hospitalization: None Labs on day of discharge: Labs from last 24 hours 04/17/18 05:00 Vancomycin Trough 12.3 H - Impressions ITS Impressions Abdomen/Pelvis CT 04/11/18 18:08 CONCLUSION: 1. Colonic ileus. Nonobstructive pattern. 2. No abscess or free air within the abdomen or pelvis. A few small bubbles of gas are seen in the abdominal wall of the right lower quadrant and periumbilical region without fluid collection. 3. Focal consolidation with apparent cavitary change of the visualized right lung lower lobe. This is presumably infectious or inflammatory. 4. Questionable gallbladder wall thickening and pericholecystic fluid. No stones or ductal dilatation demonstrated. Head CT 04/11/18 18:08 CONCLUSION: 1. No intracranial abnormality is demonstrated. 2. Paranasal sinusitis as described. Also apparent right mastoiditis. . Chest CT 04/13/18 00:00 CONCLUSION: 1. Left greater than right hilar masses and/or lymphadenopathy suspected. 2. Associated near-complete collapse of the left lower lobe. Focal dense consolidation of the right lower lobe. Chest X-Ray 04/16/18 00:00 CONCLUSION: Patchy pneumonia left lower lobe. Discharge Plan - Discharge Disposition Patient Disposition: Discharge Home - Discharge Condition Condition: Stable - Discharge Order Discharge Orders: Discharge Order (Routine); Ordered 04/17/18 Ordered By: Roc Chambers - Discharge Details Anticipated Discharge Date: 04/18/18 Discharge Comment: Follow up with Doctor Emerson Stanton in one week - Physicians Team Primary Care Provider: UNKNOWN, Attending Provider: Roc Chambers Other Providers: [employer]urance ; Margarita Velazquez MD ; Albert Fontenot MD ; Emerson Stanton MD ; Ana Retana MD
[2018-04-17] MEDS: Metoclopramide 10 MG Tablet PO SCH (18:40)
[2018-04-17] MEDS: Mirtazapine 15 MG Tablet PO SCH (21:42)
[2018-04-18 01:07] VITALS: O2SAT 95
[2018-04-18] MEDS: Sod Chloride 0.9% Inj 1,000 ML IV.CONT SCH (06:07)
[2018-04-18 08:13] VITALS: PULSE 72
[2018-04-18 08:17] LABS: Glomerular Filtration Rate Greater Than 89 mL/min (>89)
[2018-04-18] MEDS: Sertraline 50 MG Tablet PO SCH (08:42)
[2018-04-18 09:23] VITALS: BP 131/77; TEMP 98.7
[2018-04-19] MEDS ORDERED: Pharmacy Ordered Lab Info OTHER ONE (04:45)
== END 2018-04-18 10:07 | disposition home or self-care (01) ==
LOC: NEPE 12:07 → NEDA 12:07 → NEPGCP 21:42 → N07 04-13 11:29 → MERGE 04-16 12:18
PROVIDERS: ADMIT Internal Medicine; ATTEND Internal Medicine